=== PATIENT | female | born 1935 | race Caucasian/White ===

== ENCOUNTER 2019-06-24 10:34 | Emergency (ER) | payer MEDICARE, OTHER ==
[~2019-06-24] VITALS: Ht 160 cm; Wt 54.4 kg
--- OUTSIDE RECORDS SUMMARY | ~2019-06-24 | XMS | Encounter Summary ---
Demographics + + + | Address | [address] | | | [place] [address] | + + + | Home Phone | | + + + | Preferred Language | Unknown | + + + | Marital Status | | + + + | Adventism Affiliation | 1077 | + + + | Race | Unknown | + + + | Ethnic Group | Unknown | + + + Author + + + | Author | [facility] | | | and [place] | + + + | Organization | [facility] | | | and [place] | + + + | Address | Unknown | + + + | Phone | Unavailable | + + + Care Team Providers + +------+ + | Care Head Custodian Name | Role | Phone | + +------+ + PCP | Unavailable | + +------+ + Encounter Details +--------+ + + + + | Date | Type | Department | Care Team | Description | +--------+ + + + + | 12/01/ | Emergency | [facility] | Trace, | Closed nondisplaced | | 2017 | | [facility] | DO [address] | fracture of sixth | | | | EM[facility] | [address] | cervical vertebra, | | | | [address] | [place] [address] | unspecified fracture | | | | [place], [place] | [phone] | morphology, initial | | | | [address] | | encounter ([facility]); | | | | [phone] | | Laceration of | | | | | | forehead, initial | | | | | | encounter; Closed | | | | | | fracture of left | | | | | | wrist, initial | | | | | | encounter | +--------+ + + + + Social History + +-------+ +--------+------+ | Tobacco Use | Types | Packs/Day | Years | Date | | | | | Used | | + +-------+ +--------+------+ | Never Assessed | | | | | + +-------+ +--------+------+ + + + | Sex Assigned at | Date Recorded | | | | + + + | Not on file | | + + + + + + + | Job Start Date | Occupation | Industry | + + + + | Not on file | Not on file | Not on file | + + + + + + + + | Travel History | Travel Start | Travel End | + + + + + + | No recent travel history available. | + + documented as of this encounter Last Filed Vital Signs + + + + + | Vital Sign | Reading | Time Taken | Comments | + + + + + | Blood Pressure | 170/84 | 12/01/2017 6:27 PM | | | | | PDT | | + + + + + | Pulse | 94 | 12/01/2017 6:27 PM | | | | | PDT | | + + + + + | Temperature | 37.1 C (98.8 F) | 12/01/2017 6:27 PM | | | | | PDT | | + + + + + | Respiratory Rate | 17 | 12/01/2017 6:27 PM | | | | | PDT | | + + + + + | Oxygen Saturation | - | - | | + + + + + | Inhaled Oxygen | - | - | | | Concentration | | | | + + + + + | Weight | 54.4 kg (120 lb) | 12/01/2017 6:27 PM | | | | | PDT | | + + + + + | Height | 160 cm (5' 3") | 12/01/2017 6:27 PM | | | | | PDT | | + + + + + | Body Mass Index | 21.26 | 12/01/2017 6:27 PM | | | | | PDT | | + + + + + documented in this encounter Medications at Time of Discharge + + + +---------+ + + | Medication | Sig | Dispensed | Refills | Start | End Date | | | | | | Date | | + + + +---------+ + + | ascorbic acid | Take 1,000 mg by | | 0 | 12/02/19 | | | (VITAMIN C) 1000 MG | mouth daily. | | | 18 | | | tablet | | | | | | + + + +---------+ + + | docusate sodium | Take 100 mg by mouth | | 0 | 12/02/19 | | | (COLACE) 100 mg | daily. | | | 18 | | | capsule | | | | | | + + + +---------+ + + | Multiple | Take 1 tablet by | | 0 | 12/02/19 | | | Vitamins-Minerals | mouth daily. | | | 18 | | | (MULTIPLE VITAMINS | | | | | | | W/MINERALS) TABS | | | | | | + + + +---------+ + + | tocopherol | Take 400 Units by | | 0 | 12/02/19 | | | (VITAMIN E) 400 | mouth daily. | | | 18 | | | units capsule | | | | | | + + + +---------+ + + | VITAMIN A EX | Apply topically. | | 0 | 12/02/19 | | | | | | | 18 | | + + + +---------+ + + documented as of this encounter Plan of Treatment Not on filedocumented as of this encounter Procedures + +--------+ + + + | Procedure Name | Priori | Date/Time | Associated Diagnosis | Comments | | | ty | | | | + +--------+ + + + | MRI CERVICAL SPINE | Routin | 12/01/2017 | | Results for this | | WO CONTRAST | e | 4:52 PM | | procedure are in the | | | | PDT | | results section. | + +--------+ + + + | XR WRIST LEFT 3 + VW | Routin | 12/01/2017 | | Results for this | | | e | 3:17 PM | | procedure are in the | | | | PDT | | results section. | + +--------+ + + + documented in this encounter Results MRI Cervical Spine wo Contrast (12/01/2017 4:52 PM PDT) + + | Specimen | + + | | + + + + + | Impressions | Performed At | + + + | 1. Acute avulsion fracture noted involving the anterior inferior | | | edge of the C6 vertebral body, with associated anterior longitudinal | | | ligament injury. 2. Edema seen at the left facet joint of C6-C7 | | | laterally, which could be degenerative or may relate to an acute | | | nondisplaced fracture. 3. Moderate to severe disc degenerative | | | changes noted throughout the cervical spine. Iufa-sg-ighcomem | | | multilevel spinal canal narrowing. Severe bilateral neural foraminal | | | narrowing from C3-C4 up to C7-T1. 4. Multilevel mild indentation of | | | the spinal cord secondary to the disc degenerative changes. No | | | evidence of acute cord compression or edema seen. Electronically | | | signed by Jose Juan Mckeon MD on 12/01/2017 5:16 PM | | + + + + + + | Narrative | Performed At | + + + | [facility] 1935 MRI CERVICAL SPINE WO CONTRAST | | | 12/01/2017 4:52 PM HISTORY: Fall. Fracture. COMPARISON: CT | | | cervical spine on 12/01/2017. TECHNIQUE: Imaging was performed on | | | a 1.5 Kim MRI system. Multiplanar sequences according to a | | | standard department protocol were acquired without contrast. | | | FINDINGS: -Avulsion fracture of the anterior inferior edge of C6 | | | vertebral body seen, with anterior longitudinal ligament injury. | | | -There is edema noted at the left facet joint of C6-C7 laterally on | | | series 7, image 12. This could be degenerative, or may relate to an | | | acute nondisplaced fracture. Minimal grade 1 retrolisthesis of C3 | | | on C4, unchanged. Apart from multilevel mild indentation of the | | | spinal cord secondary to degenerative changes, the spinal cord appears | | | unremarkable. No evidence of acute cord compression or edema seen. | | | Findings by level: Moderate to severe disc degenerative changes | | | noted throughout the cervical spine. These include disc height loss, | | | disc desiccation and disc bulging. Multilevel facet arthropathy and | | | uncovertebral joint spurring seen contributing to neural foraminal | | | disease bilaterally. C2-C3: Minimal disc bulging. Mild spinal | | | canal narrowing. Mild bilateral neural foraminal narrowing. C3-C4: | | | Disc bulging. Moderate spinal canal narrowing. Severe bilateral | | | neural foraminal narrowing. C4-C5: Disc bulging. Moderate spinal | | | canal narrowing. Severe bilateral neural foraminal narrowing. | | | C5-C6: Disc bulging. Mild spinal canal narrowing. Severe bilateral | | | neural foraminal narrowing. C6-C7: Disc bulging. Mild spinal canal | | | narrowing. Severe bilateral neural foraminal narrowing. C7-T1: | | | Disc bulging. Mild spinal canal narrowing. Severe bilateral neural | | | foraminal narrowing. | | + + + + + | Procedure Note | + + | Arpit, Rad Conversion - 10/01/2018 11:45 AM ÁNGEL STEVENSING1935MRI CERVICAL | | SPINE WO GHFNETDB60/14/2018 4:52 PM HISTORY: Fall. Fracture. COMPARISON: CT cervical | | spine on 12/01/2017. TECHNIQUE:Imaging was performed on a 1.5 Kim MRI system. | | Multiplanar sequences according to a standard department protocol were acquired without | | contrast. FINDINGS:-Avulsion fracture of the anterior inferior edge of C6 vertebral body | | seen, with anterior longitudinal ligament injury.-There is edema noted at the left | | facet joint of C6-C7 laterally on series 7, image 12. This could be degenerative, or may | | relate to an acute nondisplaced fracture. Minimal grade 1 retrolisthesis of C3 on C4, | | unchanged. Apart from multilevel mild indentation of the spinal cord secondary to | | degenerative changes, the spinal cord appears unremarkable. No evidence of acute cord | | compression or edema seen. Findings by level: Moderate to severe disc degenerative | | changes noted throughout the cervical spine. These include disc height loss, disc | | desiccation and disc bulging. Multilevel facet arthropathy and uncovertebral joint | | spurring seen contributing to neural foraminal disease bilaterally. C2-C3: Minimal disc | | bulging. Mild spinal canal narrowing. Mild bilateral neural foraminal narrowing. C3-C4: | | Disc bulging. Moderate spinal canal narrowing. Severe bilateral neural foraminal | | narrowing. C4-C5: Disc bulging. Moderate spinal canal narrowing. Severe bilateral neural | | foraminal narrowing. C5-C6: Disc bulging. Mild spinal canal narrowing. Severe bilateral | | neural foraminal narrowing. C6-C7: Disc bulging. Mild spinal canal narrowing. Severe | | bilateral neural foraminal narrowing. C7-T1: Disc bulging. Mild spinal canal narrowing. | | Severe bilateral neural foraminal narrowing. IMPRESSION: 1. Acute avulsion fracture | | noted involving the anterior inferior edge of the C6 vertebral body, with associated | | anterior longitudinal ligament injury.2. Edema seen at the left facet joint of C6-C7 | | laterally, which could be degenerative or may relate to an acute nondisplaced | | fracture.3. Moderate to severe disc degenerative changes noted throughout the cervical | | spine. Gyhl-zi-utnfdrae multilevel spinal canal narrowing. Severe bilateral neural | | foraminal narrowing from C3-C4 up to C7-T1.4. Multilevel mild indentation of the spinal | | cord secondary to the disc degenerative changes. No evidence of acute cord compression | | or edema seen. | |C5-C6: Disc bulging. Mild spinal canal narrowing. Severe bilateral neural foraminal narrowi ng. | | | |C6-C7: Disc bulging. Mild spinal canal narrowing. Severe bilateral neural foraminal narrowi ng. | | | |C7-T1: Disc bulging. Mild spinal canal narrowing. Severe bilateral neural foraminal narrowi ng. | | | |IMPRESSION: | |1. Acute avulsion fracture noted involving the anterior inferior edge of the C6 vertebral body, with associated anterior longitudinal ligament injury. | |2. Edema seen at the left facet joint of C6-C7 laterally, which could be degenerative or m ay relate to an acute nondisplaced fracture. | |3. Moderate to severe disc degenerative changes noted throughout the cervical spine. Mild- to-moderate multilevel spinal canal narrowing. Severe bilateral neural foraminal narrowing f rom C3-C4 up to C7-T1. | |4. Multilevel mild indentation of the spinal cord secondary to the disc degenerative gorman es. No evidence of acute cord compression or edema seen. | | | | | + + XR Wrist Left 3 + Vw (12/01/2017 3:17 PM PDT) + + | Specimen | + + | | + + + + + | Impressions | Performed At | + + + | Findings and impression: -There is buckling deformity of the distal | | | radius seen near the metaphysis, which appears to be secondary to a | | | remote fracture, although this potentially could represent a late | | | subacute fracture. -There is osteopenia seen which diminishes | | | sensitivity. -Overall, no convincing evidence of an acute fracture | | | appreciated. -Advanced degenerative changes identified at the base of | | | the first metacarpal, and the articulation of the scaphoid with the | | | trapezium/trapezoid. | | + + + + + + | Narrative | Performed At | + + + | [facility] 1935 XR WRIST LEFT 12/01/2017 3:17 PM | | | INDICATION: Fall. COMPARISON: None. TECHNIQUE: Left wrist | | | series, 4 views | | + + + + + | Procedure Note | + + | Arpit, Rad Conversion - 10/01/2018 11:45 AM PDT [facility]1935XR WRIST | | LEFT12/01/2017 3:17 PM INDICATION: Fall. COMPARISON: None. TECHNIQUE: Left wrist series, | | 4 views IMPRESSION: Findings and impression:-There is buckling deformity of the distal | | radius seen near the metaphysis, which appears to be secondary to a remote fracture, | | although this potentially could represent a late subacute fracture.-There is osteopenia | | seen which diminishes sensitivity.-Overall, no convincing evidence of an acute fracture | | appreciated.-Advanced degenerative changes identified at the base of the first | | metacarpal, and the articulation of the scaphoid with the trapezium/trapezoid. | | | |TECHNIQUE: Left wrist series, 4 views | | | |IMPRESSION: | |Findings and impression: | |-There is buckling deformity of the distal radius seen near the metaphysis, which appears t o be secondary to a remote fracture, although this potentially could represent a late subacu te fracture. | |-There is osteopenia seen which diminishes sensitivity. | |-Overall, no convincing evidence of an acute fracture appreciated. | |-Advanced degenerative changes identified at the base of the first metacarpal, and the hipolito culation of the scaphoid with the trapezium/trapezoid. | | | | | + + documented in this encounter Visit Diagnoses + + | Diagnosis | + + | Closed nondisplaced fracture of sixth cervical vertebra, unspecified fracture | | morphology, initial encounter (HCC) | + + | Laceration of forehead, initial encounter | + + | Closed fracture of left wrist, initial encounter | + + documented in this encounter
--- OUTSIDE RECORDS SUMMARY | ~2019-06-24 | XMS | Encounter Summary ---
Demographics + + + | Address | [address] | | | [place] [address] | + + + | Home Phone | | + + + | Preferred Language | Unknown | + + + | Marital Status | | + + + | Restoration Affiliation | 1077 | + + + | Race | Unknown | + + + | Ethnic Group | Unknown | + + + Author + + + | Author | [facility] | | | and [place] | + + + | Organization | [facility] | | | and [place] | + + + | Address | Unknown | + + + | Phone | Unavailable | + + + Care Team Providers + +------+ + | Care Process Control Supervisor Name | Role | Phone | + +------+ + PCP | Unavailable | + +------+ + Encounter Details +--------+ + + + + | Date | Type | Department | Care Team | Description | +--------+ + + + + | 12/01/ | Hospital | [facility] | Conversion | Pain | | 2018 | Encounter | CONVERSION [address] | Transaction, | | | | | [address] | Provider Unknown | | | | | [place] | [phone] | | | | | [address] | | | | | | [phone] | | | +--------+ + + + + Social [...] + + documented as of this encounter Medications at Time of Discharge [...] | + +--------+ + + + | CT CERVICAL SPINE WO | Routin | 12/01/2017 | | Results for this | | CONTRAST | e | 11:47 AM | | procedure are in the | | | | PDT | | results section. | + +--------+ + + + documented in this encounter Results CT Cervical Spine wo Contrast (12/01/2017 11:47 AM PDT) + + | Specimen | + + | | + + + + + | Narrative | Performed At | + + + | This is a non-reportable procedure without a radiologist report and | | | is used for image storage only | | + + + + + | Procedure Note | + + | Maxwell Munson - 10/01/2018 11:45 AM PDT This is a non-reportable procedure | | without a radiologist report and isused for image storage only | + + documented in this encounter Visit Diagnoses + + | Diagnosis | + + | Pain Generalized pain | + + documented in this encounter"
--- OUTSIDE RECORDS SUMMARY | ~2019-06-24 | XMS | Clinical Summary ---
Demographics + + + | Address | [address] | | | [place] [address] | + + + | Home Phone | | + + + | Preferred Language | Unknown | + + + | Marital Status | | + + + | Moravian Affiliation | 1077 | + + + | Race | Unknown | + + + | Ethnic Group | Unknown | + + + Author + + + | Author | [facility] (Historical as of | | | 10-04-18) | + + + | Organization | [facility] (Historical as of | | | 10-04-18) | + + + | Address | Unknown | + + + | Phone | Unavailable | + + + Support + + +---------+ + | Name | Relationship | Address | Phone | + + +---------+ + | Kirt Roman | ECON | Unknown | | + + +---------+ + | JuvencioJeanine | ECON | Unknown | | + + +---------+ + | Jillian Orozco | ECON | Unknown | | + + +---------+ + Care Team Providers + +------+ + | Care Truck And Transport Mechanic Name | Role | Phone | + +------+ + | None, Per Pt | PP | [phone] | + +------+ + Allergies + + + + + + | Active Allergy | Reactions | Severity | Noted | Comments | | | | | Date | | + + + + + + | Meperidine | Hallucinations | Medium | 12/02/19 | | | | | | 18 | | + + + + + + Current Medications + + +-------+---------+------+------+-------+ | Prescription | Sig. | Disp. | Refills | Star | End | Statu | | | | | | t | Date | s | | | | | | Date | | | + + +-------+---------+------+------+-------+ | docusate sodium | Take 100 mg by mouth | | | | | Activ | | (DOCU SOFT) 100 MG | daily. | | | | | e | | capsule | | | | | | | + + +-------+---------+------+------+-------+ | VITAMIN A EX | Apply topically. | | | | | Activ | | | | | | | | e | + + +-------+---------+------+------+-------+ | vitamin E 400 UNIT | Take 400 Units by | | | | | Activ | | capsule | mouth daily. | | | | | e | + + +-------+---------+------+------+-------+ | ascorbic acid | Take 1,000 mg by | | | | | Activ | | (VITAMIN C) 1000 MG | mouth daily. | | | | | e | | tablet | | | | | | | + + +-------+---------+------+------+-------+ | | Take 1 tablet by | | | | | Activ | | multivitamin-mineral | mouth daily. | | | | | e | | s (OCUVITE-LUTEIN) | | | | | | | | tablet | | | | | | | + + +-------+---------+------+------+-------+ Active Problems Not on file Social History + +-------+ +--------+------+ | Tobacco [...] on file | | + + + Last Filed Vital Signs + + + + | Vital Sign | Reading | Time Taken | + + + + | Blood Pressure | 170/84 | 12/01/2017 6:27 PM PDT | + + + + | Pulse | 94 | 12/01/2017 6:27 PM PDT | + + + + | Temperature | 37.1 C (98.8 F) | 12/01/2017 5:44 PM PDT | + + + + | Respiratory Rate | 17 | 12/01/2017 6:27 PM PDT | + + + + | Oxygen Saturation | 97% | 12/01/2017 6:27 PM PDT | + + + + | Inhaled Oxygen | - | - | | Concentration | | | + + + + | Weight | 54.4 kg (120 lb) | 12/01/2017 2:32 PM PDT | + + + + | Height | 160 cm (5' 3") | 12/01/2017 2:32 PM PDT | + + + + | Body Mass Index | 21.26 | 12/01/2017 2:32 PM PDT | + + + + Plan of Treatment Not on file Results Not on filefrom Last 3 Months Insurance + +--------+ +------+-------+ + | Payer | Benefi | Subscriber | Type | Phone | Address | | | t Plan | ID | | | | | | / | | | | | | | Group | | | | | + +--------+ +------+-------+ + | MEDICARE | MEDICA | [id number] | | | [address] | | | RE | | | | [place] [id number] | | | IP-OP | | | | | + +--------+ +------+-------+ + | COMMERCIAL OTHER | GEHA | [id number] | | | | + +--------+ +------+-------+ + + +--------+ +--------+ + + | Guarantor Name | Accoun | Relation to | Date | Phone | Billing Address | | | t Type | Patient | of | | | | | | | | | | + +--------+ +--------+ + + | KERRY OROZCO | Person | Self | [birth year] | Home: | [address] | | | [place] | | 1936 | [phone] | [place] | | | rafael | | | [phone] | + +--------+ +--------+ + +
--- OUTSIDE RECORDS SUMMARY | ~2019-06-24 | XMS | Encounter Summary ---
Demographics + + + | Address | [address] | | | [place] [address] | + + + | Home Phone | | + + + | Preferred Language | Unknown | + + + | Marital Status | | + + + | Gnosticism Affiliation | 1077 | + + + | Race | Unknown | + + + | Ethnic Group | Unknown | + + + Author + + + | Author | [facility] | | | and [place] | + + + | Organization | [facility] | | | and [place] | + + + | Address | Unknown | + + + | Phone | Unavailable | + + + Care Team Providers + +------+ + | Care Electronic Gluer Name | Role | Phone | + +------+ + PCP | Unavailable | + +------+ + Encounter Details +--------+ + + + + | Date | Type | Department | Care Team | Description | +--------+ + + + + | 12/01/ | Hospital | [facility] | Conversion | Pain | | 2018 | Encounter | CONVERSION [address] | Transaction, | | | | | [address] | Provider Unknown | | | | | [place] | [phone] | | | | | [address] | | | | | | [phone] | | | +--------+ + + + [...]
--- OUTSIDE RECORDS SUMMARY | ~2019-06-24 | XMS | Clinical Summary ---
Demographics + + + | Address | [address] | | | [place] [address] | + + + | Home Phone | | + + + | Preferred Language | Unknown | + + + | Marital Status | | + + + | Baptism Affiliation | 1077 | + + + | Race | Unknown | + + + | Ethnic Group | Unknown | + + + Author + + + | Author | [facility] | | | and [place] | + + + | Organization | [facility] | | | and [place] | + + + | Address | Unknown | + + + | Phone | Unavailable | + + + Care Team Providers + +------+ + | Care Database Specialist Name | Role | Phone | + +------+ + PCP | Unavailable | + +------+ + Allergies + + + + + + | Active Allergy | Reactions | Severity | Noted | Comments | | | | | Date | | + + + + + + | Meperidine | Hallucination | Medium | // | | | | | | 18 | | + + + + + + Medications + + + +---------+------+------+-------+ | Medication | Sig | Dispensed | Refills | Star | End | Statu | | | | | | t | Date | s | | | | | | Date | | | + + + +---------+------+------+-------+ | VITAMIN A EX | Apply topically. | | 0 | 10/ | | Activ | | | | | | /20 | | e | | | | | | 18 | | | + + + +---------+------+------+-------+ | docusate sodium | Take 100 mg by mouth | | 0 | 10/1 | | Activ | | (COLACE) 100 mg | daily. | | | 4/20 | | e | | capsule | | | | 18 | | | + + + +---------+------+------+-------+ | tocopherol | Take 400 Units by | | 0 | 10/1 | | Activ | | (VITAMIN E) 400 | mouth daily. | | | 4/20 | | e | | units capsule | | | | 18 | | | + + + +---------+------+------+-------+ | ascorbic acid | Take 1,000 mg by | | 0 | 10/1 | | Activ | | (VITAMIN C) 1000 MG | mouth daily. | | | 4/20 | | e | | tablet | | | | 18 | | | + + + +---------+------+------+-------+ | Multiple | Take 1 tablet by | | 0 | 10/ | | Activ | | Vitamins-Minerals | mouth daily. | | | 06/07 | | e | | (MULTIPLE VITAMINS | | | | 18 | | | | W/MINERALS) TABS | | | | | | | + + + +---------+------+------+-------+ Active Problems Not on file Social History [...] recent travel history available. | + + Last Filed Vital Signs + [...] | | + + + + + Plan of Treatment + + + + + | Health Maintenance | Due Date | Last Done | Comments | + + + + + | Vaccine: | | | | | Dtap/Tdap/Td (1 - | 7 | | | | Tdap) | | | | + + + + + | Vaccine: Zoster (1 | | | | | of 2) | 6 | | | + + + + + | Vaccine: | | | | | Pneumococcal 65+ (1 | 1 | | | | of 2 - PCV13) | | | | + + + + + | Adult Annual | | | | | Wellness Visit | 0 | | | + + + + + | Vaccine: Influenza | | | | | (Season Ended) | 0 | | | + + + + + Results Not on filefrom Last 3 Months
--- OUTSIDE RECORDS SUMMARY | ~2019-06-24 | XMS | Clinical Summary ---
Demographics + + + | Address | [address] | | | [place] [address] | + + + | Home Phone | | + + + | Preferred Language | Unknown | + + + | Marital Status | | + + + | Congregation Affiliation | 1077 | + + + | Race | Unknown | + + + | Ethnic Group | Unknown | + + + Author + + + | Author | [facility] (Historical as of | | | 10-04-18) | + + + | Organization | [facility] (Historical as of | | | 10-04-18) [...] Team Providers + +------+ + | Care Housing Officer Name | Role | Phone | + [...] +------+-------+ + | MEDICARE | MEDICA | [id number] | | | [address] | | | RE | | | | [place] [address] | | | IP-OP | | | | | + +--------+ +------+-------+ + | COMMERCIAL OTHER | GEHA | [id number] | | | | + +--------+ +------+-------+ [...] | rafael | | | [phone] | [phone] | + +--------+ +--------+ + +
--- OUTSIDE RECORDS SUMMARY | ~2019-06-24 | XMS | Encounter Summary ---
Demographics + + + | Address | [address] | | | [place] [address] | + + + | Home Phone | | + + + | Preferred Language | Unknown | + + + | Marital Status | | + + + | Orthodoxy Affiliation | 1077 | + + + | Race | Unknown | + + + | Ethnic Group | Unknown | + + + Author + + + | Author | [facility] | | | and Fedeana | + + + | Organization | [facility] | | | and Fedeana | + + + | Address | Unknown | + + + | Phone | Unavailable | + + + Care Team Providers + +------+ + | Care Billing Clerk Name | Role | Phone | + +------+ + PCP | Unavailable | + +------+ + Encounter Details +--------+ + + + + | Date | Type | Department | Care Team | Description | +--------+ + + + + | 12/01/ | Emergency | [facility] | Trace, | Closed nondisplaced | | 2017 | | [facility] | DO [address] | fracture of sixth | | | | EMERGENCY CENTER | [address] | cervical vertebra, | | | | [address] | [place] [address] | unspecified fracture | | | | [place], [place] | [phone] | morphology, initial | | | | [phone] | | encounter ([facility]); | | | | [phone] | | Laceration of | | | [...] | changes noted throughout the cervical spine. [id number] | | | multilevel spinal canal narrowing. [...] ÁNGEL STEVENSING1935MRI CERVICAL | | SPINE WO [id number]/14/2018 4:52 PM HISTORY: Fall. Fracture. COMPARISON: CT [...] noted throughout the cervical | | spine. Loxf-eh-ghxdrezs multilevel spinal canal narrowing. Severe bilateral neural [...]
--- OUTSIDE RECORDS SUMMARY | ~2019-06-24 | XMS | Clinical Summary ---
Demographics + + + | Address | [address] | | | [place] [address] | + + + | Home Phone | | + + + | Preferred Language | Unknown | + + + | Marital Status | | + + + | Jew Affiliation | 1077 | + + + | Race | Unknown | + + + | Ethnic Group | Unknown | + + + Author + + + | Author | [facility] | | | and Fedeana | + + + | Organization | [facility] | | | and Fedeana | + + + | Address | Unknown | + + + | Phone | Unavailable | + + + Care Team Providers + +------+ + | Care Motel Operator Name | Role | Phone | [...]
--- OUTSIDE RECORDS SUMMARY | ~2019-06-24 | XMS | Encounter Summary ---
Demographics + + + | Address | [address] | | | [place] [address] | + + + | Home Phone | | + + + | Preferred Language | Unknown | + + + | Marital Status | | + + + | Lutheran Affiliation | 1077 | + + + | Race | Unknown | + + + | Ethnic Group | Unknown | + + + Author + + + | Author | [facility] | | | and Fede[place] | + + + | Organization | [facility] | | | and [place] | + + + | Address | Unknown | + + + | Phone | Unavailable | + + + Care Team Providers + +------+ + | Care Coordinator Of Online Programs Name | Role | Phone | + +------+ + PCP | Unavailable | + +------+ + Encounter Details +--------+ + + + + | Date | Type | Department | Care Team | Description | +--------+ + + + + | 12/01/ | Orders Only | [facility] | Conversion | | | 2018 | | CONVERSION DEP [address] | Transaction, | | | | | [address] | Provider Unknown | | | | | GABRIEL CROCKETT | [phone] | | | | | [address] | | | | | | [phone] | | | +--------+ + + + [...] Not on filedocumented as of this encounter Visit Diagnoses Not on filedocumented in this encounter"
--- OUTSIDE RECORDS SUMMARY | ~2019-06-24 | XMS | Encounter Summary ---
Demographics + + + | Address | [address] | | | [place] [address] | + + + | Home Phone | | + + + | Preferred Language | Unknown | + + + | Marital Status | | + + + | Restoration Affiliation | 1077 | + + + | Race | Unknown | + + + | Ethnic Group | Unknown | + + + Author + + + | Author | [facility] | | | and Fede[place] | + + + | Organization | [facility] | | | and [place] | + + + | Address | Unknown | + + + | Phone | Unavailable | + + + Care Team Providers + +------+ + | Care Resolution Expert Name | Role | Phone | + [...] | | | | GABRIEL CROCKETT | [phone] | | | | | [phone] | | | | | | [phone] | | | +--------+ + + + [...]
[~2019-06-24 10:34] MED LIST: COLACE100 MG PO; COZAAR25 MG; NORCO 5-325 TA1 EACH PO; OCUVITE TABLET1 EAC1 PO
[2019-06-24] MEDS ORDERED: MECLIZINE HCL25 MG PO (12:50)
--- NOTE | 2019-06-24 23:10 | EKG ---
[facility] [address] [place], [place] [address] Signed Normal sinus rhythm Normal ECG No previous ECGs available Confirmed by TAWANDA FONTAINE MD ([id number]) on 06/24/2019 11:10:10 PM Electronically Signed By: TAWANDA FONTAINE MD 06/24/19 2310 PATIENT NAME: CHEYENNE ADAMS Electrocardiogram DATE OF : 35 PHYSICIAN: TAWANDA FONTAINE MD REPORT #: [id number] REPORT IS CONFIDENTIAL AND NOT TO BE RELEASED WITHOUT AUTHORIZATION
== END 2019-06-24 13:00 | disposition home or self-care (01) ==
LOC: ED 10:34
DX: R42 Dizziness and giddiness (principal); I10 Essential (primary) hypertension
CPT/HCPCS: 70450; 80053; 81001; 84484; 85025; 93005; 93010; 96360; 99284-25; J7040

== ENCOUNTER 2021-04-22 12:32 | Inpatient (IN) | payer MEDICARE, OTHER ==
[~2021-04-22] VITALS: Ht 160 cm; Wt 51.2 kg
--- NOTE | ~2021-04-22 | CONS ---
[facility] [address], [place] [address] Draft DATE OF CONSULTATION: 04/22/2021 REQUESTING PHYSICIAN: Dr. Carter. PROBLEM: Diarrhea and cecal and ileal inflammatory change on CT scan. HISTORY OF PRESENT ILLNESS: This very pleasant and interactive 86-year-old white woman was admitted to the hospital by Dr. Carter, having presented to the emergency room with a longstanding and protracted diarrhea. Her diarrhea has been going on for at least 2 weeks and possibly more. She has had 2 to 4 bowel movements a day, considered dark brown and often very thin. She also has had associated abdominal pain and a feeling of her stomach "growling." She has taken no medications to temper her symptoms in any way. She thought it was "the food I was eating." She converted to a diet of only white food (white bread, etc.), but this was of no real benefit. She has had no antibiotic treatments in recent times that she recalls. She lives alone ( for over 30 years) and has no other household members that may have been concurrently ill. She denies any family history of colon cancer; she has had colonoscopies in the past locally. She knows of no family history of Crohn disease or ulcerative colitis. SOCIAL HISTORY: She is and lives alone. She does not smoke or drink alcohol. REVIEW OF SYSTEMS: She denies any shortness of breath or chest pain. She has had no hematemesis or hematuria. Her diarrhea has not been associated with rectal bleeding that she is aware of. Notably, since her admission, she has felt markedly better as regards to gurgling of the stomach and diarrhea. PHYSICAL EXAMINATION: GENERAL: Pleasant, relatively thin white woman, who does not look to be distressed at this time. VITAL SIGNS: Temperature is 98.5, pulse 80, blood pressure 149/75, O2 saturation 100% on room air. NECK: Shows no thyromegaly or cervical adenopathy. Trachea is midline. CHEST: Clear. HEART: Regular without murmur. ABDOMEN: With poor muscle tone. There is mild distention, but not much. Palpation reveals no mass. There is minimal tenderness in the right lower quadrant. EXTREMITIES: Show no clubbing, cyanosis, or edema. PATIENT NAME: CHEYENNE ADAMS CONSULTATION DATE OF : 35 REPORT #: [id number] PHYSICIAN: KARUNA HILL MD PCP: EWA SALDIVAR DO REPORT IS CONFIDENTIAL AND NOT TO BE RELEASED WITHOUT AUTHORIZATION [facility] [address], [place] [address] Draft LABORATORY STUDIES: Show white count of 6.7, hematocrit 28.9, and platelets 292,000. Her chemistry studies are normal. Calcium is 8.1. Liver enzymes are normal. Albumin 2.8, lipase 42. Urinalysis has yet to be run. Her COVID serology is negative. C difficile study is pending. Stool studies have been sent as well. ASSESSMENT: I have reviewed her imaging studies reports, lab studies, and of course examining the patient's herself. Although, there is reasonable concern for an infectious etiology to her problem. Her concurrent significant anemia, hematocrit of 28.6 is notable. Although, the problem of the cecum and ileum may well be an infectious or inflammatory cause. I maintained some concern for neoplasm. She was noted incidentally to have an intussusception of the left colon without proximal dilation and she certainly has no symptoms to correspond to such a finding. I would recommend continued evaluation with stool studies as planned and IV antibiotics as outlined by Dr. Carter, ultimately to consider colonoscopy. Her combination of medications is Flagyl and Cipro intravenously administered. She was unable to tolerate much oral intake previously, but looks as though she would now. It is uncertain at which time colonoscopy should be undertaken; at present, we will not proceed with a bowel prep at this time, but rather observe more fully her progress with IV hydration and collection of stool studies as it becomes available. MD CHAZ Childress/RIO /[id number] cc: Elissa Carter MD Copies: ELISSA CARTER MD ~ PATIENT NAME: CHEYENNE ADAMS CONSULTATION DATE OF : 35 REPORT #: [id number] PHYSICIAN: KARUNA HILL MD PCP: EWA SALDIVAR DO REPORT IS CONFIDENTIAL AND NOT TO BE RELEASED WITHOUT AUTHORIZATION
[~2021-04-22 12:32] MED LIST changes: +MECLIZINE HCL25 MG PO
--- NOTE | 2021-04-22 20:02 | NUR ---
REPORT FROM SEEMA JOINER IN E.D.
--- NOTE | 2021-04-22 21:49 | NUR ---
PT ARRIVED TO [facility] AT 2049 VIA STRETCHER AND WAS TUCKED IN TO ROOM BY GAMEPLAY PROGRAMMER WHO BROUGHT HER AND VS TAKEN. IN ROOM TO COMPLETE ADMISSION HX WITH PT. PROVIDED CARTER LIQUIDS AND ORIENTED PT TO CALL LIGHT. IV FLUIDS AND IV CIPRO INFUSING AT THIS TIME. ASSISTED PT TO RESTROOM TO VOID URINE. PT DENIES FURTHER NEEDS. CALL LIGHT IS CLOSE.
--- NOTE | 2021-04-22 22:30 | NUR ---
INTO PT ROOM FOR CONSULT. THIS RN INTO ROOM TO ASSIST IF NEEDED AND LISTEN TO 'S PLAN OF CARE FOR PT. NO NEW ORDERS FOR TONIGHT, HE PLANS TO RE-EVALUATE TOMORROW
--- NOTE | 2021-04-22 23:00 | NUR ---
ASSIST PT TO THE TOILET, SBA/INDP AND BACK TO BED
--- NOTE | 2021-04-22 23:17 | NUR ---
PT RESTING IN BED AFTER UP TO BATHROOM, LIGHTS ARE OFF IN ROOM, PT ALERT TO STAFF AT BEDSIDE. ASSESSMENT COMPLETE, WARM BLANKETS X2 PROVIDED, ABX INFUSING PER ORDER. PT RPEORTS SHE HAS NO PAIN OR NAUSEA AT THIS TIME, SHE HAS BEEN UP TO VOID FREQUESTLY NO STOOL SINCE ADMIT. PT HAS NO OTHER CONCERNS OR REQUESTS AT THIS TIME, CALL LIGHT IN REACH.
--- NOTE | 2021-04-23 04:05 | NUR ---
PT ROUNDING PT REPORTS HAVING LOW BACK PAIN, OFFERED PT TYLENOL FOR PAIN, SHE DENIED WANTING THIS AT THIS TIME, DISCUSSED WITH PT THE POSSIBILTIY OF THE BED THE CAUSE SHE SAID "WELL THAT MIGHT BE, I'LL JUST CHANGE UP MY POSITION AND SEE IF THAT HELPS" ASSISTED PT WITH REPOSITIONING BED, HEAD AND KNEE SECTIONS, SHE SAID "OK LET'S TRY THAT" WILL MONITOR FOR FURTHER NEEDS.
--- NOTE | 2021-04-23 05:09 | NUR ---
PT ADMITTED 2100 ON PROJECT INTERN, SHE ARRIVED ALERT AND ORIENTED, SHE REPORTED NO PAIN OR NAUSEA, ROUNDED FOR HIS CONSULT, NO NEW ORDERS FOR NOW, SHE HAS SLEPT INTERMITTENLY OVER SHIFT, SHE REPORTED MILD BACK PAIN, POSSIBLY FROM HOSPITAL BED AND POSITIONING, REPOSITIONED NO COMPLAINTS SINCE. SHE IS TOLERATING HER CLEAR LIQUID DIET, AWAITING STOOL TO SEND SAMPLES.
--- NOTE | 2021-04-23 06:01 | NUR ---
PT REPORTS AFTER REPOSITIONING IN BED HER BACK PAIN RESOLVED COMPLETELY, PT UP TO BATHROOM TO VOID, ALERT AND ORIENTED, STANDBY ASSIST. FRESH WATER PROVIDED. CALL LIGHT IN REACH
--- NOTE | 2021-04-23 07:51 | NUR ---
PT ASLEEP IN BED WITH EYES CLOSED. WHITE BOARD UPDATED. CALL LIGHT IN REACH. THIS DIRECTOR OF PUBLICATIONS WILL CHECK IN WITH BREAKFAST. NO FURTHER NEEDS AT THIS TIME.
--- NOTE | 2021-04-23 08:10 | NUR ---
ASSISTED PT TO RESTROOM. UNABLE TO COLLECT STOOL SHE HAD IMMODIUM IN ED AND HAS NOT GONE SINCE. STATES SHE IS FEELING MUCH BETTER NOW, WITH NO PAIN. OFFERED JUICE FOR BREAKFAST.
--- NOTE | 2021-04-23 09:05 | NUR ---
PT AWAKE IN BED WITH RHYS HARPER AT BEDSIDE. CALL LIGHT IN REACH. NO FURTHER NEEDS AT THIS TIME.
[2021-04-23] MEDS ORDERED: D3-200050 MCG PO (09:16)
[2021-04-23] MEDS ORDERED: CALCIUM 600 MG1 EA11 PO (09:17)
[2021-04-23] MEDS ORDERED: VITAMIN B-12500 MCG PO (09:17)
[2021-04-23] MEDS ORDERED: VITAMIN C1000 MG PO (09:18)
--- NOTE | 2021-04-23 09:45 | NUR ---
ADMINISTERED MG RIDER ADN ASSESSMENT DONE.
--- NOTE | 2021-04-23 11:44 | NUR ---
PT UP TO RESTROOM. STILL NO STOOL BUT VOIDING QS. CHANGED GOWN. OFFERED SHOWER. PT REFUSED ATT.
--- NOTE | 2021-04-23 13:17 | NUR ---
ADMINISTERED AB. ASSISTED PT TO RESTROOM. PT FORGETFUL REGARDING HER IV BUT OTHERWISE SBA.
--- NOTE | 2021-04-23 13:28 | NUR ---
PT RESTING IN BED LISTENING TO MUSIC. CALL LIGHT IN REACH. NO FURTHER NEEDS AT THIS TIME.
--- NOTE | 2021-04-23 16:01 | NUR ---
PT SL AND UP TO RESTROOM. PT STATES SHE FEELS GOOD AND IS EXCITED TO EAT AT DINNER.
--- NOTE | 2021-04-23 21:03 | NUR ---
PT RESTING IN BED ALERT AND ORIENTED. SHE REPORTS NO PAIN OR NAUSEA. SHE IS RESTING IN BED WATCHING TV. CALL [facility] IN REACH. FRESH WATER PROVIDED, NO OTHER REQUESTS.
--- NOTE | 2021-04-23 23:24 | NUR ---
PT CALLED DUE TO IVP ALARMING, RN INTO ROOM, PT RESTING IN BED LIGHTS OFF, PT ALERT AND ORIENTED, ABX INFUSION COMPLETE, PT S/L, PT VERBALIZED THAT SHE HAS NO OTHER NEEDS AT THIS TIME, SHE SAID SHE IS GOING TO TRY TO SLEEP NOW. PT S/L BED ALARM ON FOR PT SAFETY.
--- NOTE | 2021-04-24 02:00 | NUR ---
PT SET OFF BED ALARM, THIS RN INTO ROOM, PT ALREADY UP OUT OF BED AMBULATING TO BATHROOM. THIS RN STAND BY ASSIST, WITH PT TO BATHROOM, DISCUSSED WITH PT THAT WHILE IN THE HOSPITAL STAFF WOULD LIKE YOU TO CALL WHEN NEEDING TO GET OUT OF BED SO THAT STAFF CAN BE IN ROOM FOR YOU SAFETY, PT VERBALIZED THAT SHE WOULD CALL, BED ALARM ON FOR PT SAFETY, PT VOIDED 650ML CLEAR YELLOW URINE. TOLERATED ACTIVITY WITH STEADY GAIT. PT REPORTS NO PAIN OR NAUSEA, SHE HAS NOT HAD ANY STOOL OUT SINCE ADMISSION.
--- NOTE | 2021-04-24 05:47 | NUR ---
PT HAS SLET INTERMITTENLY, NO NEW CONCERNS OVER SHIFT, NO PAIN OR NAUSEA, STANDBY ASSIST TO AMBULATE, AMBULATED IN HALLS TOELRATING ACTIVITY WELL. PT IS LOOKING FORWARD TO POSSIBLE DISCHARGE TODAY
--- NOTE | 2021-04-24 06:41 | NUR ---
CALL LIGHT ANSWERED. IV ANTIBIOTIC COMPLETE. IV SL WNL. CALL LIGHT IN REACH. BED ALARM ON.
--- NOTE | 2021-04-24 07:40 | NUR ---
REPORT RECIEVED FROM TAMEKA Naranjo RN
--- NOTE | 2021-04-24 07:58 | NUR ---
MORNING ASSESSMENT DONE, PATIENT IS UP TO THE CHAIR AND AWAITING BREAKFAST. PATIENT DENIES NAUSEA, ENDORSES SLIGHT LOWER BACK PAIN. PATIENT TOLERATED REGULAR DINNER LAST NIGHT AND WILL HAVE REGULAR BREAKFAST THIS MORNING, DENIES OTHER NEEDS AT THIS TIME.
--- NOTE | 2021-04-24 09:00 | NUR ---
Spoke with Kerry. 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 She lives alone in a one story home and denies needs. She does not use any DME. She has many friends and all are willing to help her. She denies any financial issues States her diarrhea has resolved and plans on going home today.
--- NOTE | 2021-04-24 09:26 | NUR ---
PT AWAKE IN BED AND CASE MANAGEMENT ANGÉLICA AT BEDSIDE. CALL LIGHT IN REACH. BED ALARM ON. NO FURTHER NEEDS AT THIS TIME.
--- NOTE | 2021-04-24 10:05 | NUR ---
STARTED MORNING AB. EXPLAINED TO PT. DR CARTER IN TO SEE PT. IV FLUSHED WELL. RESTING IN BED TO GO HOME. DENIES PAIN OR DISCOMFORT. HAS YET TO HAVE A BM. U\O QS.
--- NOTE | 2021-04-24 10:25 | NUR ---
PATIENT IS SLEEPING IN BED, ANTIBIOTIC INFUSING.
[2021-04-24] MEDS ORDERED: CIPROFLOXACIN500 MG PO (11:12)
[2021-04-24] MEDS ORDERED: METRONIDAZOLE500 MG PO (11:12)
[2021-04-24] MEDS ORDERED: FERROUS SULFAT325 MG PO (11:26)
--- NOTE | 2021-04-24 12:05 | NUR ---
PATIENT GIVEN RIDE TO FRONT, FRIEND TO TRANSPORT HOME.
== END 2021-04-24 12:00 | disposition home or self-care (01) | DRG 392 ==
LOC: ED 12:32 → MS 19:36
PROVIDERS: ADMIT Internal Medicine; ATTEND Internal Medicine
DX: A09 Infectious gastroenteritis and colitis, unspecified (principal); K56.1 Intussusception; D50.9 Iron deficiency anemia, unspecified; Z20.822 Contact with and (suspected) exposure to COVID-19
CPT/HCPCS: 36415; 74177; 80053; 81001; 82728; 83690; 83735; 85025; 86140; 87045; 87177; 87328; 87329; 87493; 99285-25; C9803; J0744; J3475; J7040; J7121; Q9967; U0003

== ENCOUNTER 2021-05-02 22:42 | Inpatient (IN) | payer MEDICARE, OTHER ==
[~2021-05-02] VITALS: Ht 160 cm; Wt 46.1 kg
[~2021-05-02 22:42] MED LIST changes: +CALCIUM 600 MG1 EA11 PO; +CIPROFLOXACIN500 MG PO; +D3-200050 MCG PO; +FERROUS SULFAT325 MG PO; +METRONIDAZOLE500 MG PO; +VITAMIN B-12500 MCG PO; +VITAMIN C1000 MG PO
--- OUTSIDE RECORDS SUMMARY | 2021-05-02 22:48 | XMS ---
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 Hansa has no Care Guidelines for this patient. Leah VISIT COUNT (12 MO.) 1 [facility] TOTAL 3 NOTE: Visits indicate total known visits. ED/C VISIT TRACKING (12 MO.) 05[facility]02[facility]2021 22[facility] COMPLAINT: - [facility] DIAGNOSES: - Noninfective gastroenteritis and colitis, unspecified - blood in stool/diarrhea - Blood In Stool 04/22/2021 12:33 [facility] Hernandez TYPE: Emergency COMPLAINT: - ABD MASS, DIARRHEA INPATIENT VISIT TRACKING (12 MO.) 04/22/2021 19:36 [facility] Carlin [place] TYPE: Medical Surgical COMPLAINT: - COLITIS DIAGNOSES: - Iron deficiency anemia, unspecified - Intussusception - Infectious gastroenteritis and colitis, unspecified - Intussusception - Iron deficiency anemia, unspecified - Infectious gastroenteritis and colitis, unspecified - Noninfective gastroenteritis and colitis, unspecified [email or web address]
--- NOTE | 2021-05-03 05:10 | NUR ---
REPORT RECEIVED FROM HOSPICE DIRECTORRHYS AMAYA.
--- NOTE | 2021-05-03 05:57 | NUR ---
pt ARRIVES TO [place], AMBULATORY TO HOSPITAL BED. DENIES ANY PAIN, COMPLAINS OF DISCOMFORT FROM NGT. NGT TO LOW INT SUCTION, BROWN DRAINAGE IN TUBE. IV SITE FLUSHED WNL, IVF INFUSING ORDERED. ASSESSMENT COMPLETE. DAUGHTER IN ROOM. VSS. CALL LIGHT IN REACH. ORIENTATION TO ROOM PROVIDED.
--- NOTE | 2021-05-03 09:10 | CONS ---
[facility] [address], [place] [address] Signed DATE OF CONSULTATION: 05/03/2021 CHIEF COMPLAINT: Periumbilical abdominal distention and pain. HISTORY OF PRESENT ILLNESS: Kerry is an 86-year-old female, who lives by herself here in town and drives herself around. She just came in the hospital from 04/22 to 04/24 what looks like some inflammation versus cancer at the ileocecal valve area. She was treated with Cipro and Flagyl, and seemed to be doing well. She was noted to have microcytic anemia. She said her last colonoscopy was sometime in her 60s here in [place], [place]. Apparently, she was having some diarrhea and dark blood in the diarrhea for at least a couple of weeks prior to that admission. Her daughter, Jeanine had come out from [place], [place] to spend time with her. She is also here today. She went home on the Cipro and Flagyl, seemed to be doing fine. Then, she developed periumbilical crampy abdominal pain with distention. She has not vomited yet. She came back to the emergency room for evaluation. There was some mention of a possible self-limited 5 cm intussusception of the colon associated with this ileocecal valve area. That is not seen today on the CT scan. Her white count is normal and her exam shows the abdominal distention with some tenderness, but no peritonitis. Repeat CT scan shows this small bowel dilated out to about 3.7 cm with fluid with a transition point down in the lower abdomen, probably from her previous hysterectomy. The terminal ileum in the ileocecal valve area is still a little thickened. I was asked to admit her as a general surgeon on-call. She has done well overnight with IV fluids and an NG tube. PAST MEDICAL HISTORY: Recent resolved 5 cm colonic intussusception around the ileocecal valve as well as some thickening to the terminal ileum and the cecum. She has a small hiatal hernia. She has a single duodenal diverticulum. She has a wedge fracture at T12. She has hypertension, rheumatic fever, nosebleeds, osteoarthritis, and she has had falls in the past particularly when she tried to go for a curb. PAST SURGICAL HISTORY: Includes a hysterectomy, the tonsils, left wrist fracture, and a colonoscopy in her 60s here in [place], [place]. SOCIAL HISTORY: She does not smoke or drink. Her hr associate and friend is Kirt Roman at [phone]. Her daughter is Jeanine at [phone] from [place], [place]. She actually has five children. She lives in her house and drives around and lives alone. She made it very clear she is DNR/DNI without tube feeds and any heroic measures. FAMILY HISTORY: Electronically Signed By: OPAL IZAGUIRRE MD 05/03/21 0910 PATIENT NAME: KERRY ADAMS CONSULTATION DATE OF : 35 REPORT #: [id number] PHYSICIAN: OPAL IZAGUIRRE MD PCP: EWA SALDIVAR DO REPORT IS CONFIDENTIAL AND NOT TO BE RELEASED WITHOUT AUTHORIZATION [facility] [address], [place] [address] Signed Mom has stroke. Dad had some type of bowel obstruction and back many years ago. REVIEW OF SYSTEMS: She had 10 systems reviewed and nothing new to add. ALLERGIES: Lisinopril and Demerol. MEDICATIONS: 1. Vitamin D. 2. Calcium. 3. Vitamin B12. 4. Vitamin C. PHYSICAL EXAMINATION: VITAL SIGNS: Her blood pressure is 162/89, heart rate is 77, respiratory rate is 16, temperature is 97.7, she is 99% on room air. She is 5 feet 3 inches at 49 kg. GENERAL: Kerry is an 86-year-old female lying supine in her hospital bed. The NG tube is in place. There was really no fluid in the NG tube or the canister. Her daughter is with her at the bedside. She does not appear systemically ill or toxic. LUNGS: Generally clear to auscultation bilaterally. HEART: Regular rate and rhythm without murmurs. ABDOMEN: Moderately protuberant and moderately firm with some diffuse tenderness, but no peritoneal signs or symptoms. LABORATORY DATA: Her white blood count is 8.7, hemoglobin 10.7, neutrophils 69. Her BUN is 8, creatinine 1.03, glucose 112. COVID is negative. Urinalysis negative. Liver function tests are negative. Albumin slightly low at 3.2, and her lipase is 50. RADIOGRAPHIC STUDIES: CT scan of the abdomen and pelvis shows dilated small bowel with fluid with a transition point down in her lower abdomen. The terminal ileum and the ileocecal valve still seems to be a little thickened. ASSESSMENT AND PLAN: Kerry is an 86-year-old female, who presents as above with what appears to be two separate issues. She probably has a small bowel obstruction from her previous hysterectomy down in the central lower abdomen. She also has this thickening to the ileocecal valve and anemia with what appears to be a self-resolved colonic intussusception. Her CEA level apparently was high as well. That raises a concern obviously for cancer. She was hoping to have that evaluated as an outpatient after her last discharge. At this point, she is admitted with NG tube and IV fluids. We are going to treat her conservatively. We have discussed these issues at length. She is Electronically Signed By: OPAL IZAGUIRRE MD 05/03/21 0910 PATIENT NAME: KERRY ADAMS CONSULTATION DATE OF : 35 REPORT #: [id number] PHYSICIAN: OPAL IZAGUIRRE MD PCP: EWA SALDIVAR DO REPORT IS CONFIDENTIAL AND NOT TO BE RELEASED WITHOUT AUTHORIZATION [facility] [address] [place] [id number] Signed very aware that she might need surgery. However, she made it very clear she is a DNR/DNI without heroic measures and no tube feeds. Her daughter is in agreement. We will also ask our hospitalist to come back and help us because if she certainly has hypertension and she needs surgery, she might need some time in the ICU as well. They have expressed understanding and agreed with the above plan. Opal Izaguirre MD ALB/MODL /[id number] cc: DO Opal Farah MD Copies: EWA SALDIVAR ANDREW L MD ~ Electronically Signed By: OPAL IZAGUIRRE MD 05/03/21 0910 PATIENT NAME: KERRY ADAMS CONSULTATION DATE OF : 35 REPORT #: [id number] PHYSICIAN: OPAL IZAGUIRRE MD PCP: EWA SALDIVAR DO REPORT IS CONFIDENTIAL AND NOT TO BE RELEASED WITHOUT AUTHORIZATION
--- NOTE | 2021-05-03 09:42 | NUR ---
Patient resting in bed, no acute distress. Patient reports her stomach is feeling better this morning, no nausea and or pain. NG to LIWS, scant light brown drainage in tubing. Patient's abdomen is soft, active bowel tones x4 quadrants. Patient has no current needs. Personal supplies and call light within reach.
--- NOTE | 2021-05-03 09:49 | NUR ---
PT ALERT, ORIENTED AND RESING IN BED. NGT IN USE, SLIGHT AMOUNT OF DRAINAGE. PT PLEASANT, REQUESTED PRAYER. GAVE G.POST AND BLESSING. WILL FOLLOW
--- NOTE | 2021-05-03 10:05 | NUR ---
Patient up OOB to use the restroom. Patient able to stand and ambulate on her own, standby assist only. [place] fairly steady, pt does have IV tubing, NG etc. to consider when ambulating. With Case Management assessment this morning patient is aware of person, place and time. Able to answer questions appropriately. Patient is very pleasant this morning and expresses appreciation for "the wonderful people caring for me." "They are all so cheerful and helpful."
--- NOTE | 2021-05-03 13:20 | NUR ---
Patient resting in bed, no distress. Patient remains on LIWS, scant brown drainage in tubing. IV site patent. Patient denies needs. Personal supplies and call light within reach.
--- NOTE | 2021-05-03 13:52 | NUR ---
PT RESTING IN BED, CALL LIGHT IN REACH. NO FURTHER NEEDS AT THIS TIME.
--- NOTE | 2021-05-03 16:30 | NUR ---
Patient resting in bed, no distress. NG remains at LIWS, scant light brown output. Patient's abdomen is distended, not painful per patient. Patient has no needs at this time. Personal supplies and call light within reach.
--- NOTE | 2021-05-03 18:26 | EKG ---
[facility] [address] [facility] [place], [place] [address] Signed Normal sinus rhythm Normal ECG When compared with ECG of 24-JUN-2019 11:13, No significant change was found Confirmed by TAWANDA FONTAINE MD ([id number]) on 05/03/2021 6:26:01 PM Electronically Signed By: TAWANDA FONTAINE MD 05/03/21 1826 PATIENT NAME: CHEYENNE ADAMS Electrocardiogram DATE OF : 35 PHYSICIAN: TAWANDA FONTAINE MD REPORT #: [id number] REPORT IS CONFIDENTIAL AND NOT TO BE RELEASED WITHOUT AUTHORIZATION
--- NOTE | 2021-05-03 19:00 | NUR ---
REPORT RECEIVED FROM RHYS JOHNSON. pt RESTING IN BED AWAKE. NGT TO LOW INT WALL SUCTION, BROWN DRAINAGE IN TUBING. pt DENIES PAIN. DENIES ANY NEEDS. IVF INFUSING WNL. CALL LIGHT IN REACH.
--- NOTE | 2021-05-03 20:43 | NUR ---
pt RESTING IN BED AWAKE. ASSESSMENT COMPLETE. NGT TO LOW INT SUCTION. BOWEL TONES ACTIVE, ABD DISTENDED, SOFT, NON-TENDER WITH PALPATION. pt DENIES PAIN. DENIES TOILETING NEEDS. VSS. CALL LIGHT IN REACH.
--- NOTE | 2021-05-03 21:31 | NUR ---
PT CALLED TO USE BATHROOM. ASSISTED, UNMEASURED VOID, SOFT SMALL BM UNMEASURED, DUE TO ALL IN COLLECTION HAT IN TOILET. BACK TO BED, SCD'S IN PLACE, NGTUBE TO LIWS, BED RAIL UP PER CHOICE, ALL COVERED PER CHOICE, PERSOANL SUPPLIES WITHIN REACH. EXPECTING HER DAUGHTER TO VISIT SOON.
--- NOTE | 2021-05-03 23:38 | NUR ---
pt'S DAUGHTER OUT OF ROOM. RN IN ROOM. pt DENIES NEEDS. IVF INFUSING WNL. LIGHTS OFF IN ROOM. CALL LIGHT ON BEDSIDE TABLE WITHIN REACH. NO REQUESTS AT THIS TIME.
--- NOTE | 2021-05-04 00:37 | NUR ---
CALL LIGHT ANSWERED. SBA TO RESTROOM FOR 600 ML VOID. BACK IN BED, NGT TO LOW INT WALL SUCTION, SCDS ON. IVF INFUSING WNL. CALL LIGHT IN REACH.
--- NOTE | 2021-05-04 01:11 | NUR ---
ICE CHIPS PROVIDED.
--- NOTE | 2021-05-04 01:55 | NUR ---
CALL LIGHT ANSWERED. pt REQUESTING SOMETHING TO HELP HER SLEEP. CAN'T DESCRIBE FEELING, SHIFTING IN BED. DENIES PAIN. STATES "IT MIGHT BE THE START OF NAUSEA". PRN MEDICATION ADMINISTERED. NEW BAG IVF INFUSING WNL. ASSESSMENT COMPLETE. ASSISTED pt TO REPOSITION IN BED. NGT TO LOW INT SUCTION. SCDS ON. CALL LIGHT IN REACH.
--- NOTE | 2021-05-04 03:55 | NUR ---
CALL LIGHT ANSWERED. SBA TO RESTROOM FOR VOID AND BACK TO BED. NGT TO LOW INT WALL SUCTION, SCDS ON, IVF INFUSING WNL. CALL LIGHT IN REACH.
--- NOTE | 2021-05-04 06:42 | NUR ---
pt RESTING IN BED, DROWSY. MD IN pt ROOM. VSS. IVF INFUSING WNL. NGT TO LOW INT SUCTION. SCDS ON. pt DENIES ANY NEEDS.
--- NOTE | 2021-05-04 07:30 | NUR ---
report recieved from night custodian RN, pt resting in bed, call light within reach, ng to left nare on low intermitten suction, educated on leaving head of bed elevated for aspiration precautions, request ice chips denies any other needs at the moment
--- NOTE | 2021-05-04 07:50 | NUR ---
THIS SENIOR WINDOWS ENGINEER HELPED PT TO THE BATHROOM. PT REFUSED TO SIIT IN THE CHAIR. PT STATED THEY WILL SIT UP IN BED IF THEY WANT TO. THEY STATED THEY ARE TOO COLD TO SIT IN THE CHAIR AND THEY CANNOT EAT SO THERE IS NO POINT. BABAR DE ANDA. CALL LIGHT WITHIN REACH. NO FURTHER NEEDS AT THIS TIME.
--- NOTE | 2021-05-04 08:28 | NUR ---
rn in room to do morning assessment and medications pt resting in bed reading a book, denies any pain , denies passing gas, NG intact and functioning, no needs at the moment call light within reach
--- NOTE | 2021-05-04 10:45 | NUR ---
rn in room rounding on pt, sitting up in in bed denies any needs at the moment
--- NOTE | 2021-05-04 12:15 | NUR ---
pt able to ambulate in halls tolerated well
--- NOTE | 2021-05-04 12:30 | NUR ---
reported by pt and daughter in room pt had a small formed bm
--- NOTE | 2021-05-04 15:00 | NUR ---
No plan for dc today.
--- NOTE | 2021-05-04 15:34 | NUR ---
CLERGY INTO VISIT PT AT THIS TIME.
[2021-05-04] MEDS ORDERED: FEROSUL325 MG PO (15:47)
[2021-05-04] MEDS ORDERED: OCUVEL CAPSULE1 EACH PO (16:26)
--- NOTE | 2021-05-04 16:34 | NUR ---
MED REC COMPLETE
--- NOTE | 2021-05-04 17:17 | NUR ---
IN TO CHECK ON PT. HER MANAGER NEWS IS HERE VISITING. ASSESSMENT COMPLETE, PT UP TO BATHROOM WITH STANDBY ASSIST ONLY. FLUIDS INFUSING, MINIMAL OUTPUT NOTED FROM NG TUBE. PT IS ALERT, ORIENTED, AND STABLE. DAUGHTER HERE. PT HAS NO REQUESTS AT THIS TIME.
--- NOTE | 2021-05-04 17:50 | NUR ---
CALL TO DMITRIY TO REPORT ANOTHER BOWEL MOVEMENT WITH ACTIVE BOWEL TONES. VERBAL ORDER TO ADVANCE DIET TO CLEARS TONIGHT AND TO START BOWEL PREP TOMORROW FOR COLONOSCOPY.
--- NOTE | 2021-05-04 17:54 | NUR ---
PT SIPPING BROTH AND ICE WATER AT THIS TIME. TOLERATING WELL SO FAR. PT'S DAUGHTER AT BEDSIDE. PT SITTING UP IN BED, ALERT, ORIENTED. PT HAS NO OTHER REQUESTS AT THIS TIME.
--- NOTE | 2021-05-04 18:22 | NUR ---
PT ADMITTED 05/03, WAS ABLE TO HAVE ONE BM LAST NIGHT, ANOTHER TODAY. PER DR IZAGUIRRE, ADVANCE DIET TO CLEARS THIS EVENING AND START BOWEL PREP IN THE MORNING FOR COLONOSCOPY TO BE SCHEDULED. PT VERY PLEASANT, IS ABLE TO AMBULATE AROUND ROOM WITH STANDBY ASSIST AND WAS ABLE TO WALK AROUND THE DEPARTMENT WITH SOME EASE TODAY. NG REMAINS IN PLACE, PT TOLERATING WELL, VERY LITTLE OUTPUT, MAINLY JUST FROM ICE CHIPS PT IS CONSUMING. PT REPORTS DECREASED ABD DISTENTION AND BOWEL TONES ARE ACTIVE IN ALL 4 QUADRANTS. PT VERY HAPPY TO SIP ON SOME BROTH THIS EVENING. DAUGHTER AT BEDSIDE, PT HAS NO OTHER REQUESTS.
--- NOTE | 2021-05-04 19:04 | NUR ---
PT WLKED ONE LOOP AROUND THE DEPT, TOLERATED VERY WELL. PT NOT SHORT OF BREATH, AND CAN CONVERSE EASILY WHILE WALKING. PT REPORTS "BIG MOVEMENT" IN HER ABD AFTER DRINKINK SOME BROTH. LOTS OF GURGLING WITH NO BM. PT DENIES ANY ABD PAIN, INCREASED DISTENTION.
--- NOTE | 2021-05-04 19:15 | NUR ---
SHIFT REPORT RECEIVED FROM [facility] RHYS VARGAS AT THIS TIME VIA BEDSIDE, pt AWAKE AND RESTING IN BED. RR EVEN AND UNALBORED, NO DISTRESS NOTED. pt DENEIS PAIN AND NAUSEA, NG TUBE REMAINS CLAMPED AT THIS TIME. IV SITE WNL, FLUIDS INFUSING DIRECTED. DAUGHTER ENTERS ROOM AT END OF REPORT, UPDATED ON POC FOR pt. CALL LIGHT IN REACH.
--- NOTE | 2021-05-04 21:30 | NUR ---
CALL LIGHT ANSWERED, pt UP SBA TO VOID AND BACK IN BED. IV SITE WNL, FLUSHES EASILY. IV FLUIDS INFUSING DIRECTED. pt DENIES PAIN AND NAUSEA, DENIES PASSING GAS CURRENTLY, BOWEL TONES ACTIVE. pt REPORTS SOME ABD DISTENTION, BUT IMPROVED PER SHIFT REPORT. WILL CONTINUE TO MONITOR. VSS, I&O'S COMPLETE. SCD'S IN PLACE, NO FURTHER NEEDS. CALL LIGHT IN REACH OF pt.
--- NOTE | 2021-05-04 22:44 | NUR ---
pt RESTING IN BED, EYES CLOSED. RR EVEN AND UNLABORED, NO DISTRESS NOTED. pt CONTINUES TO TOLERATE CLAMPING OF NG TUBE, WILL CONTINUE TO MONITOR. SCD'S REMAIN ON AND CALL LIGHT IN REACH.
--- NOTE | 2021-05-04 23:47 | NUR ---
pt RESTING IN BED, ON HER LEFT SIDE. EYES CLOSED, RR EVEN AND UNLABORED, NO DISTRESS NOTED. pt APPEARS COMFORTABLE AND RELAXED AT THIS TIME. NG TUBE REMAINS CLAMPED, WILL CONTINUE TO MONITOR FOR CHANGES IN NAUSEA, PAIN, ECT. IV SITE REMAINS WNL, FLUIDS INFUSING DIRECTED. CALL LIGHT IN REACH.
--- NOTE | 2021-05-05 01:19 | NUR ---
CALL LIGHT ANSWERED, pt UP SBA TO VOID AND IS BACK TO BED. pt STEADY ON FEET, 600MLS OUTPUT NOTED. NG TUBE REMAINS CLAMPED, NG TUBE WNL. pt DENIES NAUSEA, BOWEL TONES ACTIVE. pt REPORTS ABD APPEARANCE IS CLOSE TO "MY NORMAL". ABD SOFT, NONTENDER W/ PALPATION. SCD'S RESUMED. IV SITE WNL, FLUIDS INFUSING DIRECTED. NO FURTHER NEEDS OR CONCERNS VERBALIZED. CALL LIGHT IN REACH.
--- NOTE | 2021-05-05 03:33 | NUR ---
rounded on pt, pt resting in bed with eyes closed. rr even and unlabored. no distress noted. call light in reach.
--- NOTE | 2021-05-05 04:39 | NUR ---
VSS AND I&O'S COMPLETE. FRESH WATER PROVIDED. pt UP SBA TO VOID AND IS BACK IN BED. SCD'S IN PLACE. pt DENIES PAIN AND NAUSEA. IV SITE WNL, FLUIDS INFUSING DIRECTED. CALL LIGHT IN REACH.
--- NOTE | 2021-05-05 05:40 | NUR ---
DR IZAGUIRRE IN ROOM WITH pt, PROVIDED WITH OVERALL pt UPDATE. NG TUBE REMAINS CLAMPED AT THIS TIME. PER MD IZAGUIRRE, OKAY TO CONTINUE TO LEAVE NG TUBE CLAMPED. MD IZAGUIRRE TO PLACE NEW ORDERS- INCLUDING ORDERS FOR BOWEL PREP FOR SCOPE.
--- NOTE | 2021-05-05 08:20 | NUR ---
REPORT FROM RACHELLE. STARTED PT ON BOWEL PREP, NG CLAMPED AT THIS TIME. IV D5LR STARTED AT 85ML/HR, MEDS GIVEN. PT REQUESTING TO GO FOR A WALK. BOWEL TONES ACTIVE, NO BM YET THIS AM. PT DENIES ANY PAIN AND HAS NO OTHER REQUESTS AT THIS TIME.
--- NOTE | 2021-05-05 08:40 | NUR ---
Patient awake, a&ox4, no distress this morning. Patient denies pain and or nausea this morning. NG currently clamped per provider order. Miralax provided to patient, instructed her to drink bowel prep in next couple hours, pt receptive to plan. Patient ambulated in hallway with this RN, tolerated thao well SBA, even gait noted. Vital signs are stable, afebrile. No further needs. Call light within reach.
--- NOTE | 2021-05-05 10:13 | NUR ---
PT SITTING UP IN BED WATCHING TELEVISION, DRINKING BOWEL PREP. PT REQUESTING TO GO FOR WALK AFTER HER SHOW IS COMPLETE.
--- NOTE | 2021-05-05 11:18 | NUR ---
PT WAALKED ONE LAP AROUND THE DEPT. NO ACUTE DISTRESS NOTED. PT VOIDED AND HAD SMALL BM. NOW BACK TO BED, DR FONTAINE IN TO ASSESS PT.
--- NOTE | 2021-05-05 11:20 | NUR ---
Spoke with pt while she is walking in [place]. She denies needs and plans on dc to home when cleared medically.
--- NOTE | 2021-05-05 11:48 | NUR ---
PT REQUESTING SHADES LOWERED AND WARM BLANKETS. PT LAYING DOWN FOR NAP. HAS APPROX 200ML LEFT OF HER BOWEL PREP TO COMPLETE. PT AWARE OF NEED TO FINISH SOON.
--- NOTE | 2021-05-05 14:22 | NUR ---
PT UP TO BATHROOM, GAIT STEADY, LARGE AMOUNT LIQUID STOOL OUT. PT ABLE TO PERFORM PERICARE, ATTENDS GIVEN. PT CHANGED INTO TEEN SIZE GOWN FOR COMFORT. FLUIDS INFUSING AT 85ML, NG TUBE REMAINS CLAMPED. PT HAS NO OTHER REQUESTS/NEEDS AT THIS TIME. PT'S DAUGHTER AT BEDSIDE.
--- NOTE | 2021-05-05 16:45 | NUR ---
PT SURGERY CENTER ADMINISTRATOR LIGHT, UP TO BATHROOM WITH SBA FOR LOOSE BM. PT AMBULATES AROUND ROOM WITH EASE, PUSHING OWN IV POLE. STOOL CONTINUES TO BE BROWN, BUT IS CLEARING SLIGHTLY. PT BACK TO BED WITHOUT ISSUE. HAS NO NEEDS OR REQUESTS AT THIS TIME.
--- NOTE | 2021-05-05 18:28 | NUR ---
PT STARTED BOWEL PREP THIS MORNING. TOOK SEVERAL HOURS TO GET ONE FULL GATORADE/MIRALAX BOWEL PREP COMPLETED. AMBULATORY TO BATHROOM WITH STANDBY ASSIST FOR MULTIPLE LOOSE BOWEL MOVEMENTS. LAST STOOL VERY LIQUIDY, BROWN TO YELLOW IN COLOR. PT ALERT, ORIENTED, AND STABLE. TOLERATING BOWEL PREP VERY WELL, PT REMAINS CHEERFUL. DAUGHTER AT BEDSIDE THROUGHOUT THE DAY. IV IN PLACE, D5LR INFUSING AT 85ML/HR. NO NEW COMPLAINTS/ISSUES NOTED. PT HAS ACTIVE BOWEL TONES IN ALL FOUR QUADRANTS.
--- NOTE | 2021-05-05 19:15 | NUR ---
RECEIVED REPORT, PT IS AWAKE IN BED WITH VISITOR IN THE ROOM.
--- NOTE | 2021-05-05 20:13 | NUR ---
IN ROOM TO HANG NEW BAG OF IV FLUID. PT DENIES PAIN AND NAUSEA AT THIS TIME. SHE HAS A VISITOR IN THE ROOM. ANSWERED PT'S QUESTIONS ABOUT COLONSCOPY TOMORROW AND NPO STATUS AT MIDNIGHT. PT AMBULATED SBA 1 LOOP AROUND [facility]. ASSISTED PT TO RESTROOM, SHE HAD URINATED AND HAD LOOSE BM THAT WERE MIXED TOGETHER AND YELLOW/BROWN IN COLOR. I'S &O'S ENTERED. WILL RETURN WHEN HER VISITOR LEAVES TO COMPLETE ASSESSMENT AND VS. PT DENIES FURTHER NEEDS, CALL LIGHT IS CLOSE.
--- NOTE | 2021-05-05 21:27 | NUR ---
PT'S DAUGHTER LEFT FOR THE NIGHT. IN ROOM TO COMPLETE ASSESSMENT AND OBTAIN VS. PT DENIES PAIN/NAUSEA/SOB. LEFT INNER FOREARM/ELBOW HAS A SLIGHT PINK COLOR. PT DENIES PAIN AND SWELLING, SHE STATES SHE HAS SENTIVE SKIN AND THINKS IT JUST RUBBED ON THE BLANKETS. SKIN IS DRY THERE AND COULD BE CHAFED. IT IS NOT CONNECTED TO IV INSERTION SITE. WILL CONTINUE TO MONITOR. IV FLUID IS INFUSING FINE PER ORDERS. PT HAS CLEAR LIQUIDS AT BEDSIDE. SHE IS GOING TO COMPLETE HER DEVOTIONALS AND WILL CALL WHEN SHE IS READY TO USE THE RESTROOM BEFORE BED. CALL LIGHT IS CLOSE.
--- NOTE | 2021-05-05 22:35 | NUR ---
PT CALLED FOR ASSISTANCE TO RESTROOM AND BACK TO BED. SHE HAD A LIQUID YELLOW/BROWN BM AND VOIDED 350MLS OF URINE. PT DENIES FURTHER NEEDS. CALL LIGHT IS CLOSE AND L ARM IS UNCHANGED. IV IS INFUSING FINE.
--- NOTE | 2021-05-06 00:02 | NUR ---
PT IS RESTING WITH EYES CLOSED. NG TUBE REMAINS IN PLACE AND IS CLAMPED. RR IS EVEN AND UNLABORED. IV PUMP IS INFUSING FINE. CALL LIGHT IS CLOSE. WATER CUP REMOVED FROM BEDSIDE PT IS NPO AT THIS TIME.
--- NOTE | 2021-05-06 02:13 | NUR ---
PT CALLED FOR ASSISTANCE TO THE RESTROOM, SHE IS NOW BACK IN BED SBA. PT VOIDED 550MLS OF URINE, NO BM AT THIS TIME. IV IS INFUSING FINE, NO SWELLING NOTED. PT DENIES PAIN AND DENIES FURTHER NEEDS. CALL LIGHT IS CLOSE, SCDS IN PLACE.
--- NOTE | 2021-05-06 04:25 | NUR ---
ROUNDING ON PT, SHE WAS AWAKE IN BED AND WANTED TO USE THE RESTROOM. SBA TO RESTROOM AND BACK TO BED. NO BM, PT JUST VOIDED URINE. DAILY WEIGHT OBTAINED, VS AND I&O'S. PT REPORTS KINK IN HER BACK FROM LAYING IN BED BUT STATES IT HAS IMPROVED WITH GETTING UP TO USE RESTROOM. PT DENIES NAUSEA, IV IS INFUSING FINE AND SCDS IN PLACE. PT DENIES FURTHER NEEDS. CALL LIGHT IS CLOSE.
--- NOTE | 2021-05-06 07:05 | NUR ---
IN ROOM TO CHECK ON PT. SBA TO RESTROOM AND BACK TO BED. PT VOIDED URINE AND HAD A LIQUID BM. IT WAS DIFFICULT TO TELL IF THERE WERE ANY SOLID PEICES WITH THE TOILET PAPER IN THE TOILET, IT WAS YELLOW AND BROWN IN COLOR. PT'S L FOREARM STARTED TO BECOME PUFFY. DC'D IV, PT DENIES PAIN, CATH TIP INTACT, GAUZE AND COBAN APPLIED. NEW 20G IV IN R UPPER ARM. PT DENIES FURTHER NEEDS AT THIS TIME. CALL LIGHT IS CLOSE.
--- NOTE | 2021-05-06 07:29 | NUR ---
REPORT RECEIVED FROM NIGHT RN - PT SITTING IN BED WITH LIGHTS ON, BED SIDE TABLE AND CALL LIGHT IN REACH. PT DENIES NEEDS AT THIS TIME.
--- NOTE | 2021-05-06 07:32 | NUR ---
PT HAD 12 BMS SINCE THE BOWEL PREP YESTERDAY. STOOL IS LIQUID AND YELLOW/BROWN IN COLOR. UNCERTAIN IF THERE ARE ANY SOLID PEIECES OF STOOL D/T TOILET PAPER. PT HAD NO PAIN OR NAUSEA THROUGH THE NIGHT. NG TUBE WAS CLAMPED ALL NIGHT. IV FLUIDS INFUSING PER ORDERS AND SCDS IN PLACE. PT AMBULATED IN THE SOL LAST NIGHT.
--- NOTE | 2021-05-06 10:02 | NUR ---
OR CREW IN ROOM TO TAKE PT TO PROCEDURE. PT DENIES QUESTIONS AT THIS TIME. REPORT PROVIDED.
--- NOTE | 2021-05-06 10:03 | NUR ---
ATTEMPT BY RN TO REACH DAUGHTER BLAKE - CALL WENT TO VOICEMAIL. WILL ATTEMPT TO UPDATE FAMILY WHEN PROCEDURE IS DONE.
--- NOTE | 2021-05-06 10:41 | NUR ---
05/06/21 1041 Jade Yao 1036: PT ARRIVES TO PACU LEFT LATERAL WITH EYES CLOSED ON 6 L VIA MASK, RESP EVEN AND UNLABORED. RHYS WHITEHEAD SECOND IN PACU.
--- NOTE | 2021-05-06 11:25 | NUR ---
PT BACK TO ROOM FROM OR. REPORT RECEIVED FROM INDUSTRIAL SPECIALIST. VS STABLE IN ROOM, PT ALERT AND ORIENTED- ASKING QUESTIONS ABOUT PROCEDURE. PT DENIES PAIN. BED SIDE TABLE AND CALL LIGHT IN REACH.
--- NOTE | 2021-05-06 12:13 | NUR ---
RN IN ROOM TO ADMINISTER MEDS. PT REQUESTS TO AMBULATE TO BATHROOM, STEADY ON FEET, DENIES DIZZINESS. PT COMPLAINS OF FEELING BLOATED, ABLE TO PASS GAS ON TOILET. VISITOR PRESENT IN ROOM.
--- NOTE | 2021-05-06 13:01 | NUR ---
RADIOLOGY IN ROOM TO TAKE PT TO CT SCAN BY WHEELCHAIR.
--- NOTE | 2021-05-06 13:16 | NUR ---
PT BACK FROM CT SCAN - DAUGHTER IN ROOM. DAUGHTER AT NURSES STATION ASKING QUESTIONS ABOUT PLAN ON CARE. CALL PLACED TO DR. IZAGUIRRE TO CLARIFY IF HE WILL BE CONSULTING WITH FAMILY TODAY. STATES HE WILL CALL DAUGHTER TODAY.
--- NOTE | 2021-05-06 15:03 | NUR ---
RN IN ROOM TO ASSESS PT. PT UP TO BATHROOM SRIKANTH ASSIST. VOIDING APPROPRIATLY. DENIES PAIN - STATES BLOATING HAS IMPROVED. BOWEL SOUNDS ACTIVE, ABDOMEN MIDLY TENDER AND DISTENDED. DAUGHTER AT BEDSIDE, DENIES FURTHER NEEDS.
--- NOTE | 2021-05-06 16:42 | NUR ---
RN in room to assist pt up to the bathroom, voided in hat, daughter and waiter/waitress tourist class in room visiting with pt denies any needs at the moment
--- NOTE | 2021-05-06 17:49 | NUR ---
RN IN ROOM TO HELP PT AMBULATE IN SOL ABLE TO DO A LAP AROUND THE UNIT, PT STATES SHE WOULD LIKE TO TAKE A NAP, ASSISTED BACK TO BED, VITALS DONE AND I&OS DONE, DENIES ANY OTHER NEEDS AT THE MOMENT
--- NOTE | 2021-05-06 18:32 | NUR ---
COLONOSCOPY COMPLETED IN OR THIS AM. PT TOLERATED BOWEL PREP AND POST PROCEDURE WELL. SURGEON DISCUSSED FINDINGS AND PLAN OF CARE WITH FAMILY. ORDERS PLACED FOR NPO AT MIDNIGHT. PT DENIES PAIN AND IS PASSING GAS - AMBULATING IN SOL AND ROOM STANDBY ASSIST.
--- NOTE | 2021-05-06 19:37 | NUR ---
UP TO BR WITH SBA. VISITORS PRESENT. DENIES ANY UNMET NEEDS. DISCUSSED PLAN FOR SHIFT.
--- NOTE | 2021-05-06 22:30 | NUR ---
USED CALL LIGHT AND EXPRESSED NEED TO GET UP TO BR. UP WITH SBA. STOOD AT SINK TO WASH HANDS. NO ASSISTANACE NEEDED FOR CLOTHING MANAGEMENT AND TOLIETING NOR TO GET BACK INTO BED. FRESH WATER GIVEN. PT AWARE OF NPO STATUS AT CT.
--- NOTE | 2021-05-07 02:27 | NUR ---
WAS UP TO THE BR. THEN BRUSHED HER TEETH, REMAINING NPO. DENIES ANY UNMENT NEEDS. VS TAKEN. LOTION GIVEN FOR DRY ITCHING HANDS.
--- NOTE | 2021-05-07 04:54 | NUR ---
UP TO VOID. OBTAINED WEIGHT. NEW LINENS ON BED. NEW GOWN. CHG BATH COMPLETED FOR SURGERY. LR WITH STRAIGHT TUBING READY FOR OR.
--- NOTE | 2021-05-07 06:00 | NUR ---
WAS UP WITH SBA MULTIPLE TIME TO VOID. DAUGHTER STATES SHE WILL CALL AT 0900ISH TO GET UPDATE ON PT. PT IS READY FOR SURGERY. LAB RESULTS NOT YET BACK.
--- NOTE | 2021-05-07 06:43 | OR ---
[facility] [address] [place], [place] [address] Signed DATE OF OPERATION: 05/06/2021 SURGEON: Opal Izaguirre MD PREOPERATIVE DIAGNOSES: 1. Unspecified cecal mass. 2. Anemia. 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 3. Old tattoo at 85 cm. 4. Left-sided diverticulosis. PROCEDURES: Colonoscopy with cold biopsies x2 and injection of tattoo at 30 cm. ESTIMATED BLOOD LOSS: None. INDICATIONS: Kerry is an 86-year-old female, who actually came last week with some thickening to her terminal ileum and the cecum. There is concern that could be some type of inflammatory process. She had been on antibiotics, seemed to be improving; however, her CEA was elevated. She was found to be anemic as well. She was allowed to be discharged to home and was with plans for outpatient evaluation. She returned and mentioned how she was having diarrhea with dark blood in the stool. She told me her last colonoscopy was probably in her 60s. Amazingly, she still lives alone in her house here in [place], [place]. She is able to drive herself around town and is generally functional, although she is quite small. She came back with increased abdominal distention and nausea and vomiting. On repeat CT scan, she seemed to have a separate small bowel obstruction down in the pelvis, probably from her previous hysterectomy. Once again, the area in the terminal ileum and the cecum did not seem particularly improved. I had been asked to admit her as a general surgeon on-call. I had met with Kerry and her daughter, Norah. We had a long discussion regarding the current findings. She had an NG tube placed with IV fluids. She opened up and actually passed quite a bit of gas and liquid stool. We went ahead and gave her a bowel prep with plans to bring her down for colonoscopy today. I had reviewed with Kerry the nature of colonoscopy. She actually remembers them fairly well. She understands there was risk including, but not limited to gas bloating, crampy abdominal pain, bleeding, perforation requiring surgery, and Electronically Signed By: OPAL IZAGUIRRE MD 05/07/21 0643 PATIENT NAME: KERRY ADAMS OPERATIVE REPORT DATE OF : 35 REPORT #: [id number] PHYSICIAN: OPAL IZAGUIRRE MD PCP: JAIME SALDIVAR DO REPORT IS CONFIDENTIAL AND NOT TO BE RELEASED WITHOUT AUTHORIZATION [facility] [address] [place] [id number] Signed missed diagnosis. Despite all that, she told me she wants to be DNR/DNI without any tube feeds or heroic measures. If surgery is needed, she might consider that, but would want to discuss in more detail. She and her daughter had expressed understanding and wished to proceed. PROCEDURE NOTE: Kerry was taken into endoscopy suite and placed in the left lateral decubitus position. She was given IV propofol per our nurse wireless telegrapher. A digital rectal exam was performed and this was unremarkable. The adult colonoscope was introduced and advanced under direct visualization of camera. We encountered the nearly circumferential sigmoid tumor had about 30 cm. We were able to pass the scope beyond it and slowly, but surely advanced the scope. We had to bring the scope in and out to straighten the colon, we had used abdominal compression. Eventually, we made it around into the cecum itself. She has a very large tumor obviously in her cecum. We had taken pictures throughout for photodocumentation. We took a biopsy from the both tumors for pathologic review; however, they were clearly cancerous. The scope was then slowly withdrawn. We could see two small tattoos at 85 cm . She does have left-sided diverticulosis. They are moderate in size, few in number, and scattered about. We could just barely retroflex the scope in her rectum and we could not see anything above the anal canal. After this, the gas was suctioned out, colonoscope removed. Kerry tolerated the procedure quite well. RECOMMENDATIONS: I will talk with Kerry and her daughter regarding the above findings and proceed from there. Opal Izaguirre MD ALB/MODL /[id number] cc: Jaime Saldivar DO Patient Chart Opal Izaguirre MD Electronically Signed By: OPAL IZAGUIRRE MD 05/07/21 0643 PATIENT NAME: KERRY ADAMS OPERATIVE REPORT DATE OF : 35 REPORT #: [id number] PHYSICIAN: OPAL IZAGUIRRE MD PCP: JAIME SALDIVAR DO REPORT IS CONFIDENTIAL AND NOT TO BE RELEASED WITHOUT AUTHORIZATION [address] [address] Signed Copies: JAIME SALDIVAR ANDREW L MD ~ Electronically Signed By: OPAL IZAGUIRRE MD 05/07/21 0643 PATIENT NAME: KERRY ADAMS OPERATIVE REPORT DATE OF : 35 REPORT #: [id number] PHYSICIAN: OPAL IZAGUIRRE MD PCP: JAIME SALDIVAR DO REPORT IS CONFIDENTIAL AND NOT TO BE RELEASED WITHOUT AUTHORIZATION
--- NOTE | 2021-05-07 06:45 | NUR ---
dr Freedman here ,
--- NOTE | 2021-05-07 07:08 | NUR ---
pt to OR via bed.
--- NOTE | 2021-05-07 07:30 | NUR ---
PATIENT REPORT GIVEN TO THIS RN FROM TAMEKA Jurado RN. PATIENT HAS JUST LEFT IN HER HOSPITAL BED WITH OR STAFF TO GO TO SURGERY.
--- NOTE | 2021-05-07 10:18 | NUR ---
05/07/21 1018 Jade Yao 1012: PT ARRIVES TO PACU VIA BED WITH EYES CLOSED, ELVIN HICKS PROVIDING JAW SUPPORT. RHYS CLEMENTE SECOND AND DR. IZAGUIRRE IN PACU.
--- NOTE | 2021-05-07 11:24 | NUR ---
PT ARRIVED IN CCU AT ABOUT 1055. PT ON RA, AAOX4, BUT STILL SLEEPY. ALL LOBES ARE CLEAR, HR WDL, ABD SOUNDS PRESENT, ABD MIDLINE DRESSING C/D/I, NO PERIPH. EDEMA NOTED. WILL CONTINUE TO MOINTOR.
--- NOTE | 2021-05-07 12:40 | NUR ---
PT AT TIMES IS A LITTLE CONFUSED ABOUT EVENTS TODAY. PRN IV TYLENOL AND 0.5MG PRN DILAUDED GIVEN FOR PAIN. PT WAS PUT ON 2L O2 OXYMASK WELL. WILL CONTINUE TO MONITOR.
--- NOTE | 2021-05-07 12:45 | NUR ---
PUMP ALARMING, IV TYLENOL COMPLETE. IV FLUSHED AND SALINE LOCKED. PT RESTING WITH EYES CLOSED. PT OPENS EYES TO TOUCH WHILE IV IS FLUSHED. RESPONDS APPROPRIATLY. PT DENIES ADDITIONAL REQUESTS OR COMPLAINTS. CALL LIGHT WITHIN REACH. BED RAILS UP. FAMILY STATES THEY ARE LEAVING "FOR A WHILE." PTS PRIMARY RN JACEY.
--- NOTE | 2021-05-07 12:57 | NUR ---
LOVENOX GIVEN PER MD IZAGUIRRE.
--- NOTE | 2021-05-07 13:37 | NUR ---
PT NOTED TO BE 100% ON OXYGEN SATURATION MONITOR. PT WEANED TO 1L O2 BY OM. CONTINUES TO MAINTAIN OXGYEN SATURATIONS ABOVE 94%. PT RESTING WITH EYES CLOSED IN SEMI SCHAEFER POSITION. NO ADDITIONAL NEEDS AT THIS TIME. BED RAILS UP. CALL LIGHT WITHIN REACH.
--- NOTE | 2021-05-07 15:00 | NUR ---
PT AT THIS TIME IS SLEEPING. V/S ARE WDL SO FAR. URINE OUTPUT IS STILL LOW. WILL CONTINUE TO MONITOR.
--- NOTE | 2021-05-07 16:17 | NUR ---
PT CALL LIGHT ON. PT AWAKEN AND REPORTS "I JUST WOKE UP AND WAS TRYING TO SEE WHAT'S GOING ON." PT ORIENTED TO PLACE AND EVENTS. PT UPDATED ON PLAN OF CARE. PT REPORTS "VERY LITTLE" PAIN AND DENIES NAUSEA. PTS PRIMARY RN TO BEDSIDE AND IS WORKING WITH PT. NO ADDITONAL REQUESTS OR COMPLAINTS. CALL LIGHT WITHIN REACH. BED RAILS UP.
--- NOTE | 2021-05-07 16:30 | NUR ---
ALL LOBES ARE CLEAR, PT AAOX4, ABD SOUNDS PRESENT, ABD MIDLINE DRESSING C/D/I, ABDOMEN SLIGHTLY DISTENDED, NO PERIPH. EDEMA NOTED. RADIAL AND PEDIS PULSES +2. NO NEW CONCERNS NOTED AT THIS TIME. WILL CONTINUE TO MONITOR.
--- NOTE | 2021-05-07 16:45 | NUR ---
BLAKE, PTS DAUGTHER CALLED FOR UPDATE. BLAKE UPDATED ON PTS STATUS AND PLAN OF CARE. BLAKE STATES HER QUESTIONS HAVE BEEN ANSWERED AND THAT SHE WILL BE IN TO SEE THE PT SOON. PT UPDATED AND STATES SHE WILL BE GLAD TO SEE HER FAMILY.
--- NOTE | 2021-05-07 18:25 | OR ---
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 3. Left-sided diverticulosis. 4. CEA level 12.7. 5. CT scan of chest, abdomen, and pelvis negative for metastatic disease. 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 3. Left-sided diverticulosis. 4. CEA level 12.7. 5. CT scan of chest, abdomen, and pelvis negative for metastatic disease. PROCEDURES: 1. Right colectomy with isoperistaltic [id number] ileocolonic anastomosis hand-sewn in two layers. 2. Left colectomy with takedown of splenic flexure and French colo-colonic side-to-end anastomosis hand-sewn in two layers. ESTIMATED BLOOD LOSS: Minimal. INDICATIONS: Kerry is an 86-year-old female, who had presented to the hospital several weeks ago. There was some concern about an inflammatory process versus a neoplastic process around the terminal ileum and the cecum. She was treated conservatively along with antibiotics and seemed to be improving. She was allowed to be discharged to home. Our plan is to follow this as an outpatient. Her CEA level had been drawn and it was elevated at 12.7. She was also little anemic. She then returned with abdominal distention, diarrhea, and dark blood in the stool. She said she was having periumbilical crampy pain. She is anemic as well. I had met with Kerry and her daughter. We treated her conservatively with her NG tube IV fluids up very nicely and we therefore put her through a bowel prep. The colonoscopy done yesterday showed the rather large cecal tumor. She also has a fairly large tumor at 30 cm in the colon, where we left a tattoo. She has an old tattoo up at 85 cm. She also had some left-sided diverticulosis. I was then able Electronically Signed By: OPAL IZAGUIRRE MD 05/07/21 1825 PATIENT NAME: KERRY ADAMS OPERATIVE REPORT DATE OF : 35 REPORT #: [id number] PHYSICIAN: OPAL IZAGUIRRE MD PCP: JAIME SALDIVAR DO REPORT IS CONFIDENTIAL AND NOT TO BE RELEASED WITHOUT AUTHORIZATION [facility] [address] [place] [id number] Signed to contact her daughter warp doffer or after the procedure around 11:00 a.m. We did look up a little bit later in the day over the phone. We had a long discussion regarding the current findings. There was a total of five children. She contacted her other siblings. She called me back on the phone after we had reviewed all the options. She and the family and her mother all decided like to stay here in [place] for her laparotomy and bowel resection. We discussed possible total abdominal colectomy versus a right and left colectomy. They understand the nature of that surgery. There is risk including, but not limited to bleeding, infection, scarring, change in contour of the skin, damage to bowel, anastomotic leak, damage to the ureters, incisional hernias, and other unforeseen comorbidities. They had expressed understanding and wished to proceed. DESCRIPTION OF PROCEDURE: Kerry was brought down to the operating room and placed in the supine position under general endotracheal tube anesthesia. She was given preoperative antibiotics along with subcutaneous Lovenox. SCDs were utilized. Ivy catheter was inserted with return of clear yellow urine without difficulty. She was then prepped and draped in the usual sterile fashion. We could easily feel the tumor in the right lower quadrant, it was quite mobile. We could not feel the tumor in her left side of her abdomen. She had a previous infraumbilical midline incision for her hysterectomy. We therefore made a standard periumbilical vertical incision and carried down into the abdomen without difficulty. She had a loop of small bowel adherent along her previous scar and it was easily taken down with the cautery. All the small bowel was then brought over to the left side of the abdomen. We could easily see the large tumor in the cecum. She was actually quite thin and the anatomy was easy to visualize. We took a look, we could easily see the tattoo and feel the tumor up in her left colon. We then proceeded with her right colectomy. We took down the white line of Toldt around hepatic flexure and over towards the duodenum. The mesocolon was taken down between Pean clamps and 0-Vicryl ties. We divided the ileum little more than 10 cm proximal to the ileocecal valve. We used a linear stapler to divide the proximal transverse colon as well. The specimen had been passed off the field for photodocumentation and transfer to the Pathology Department. We brought the bowel together in an isoperistaltic [id number] ileocolonic anastomosis. This was done in two layers with Vicryl and silk suture. We closed the mesenteric rent with running 0-Vicryl suture, this gave us a nice widely palpably patent anastomosis. It was returned to the abdomen and laid in good position. Myself and nurse then switched sides and we addressed her tumor in the left colon. We took down the splenic flexure with the help of the cautery and then down along the white line of Toldt all the way to her pelvic brim. She had some scarring in that area from her previous hysterectomy. We divided the tumor just proximal to the splenic flexure on the transverse colon with a linear stapler and then again distal to the tumor on the left colon. The mesocolon was taken down between Pean clamps and 0-Vicryl ties. We then brought the distal transverse colon down to the proximal sigmoid colon in a French side-to-end configuration. Again, this was hand-sewn in two layers with Vicryl and silk Electronically Signed By: OPAL IZAGUIRRE MD 05/07/21 1825 PATIENT NAME: KERRY ADAMS OPERATIVE REPORT DATE OF : 35 REPORT #: [id number] PHYSICIAN: OPAL IZAGUIRRE MD PCP: JAIME SALDIVAR DO REPORT IS CONFIDENTIAL AND NOT TO BE RELEASED WITHOUT AUTHORIZATION [facility] [address], [place] [address] Signed sutures. The mesenteric rent was once again closed with a running 0-Vicryl suture. We then irrigated the abdomen with warm antibiotic saline solution and suctioned that out until clear. The bowel was returned to its position and we closed the midline fascia with interrupted #1 [id number] PDS sutures. We injected local anesthetic into the full length of the wound. The wound was irrigated and suctioned out until clear. We used 3-0 Monocryl sutures to bring the dermis back together with interrupted subcuticular technique. The skin edges were then reapproximated with albaro. Dry gauze and tape were then applied. Her NG tube was left in place along with the Ivy catheter. She was then extubation in the OR and taken into recovery room in stable condition. Opal Izaguirre MD ALB/MODL /[id number] cc: Jaime Saldivar DO Patient Chart Opal Izaguirre MD Copies: JAIME SALDIVAR ANDREW L MD ~ Electronically Signed By: OPAL IZAGUIRRE MD 05/07/21 1825 PATIENT NAME: KERRY ADAMS OPERATIVE REPORT DATE OF : 35 REPORT #: [id number] PHYSICIAN: OPAL IZAGUIRRE MD PCP: JAIME SALDIVAR DO REPORT IS CONFIDENTIAL AND NOT TO BE RELEASED WITHOUT AUTHORIZATION
--- NOTE | 2021-05-07 21:11 | NUR ---
ARRIVED TO SHIFT, RECEIVED REPORT FROM DAY SHIFT, FOCUSED ASSESSMENT COMPLETED, EMAR, LABS, AND ORDERS REVIEWED, SPOKE WITH DR IZAGUIRRE REGARDING WANTS FOR THE NG TUBE. HE STATED TO PLACE IT TO LOW INTERMINTENT SUCTION, ALSO ASKED IF SHE COULD HAVE ICE CHIPS, PER DR IZAGUIRRE ICE CHIPS OKAY. FULL HEAD TO TOE ASSESSMENT COMPLETED, VITALS WNL. PT LATER C/O PAIN, PAIN MEDICATION ADMINISTERED PER APR, WILL REASSESS PAIN LEVEL. PT STATES SHES READY FOR BED, PT PLACED IN POSITION OF COMFORT, BED IN LOWEST POSITION, CALL LIGHT WITHIN REACH, NO FURTHER NEEDS AT THIS TIME, WILL CONTINUE TO MONITOR.
--- NOTE | 2021-05-08 00:11 | NUR ---
NOTIFIED DR IZAGUIRRE OF DECREASED URINE OUTPUT OF 100 ML FOR MY SHIFT SO FAR. PER DMITRIY INCREASE IV GTT TO 120 ML/HR
--- NOTE | 2021-05-08 02:00 | NUR ---
PT RESTING COMFORTABLE, VITALS WNL, HENDERSON DRAINING URINE, IV FLUID GTT INFUSING, BED IN LOWEST POSITION, SIDE RAILS RAISED, CALL LIGHT WITHIN REACH.
--- NOTE | 2021-05-08 04:28 | NUR ---
PT SITTING UP IN BED, TOLERATING ICE CHIPS WELL, NO COMPLAINTS OF NAUSEA, NO OUTPUT FROM NG, STATES SHE ONLY HAS PAIN WHEN SHE MOVES, ABD DRESSING LOOKS CLEAN, NO SHADOWING PRESENT
--- NOTE | 2021-05-08 06:33 | NUR ---
SPOKE WITH DR IZAGUIRRE AT [facility] REGARDING DECREASED URINE OUTPUT. PER DMITRIY INCREASED FLUIDS TO 150 ML/HR. LABS ORDERED AND DMITRIY IN TO SEE PT. DRESSING REMOVED, OPEN TO AIR. NO OUTPUT FROM DMITRIY ARTIS UPDATED ON HOW PTS NIGHT WAS, WILL CONTINUE TO MONITOR, AWAITING DAY SHIFT FOR REPORT
--- NOTE | 2021-05-08 07:56 | NUR ---
PATIENT AWAKENS EASILY UPON ENTRY TO ROOM AND NAME BEING CALLED. PT HAS NGT TO LEFT NARE TO LIS. PT'S ON ROOM AIR AND SP02 IS 97%. PT DENIES PAIN UNLESS MOVING HER ABDOMINAL MUSCLES. HR IN THE 70s, SINUS. PT'S IV IN RIGHT FOREARM INFILTRATED AND D/C. EXISTING IV IN LEFT WRIST USED FOR IVF WHICH ARE GOING AT 150 ML/HR. MONITORING HOURLY URINE OUTPUT. PLAN OF CARE TO START TO MOVE PATIENT MORE TODAY WHICH SHE IS AGREEABLE TO. SKIN ASSESSMENT COMPLETE, PT TURNED TO SIDE AND EXTRA BLANKETS REMOVED. PT TURNED OFF OF COCCYX AND PILLOW UNDER HIP. WILL CONTINUE TO MONITOR.
--- NOTE | 2021-05-08 08:20 | NUR ---
Spoke with Kerry. States she is doing ok. States plan is to get out of bed today and attempt to walk. Denies needs. No plan for dc to home today.
--- NOTE | 2021-05-08 09:15 | NUR ---
PATIENT TRANSFERRED FROM BED TO CHAIR WITH LITTLE DIFFICULTY (2PA FOR SAFETY) NG IN PLACE AND SMALL AMOUNT OF ICE CHIPE PROVIDED. LINEN CHANGED. CALL LIGHT IN EASY REACH
--- NOTE | 2021-05-08 09:17 | NUR ---
PATIENT HELPED UP TO CHAIR AND MOVED WELL TO CHAIR. PT HAS NOT RECEIVED ANY PAIN MEDICATION YET AT THIS TIME. URINE OUTPUT LOW, ONLY [address] IZAGUIRRE TO BE NOTIFIED. PATIENT REMAINS IN SINUS RHYTHM AT THIS TIME. NGT TO LIS.
--- NOTE | 2021-05-08 09:45 | NUR ---
PATIENT GIVEN 0.5 MG IV DILAUDID FOR PAIN OF 5/10. PT MOVING AROUND MORE SINCE UP IN CHAIR AND PAIN HAS INCREASED. WARM BLANKETS PROVIDED. TAPE COMING OFF NOSE FOR NGT AND REINFORCED WITH PINK TAPE. CONTINUE TO MONITOR.
--- NOTE | 2021-05-08 10:47 | NUR ---
DR. IZAGUIRRE CALLED AND NOTIFIED OF LOW URINE OUTPUT. ORDER REC'D FOR 1 L OF LR OVER 4 HRS. PT REMAINS SITTING UP IN CHAIR.
--- NOTE | 2021-05-08 12:45 | NUR ---
PATIENT HAS VISITOR IN ROOM AT THIS TIME. PT WANTING TO GET BACK TO BED AFTER THEY LEAVE. PATIENT WILL USE CALL LIGHT WHEN SHE IS READY. URINE OUPTUT REMAINS LOW AND DR. IZAGUIRRE AWARE. BOLUS OF LR INFUSING AT 250 ML/HR OVER 4 HRS AT THIS TIME.
--- NOTE | 2021-05-08 14:02 | NUR ---
PATIENT WANTING TO GET BACK TO BED. PT ABLE TO STAND BY HERSELF AND GET SELF BACK INTO BED. PT NOW RECEIVING BATH FROM COAL HAULER. PT STILL HAS LOW URINE OUTPUT. BOLUS ALMOST FINISHED OF 1 L. CONTINUE TO MONITOR URINE CLOSELY.
--- NOTE | 2021-05-08 14:20 | NUR ---
RHYS JARAMILLO WAS IN BATHING PT. WILL CHECK BACK
--- NOTE | 2021-05-08 14:28 | NUR ---
PATIENT BACK TO BED WITH 1PA. BEDBATH COMPLETE. NEW GOWN ON, NG TUBE IN PLACE AND PINNED TO GOWN. CALL LIGHT IN EASY REACH
--- NOTE | 2021-05-08 14:36 | NUR ---
PATIENT CALLS USING CALL LIGHT AND STATES HER PAIN IS 5/10 AND WANTING SOMETHING FOR THIS. PT DESCRIBING PAIN UNDER LEFT RIB, AND A "TIGHTENING" SENSATION, OR ALMOST "A BAND LIKE FEELING ON MY RIBS." NGT REMAINS ON LIS WITHOUT ANY OUTPUT, SOME CLEAR LIQUID IN TUBING IS ALL THAT IS NOTICED. WILL CONTINUE TOMONITOR.
--- NOTE | 2021-05-08 16:34 | NUR ---
DR. IZAGUIRRE CALLED AND UPDATED ON CONTINUAL LOW URINE OUTPUT AND THE RESPONSE TO THE BOLUS OVER [address] BYNUM ORDERS FOR ANOTHER BOLUS TO BE GIVEN OVER ANOTHER 4 HRS. AM LABS ALSO ORDERED FOR PATIENT. PT'S FAMILY ARRIVES TO VISIT AT THIS TIME WELL. PT RESTING IN BED WITH SCDs ON. IVF CONTINUE INTO LEFT WRIST 18 G AND APPEARS W/O SWELLING OR REDNESS. NGT TO LIS. PT'S SUCTION TUBING HAS BROWNISH APPEARING FLUID IN TUBING NOW COMPARED TO JUST CLEAR LIQUID EARLIER TODAY. WILL CONTINUE TO MONITOR.
--- NOTE | 2021-05-08 19:09 | NUR ---
PATIENT'S FAMILY HAS LEFT FOR THE DAY. PT C/O PHELGM IN BACK OF HER THROAT AND DISCUSSED HER NGT WHICH CAN CAUSE PHLEGM. PT ASKING FOR HOT WATER, BUT EXPLAINED THAT SHE NEEDS TO BE NPO STILL EXCEPT ICE CHIPS AT THIS TIME. URINE OUTPUT OVER THE LAST TWO HOURS IS STARTING TO HOG TRADER, WITH IT BEING 34 ML AT 1900 AND 26 ML AT 1700. NGT TOTAL OUTPUT FOR THE DAY WAS 100 ML.
--- NOTE | 2021-05-08 20:07 | NUR ---
PT A&OX4. VSS. ABDOMINAL PAIN WITH MOVEMENT ONLY, PT DENIES NEED FOR PAIN INTERVENTION AT THIS TIME. BOWEL TONES ARE ACTIVE, ABDOMEN FLAT AND TENDER ON PALPATION. MIDLINE INSICION CDI, EDGES APPROXIMATED, PERIWOUND INTACT WITHOUT ERYTHEMA. URINE OUTPUT GRADUALLY IMPROVINGS, HOURLY MONITORING IN PLACE. PT ASSISTED WITH REPOSITIONING. PT DENIES FURTHER NEEDS AT THIS TIME. CALL LIGHT WITHIN REACH. WILL CONTINUE TO MONITOR.
--- NOTE | 2021-05-08 23:30 | NUR ---
Pt sleeping after PRN Tylenol for 4/10 back pain. No signs of discomfort. vss. willl continue to monitor.
--- NOTE | 2021-05-09 02:09 | NUR ---
UOP TRENDING UP WITH 150cc LAST HOUR. URINE IS PALE YELLOW AND CLEAR. PT REMAINS SLEEPING, VSS. WILL CONTINUE TO MONITOR.
--- NOTE | 2021-05-09 04:47 | NUR ---
PT UP TO CHAIR, TEETH BRUSHED.
--- NOTE | 2021-05-09 08:18 | NUR ---
PATIENT UP IN CHAIR UPON ASSESSMENT.PT RATES PAIN 2/10 AT THIS TIME. IVF CONTINUE AT 150 ML/HR. URINE OUTPUT AT 0800 WAS 60 ML. PT OKAY TO SIT IN CHAIR FOR A WHILE SHE STATES. LUNG SOUNDS ARE CLEAR, DIM BASES. ACTIVE BOWEL SOUNDS. NGT IS CLAMPED AT THIS TIME. IV IN LEFT WRIST STILL FLUSHING WELL. CONTINUE TO MONITOR.
--- NOTE | 2021-05-09 08:30 | NUR ---
Attempted to see pt, she is sleeping. Per am notes from Dr. Freedman, pt will remain in CCU today.
--- NOTE | 2021-05-09 09:39 | NUR ---
DR. IZAGUIRRE CALLED AND UPDATE PROVIDED. ORDERS REC'D. PT TO TRANSFER TO MEDICAL FLOOR AND IVF TO DECREASE TO 100 ML/HR. NGT TO REMAINS LIS, NOT CLAMPED. PT TO REMAIN NPO. IV TORADOL ORDERED FOR PAIN CONTROL. IV DILAUDID CHANGED TO 0.3 FOR LOWER LIMIT OF MED DOSE. PT HELPED BACK TO BED AND NOW RESTING IN BED. SCDs ON. CONTINUE MANNIE ONITOR.
--- NOTE | 2021-05-09 11:11 | NUR ---
REPORT GIVEN TO RHYS STEPHENSON ON MED/SURG WHO WILL RESUME CARE OF PATIENT ON MED/SURG. ALL QUESTIONS ANSWERED BEST POSSIBLE. CONTINUE TO MONITOR.
--- NOTE | 2021-05-09 11:23 | NUR ---
PATIENT MOVED FROM ROOM 127 TO ROOM 112 VIA BED.
--- NOTE | 2021-05-09 11:24 | NUR ---
PT ASLEEP, DID NOT DISTURB. WILL CHECK BACK
--- NOTE | 2021-05-09 12:45 | NUR ---
PATIENT RESTING QUIETLY IN BED AFTER BEING UP WITH PT AND FWW. PATIENT BACK IN BED WITH FRESH WARM BLANKETS, BOWEL TONES ACTIVE, LUNGS CLEAR,NG TUBE TO LIWS, WITH CLEAR TO BROWNISH DRAINAGE. HENDERSON PUTTING OUT GOOD CLEAR YELLOW URINE. PATIENT DENIES PAIN AND NAUSEA. PATIENT INSTRUCTED ON USE OF CALL LIGHT AND TV. PATIENT WATCHING A TENRIISM CHANNEL. PATIENT DENIES ANY OTHER CARE NEEDS AT THIS TIME. SCD'S ON. CALL LIGHT IN REACH.
--- NOTE | 2021-05-09 14:13 | NUR ---
PT MOVED TO M/S 112. HAS VISITOR, SPENT A MOMENT PT ADMITTED SHE IS DISCOURAGED AND STRUGGLING WITH BEING COLD. RETREIVED PRASANNA CARDOZO AND JAY JAY LOGAN INSTALLED TO GIVE ADDITIONAL WARMTH TO PT WHO COMPLAINS SHE IS ALWAYS COLD. SEEMS PLEASED, GAVE BLESSING AND WILL FOLLOW
--- NOTE | 2021-05-09 14:37 | NUR ---
PATIENT IN BED RESTING AT THIS TIME. VISITOR IN ROOM. VITALS AND I&O'S CHARTED. PATIENT REPOSITIONED IN BED WITH LITTLE ASSISTANTS. CALL LIGHT IN REACH. NO FURTHER NEEDS AT THIS TIME.
--- NOTE | 2021-05-09 16:39 | NUR ---
THIS RN IN TO CHECK ON PATIENT. PATIENT HAVING 4/10 ABD PAIN AND 0.3MG SIVP DILAUDID GIVEN WELL IV TORADOL AND ZOFRAN FOR NAUSEA. PATIENT SAYS HER PAIN IS ALREADY ALMOST GONE AND HER NAUSEA IS GETTING BETTER. BOWEL TINES REMAIN ACTIVE AND THERE HAS BEEN MINIMAL OUTPUT FROM NG-TUBE. AUSCULTATED PLACEMENT AND FLUSHED WITH 50MLS TAP WATER WHICH CAME RIGHT BACK INTO THE SUCTION CANISITER WITH SOME BROWN MUCUS LIKE DRAINAGE. IV REMAINS WNL AND INFUSING FINE. CALL LIGHT IN REACH AND PATIENT WANTS TO TAKE A NAP.
--- NOTE | 2021-05-09 17:37 | NUR ---
PATIENT IN BED RESTING AT THIS TIME. VITALS AND I&O'S CHARTED. CALL LIGHT IN REACH. NO FURTHER NEEDS AT THIS TIME.
--- NOTE | 2021-05-09 18:51 | NUR ---
PATIENT RESTING QUIETLY IN BED WATCHING TV AND READING HER BOOK. PATIENT DENIES PAIN AND NAUSEA AND HAS NO CURRENT CARE NEEDS. CALL LIGHT IS IN REACH.
--- NOTE | 2021-05-09 19:36 | NUR ---
RECEIVED REPORT FROM DAY SHIFT RN. PATIENT RESTING IN BED READING BIBLE. NG TO LWIS. PATIENT DENIES ANY NEEDS. CALL LIGHT IN REACH.
--- NOTE | 2021-05-09 20:42 | NUR ---
PATIENT ASSESMENT COMPLETED. PATIENT DENIES ANY PAIN OR NAUSEA. PATIENT HAS NG PRESENT AND IS ON LWIS. IV INFUSING PER PER ORDER. SCDS IN USE. PATIENT HAS 1T EDEMA IN BILAT FEET AND HEEL PROTECOTRS PLACED ON PATIENT. ADB IS SOFT TENDER, DEQUAN PRESENT, AND IS OPEN TO AIR. BRUISE NOTED ON LEFT MID ABD AND IS OUTLINED. PATIENT DENIES ANY NEEDS. VITAL TAKEN AND RECORDED. HENDERSON EMPTIED AND HENDERSON CARE COMPLETED. INTAKE AND OUTPUT RECORDED. CALL LIGHT IN REACH. FRESH MOUTH SWABS PROVIDED.
--- NOTE | 2021-05-09 23:03 | NUR ---
NEW IV STARTED. PATIENT TW. IV INFUSING PER ORDER. PATIENTS LIGHTS TURNED OFF NO NEEDS NOTED. CALL LIGHT IN REACH.
--- NOTE | 2021-05-10 00:10 | NUR ---
PATIENT IS RESTING IN BED WITH EYES CLOSED, RR 16. CALL LIGHT IN REACH.
--- NOTE | 2021-05-10 01:06 | NUR ---
PATIENT IS RESTING IN BED WITH EYES CLOSED, RR 16. NG TO LWIS. IV INFUSING PER ORDER. SCDS IN PLACE. CALL LIGHT IN REACH.
--- NOTE | 2021-05-10 01:58 | NUR ---
PATIENT IS RESTING IN BED WITH EYES CLOSED, RR 16. CALL LIGHT IN REACH.,
--- NOTE | 2021-05-10 03:58 | NUR ---
IV PUMP ALARMING. NEW IV FLUID INFUSING PER ORDER. PATIENT DENIES ANY NEEDS. NG TO LWIS. CALL LIGHT IN REACH.
--- NOTE | 2021-05-10 04:39 | NUR ---
PATIENT CALLED AND REPORTED 4/10 PAIN IN HER ABD. PRN PAIN MEDICATION GIVEN PER ORDER. PATIENTS VITALS TAKEN AND RECORDED. HENDERSON EMPTIED AND HENDERSON CARE COMPLETED. PATIENTS INTAKE AND OUTPUT RECORDED. NG REMAINS ON LWIS. IV INFUSING PER ORDER. PATIENT DENIES ANY NAUSEA. NO FURTHER NEEDS NOTED. CALL LIGHT IN REACH.
--- NOTE | 2021-05-10 05:35 | NUR ---
LAB PRESENT IN ROOM. PATIENT RATES PAIN AT A 2/10. PATIENT STATED "IT HAS MUCH IMPORVED". NO FURTHER NEEDS NOTED. CALL LIGHT IN REACH.
--- NOTE | 2021-05-10 07:38 | NUR ---
Report recieved from night worker RN, pt awake in bed, npo, ng to low intermittent suction, abd midline incsion cdi, call light within reach denies any needs
--- NOTE | 2021-05-10 08:50 | NUR ---
RN IN ROOM TO DO MORNING ASSEMENT AND MEDICATIONS, PT SITTING UP IN CHAIR, DENIES PAIN AT THE MOMENT, BOWEL SOUNDS ACTIVE,LUNGS CLEAR.
--- NOTE | 2021-05-10 10:20 | NUR ---
Spoke with pt and she has just finished working with. Pt declined to walk do to STEFF and jimenez. Pt was able to complete sit to stands. Discussed with pt what her plan is when she is medically cleared. Pt states her children have been discussing and want pt to live with them or go to placement. I asked if pt would consider rehab on dc at a SNF and she agrees. We discussed and I told her where she and her children can review on [employer] SNF. We discussed SNFs in our area. I will send a chart to [facility] and if pt changes her mind we can cancel. Face sheet, H&P, consult, progress notes, PT notes, med list, covid test and note faxed showing dates pt has been vaccinated for covid. Left a message for Verona at [facility], I am sending a chart.
--- NOTE | 2021-05-10 11:47 | NUR ---
RN in room to remove jimenez and NG tube pt tolerated well
--- NOTE | 2021-05-10 14:15 | NUR ---
RN in room to start new bag of iv fluids, pt states she is feeling alot of gas in her abdomen, pt able to ambulate around the unit, stoach feels tight, denies need for pain medication at the moment
--- NOTE | 2021-05-10 14:23 | NUR ---
PT SITTING IN CHAIR, JACKET AND BLANKET PULLED UP. NGT DC'D, PT SAID SHE IS FEELING MUCH BETTER. PT INFORMED SHE WILL BE GOING TO [facility] TIME TO REHAB. PT REQUESTED PRAYER, GAVE MYLES, WILL FOLLOW NEEDED
--- NOTE | 2021-05-10 15:26 | PATH ---
[facility] [address], [place] [address] Signed SPECIMEN(S): A CECUM MASS BIOPSY SPECIMEN(S): B COLON MASS BIOPSY AT 30 CM SPECIMEN SOURCE: A. CECUM MASS BIOPSY B. COLON MASS BIOPSY AT 30 CM CLINICAL HISTORY: Hx of unspecified colonic mass. Dx: Divertic., cecal mass, 30 cm mass. FINAL PATHOLOGIC DIAGNOSIS: A. Colon, cecum, mass, biopsy: - Moderately differentiated adenocarcinoma. - See Comment. B. Colon, mass at 30 cm, biopsy: - Fragments of tubular adenoma. - Negative for high-grade dysplasia or malignancy. COMMENT: Regarding specimen A: Mismatch repair (MMR) testing by IHC will be performed on the resection specimen ([id number]). As part of [facility] Quality Improvement Program, part A of this case was reviewed by another member of our pathology staff. A diagnostic alert was initiated by Dr. Ramirez on 05/10/2021. NAL:NRT:smn:C1NR MICROSCOPIC EXAMINATION: Histologic sections of all submitted blocks are examined by light microscopy. These findings, together with the gross examination, support the pathologic diagnosis. GROSS DESCRIPTION: Two specimens are received in two containers, labeled "AP." A. The specimen, labeled "AP, 1," and designated on the requisition "cecum mass," is received in formalin and consists of one benoit soft tissue fragment(s) that measure 0.3 Cm in greatest dimension. The specimen is entirely submitted in cassette (A1). B. The specimen, labeled "AP, 2," and designated on the requisition "colon mass at 30 cm," is received in formalin and consists of three benoit soft tissue fragment(s) that measure 0.3 cm in greatest dimension. The specimen is entirely submitted in cassette (B1). PATIENT NAME: CHEYENNE ADAMS PATHOLOGY DATE OF : 35 REPORT #: [id number] PHYSICIAN: SARAVANAN MENDOZA PCP: EWA SALDIVAR DO REPORT IS CONFIDENTIAL AND NOT TO BE RELEASED WITHOUT AUTHORIZATION [facility] [address], [place] [address] Signed AT (under the direct supervision of a pathologist) The Gross Description was prepared using a voice recognition system. The report was reviewed for accuracy; however, sound-alike word errors, addition and/or deletions may occur. If there is any question about this report, please contact Client Services. PERFORMING LABORATORY: The technical component was performed by [facility] [address] (Boat Person: Christina Anderson MD; CLIA# [id number]). [facility], [address] [address] (CLIA# [id number]). Diagnostician: Flor Ramirez MD Pathologist Electronically Signed 05/10/2021 Copies: ~ PATIENT NAME: CHEYENNE ADAMS PATHOLOGY DATE OF : 35 REPORT #: [id number] PHYSICIAN: SARAVANAN MENDOZA PCP: EWA SALDIVAR DO REPORT IS CONFIDENTIAL AND NOT TO BE RELEASED WITHOUT AUTHORIZATION
--- NOTE | 2021-05-10 17:00 | NUR ---
REceived a call from Verona at [facility]. They can accept this pt. Let her know it is not clear when this pt will be able to dc and I can let her know tomorrow when I speak with Dr. Freedman.
--- NOTE | 2021-05-10 17:21 | NUR ---
RHYS ROUDING ON PT, RESTING IN RECLINER DENIES ANY NEEDS AT THE MOMENT
--- NOTE | 2021-05-10 19:48 | NUR ---
RECEIVED REPORT FROM DAY SHIFT RN. PATIENT IS RESTING IN BED. IV INFUSING PER ORDER. NO NEEDS NOTED. CALL LIGHT IN REACH.
--- NOTE | 2021-05-10 20:55 | NUR ---
PATIENT ASSESMENT COMPLETED. VITALS TAKEN AND COMPLETED. PATIENT ASSISTED TO THE RESTROOM A SBA W/FWW. PATIENT ABLE TO VOID. PATIENT IS BACK IN BED RESTING. SCDS AND HEEL PROTECTORS IN PLACE. PATIENTS INTAKE AND OUTPUT RECORDED. IV INFUSING PER ORDER. PATIENT DENIES ANY PAIN OR NAUSEA. PATIENTS MIDLINE ABD INCISION HAS DEQUAN PRESENT, NO S/SX OF INFECTION, AND WELL APPROXIMATED. BOWEL TONES PRESENT IN ALL 4 QUADRANTS. NO FURTHER NEEDS NOTED. CALL LIGHT IN REACH.
--- NOTE | 2021-05-10 23:20 | NUR ---
IN TO ASSIT PT TO THE TOILET, PT WANTED TO WALK IN THE SOL, BACK TO BED, NO FURTHER NEEDS
--- NOTE | 2021-05-10 23:25 | NUR ---
PATIENT UP AND AMNULATED IN HACLL WITH PRINTING SHOP SUPERVISOR. PATIENT BACK IN BED RESTING. PATIENT DENIES ANY PAIN OR NAUSEA. NO NEEDS NOTED. CALL LIGHT IN REACH.
--- NOTE | 2021-05-11 01:16 | NUR ---
PATIENT IS RESTING IN BED WITH EYES CLOSED, RR 16. CALL LIGHT IN REACH.
--- NOTE | 2021-05-11 03:17 | NUR ---
PATIENT IS RESTING IN BED WITH EYES CLOSED, RR 17. CALL LIGHT IN REACH.
--- NOTE | 2021-05-11 04:36 | NUR ---
PATIENT IS RESTING IN BED WITH EYES CLOSED, RR 17. CALL LIGHT IN REACH.
--- NOTE | 2021-05-11 05:14 | NUR ---
PATIENT ASSISTED TO THE RESTROOM A SBA W/FWW. PATIENT WQA ABLE TO VOID. PATIENT WAS ALSO ABLE TO PASS GAS. PATIENT IS BACK IN BED RESTING. PATIENTS VITALS TAKEN AND RECORDED. INTAKE AND OUTPUT RECORDED. PATIENTS IV INFUSING PER ORDER. PATIENT DENIES ANY PAIN OR NAUSEA. CALL LIGHT IN REACH.
--- NOTE | 2021-05-11 06:50 | NUR ---
Spoke with Dr. Freedman. He states he dcd pt ng tube and pt was able to work with PT. Possible dc tomorrow, Sat., or Saturday depending how pt does. I'll ask [facility] if they are willing to accept this pt over the weekend and then transportation will also have to be considered. I attempted to call the pts daughter yesterday and left a message to check if they have made other plans for this pt. I have not received a return call.
--- NOTE | 2021-05-11 07:15 | NUR ---
report recieved from slot shift supervisor RN, pt post op R and L colectomy, started passing gas over night, able to advance diet to clear liquid denies any pain at the moment resting in bed comfortable, no needs at the mement
--- NOTE | 2021-05-11 08:30 | NUR ---
RN IN ROOM TO DO MORNING ASSESSMENT AND MEDICATIONS, PT REQUESTING TO GO TO THE BATHROOM ABLE TO GET UP AND VOID, ASSISTED TO SIT UP IN THE RELCINER, CLEAR LIQUID TRAY FOR BREAKFAST, DENIES ANY NEEDS AT THE MOMENT, BOWEL SOUNDS ACTIVE, LUNGS CLEAR, IV PATENT AND INFUSING.
--- NOTE | 2021-05-11 11:18 | NUR ---
RN IN ROUNDING, PT UP IN CHAIR, CHATTING WITH VISITORS,
--- NOTE | 2021-05-11 11:30 | NUR ---
Spoke with Verona from [facility]. They will accept this pt tomorrow or Saturday. They do not admit over the weekend. I have called and left messages with the daughter yesterday and today. I have not received a return call. Pt does not feel comfortable making a decision on placement and states she doesn't know what her kids have planned. She thinks her son will be here over the weekend or next week.
--- NOTE | 2021-05-11 11:41 | NUR ---
PT UP WALKING THE HALLS WITH THERAPY.
--- NOTE | 2021-05-11 12:24 | NUR ---
RN IN ROOM TO ROUND ON PT SITTING UP IN RECLINER, COMPLAING OF ABD PAIN, PRN TYLENOL PROVIDED, CATHERINE LOZANO TALKING ON THE PHONE WITH PT, UPDATED ON PT CONDITION NO OTHER NEEDS AT THE MOMENT
--- NOTE | 2021-05-11 12:35 | NUR ---
PT SITTING IN CHAIR VISITING WITH FRIENDS. GAVE BLESSING, LET THEM SPEND SOME TIME TOGETHER. WILL FOLLOW
--- NOTE | 2021-05-11 13:00 | NUR ---
RN IN ROOM TO ANSWER CALL LIGHT PT STATES SHE FEELS LIKE SHE NEEDS TO HAVE A BM, pt assisted up to the bathroom able to pass gas and have a smear bm
--- NOTE | 2021-05-11 15:06 | NUR ---
PATIENT NOW ON A CLEAR LIQ DIET. ADDED SUPPLEMENTS TO MEALS. WILL CONTINUE TO MONITOR.
--- NOTE | 2021-05-11 15:11 | NUR ---
Spoke with Kerry and checked daughter's phone number. Let her know Dr. Freedman felt she could dc tomorrow. She cont. to want to wait to make a decision.
--- NOTE | 2021-05-11 15:50 | NUR ---
Received message from pts son, Steve. He is an OT and would like a return call. Called son and gave update. Let him know pt has been up, had a bm, eating, showered and has walked with PT. Updated pt has been accepted by [facility] and could go there Fri or Mon, but not on the weekend. He states he and his siblings are trying to piece together friends to visit during the day. I let him know I don't feel this is a safe discharge as pt is 86 years old and should have someone to stay with her or go to a SNF until she has returned to baseline. Son states he will discuss with family and let us know tomorrow. Son, Steve Patching, .
--- NOTE | 2021-05-11 16:00 | NUR ---
PT ASSISTED TO THE SHOWER BY JAY JAY MANZANARES, TOLERATED WELL. NO PAIN
--- NOTE | 2021-05-11 18:00 | NUR ---
RN IN ROOM TO ROUND ON PT SITTING UP IN RECLINER, DENIES ANY PAIN TOLERATED LIQUIDS ON DINNER TRAY NO OTHER NEEDS
--- NOTE | 2021-05-12 00:55 | NUR ---
HAS BEEN UP MULTIPLE TIMES TO VOID. HAS DENIED ANY PAIN, SOB, DIZZINESS.
--- NOTE | 2021-05-12 04:49 | NUR ---
APPEARS TO BE SLEEPING WELL. RESPIRATIONS EVEN AND UNLABORED
--- NOTE | 2021-05-12 05:51 | NUR ---
HAS HAD AN UNEVENTFUL NIGHT. NO C/O OF PAIN,NAUSEA,DIZZINESS, SOB. UP WITH SBA MULTIPLE TIMES TO THE BR. APPEARS TO SLEPT WELL.
--- NOTE | 2021-05-12 06:48 | NUR ---
pt UP TO VOID, SBA FWW. LIGHT YELLOW URINE OUT. BACK TO BED. IV LEAKING. NEW IV STARTED. VITALS RECORDED. NO REQUESTS AT THIS TIME. pt RESTING IN BED WITH EYES CLOSED, RESPIRATIONS REGULAR. CALL LIGHT WITHIN REACH.
--- NOTE | 2021-05-12 07:15 | NUR ---
REPORT RECIEVED FROM AUGER SUPERVISOR RN, PT AWAKE RESTING IN BED, IV INFSING PER ORDERS NO NEEDS AT THE MOMENT
--- NOTE | 2021-05-12 09:17 | NUR ---
RN IN ROOM TO DO MORNING ASSESSMENT PT AWAKE AND IN CHAIR, DENIES ANY PAIN AT THE MOMENT, IV FLUID RATE CHANGED PER ORDERS, UPDATED ON FULL LIQUID DIET, STATES SHE HAS NO APPITITE, CALL LIGHT WITHIN REACH NO OTHER NEEDS AT THE MOMENT.
--- NOTE | 2021-05-12 13:00 | NUR ---
DR IZAGUIRRE ROUNDING ON PT OK TO DC IV FLUIDS ADVANCE TO SOFT DIET, PT ABLE TO AMBULATE IN HALLS
--- NOTE | 2021-05-12 13:03 | NUR ---
SPOKE WITH PATIENTS DAUGHTER TOREY, FAMILY HAS DECIDED THAT IT WOULD BE BEST FOR THE PATIENT TO DISCHARGE TO [facility]. PATIENT DAUGHTER WILL ARRIVE ON [place] MORNING TO TRANSPORT PATIENT. DR. IZAGUIRRE UPDATED. SPOKE WITH KIRBY AT [facility], CONFIRMED PLACEMENT FOR SATURDAY. SHE REQUESTED THE PATIENT BE DISCHARGED BETWEEN 9-10 AM. WILL SEND ORDERS ON [place].
--- NOTE | 2021-05-12 14:41 | NUR ---
pt up in halls working with therapy
--- NOTE | 2021-05-12 15:05 | NUR ---
PATIENT JUST GOT UPGRADED TO A SOFT DIET. SHE SAID SHE DOES NOT LIKE SOUR ITEMS, SUCH THE LEMON ICE. SHE IS IN GOOD SPIRITS. I EXPLAINED THAT SHE WILL GET A MENU ON HER DINNER TRAY TONIGHT. A FEW FOOD PREFERENCES NOTES: NO COFFEE, DECAF HOT TEA FOR BREAKFAST (NO MILK), 4 OZ. MILK OK FOR LUNCH. WILL LET THE KITCHEN KNOW.
--- NOTE | 2021-05-12 17:00 | NUR ---
RN IN ROOM TO ROUND ON PT ASSITED TO THE BATHROOM AND BACK TO THE RECLINER, SITTING UP EAT DINNER
--- NOTE | 2021-05-12 17:46 | PATH ---
[facility] [address] [place], [place] [address] Signed THIS IS AN ADDENDUM REPORT SPECIMEN(S): A RIGHT COLON AND ADDITIONAL ILEUM SPECIMEN(S): B LEFT COLON SPECIMEN SOURCE: A. RIGHT COLON AND ADDITIONAL ILEUM B. LEFT COLON CLINICAL HISTORY: Cecal mass; 30 cm mass. Acute SBO. FINAL PATHOLOGIC DIAGNOSIS: A. 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 - Histologic type: Adenocarcinoma with focal mucinous features. - Histologic grade: G2, moderately differentiated. - Tumor size: 9.4 x 9.3 x 1.4 cm. - Multiple primary sites: Not applicable. - Tumor extent: Invades through muscularis propria into pericolorectal tissue. - Macroscopic tumor perforation: Not identified. - Lymphovascular invasion: Present, small vessel. - Perineural invasion: Not identified. - Treatment effect: No known pre-surgical therapy. - Margins: All margins negative for invasive carcinoma, high-grade dysplasia, and intramucosal carcinoma. - Regional lymph nodes: Tumor present in regional lymph nodes. - Number of lymph nodes with tumor: 1. - Number of lymph nodes examined: 27. - Tumor deposits: Not identified. - Mismatch repair (MMR): Pending, to be reported by an addendum. - Pathologic stage classification (pTNM, AJCC 8th Edition): pT3 pN1a. 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 - Tumor site: Cecum. - Tumor size: Approximately 4 mm in greatest dimension. - Histologic type: Gastrointestinal stromal tumor, spindle cell type. PATIENT NAME: CHEYENNE ADAMS PATHOLOGY DATE OF : 35 REPORT #: [id number] PHYSICIAN: SARAVANAN MENDOZA PCP: EWA SALDIVAR DO REPORT IS CONFIDENTIAL AND NOT TO BE RELEASED WITHOUT AUTHORIZATION [facility] [address], [place] [address] Signed - Mitotic rate: Cannot be determined: Less than 5 mm2 present. - 0 mitoses identified in one complete cross section of tumor. - Histologic grade: Favor G1, low-grade. - Necrosis: Not identified. - Treatment effect: No known pre-surgical therapy. - Risk assessment: Favor none. - Margin status: All margins negative for GIST. - Regional lymph nodes: All regional lymph nodes negative for GIST. - Number of lymph nodes examined: 27. - Pathologic stage classification (pTNM, AJCC 8th Edition): pT1 pN0. - Tubular adenoma; negative for high-grade dysplasia. B. Colon, left, resection: - Tubulovillous adenoma. - Surgical margins negative for dysplasia. - 24 lymph nodes with no evidence of malignancy. - Negative for carcinoma. COMMENT: Regarding specimen A: An incidental spindle cell nodule was identified within the muscularis propria of the cecum. Immunohistochemical stains (with appropriately staining controls) were performed. The spindle cells are positive for CD117, DOG1, and CD34 and demonstrate weak patchy positivity for S-100. The spindle cells are negative for desmin and smooth muscle actin. The combined morphologic and immunophenotype profile is compatible with gastrointestinal stromal tumor (GIST). The tumor is 4 mm in greatest dimension, therefore a formal mitotic rate counting at least 5 mm2 cannot be determined. However, no mitoses are identified within one complete cross section of the tumor. As part of [facility]' Quality Improvement Program, this case was reviewed by another member of our pathology staff. NAL:NRT:smn:C1NR MICROSCOPIC EXAMINATION: Histologic sections of all submitted blocks are examined by light microscopy. These findings, together with the gross examination, support the pathologic diagnosis. GROSS DESCRIPTION: Two specimens are received in two containers, labeled "AP." A. The specimen, labeled "AP, A," and designated on the requisition "right PATIENT NAME: CHEYENNE ADAMS PATHOLOGY DATE OF : 35 REPORT #: [id number] PHYSICIAN: [employer] PATHOLOGY PCP: EWA SALDIVAR DO REPORT IS CONFIDENTIAL AND NOT TO BE RELEASED WITHOUT AUTHORIZATION [facility] [address], [place] [address] Signed colon and additional ileum," is received in formalin and consists of a previously opened and slightly fragmented terminal ileum (8.0 cm in length x 3.5-4.5 cm in circumference) attached to previously opened cecum and ascending colon (14.7 cm in length and ranging in circumference from 5.5-11.3 cm). Also received is a separate segment of small bowel (3.3 cm in length x 3.0 cm in diameter). An appendix is not grossly identified. The separate small bowel segment has pink-benoit, smooth serosa and benoit unremarkable mucosal folds. The albaro are removed, one margin is inked blue, and the opposite margin is inked black. No lesions or masses are identified within the separate portion of small bowel. There are stapled margins on the terminal ileum segment and ascending colon. The albaro are removed, the terminal ileum margin is inked green, and the ascending colon margin is inked black. The mesenteric margin is inked black. There is a brown-benoit, firm, nearly circumferential mass (9.4 x 9.3 x 1.4 cm) with heaped borders within the cecum. The serosa surrounding the mass is inked blue. Then 3.9 cm from the mesenteric margin, 4.8 cm from the terminal ileum margin, and 8.5 cm from the ascending colon margin. The mass grossly involves the ileocecal valve, serosa and extends into the mesenteric adipose. There is a pink-benoit, bosselated polyp (0.4 cm in greatest dimension) located 4 cm from the mass and 7 cm from the ascending colon margin. The remaining mucosa is pink-benoit and unremarkable. The adipose is stripped and palpated and 27 possible lymph nodes are identified (ranging in size from 0.1-1.7 cm in greatest dimension). All possible lymph nodes are submitted entirely. Mdm Developer sections are submitted as follows: Cassette Summary: (A1) Separate small bowel segment with margins (A2) Terminal ileum and ascending colon margins, shaved, en face (A3) Mesenteric margin, shaved, en face (A4) Mass to ileocecal valve (A5-A7) Mass to serosa and mesenteric fat (A8) Mass to uninvolved cecum with one possible lymph node (A9-A10) Mass to uninvolved ascending colon (A11) Distal ascending colon with polyp (A12) 7 possible lymph nodes, intact (A13) 7 possible lymph nodes, intact (A14) 3 possible lymph nodes, intact PATIENT NAME: PATCHING,CHEYENNE JENNIFER PATHOLOGY DATE OF : 35 REPORT #: [id number] PHYSICIAN: [facility] PCP: EWA SALDIVAR DO REPORT IS CONFIDENTIAL AND NOT TO BE RELEASED WITHOUT AUTHORIZATION [facility] [address], [place] [address] Signed (A15) 5 possible lymph nodes, intact (A16) 3 possible lymph nodes, intact (A17) 2 possible lymph nodes, one inked blue, both bisected B. The specimen, labeled "AP, B," and designated on the requisition "left colon," is received in formalin and consists of a previously opened segment of large bowel (9.8 cm in length and ranging in circumference from 4.8-7.0 cm) with a stitch marking the proximal end per the requisition. There is also attached mesenteric fat that extends up to 2.0 cm. There is a pink-benoit, previously disrupted bosselated mass (4.2 x 3.8 x 1.0 cm) located 4.0 cm and the proximal bowel margin, 6.0 cm from the distal bowel margin, and 3.7 cm from the mesenteric margin. The albaro are removed, the small bowel margin is inked green, and the distal bowel margin is inked blue. The mesenteric margin is inked blue and the serosa adjacent to the mass is inked orange. The serosa adjacent to the mass is black tinted from previous tattooing. The mass does not appear to involve the serosa or extend into the surrounding adipose. The specimen was received previously opened at the [facility] (gross photographs are taken and uploaded into [employer]) and the serosa adjacent to the mass is markedly retracted. Involvement of the serosa is difficult to determine grossly. The adipose is palpated and 29 possible lymph nodes are identified (ranging in size from 0.1-0.5 cm in greatest dimension). All possible lymph nodes are submitted entirely. Mdm Developer sections are submitted as follows: Cassette Summary: (B1) Proximal bowel margin and mesenteric margin, shaved, en face (B2) Distal bowel margin, shaved, en face (B3-B5) Mass to serosa (B6-B7) Mass to adipose and adjacent uninvolved bowel wall (B8) 8 possible lymph nodes, intact (B9) 8 possible lymph nodes, intact (B10) 6 possible lymph nodes, intact (B11) 4 possible lymph nodes, intact (B12) 3 possible lymph nodes, intact AC (under the direct supervision of a pathologist) The Gross Description was prepared using a voice recognition system. The report was reviewed for accuracy; however, sound-alike word errors, addition and/or deletions may occur. If there is any question about this report, please contact Client Services. PATIENT NAME: CHEYENNE ADAMS PATHOLOGY DATE OF : 35 REPORT #: [id number] PHYSICIAN: SARAVANAN MENDOZA PCP: EWA SALDIVAR DO REPORT IS CONFIDENTIAL AND NOT TO BE RELEASED WITHOUT AUTHORIZATION [address] [address] Signed ADDITIONAL NOTES: Immunohistochemical and/or in situ hybridization studies were performed on this case with the appropriate positive controls that react as expected. This test was developed and its performance characteristics determined by [facility]. It has not been cleared or approved by the U.S. Food and Drug Administration. The FDA has determined that such clearance or approval is not necessary. This test is used for clinical purposes. It should not be regarded as investigational or for research. [facility] is certified under the Clinical Laboratory Improvement Amendments of 1988 (CLIA) as qualified to perform high complexity clinical laboratory testing. This assay has not been validated for specimens that have been decalcified. PERFORMING LABORATORY: The technical component was performed by [facility], [address] [place] [id number] (Cooler Tender: Christina Anderson MD; CLIA# [id number]). [facility], [address] [place] [address] (CLIA# [id number]). COMMENT: Tumor cells show loss of nuclear expression for both MLH1 and PMS2, suggestive of a mutation or promoter methylation of the MLH1 gene. Testing for methylation of the MLH1 promoter and/or mutation of BRAF is indicated. The presence of a BRAF V600E mutation and/or MLH1 methylation would suggest sporadic colorectal carcinoma. Absence of both MLH1 methylation and BRAF V600E mutation would suggest Bermeo syndrome (hereditary non-polyposis colorectal carcinoma syndrome). Clinical correlation with appropriate genetic counseling is recommended to assess the need for further testing in this patient. NAL:peggy ADDITIONAL NOTES: Immunohistochemical and/or in situ hybridization studies were performed on this case with the appropriate positive controls that react as expected. This test was developed and its performance characteristics determined by [facility]. It has not been cleared or approved by the U.S. Food and Drug Administration. The FDA has determined that such clearance or approval is not PATIENT NAME: CHEYENNE ADAMS PATHOLOGY DATE OF : 35 REPORT #: [id number] PHYSICIAN: [employer] PATHOLOGY PCP: EWA SALDIVAR DO REPORT IS CONFIDENTIAL AND NOT TO BE RELEASED WITHOUT AUTHORIZATION [facility] [address], [place] [address] Signed necessary. This test is used for clinical purposes. It should not be regarded as investigational or for research. [facility] is certified under the Clinical Laboratory Improvement Amendments of 1988 (CLIA) as qualified to perform high complexity clinical laboratory testing. Professional interpretation was performed by [facility], [address] [address] (CLIA# [id number]). REASON FOR ADDENDUM: To add results of additional testing. ADDENDUM PATHOLOGIC DIAGNOSIS: Adenocarcinoma of the cecum, microsatellite instability testing by IHC: - MLH1: Loss of nuclear expression. - MSH2: Intact of nuclear expression. - MSH6: Intact of nuclear expression. - PMS2: Loss nuclear expression. INTERPRETATION: Suggestive of MLH1 mutation. ADDENDUM MICROSCOPIC EXAMINATION: A panel of four antibodies is selected which will detect 95% of microsatellite unstable carcinomas. Block: A4. Recut HE slide is prepared from the block. The presence of neoplastic glands and non-neoplastic internal control glands or stroma is confirmed. Internal control cells for MLH1, MSH2, PMS2 and MSH6 are positive. Neoplastic gland cells show the following: - MLH1: Negative. - MSH2: Positive. - MSH6: Positive. - PMS2: Negative. [facility] [place] [facility] [place] [place] NAL:peggy Diagnostician: Flor Ramirez MD Pathologist Electronically Signed 05/12/2021 Copies: PATIENT NAME: CHEYENNE ADAMS PATHOLOGY DATE OF : 35 REPORT #: [id number] PHYSICIAN: MARIA LYTE PATHOLOGY PCP: WEA SALDIVAR DO REPORT IS CONFIDENTIAL AND NOT TO BE RELEASED WITHOUT AUTHORIZATION [address] [address] Signed ~ PATIENT NAME: CHEYENNE ADAMS PATHOLOGY DATE OF : 35 REPORT #: [id number] PHYSICIAN: [facility]OLOG[facility] PCP: EWA SALDIVAR DO REPORT IS CONFIDENTIAL AND NOT TO BE RELEASED WITHOUT AUTHORIZATION
--- NOTE | 2021-05-12 21:45 | NUR ---
HAS BEEN SITTING IN CHAIR. UP TO BR AND THEN TO BED. SCD'S APPLIED. ALL NEEDS MET. CALL LIGHT WITHIN REACH.
--- NOTE | 2021-05-13 01:30 | NUR ---
UP TO BR. SCD'S REPLACED ONCE BACK TO BED. DENIES ANY OTHER NEEDS. CALL LIGHT WITHIN REACH.
--- NOTE | 2021-05-13 05:20 | NUR ---
IN TO GET VITALS, I&Os DONE, NO FURTHER NEEDS AT THIS TIME
--- NOTE | 2021-05-13 06:54 | NUR ---
PT HAD AN UNEVENTFUL NIGHT. NO C/O OF PAIN ALL SHIFT
--- NOTE | 2021-05-13 06:55 | NUR ---
BEDSIDE HANDOFF REPORT RECEIVED FROM COOLER MAN RN. PT SLEEPING, LEFT UNDISTURBED.
--- NOTE | 2021-05-13 08:02 | NUR ---
PATIENT HELPED UP TO CHAIR W/ SBA. PT TOLERATED WELL. PT NOW IN CHAIR EATING BREAKFAST. CALL LIGHT WITHIN REACH.
--- NOTE | 2021-05-13 09:45 | NUR ---
PT SITTING IN CHAIR. PT DENIES PAIN. PT ALERT AND ORIENTED. PT DENIES NAUSEA, TOLERATED SOFT DIET THIS MORNING, PASSING FLATUS, DENIES BM. PT ON ROOM AIR, LUNG SOUNDS CLEAR. ABD INCISION WITH DEQUAN, EDGES WELL APPROXIMATED, WITHOUT DAINAGE OR REDNESS, VERBAL ORDER FROM DR. IZAGUIRRE TO REMOVE DEQUAN TODAY. PT WITHOUT EDEMA, CMS INTACT. IV SALINE LOCKED. PT DENIES OTHER NEEDS AT THIS TIME.
--- NOTE | 2021-05-13 14:30 | NUR ---
AFTERNOON ASSESSMENT COMPLETED, NO ACUTE CHANGES. PT CONTINUES TO REPORT FLATU. TOLERATED LUNCH WELL. ALL DEQUAN REMOVED PER ORDER, TOTAL OF 26. PT DENIES OTHER NEEDS AT THIS TIME.
--- NOTE | 2021-05-13 18:10 | NUR ---
PT RESTING IN BED, NURSE AIDE AT BEDSIDE. PT DENIES NEEDS AT THIS TIME.
--- NOTE | 2021-05-13 18:20 | NUR ---
PT RECEIVED 2G MAG RIDER TODAY FOR MAG OF 1.6, IV NOW SALINE LOCKED. PER ORDER, DEQUAN REMOVED, INCISION WITHOUT REDNESS OR DRAINAGE, EDGES WELL APPROXIMATED. BOWEL TONES ACTIVE, TOLERATING SOFT DIET, PASSING FLATUS BUT HAS NOT HAD BM YET. PT WALKED IN SOL, WORKING WITH Juan ESPINOZA FOR DC ON SATURDAY TO [facility].
--- NOTE | 2021-05-13 19:54 | NUR ---
REPORT RECEIVED FROM DAY SHIFT RN. PT LYING IN BED ALERT AND ORIENTED. DENIES NEEDS. VISITORS IN ROOM. CALL LIGHT IN REACH. WHITE BOARD UPDATED.
--- NOTE | 2021-05-13 21:41 | NUR ---
EVENING ASSESSMENT COMPLETE. PT DENIES PAIN OR NAUSEA. BOWEL TONES ACTIVE. PT REPORTS FLATUS. ABD MILDLY DISTENDED. MIDLINE INCISION OPEN TO AIR WELL APPROXIMATED. NO REDNESS OR DRAINAGE NOTED. UP TO BR WITH SBA AND FWW TO VOID 200 ML CLEAR YELLOW URINE. PT ABLE TO DO OWN ASHLEY CARE. BACK TO BED, [place] WELL. SCD'S IN PLACE. RED BLANCHABLE AREA ON SPINE NOTED. SKIN INTACT. ALLEVYN PLACED. FRESH WATER PROVIDED. PT DENIES QUESTIONS OR CONCERNS. CALL LIGHT IN REACH.
--- NOTE | 2021-05-14 00:26 | NUR ---
CALL LIGHT ANSWERED. PT UP TO BR WITH SBA AND FWW TO VOID 500 ML CLEAR YELLOW URINE. BACK TO BED. GAIT STEADY. SCD'S BACK ON. NO FURTHER NEEDS. CALL LIGHT IN REACH.
--- NOTE | 2021-05-14 02:54 | NUR ---
CALL LIGHT ANSWERED. PT UP TO BR TO VOID 500 ML CLEAR YELLOW URINE. BACK TO BED. GAIT STEADY. PT DENIES PAIN OR NAUSEA. NO FURTHER NEEDS. CALL LIGHT IN REACH.
--- NOTE | 2021-05-14 03:35 | NUR ---
PT CALLED TO REPORT HER "HEART IS RACING". HR NOTED 80'S TO HIGH 117. APICAL PULSE 90. HEART TONES IRREGULAR. VS WNL. PT DENIES CHEST PAIN OR SOB. PT REPORTS SX HAVE HAPPENED IN PAST AND SHE "TWISTS AROUND OR WALKS" UNTIL SX SUBSIDE. ENCOURAGED VAGAL MANEUVERS WITH NO RESULTS. DR. IZAGUIRRE NOTIFIED OF PT SX AND IRREGULAR HEART RATE. NO NEW ORDERS RECEIVED AT THIS TIME.
--- NOTE | 2021-05-14 05:35 | NUR ---
PT UP TO BR WITH MINIMAL SBA AND FWW TO VOID. GAIT STEADY. AT SINK TO WASH HANDS. BACK TO BED. VS AND I&O COMPLETE. HR REMAINS IRREGULAR. PT DENIES CHEST PAIN OR SOB. PT REPORTS SHE WAS ABLE TO GO BACK TO SLEEP AND HER "HEART ISN'T RACING ANYMORE." NO FURTHER NEEDS. CALL LIGHT IN REACH.
--- NOTE | 2021-05-14 07:30 | NUR ---
SHIFT REPORT GIVEN TO THIS RN BY RHYS SANDOVAL. PATIETN UP IN THE RESTROOM AND RHYS SANDOVAL STAYING IN THE ROOM TO ASSIST PATIENT. NO CARE NEEDS NOTED FROM THIS RN AT THIS TIME.
--- NOTE | 2021-05-14 08:48 | NUR ---
PATIENT DENIES ANY PAIN AND NAUSEA. PATIENT UP IN THE BEDSIDE ARMCHAIR DOING HER DEVOTIONALS. BOWEL TONES ACTIVE AND PATIENT IS DONE WITH BREAKFAST. AM MEDS GIVEN AND CALL LIGHT IS IN REACH. PATIENT HAS NO OTHER CARE NEEDS AT THIS TIME. AM ASSESSMENT COMPLETED BY THIS RN AND IN THE CHART.
--- NOTE | 2021-05-14 10:54 | NUR ---
PATIENT REMAINS SITTING UP IN THE BEDSIDE ARMCHAIR AND IS VISITING WITH HER 2 MALLY THAT ARE IN THE ROOM. PATIENT DENIES ANY CARE NEEDS AT THIS TIME. CALL LIGHT IS IN REACH.
--- NOTE | 2021-05-14 12:30 | NUR ---
PATIENT SITTING UP IN HER BEDSIDE ARMCHAIR EATING HER LUNCH. PATIENT DENIES ANY CARE NEEDS AT THIS TIME. CALL LIGHT IS IN REACH.
--- NOTE | 2021-05-14 14:52 | NUR ---
PATIENT PM ASSESSMENT COMPLETE. PATIENT DENIES ANY CARE NEEDS FROM THIS RN. PATIENT ON HER CELL PHONE. DENIES PAIN AND NAUSEA. CALL LIGHT IS IN REACH.
--- NOTE | 2021-05-14 15:45 | NUR ---
PATIENT UP WALKING LAPS IN THE SOL WITH PT AT THIS TIME.
--- NOTE | 2021-05-14 16:50 | NUR ---
PATIENT DENIES ANY CARE NEEDS AT THIS TIME. PATIENT HAS 2 NEW VISITORS THAT JUST ARRIVED. CALL LIGHT IS IN REACH.
--- NOTE | 2021-05-14 18:26 | NUR ---
PATIENT SITTING UP IN BED WORKING ON HER BIBLE STUDIES. PATIENT DENIES ANY CARE NEEDS AT THIS TIME. CALL LIGHT IS IN REACH.
--- NOTE | 2021-05-14 18:58 | NUR ---
PATIENT WASHED HER HANDS THAN BRUSHED HER TEETH. PATIENT IS BACK IN BED.
--- NOTE | 2021-05-14 19:49 | NUR ---
REPORT RECEIVED FROM DAY SHIFT RN. PT LYING IN BED ALERT AND ORIENTED. DENIES NEEDS. WHITE BOARD UPDATED. CALL LIGHT IN REACH.
--- NOTE | 2021-05-14 22:05 | NUR ---
EVENING ASSESSMENT COMPLETE. PT DENIES PAIN OR NAUSEA. BOWEL TONES ACTIVE. PT REPORTS FLATUS AND EXTRA SMALL BM THIS EVENING. ABD SOFT AND MILDLY DISTENDED. MIDLINE INCISION WELL APPROXIMATED. NO REDNESS OR DRAINAGE NOTED. SCD'S IN PLACE. PT DENIES QUESTIONS OR CONCERNS. CALL LIGHT IN REACH.
--- NOTE | 2021-05-14 23:01 | NUR ---
ANSWERED CALL LIGHT. SBA TO THE BATHROOM AND BACK TO BED. USED WALKER. SCD'S BACK ON. NO OTHER CARE NEEDS AT THIS TIME.
--- NOTE | 2021-05-15 01:39 | NUR ---
PT RESTING IN BED. RESPIRATIONS EVEN. CALL LIGHT IN REACH.
--- NOTE | 2021-05-15 02:53 | NUR ---
PATIENT CALLED TO USE THE BATHROOM. SBA USING WALKER. PATIENT IS BACK IN BED. ICE WATER REFILLED. NO OTHER NEEDS AT THIS TIME. CALL LIGHT IN REACH.
--- NOTE | 2021-05-15 02:54 | NUR ---
ASSESSMENT COMPLETE. BOWEL TONES ACTIVE. PT REPORTS FLATUS. DENIES PAIN OR NAUSEA. MIDLINE INCISION SAME PREVIOUS ASSESSMENT. NO NEEDS AT THIS TIME. CALL LIGHT IN REACH.
--- NOTE | 2021-05-15 06:11 | NUR ---
VS AND I&O COMPLETE. PT DENIES PAIN OR NAUSEA. NO FURTHER NEEDS AT THIS TIME. CALL LIGHT IN REACH.
--- NOTE | 2021-05-15 07:29 | NUR ---
PATIENT UP OUT OF BED AND TO BATHROOM WITH 1PA AND FWW.
--- NOTE | 2021-05-15 07:44 | NUR ---
THIS RN RECEIVED SHIFT REPORT FROM RHYS SANDOVAL. PATIENT CALLED AND WAS FINISHED IN THE RESTROOM AND DID NOT HAVE A BM. THIS RN SET PATIENT UP IN THE BEDSIDE ARMCHAIR AND PUT HER FEET UP. BEDSIDE TABLE SET UP AND WATER AND CALL LIGHT ARE IN REACH. PATIENT DENIES ANY OTHER CARE NEEDS AT THIS TIME.
--- NOTE | 2021-05-15 08:05 | NUR ---
THIS RN GAVE AM MEDS. PATIENT REMAINS IN THE CHAIR READING HER BIBLE. CALL LIGHT IN REACH. PATIENT HAS NO OTHER NEEDS AT THIS TIME.
--- NOTE | 2021-05-15 10:09 | NUR ---
PATIENT'S DAUGHTER IN ROOM WITH PATIENT. DOUG FROM PT HAS BEEN WORKING WITH PATIENT. PATIENT HAD A VERY SMALL BM YESTERDAY AND A SMEAR LAST NIGHT. PATIENT FEELS LIKE SHE NEEDS TO HAVE A GOOD BM, BUT HAS NOT SO FAR. THIS RN WILL DISCUSS THIS WITH WHEN HE ARRIVES TO WRITE ORDERS.
--- NOTE | 2021-05-15 10:51 | NUR ---
PATIENT AND DAUGHTER REMAIN IN PATIENT'S ROOM AWAITING THE ARRIVAL OF FOR DC ORDERS. PATIENT HAS NO CARE NEEDS AT THIS TIME. IV DC'D INTACT. CALL LIGHT IS IN REACH.
--- NOTE | 2021-05-15 10:54 | NUR ---
I was able to meet with Kerry and her family this morning. They are currently waiting for discharge orders. Patient is aware that she is going to be going to [facility] on discharge. She states that she is "Very happy with her care, and that she feels very blessed with all the care" she has received at the hospital. Family members are in the room with the patient and no concerns are expressed, patient and family deny further questions.
--- NOTE | 2021-05-15 10:58 | NUR ---
PATIENT BACK FROM THE BATHROOM AAGAIN AND HAD A GOOD MEDIUM FORMED BM AND SHE IS FEELING BETTER AND MORE RELAXED ABOUT THINGS. JAY JAY CARDENAS IN ROOM TO DO I+O'S. PATIENT HAS 3 VISITORS IN THE ROOM. PATIENT UP IN THE BEDSIDE ARMCHAIR AND CALL LIGHT IS IN REACH.
--- NOTE | 2021-05-15 12:40 | NUR ---
THIS RN HELPED PATIENT GET DRESSED AND GATHERED UP ALL OF PATIENT'S BELONGINGS. SHIFT REPORT CALLED TO KAZ HERNANDEZ TO RHYS NICOLE. PATIENT TAKEN TO THE FRONT OF THE HOSPITAL IN WC AND PATIENT DEPARTED FOR KAZ HERNANDEZ IN PRIVATE CAR.
--- NOTE | 2021-05-15 13:52 | NUR ---
PT SITTING IN CHAIR VISITING WITH FAMILY. PT IS TO DC LATER TODAY, DOING WELL THANKED ME AGAIN FOR VISITING, DAUGHTER BALKE VERY THANKFUL FOR CARE PT HAS RECEIVED AT [facility]. PT REQUESTED PRAYER, WILL FOLLOW NEEDED
--- NOTE | 2021-05-16 07:25 | DS ---
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 3. Large adenomatous polyp, left colon/30 cm. 4. Diverticulosis. PROCEDURES: 1. CT scan of chest, abdomen, pelvis. 2. Colonoscopy. 3. Left and right colectomy. HISTORY OF PRESENT ILLNESS: Kerry is an 86-year-old female, who had come in a couple weeks prior to this admission with what appeared to be some thickening and inflammation in the terminal ileum in the cecum. She seemed to be getting better on antibiotics. She had been sent home with Cipro and Flagyl. She was known to be anemic as well. She came back with ongoing diarrhea and dark blood in the diarrhea along with periumbilical pain. White count was normal, but the CT scan did show it probably was a bowel obstruction in the central pelvis. She still had thickening in the terminal ileum in the cecum most concerning for a tumor. The CEA level had come back high at 12.7. I have been asked to admit her as a general surgeon on-call. HOSPITAL COURSE: Kerry was admitted as above and treated conservatively, but cleared her bowel obstruction nicely. We were able to put her through a bowel prep and perform a colonoscopy. We found a large cecal tumor and also a tumor back at 30 cm, which we left a tattoo. She also has a diverticulosis. We were able to take her to surgery the following day and did a formal right and left colectomy. Those pathology report came back with an adenocarcinoma of the cecum as well as a small gist tumor. In the left colon, she had a very large adenomatous polyp. She has continued to do well both intraoperative and postop. She did require low extra fluids initially, but she has diuresed quite well on her own. At this point, she has been on a soft diet and having lots of flatus. She has now had four bowel movements and feels much better. All her abdominal distention is gone. Her abdomen is completely soft and flat without pain or tympany. We were hoping to discharge her sooner, but over the weekend, we did not have any extended care facilities available to her. She is still a bit weak and deconditioned and is needing ongoing physical therapy. However, she is eating and improving a little each day. Her daughter and two sons of been able to come and Electronically Signed By: OPAL IZAGUIRRE MD 05/16/21 0725 PATIENT NAME: KERRY ADAMS DISCHARGE SUMMARY DATE OF : 35 REPORT #: [id number] PHYSICIAN: OPAL IZAGUIRRE MD PCP: EWA SALDIVAR DO REPORT IS CONFIDENTIAL AND NOT TO BE RELEASED WITHOUT AUTHORIZATION [address] [address] Signed participate as well. DISCHARGE PLANS AND MEDICATIONS: Kerry is going to be discharged to [facility] in [place], [place] for ongoing care and physical therapy. She can follow her regular diet. She takes narcotic medications. She simply uses some vitamins. She certainly welcome to do that. She probably should resume the iron in about 6 to 8 weeks once she has healed up a little bit from the colectomies. However, her anemia should resolve now that the tumor has been removed. She has been using Tylenol, ibuprofen for pain that is certainly fine. All her albaro have been removed. Of course, she can participate in physical therapy and be full weightbearing. She can perform her activities of daily living including walking up and down stairs and showering bathing as usual. Given her age, she would not do any heavy pushing, pulling, or lifting over about 20 pounds. I will see her back in my office in 7 to 14 days for surgical followup. She is hoping to return back to home within a few weeks. Therefore, she would like referral to one of our local medical oncologist. She is aware that one of her 27 lymph nodes had some cancer in. She and her family have expressed understanding agreed above plan. Opal Izaguirre MD ALB/MODL /[id number] cc: DO Opal Farah MD Copies: EWA SALDIVAR ANDREW L MD ~ Electronically Signed By: OPAL IZAGUIRRE MD 05/16/21 0725 PATIENT NAME: KERRY ADAMS DISCHARGE SUMMARY DATE OF : 35 REPORT #: [id number] PHYSICIAN: OPAL IZAGUIRRE MD PCP: EWA SALDIVAR DO REPORT IS CONFIDENTIAL AND NOT TO BE RELEASED WITHOUT AUTHORIZATION
== END 2021-05-15 12:40 | disposition home or self-care (01) | DRG 330 ==
LOC: ED 22:42 → MS 22:43 → CCU 05-07 10:55 → MS 05-09 11:26
PROVIDERS: ADMIT Colon & Rectal Surgery; ATTEND Colon & Rectal Surgery
PROC: 0DBH8ZX Excision of Cecum, Via Natural or Artificial Opening Endoscopic, Diagnostic (ICD-10-PCS; 2021-05-06)
PROC: 0DBN8ZX Excision of Sigmoid Colon, Via Natural or Artificial Opening Endoscopic, Diagnostic (ICD-10-PCS; 2021-05-06)
PROC: 0DBF0ZZ Excision of Right Large Intestine, Open Approach (ICD-10-PCS; 2021-05-07)
PROC: 0DBG0ZZ Excision of Left Large Intestine, Open Approach (ICD-10-PCS; principal; 2021-05-07 07:00)
DX: C18.0 Malignant neoplasm of cecum (principal); C49.A4 Gastrointestinal stromal tumor of large intestine; K56.609 Unspecified intestinal obstruction, unspecified as to partial versus complete obstruction; Z68.1 Body mass index [BMI] 19.9 or less, adult; K57.30 Diverticulosis of large intestine without perforation or abscess without bleeding; D64.9 Anemia, unspecified; Z20.822 Contact with and (suspected) exposure to COVID-19; Z66 Do not resuscitate; I10 Essential (primary) hypertension; R63.4 Abnormal weight loss
CPT/HCPCS: 00811; 00840; 36415; 43752; 71260; 74177; 80048; 80053; 80503; 81001; 83690; 83735; 84100; 84134; 85025; 86850; 86900; 86901; 86922; 88305; 88309; 88341; 88342; 93005; 93010; 97110; 97112; 97116; 97162; 97530; 99285-25; A9270; C9113; C9803; G0378; J0131; J0690; J1100; J1170; J1650; J1885; J2001; J2405; J2704; J3010; J3475; J3480; J7030; J7060; J7121; Q9967; U0003

== ENCOUNTER 2021-09-01 17:59 | Emergency (ER) | payer MEDICARE, OTHER ==
[~2021-09-01] VITALS: Ht 160 cm; Wt 45.8 kg
[~2021-09-01 17:59] MED LIST changes: +FEROSUL325 MG PO; +OCUVEL CAPSULE1 EACH PO
[2021-09-02] MEDS ORDERED: MUCINEX600 MG PO (00:13)
== END 2021-09-02 00:27 | disposition home or self-care (01) ==
LOC: ED 17:59
DX: U07.1 COVID-19 (principal); I10 Essential (primary) hypertension; Z88.8 Allergy status to other drugs, medicaments and biological substances; Z79.899 Other long term (current) drug therapy; Z85.038 Personal history of other malignant neoplasm of large intestine
CPT/HCPCS: 36415; 71045; 80053; 85025; 87502; C9803; U0003

== ENCOUNTER 2021-09-02 08:48 | Emergency (ER) | payer MEDICARE, OTHER ==
[~2021-09-02] VITALS: Ht 160 cm; Wt 45.8 kg
[~2021-09-02 08:48] MED LIST changes: +MUCINEX600 MG PO
--- OUTSIDE RECORDS SUMMARY | 2021-09-02 08:54 | XMS ---
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 - 2 Visits in 30 Days CARE PROVIDERS MARY BETH PAIGE Psychiatry \T\ Neurology: Psychiatry Current PHONE: [phone] ANGELA Patrick [facility] Current PHONE: [phone] EWA SALDIVAR Internal Medicine Current PHONE: Unknown Hansa has no Care Guidelines for this patient. Leah VISIT COUNT (12 MO.) 1 [facility] 4 SYLVIA Baeza TOTAL 5 NOTE: Visits indicate total known visits. ED/UCC VISIT TRACKING (12 MO.) 09/02/2021 08:49 SYLVIA Carlin [place] TYPE: Emergency COMPLAINT: - HIGH HEART RATE 09/01/2021 17:59 [facility] TYPE: Emergency COMPLAINT: - LOW OXYGEN LEVELS 05/02/2021 22:42 SY[facility] [place] TYPE: Emergency COMPLAINT: - ABD PAIN 04/30/2021 15:15 [facility] Brianne RIOS TYPE: Emergency DIAGNOSES: - Noninfective gastroenteritis and colitis, unspecified - blood in stool/diarrhea - Blood In Stool 04/22/2021 12:33 [facility] TYPE: Emergency COMPLAINT: - ABD MASS, DIARRHEA INPATIENT VISIT TRACKING (12 MO.) 05/03/2021 06:59 SY[facility]IA [facility] [place] TYPE: Medical Surgical COMPLAINT: - ACUTE SBO DIAGNOSES: - Body mass index [BMI] 19.9 or less, adult - Essential (primary) hypertension - Essential (primary) hypertension - Unspecified intestinal obstruction, unspecified as to partial versus complete obstruction - Abnormal weight loss - Malignant neoplasm of cecum - Do not resuscitate - Do not resuscitate - Body mass index [BMI] 19.9 or less, adult - Diverticulosis of large intestine without perforation or abscess without bleeding - Malignant neoplasm of cecum - 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 - Anemia, unspecified - Contact with and (suspected) exposure to COVID-19 - Diverticulosis of large intestine without perforation or abscess without bleeding - Abnormal weight loss - Anemia, unspecified 04/22/2021 19:36 SY[facility] TYPE: Medical Surgical COMPLAINT: - COLITIS DIAGNOSES: - Iron deficiency anemia, unspecified - Intussusception - Infectious gastroenteritis and colitis, unspecified - Intussusception - Iron deficiency anemia, unspecified - Infectious gastroenteritis and colitis, unspecified - Contact with and (suspected) exposure to COVID-19 - Noninfective gastroenteritis and colitis, unspecified [email or web address]
== END 2021-09-02 10:07 | disposition home or self-care (01) ==
LOC: ED 08:48
DX: U07.1 COVID-19 (principal); I10 Essential (primary) hypertension; Z88.8 Allergy status to other drugs, medicaments and biological substances; Z79.899 Other long term (current) drug therapy
CPT/HCPCS: A9270

== ENCOUNTER 2021-09-07 15:38 | Emergency (ER) | payer OTHER, MEDICARE ==
[~2021-09-07] VITALS: Ht 160 cm; Wt 44.6 kg
--- OUTSIDE RECORDS SUMMARY | 2021-09-07 15:46 | XMS ---
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 Leah VISIT COUNT (12 MO.) 1 Mile [facility] Brianne ZunigaTino 5 SYLVIA TorresBalaton Daya TOTAL 6 NOTE: Visits indicate total known visits. ED/UCC VISIT TRACKING (12 MO.) 09/07/2021 15:39 [facility] TYPE: Emergency COMPLAINT: - FALL 09/02/2021 08:49 SY[facility] TYPE: Emergency COMPLAINT: - HIGH HEART RATE DIAGNOSES: - Other half-way (current) drug therapy - Tachycardia, unspecified - Allergy status to other drugs, medicaments and biological substances - Essential (primary) hypertension - COVID- 09/01/2021 17:59 SY[facility] TYPE: Emergency COMPLAINT: - LOW OXYGEN LEVELS DIAGNOSES: - Cough, unspecified - Personal history of other malignant neoplasm of large intestine - Essential (primary) hypertension - Allergy status to other drugs, medicaments and biological substances - 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 - COVID- 05/02/2021 22:42 SY[facility]IA [facility] [place] TYPE: Emergency COMPLAINT: - ABD PAIN 04/30/2021 15:15 [facility] Olaf RIOS TYPE: Emergency DIAGNOSES: - Noninfective gastroenteritis [...] weight loss - Anemia, unspecified 04/22/2021 19:36 [facility] [place] TYPE: Medical Surgical COMPLAINT: - COLITIS DIAGNOSES: - Iron deficiency anemia, unspecified - Intussusception - Infectious gastroenteritis and colitis, unspecified - Intussusception - Iron deficiency anemia, unspecified - Infectious gastroenteritis and colitis, unspecified - Contact with and (suspected) exposure to COVID-19 - Noninfective gastroenteritis and colitis, unspecified [email or web address]
== END 2021-09-07 18:25 | disposition home or self-care (01) ==
LOC: ED 15:38
DX: S06.0X0A Concussion without loss of consciousness, initial encounter (principal); W01.10XA Fall on same level from slipping, tripping and stumbling with subsequent striking against unspecified object, initial encounter; I10 Essential (primary) hypertension; M19.90 Unspecified osteoarthritis, unspecified site; Z88.8 Allergy status to other drugs, medicaments and biological substances; Z79.899 Other long term (current) drug therapy
CPT/HCPCS: 70450; 99283-25

== ENCOUNTER 2022-08-14 16:26 | Inpatient (IN) | payer MEDICARE, OTHER ==
[~2022-08-14] VITALS: Ht 160 cm; Wt 47.7 kg
--- OUTSIDE RECORDS SUMMARY | ~2022-08-14 | XMS | Continuity of Care Document ---
Demographics + + + | Address | [address] | | | [place] [address] | + + + | Preferred Language | Unknown | + + + | Marital Status | | + + + | Jain Affiliation | Unknown | + + + | Race | White | + + + | Ethnic Group | Not or | + + + Author + + + | Author | [facility] | + + + | Organization | [facility] | + + + | Address | [address] | | | [place] [address] | + + + | Phone | | + + + Care Team Providers + + + + | Care Supervisor [employer] Name | Role | Phone | + [...] | (no date) | Lisinopril | [facility] (unknown[facility] | | + + + + + | (no date) | Mild | [facility] | (unknown) | | | | [facility] | | + + + + + | (no date) | Lisinopril | [facility] | (unknown) | | | | [facility] | | + + + + + | (no date) | lisinopril | [facility] | (unknown) | | | | [facility] | | + + + + + | (no date) | Lisinopril | [facility] ([facility] | | + + + + + | (no date) | lisinopril | [facility] | (unknown) | + + + + + Encounters No information. Functional Status No information. Immunizations + + + + | date | description | facility | + + + + | 2017-12-01 00:00 [facility] + + + + | 2017-12-01 00:00 | Tdap | [facility] | + + + + | 2021-09-02 00:00 | No vaccine administered | [facility] | + + + + | 2021-09-07 00:00 | No vaccine administered | [facility] | + + + + Medications + + + + | date | description | facility | + + + + | 2014-06-09 00:00 | DOCUSATE SODIUM | [facility] | + + + + | 2014-06-09 00:00 | DOCUSATE SODIUM | [facility] | + + + + | 2014-06-09 00:00 | docusate sodium 100 MG | [facility] | | | Oral Capsule [Colace] | | + + + + | 2021-08-27 00:00 | Calcium Carbonate/Vitamin | [facility] | | | D3 | | + + + + | 2021-09-03 00:00 | Calcium Carbonate/Vitamin | [facility] | | | D3 | | + + + + | 2021-09-09 00:00 | Calcium Carbonate/Vitamin | [facility] | | | D3 | | + + + + | 2022-08-04 00:00 | Calcium Carbonate/Vitamin | [facility] | | | D3 | | + + + + | 2021-09-02 00:00 | calcium carbonate 1500 MG | [facility] | | | / cholecalciferol 800 UNT | | | | Oral Tab | | + + + + | 2021-09-07 00:00 | calcium carbonate 1500 MG | [facility] | | | / cholecalciferol 800 UNT | | | | Oral Tab | | + + + + | 2021-08-27 00:00 | ASCORBIC ACID | [facility] | + + + + | 2021-09-03 00:00 | ASCORBIC ACID | [facility] | + + + + | 2021-09-09 00:00 | ASCORBIC ACID | [facility] | + + + + | 2022-08-04 00:00 | ASCORBIC ACID | [facility] | + + + + | 2021-09-02 00:00 | ascorbic acid 1000 MG Oral | [facility] | | | Tablet | | + + + + | 2021-09-07 00:00 | ascorbic acid 1000 MG Oral | [facility] | | | Tablet | | + + + + | 2021-08-27 00:00 | FERROUS SULFATE | [facility] | + + + + | 2021-09-03 00:00 | FERROUS SULFATE | [facility] | + + + + | 2021-09-09 00:00 | FERROUS SULFATE | [facility] | + + + + | 2022-08-04 00:00 | FERROUS SULFATE | [facility] | + + + + | 2021-09-02 00:00 | ferrous sulfate 325 MG | [facility] | | | Oral Tablet | | + + + + | 2021-09-07 00:00 | ferrous sulfate 325 MG | [facility] | | | Oral Tablet | | + + + + | 2021-08-27 00:00 | CYANOCOBALAMIN (VITAMIN | [facility] | | | B-12) | | + + + + | 2021-09-03 00:00 | CYANOCOBALAMIN (VITAMIN | [facility] | | | B-12) | | + + + + | 2021-09-09 00:00 | CYANOCOBALAMIN (VITAMIN | [facility] | | | B-12) | | + + + + | 2022-08-04 00:00 | CYANOCOBALAMIN (VITAMIN | [facility] | | | B-12) | | + + + + | 2021-09-02 00:00 | vitamin B12 0.5 MG Oral | [facility] | | | Tablet | | + + + + | 2021-09-07 00:00 | vitamin B12 0.5 MG Oral | [facility] | | | Tablet | | + + + + | 2021-08-27 00:00 | Cholecalciferol (Vitamin | [facility] | | | D3) | | + + + + | 2021-09-03 00:00 | Cholecalciferol (Vitamin | [facility] | | | D3) | | + + + + | 2021-09-09 00:00 | Cholecalciferol (Vitamin | [facility] | | | D3) | | + + + + | 2022-08-04 00:00 | Cholecalciferol (Vitamin | [facility] | | | D3) | | + + + + | 2021-09-02 00:00 | cholecalciferol 0.05 MG | [facility] | | | Oral Capsule | | + + + + | 2021-09-07 00:00 | cholecalciferol 0.05 MG | [facility] | | | Oral Capsule | | + + + + | 2014-06-04 00:00 | HYDROCODONE | [facility] | | | BIT/ACETAMINOPHEN | | + + + + | 2014-06-04 00:00 | HYDROCODONE | [facility] | | | BIT/ACETAMINOPHEN | | + + + + | 2014-06-04 00:00 | acetaminophen 325 MG / | [facility] | | | hydrocodone bitartrate 5 MG | | | | Oral Tabl | | + + + + | 2021-09-02 00:00 | 12 HR guaifenesin 600 MG | [facility] | | | Extended Release Oral | | | | Tablet [Mucin | | + + + + | 2021-09-02 00:00 | GUAIFENESIN | [facility] | + + + + | 2021-09-02 00:00 | GUAIFENESIN | [facility] | + + + + | 2021-08-27 00:00 | LOSARTAN POTASSIUM | [facility] | + + + + | 2021-09-03 00:00 | LOSARTAN POTASSIUM | [facility] | + + + + | 2021-09-09 00:00 | LOSARTAN POTASSIUM | [facility] | + + + + | 2022-08-04 00:00 | LOSARTAN POTASSIUM | [facility] | + + + + | 2021-09-02 00:00 | losartan potassium 25 MG | [facility] | | | Oral Tablet [Cozaar] | | + + + + | 2021-09-07 00:00 | losartan potassium 25 MG | [facility] | | | Oral Tablet [Cozaar] | | + + + + Problems + + + + | date | description | facility | + + + + | 2014-06-09 00:00 | Hypertension | [facility] | + + + + | 2014-06-09 00:00 | Hypertension | [facility] | + + + + | 2014-06-09 00:00 | Constipation | [facility] | + + + + | 2014-06-09 00:00 | Constipation | [facility] | + + + + | 2017-12-01 00:00 | Scalp laceration | [facility] | + + + + | 2017-12-01 00:00 | Head injury | [facility] | + + + + | 2017-12-01 00:00 | Laceration of scalp | [facility] | + + + + | 2017-12-01 00:00 | Laceration of scalp | [facility] | + + + + | 2017-12-01 00:00 | Injury of head | [facility] | + + + + | 2017-12-01 00:00 | Injury of head | [facility] | + + + + | 2017-12-01 00:00 | Fracture of sixth cervical | [facility] | | | vertebra | | + + + + | 2017-12-01 00:00 | Fracture of sixth cervical | [facility] | | | vertebra | | + + + + | 2019-06-24 00:00 | Vertigo | [facility] | + + + + | 2019-06-24 00:00 | Vertigo | [facility] | + + + + | 2021-09-02 00:00 | COVID-19 | [facility] | + + + + | 2021-09-02 00:00 | Infection due to severe | [facility] | | | acute respiratory syndrome | | | | coronavirus 2 (SARS-CoV-2) | | + + + + | 2021-09-02 00:00 | Infection due to severe | [facility] | | | acute respiratory syndrome | | | | coronavirus 2 (SARS-CoV-2) | | + + + + | 2021-09-07 00:00 | Concussion | [facility] | + + + + | 2021-09-07 00:00 | Concussion | [facility] | + + + + | 2022-08-04 00:00 | Intermittent diarrhea | [facility] | + + + + | 2022-08-04 09:40 | Essential (primary) | [facility] | | | hypertension | | + + + + | 2022-08-04 09:40 | UNSPECIFIED ABDOMINAL PAIN | [facility] | | | | | + + + + | 2022-08-04 09:40 | DIARRHEA, UNSPECIFIED | [facility] | + + + + | 2022-08-04 09:40 | OTHER LONGTERM (CURRENT) | [facility] | | | DRUG [...] | | | + + + + Procedures + + + + | date | description | facility | + + + + | 2021-05-07 00:00 | EXCISION OF RIGHT LARGE | [facility] | | | INTESTINE, OPEN APPROACH | | + + + + | 2021-05-07 00:00 | EXCISION OF LEFT LARGE | [facility] | | | INTESTINE, OPEN APPROACH | | + + + + | 2021-05-06 00:00 | EXCISION OF CECUM, ENDO, | [facility] | | | DIAGN | | + + + + | 2021-05-06 00:00 | EXCISION OF SIGMOID COLON, | [facility] | | | ENDO, DIAGN | [...] | (unknown) | | | | | [place] | value) | unknown) | | | [...] | 2021-09-02 00:00 | Never smoker | [facility] | + + + + | 2021-09-07 00:00 | Never smoker | [facility] | + + + + Vital [...] 98 | lb | + + + +---------+"
--- OUTSIDE RECORDS SUMMARY | ~2022-08-14 | XMS | Continuity of Care Document ---
Demographics + + + | Address | [address] | | | [place] [address] | + + + | Preferred Language | Unknown | + + + | Marital Status | | + + + | Congregation Affiliation | Unknown | + + + | Race | White | + + + | Ethnic Group | Not or | + + + Author + + + | Author | [facility] | + + + | Organization | [facility] | + + + | Address | [address] | | | [place] [address] | + + + | Phone | | + + + Care Team Providers + + + + | Care Coding Auditor Name | Role | Phone | + [...] | (no date) | Lisinopril | [facility] | (unknown) | | [facility] | | + + + + + | (no date) | Mild | [facility] | (unknown) | | | [facility] | | + + + + + | (no date) | Lisinopril | [facility] | (unknown) | | | | [facility] | | + + + + + | (no date) | lisinopril | [facility] | (unknown) | | | | Hospital [...] | 2017-12-01 00:00 [facility] | + + + + | 2017-12-01 00:00 | Tdap | [facility] | + + + + | 2021-09-02 00:00 | No vaccine administered | [facility] | + + + + | 2021-09-07 00:00 | No vaccine administered | [facility] | + + + + Medications + + + + | date | description | facility | + + + + | 2014-06-09 00:00 | DOCUSATE SODIUM | [facility] | + + + + | 2014-06-09 00:00 | DOCUSATE SODIUM | [facility] | + + + + | 2014-06-09 00:00 | docusate sodium 100 MG | [facility] | | | Oral Capsule [Colace] | | + + + + | 2021-08-27 00:00 | Calcium Carbonate/Vitamin | [facility] | | | D3 | | + + + + | 2021-09-03 00:00 | Calcium Carbonate/Vitamin | [facility] | | | D3 | | + + + + | 2021-09-09 00:00 | Calcium Carbonate/Vitamin | [facility] | | | D3 | | + + + + | 2022-08-04 00:00 | Calcium Carbonate/Vitamin | [facility] | | | D3 | | + + + + | 2021-09-02 00:00 | calcium carbonate 1500 MG | [facility] | | | / cholecalciferol 800 UNT | | | | Oral Tab | | + + + + | 2021-09-07 00:00 | calcium carbonate 1500 MG | [facility] | | | / cholecalciferol 800 UNT | | | | Oral Tab | | + + + + | 2021-08-27 00:00 | ASCORBIC ACID | [facility] | + + + + | 2021-09-03 00:00 | ASCORBIC ACID | [facility] | + + + + | 2021-09-09 00:00 | ASCORBIC ACID | [facility] | + + + + | 2022-08-04 00:00 | ASCORBIC ACID | [facility] | + + + + | 2021-09-02 00:00 | ascorbic acid 1000 MG Oral | [facility] | | | Tablet | | + + + + | 2021-09-07 00:00 | ascorbic acid 1000 MG Oral | [facility] | | | Tablet | | + + + + | 2021-08-27 00:00 | FERROUS SULFATE | [facility] | + + + + | 2021-09-03 00:00 | FERROUS SULFATE | [facility] | + + + + | 2021-09-09 00:00 | FERROUS SULFATE | [facility] | + + + + | 2022-08-04 00:00 | FERROUS SULFATE | [facility] | + + + + | 2021-09-02 00:00 | ferrous sulfate 325 MG | [facility] | | | Oral Tablet | | + + + + | 2021-09-07 00:00 | ferrous sulfate 325 MG | [facility] | | | Oral Tablet | | + + + + | 2021-08-27 00:00 | CYANOCOBALAMIN (VITAMIN | [facility] | | | B-12) | | + + + + | 2021-09-03 00:00 | CYANOCOBALAMIN (VITAMIN | [facility] | | | B-12) | | + + + + | 2021-09-09 00:00 | CYANOCOBALAMIN (VITAMIN | [facility] | | | B-12) | | + + + + | 2022-08-04 00:00 | CYANOCOBALAMIN (VITAMIN | [facility] | | | B-12) | | + + + + | 2021-09-02 00:00 | vitamin B12 0.5 MG Oral | [facility] | | | Tablet | | + + + + | 2021-09-07 00:00 | vitamin B12 0.5 MG Oral | [facility] | | | Tablet | | + + + + | 2021-08-27 00:00 | Cholecalciferol (Vitamin | [facility] | | | D3) | | + + + + | 2021-09-03 00:00 | Cholecalciferol (Vitamin | [facility] | | | D3) | | + + + + | 2021-09-09 00:00 | Cholecalciferol (Vitamin | [facility] | | | D3) | | + + + + | 2022-08-04 00:00 | Cholecalciferol (Vitamin | [facility] | | | D3) | | + + + + | 2021-09-02 00:00 | cholecalciferol 0.05 MG | [facility] | | | Oral Capsule | | + + + + | 2021-09-07 00:00 | cholecalciferol 0.05 MG | [facility] | | | Oral Capsule | | + + + + | 2014-06-04 00:00 | HYDROCODONE | [facility] | | | BIT/ACETAMINOPHEN | | + + + + | 2014-06-04 00:00 | HYDROCODONE | [facility] | | | BIT/ACETAMINOPHEN | | + + + + | 2014-06-04 00:00 | acetaminophen 325 MG / | [facility] | | | hydrocodone bitartrate 5 MG | | | | Oral Tabl | | + + + + | 2021-09-02 00:00 | 12 HR guaifenesin 600 MG | [facility] | | | Extended Release Oral | | | | Tablet [Mucin | | + + + + | 2021-09-02 00:00 | GUAIFENESIN | [facility] | + + + + | 2021-09-02 00:00 | GUAIFENESIN | [facility] | + + + + | 2021-08-27 00:00 | LOSARTAN POTASSIUM | [facility] | + + + + | 2021-09-03 00:00 | LOSARTAN POTASSIUM | [facility] | + + + + | 2021-09-09 00:00 | LOSARTAN POTASSIUM | [facility] | + + + + | 2022-08-04 00:00 | LOSARTAN POTASSIUM | [facility] | + + + + | 2021-09-02 00:00 | losartan potassium 25 MG | [facility] | | | Oral Tablet [Cozaar] | | + + + + | 2021-09-07 00:00 | losartan potassium 25 MG | [facility] | | | Oral Tablet [Cozaar] | | + + + + Problems + + + + | date | description | facility | + + + + | 2014-06-09 00:00 | Hypertension | [facility] | + + + + | 2014-06-09 00:00 | Hypertension | [facility] | + + + + | 2014-06-09 00:00 | Constipation | [facility] | + + + + | 2014-06-09 00:00 | Constipation | [facility] | + + + + | 2017-12-01 00:00 | Scalp laceration | [facility] | + + + + | 2017-12-01 00:00 | Head injury | [facility] | + + + + | 2017-12-01 00:00 | Laceration of scalp | [facility] | + + + + | 2017-12-01 00:00 | Laceration of scalp | [facility] | + + + + | 2017-12-01 00:00 | Injury of head | [facility] | + + + + | 2017-12-01 00:00 | Injury of head | [facility] | + + + + | 2017-12-01 00:00 | Fracture of sixth cervical | [facility] | | | vertebra | | + + + + | 2017-12-01 00:00 | Fracture of sixth cervical | [facility] | | | vertebra | | + + + + | 2019-06-24 00:00 | Vertigo | [facility] | + + + + | 2019-06-24 00:00 | Vertigo | [facility] | + + + + | 2021-09-02 00:00 | COVID-19 | [facility] | + + + + | 2021-09-02 00:00 | Infection due to severe | [facility] | | | acute respiratory syndrome | | | | coronavirus 2 (SARS-CoV-2) | | + + + + | 2021-09-02 00:00 | Infection due to severe | [facility] | | | acute respiratory syndrome | | | | coronavirus 2 (SARS-CoV-2) | | + + + + | 2021-09-07 00:00 | Concussion | [facility] | + + + + | 2021-09-07 00:00 | Concussion | [facility] | + + + + | 2022-08-04 00:00 | Intermittent diarrhea | [facility] | + + + + | 2022-08-04 09:40 | Essential (primary) | [facility] | | | hypertension | | + + + + | 2022-08-04 09:40 | UNSPECIFIED ABDOMINAL PAIN | [facility] | | | | | + + + + | 2022-08-04 09:40 | DIARRHEA, UNSPECIFIED | [facility] | + + + + | 2022-08-04 09:40 | OTHER [facility] (CURRENT) | [facility] | | | DRUG [...] | EXCISION OF RIGHT LARGE | [facility] | | | INTESTINE, OPEN APPROACH | | + + + + | 2021-05-07 00:00 | EXCISION OF LEFT LARGE | [facility] | | | INTESTINE, OPEN APPROACH | | + + + + | 2021-05-06 00:00 | EXCISION OF CECUM, ENDO, | [facility] | | | DIAGN | | + + + + | 2021-05-06 00:00 | EXCISION OF SIGMOID COLON, | [facility] | | | ENDO, DIAGN | [...] | 2021-09-02 00:00 | Never smoker | [facility] | + + + + | 2021-09-07 00:00 | Never smoker | [facility] | + + + + Vital [...]
--- OUTSIDE RECORDS SUMMARY | ~2022-08-14 | XMS | Continuity of Care Document ---
Demographics + + + | Address | [address] | | | [place] [address] | + + + | Preferred Language | Unknown | + + + | Marital Status | | + + + | Congregational Affiliation | Unknown | + + + | Race | White | + + + | Ethnic Group | Not or | + + + Author + + + | Author | [facility] | + + + | Organization | [facility] | + + + | Address | [address] | | | [place] [address] | + + + | Phone | | + + + Care Team Providers + + + + | Care Metal Casket Maker Name | Role | Phone | + [...] | (no date) | Lisinopril | [facility] | (unknown) | | | | [facility] | | + + + + + | (no date) | Mild | [facility] | (unknown) | | | | Hospital | | + + + + + | (no date) | Lisinopril | [facility] | (unknown) | | | | Hospital | | + + + + + | (no date) | lisinopril | [facility] | (unknown) | | | | Hospital [...] | 2017-12-01 00:00 | Tdap | [facility] | + + + + | 2017-12-01 00:00 | Tdap | [facility] | + + + + | 2021-09-02 00:00 | No vaccine administered | [facility] | + + + + | 2021-09-07 00:00 | No vaccine administered | [facility] | + + + + Medications + + + + | date | description | facility | + + + + | 2014-06-09 00:00 | DOCUSATE SODIUM | [facility] | + + + + | 2014-06-09 00:00 | DOCUSATE SODIUM | [facility] | + + + + | 2014-06-09 00:00 | docusate sodium 100 MG | [facility] | | | Oral Capsule [Colace] | | + + + + | 2021-08-27 00:00 | Calcium Carbonate/Vitamin | [facility] | | | D3 | | + + + + | 2021-09-03 00:00 | Calcium Carbonate/Vitamin | [facility] | | | D3 | | + + + + | 2021-09-09 00:00 | Calcium Carbonate/Vitamin | [facility] | | | D3 | | + + + + | 2022-08-04 00:00 | Calcium Carbonate/Vitamin | [facility] | | | D3 | | + + + + | 2021-09-02 00:00 | calcium carbonate 1500 MG | [facility] | | | / cholecalciferol 800 UNT | | | | Oral Tab | | + + + + | 2021-09-07 00:00 | calcium carbonate 1500 MG | [facility] | | | / cholecalciferol 800 UNT | | | | Oral Tab | | + + + + | 2021-08-27 00:00 | ASCORBIC ACID | [facility] | + + + + | 2021-09-03 00:00 | ASCORBIC ACID | [facility] | + + + + | 2021-09-09 00:00 | ASCORBIC ACID | [facility] | + + + + | 2022-08-04 00:00 | ASCORBIC ACID | [facility] | + + + + | 2021-09-02 00:00 | ascorbic acid 1000 MG Oral | [facility] | | | Tablet | | + + + + | 2021-09-07 00:00 | ascorbic acid 1000 MG Oral | [facility] | | | Tablet | | + + + + | 2021-08-27 00:00 | FERROUS SULFATE | [facility] | + + + + | 2021-09-03 00:00 | FERROUS SULFATE | [facility] | + + + + | 2021-09-09 00:00 | FERROUS SULFATE | [facility] | + + + + | 2022-08-04 00:00 | FERROUS SULFATE | [facility] | + + + + | 2021-09-02 00:00 | ferrous sulfate 325 MG | [facility] | | | Oral Tablet | | + + + + | 2021-09-07 00:00 | ferrous sulfate 325 MG | [facility] | | | Oral Tablet | | + + + + | 2021-08-27 00:00 | CYANOCOBALAMIN (VITAMIN | [facility] | | | B-12) | | + + + + | 2021-09-03 00:00 | CYANOCOBALAMIN (VITAMIN | [facility] | | | B-12) | | + + + + | 2021-09-09 00:00 | CYANOCOBALAMIN (VITAMIN | [facility] | | | B-12) | | + + + + | 2022-08-04 00:00 | CYANOCOBALAMIN (VITAMIN | [facility] | | | B-12) | | + + + + | 2021-09-02 00:00 | vitamin B12 0.5 MG Oral | [facility] | | | Tablet | | + + + + | 2021-09-07 00:00 | vitamin B12 0.5 MG Oral | [facility] | | | Tablet | | + + + + | 2021-08-27 00:00 | Cholecalciferol (Vitamin | [facility] | | | D3) | | + + + + | 2021-09-03 00:00 | Cholecalciferol (Vitamin | [facility] | | | D3) | | + + + + | 2021-09-09 00:00 | Cholecalciferol (Vitamin | [facility] | | | D3) | | + + + + | 2022-08-04 00:00 | Cholecalciferol (Vitamin | [facility] | | | D3) | | + + + + | 2021-09-02 00:00 | cholecalciferol 0.05 MG | [facility] | | | Oral Capsule | | + + + + | 2021-09-07 00:00 | cholecalciferol 0.05 MG | [facility] | | | Oral Capsule | | + + + + | 2014-06-04 00:00 | HYDROCODONE | [facility] | | | BIT/ACETAMINOPHEN | | + + + + | 2014-06-04 00:00 | HYDROCODONE | [facility] | | | BIT/ACETAMINOPHEN | | + + + + | 2014-06-04 00:00 | acetaminophen 325 MG / | [facility] | | | hydrocodone bitartrate 5 MG | | | | Oral Tabl | | + + + + | 2021-09-02 00:00 | 12 HR guaifenesin 600 MG | [facility] | | | Extended Release Oral | | | | Tablet [Mucin | | + + + + | 2021-09-02 00:00 | GUAIFENESIN | [facility] | + + + + | 2021-09-02 00:00 | GUAIFENESIN | [facility] | + + + + | 2021-08-27 00:00 | LOSARTAN POTASSIUM | [facility] | + + + + | 2021-09-03 00:00 | LOSARTAN POTASSIUM | [facility] | + + + + | 2021-09-09 00:00 | LOSARTAN POTASSIUM | [facility] | + + + + | 2022-08-04 00:00 | LOSARTAN POTASSIUM | [facility] | + + + + | 2021-09-02 00:00 | losartan potassium 25 MG | [facility] | | | Oral Tablet [Cozaar] | | + + + + | 2021-09-07 00:00 | losartan potassium 25 MG | [facility] | | | Oral Tablet [Cozaar] | | + + + + Problems + + + + | date | description | facility | + + + + | 2014-06-09 00:00 | Hypertension | [facility] | + + + + | 2014-06-09 00:00 | Hypertension | [facility] | + + + + | 2014-06-09 00:00 | Constipation | [facility] | + + + + | 2014-06-09 00:00 | Constipation | [facility] | + + + + | 2017-12-01 00:00 | Scalp laceration | [facility] | + + + + | 2017-12-01 00:00 | Head injury | [facility] | + + + + | 2017-12-01 00:00 | Laceration of scalp | [facility] | + + + + | 2017-12-01 00:00 | Laceration of scalp | [facility] | + + + + | 2017-12-01 00:00 | Injury of head | [facility] | + + + + | 2017-12-01 00:00 | Injury of head | [facility] | + + + + | 2017-12-01 00:00 | Fracture of sixth cervical | [facility] | | | vertebra | | + + + + | 2017-12-01 00:00 | Fracture of sixth cervical | [facility] | | | vertebra | | + + + + | 2019-06-24 00:00 | Vertigo | [facility] | + + + + | 2019-06-24 00:00 | Vertigo | [facility] | + + + + | 2021-09-02 00:00 | COVID-19 | [facility] | + + + + | 2021-09-02 00:00 | Infection due to severe | [facility] | | | acute respiratory syndrome | | | | coronavirus 2 (SARS-CoV-2) | | + + + + | 2021-09-02 00:00 | Infection due to severe | [facility] | | | acute respiratory syndrome | | | | coronavirus 2 (SARS-CoV-2) | | + + + + | 2021-09-07 00:00 | Concussion | [facility] | + + + + | 2021-09-07 00:00 | Concussion | [facility] | + + + + | 2022-08-04 00:00 | Intermittent diarrhea | [facility] | + + + + | 2022-08-04 [...] | EXCISION OF RIGHT LARGE | [facility] | | | INTESTINE, OPEN APPROACH | | + + + + | 2021-05-07 00:00 | EXCISION OF LEFT LARGE | [facility] | | | INTESTINE, OPEN APPROACH | | + + + + | 2021-05-06 00:00 | EXCISION OF CECUM, ENDO, | [facility] | | | DIAGN | | + + + + | 2021-05-06 00:00 | EXCISION OF SIGMOID COLON, | [facility] | | | ENDO, DIAGN | | [...] | (unknown) | | | | | [place] | value) | unknown) | | | [...] | (unknown) | | | | | [place] | value) | unknown) | | | [...] | 2021-09-02 00:00 | Never smoker | [facility] | + + + + | 2021-09-07 00:00 | Never smoker | [facility] | + + + + Vital Signs [...]
[~2022-08-14 16:26] MED LIST changes: -OCUVEL CAPSULE1 EACH PO; +OCUVITE ADULT1 EAC3 PO
[2022-08-14 19:19] VITALS: BP 176/79
--- NOTE | 2022-08-14 19:31 | NUR ---
RECEIVED REPORT FROM DAY SHIFT RN. PATIENT JUST ARRIVED TO THE FLOOR. ROXY JOINER COMPLETING ADMISSION AT THIS TIME. NO NEEDS NOTED.
[2022-08-14 20:49] VITALS: BP 165/75
--- NOTE | 2022-08-14 20:54 | NUR ---
PATIENT ASSISTED TO THE BR A SBA. PATIENT ABLE TO VOID. PATIENT IS BACK IN BED RESTING. NG TO LWIS. PATIENTS VITALS TAKEN AND RECORDED. INTAKE AND OUTPUT RECORDED. IV INFUSING PER ORDER. PATIENT DENIES ANY NAUSEA. PATIENT REPORTS 5/10 UPPER ABD PAIN, PRN PAIN MEDICATION GIVEN PER ORDER. PATIENTS ABD IS TENDER, FIRM AND BLOATED PER PATIENT. PATIENT IS ON RA. CPOX IN PLACE. PATIENT DENIES ANY SOB. PATIENT DENIES ANY FURTHER NEEDS. CALL LIGHT IN REACH. DAUGHTER PRESENT IN ROOM.
--- NOTE | 2022-08-14 22:05 | NUR ---
PATIENT IS RESTING IN BED WITH EYES CLOSED, CPOX READINGS ARE WNL. PATIENTS DAUGHTER HAS LEFT FOR THE NIGHT. PATIENT CONTINUES TO HAVE NG TO LWIS. PATIENTS IV INFUSING PER ORDER. CALL LIGHT IN REACH.
--- NOTE | 2022-08-15 00:28 | NUR ---
PATIENT IS RESTING IN BED WITH EYES CLOSED, CPOX READINGS ARE WNL. IV INFUSING PER ORDER. CALL LIGHT IN REACH. BED ALARM ON FOR SAFETY.
[2022-08-15 01:44] VITALS: BP 131/68
--- NOTE | 2022-08-15 02:33 | NUR ---
PATIENT ASSISTED TO THE BR A SBA. PATIENT ABLE TO VOID. PATIENT IS BACK IN BED RESTING. NG TO LWIS. VITALS TAKEN AND RECORDED. INTAKE AND OUTPUT RECORDED. IV INFUSING PER ORDER. PATIENT DENIES ANY NAUSEA. PATIENT REPORTS 2/10 PAIN IN HER ABD AND DENIES THE NEED FOR PAIN MEDICATION AT THIS TIME. PATIENT DENIES ANY FURTHER NEEDS. CALL LIGHT IN REACH.
--- NOTE | 2022-08-15 03:00 | NUR ---
Pt got slightly confused,irritatble of being all tangled in bed with to many tubes. Took pt for a walk, did 3 laps around the unit. PT felt much better and went back to bed.
--- NOTE | 2022-08-15 04:02 | NUR ---
PATIENT IS RESTING IN BED WITH EYES CLOSED, CPOX READINGS ARE WNL. NG TO LWIS. IV INFUSING PER ORDER. CALL LIGHT IN REACH.
[2022-08-15 05:30] VITALS: BP 127/64
--- NOTE | 2022-08-15 05:47 | NUR ---
PATIENTS VITALS TAKEN AND RECORDED. INTAKE AND OUTPUT RECORDED. PATIENTS NG REMAINS TO LWIS. PATIENT HAD 100ML OUT IN NG SINCE ARRIVAL TO THE FLOOR. PATIENT DENIES ANY PAIN OR NAUSEA. PATIENTS IV INFUSING PER ORDER. PATIENT REMIAINS ON RA. PATIENT HAS CPOX IN USE. PATIENT DENIES ANY NEEDS. CALL LIGHT IN REACH.
--- NOTE | 2022-08-15 06:56 | NUR ---
SCDS PLACED ON PATIENT. INSTRUCTED PATIENT ON IS. PATIENT ABLE TO DEMONSTRATE IS X2. PATIENT RATES PAIN AT A 2/10 AND DENIES THE NEED FOR PAIN MEDICATION AT THIS TIME. PATIENT DENIES ANY NAUSEA.
--- NOTE | 2022-08-15 07:15 | NUR ---
Report received from Donya JOINER. Pt resting in bed with eyes closed, NGT to LIWS, cpox in place and RR even and unlabored. IVF infusing WNL per order. Call light in reach. Will continue plan of care.
--- NOTE | 2022-08-15 08:40 | NUR ---
Scheduled medications administered and assessment complete. Pt has NGT tube in place in R nare, to LIWS. Minimal output noted. pt states pain has improved, her "stomach is soft and doesn't hurt" with palpation. IVF infusing WNL. Pt up to ambulate in hallway, linen and gown change complete. Patient's family updated on plan of care and patient status. POA forms, POLST and advance directive papers brought in by family, copies made and placed on chart, originals returned to family.
[2022-08-15 09:50] VITALS: BP 133/80
--- NOTE | 2022-08-15 11:52 | NUR ---
SPOKE TO PATIENT ABOUT HER DISCHARGE PLAN. PATIENT LIVES ALONE IN HER OWN HOUSE. PATIENT HAS A DAUGHTER WHO LIVES OUT OF TOWN AND [employer] THAT HELP NEEDED. PATIENT STATES SHE HAS DECIDED THAT A ASSISTED WOULD BE BETTER FOR HER AND HAD AN APPOINTMENT AT [facility] WHICH HAS BEEN CANCELED BECAUSE OF HOSPITALIZATION. PATIENT CAN DO HERE OWN ADLS AND USES A WALKER AND WHEEL CHAIR NEEDED. PATIENT'S DEMOGRAPHICS ARE CORRECT IN THE MEDICAL RECORD. DAUGHTER BLAKE WILL BE BACK AT THE HOSPITAL LATER TODAY ENA THE RN PSYCHIATRIC WILL DISCUSS FUTURE NEEDS TO HELP THE PATIENT WITH DISCHARGE NEEDS.
--- NOTE | 2022-08-15 12:09 | NUR ---
Rounded on patient to update her on POC. Jeanine, daughter, in room and all questions answered. Pt resting in bed and states no pain or needs at this time. Call light in reach.
[2022-08-15] MEDS ORDERED: PROBIOTIC1 EAC1 PO (13:08)
[2022-08-15] MEDS ORDERED: TURMERIC500 M2 PO (13:08)
[2022-08-15] MEDS ORDERED: [UNRECOGNIZED DRUG - OTHER] PO (13:09)
--- NOTE | 2022-08-15 13:09 | NUR ---
MED REC COMPLETE
--- NOTE | 2022-08-15 13:17 | NUR ---
PT ALERT, ORIENTED AND VISITING WITH HER DAUGHTER BLAKE FROM SINGER. NGT IN USE, HOPING TO NOT HAVE SURGERY. PT REQUESTED PRAYER, WILL FOLLOW
[2022-08-15 13:32] VITALS: BP 138/69
--- NOTE | 2022-08-15 13:57 | NUR ---
SPOKE TO PATIENT AND DAUGHTER ABOUT THE DISCHARGE PLAN. PATIENT WANTS TO BE DISCHARGED HOME 1ST AND THEN GO TO [facility] NANY CHOICE. FAMILY WOULD LIKE [employer] TO SEND A REFERRAL. SPOKE TO MARCUS AT [facility] AND SHE WILL REVIEW THE MEDICAL RECORD DOCUMENTS AND WILL LET CASE MANAGEMENT KNOW IF THE PATIENT WOULD BE ABLE TO RENT AN APARTMENT IN THE NEAR FUTURE AFTER DISCHARGE.
--- NOTE | 2022-08-15 14:13 | NUR ---
PATIENT RESTING, SHIFTED IN BED. NG CONTINUES TO PUT SMALL AMOUNTS. NO OTHER NEEDS AT THIS TIME. CALL LIGHT WITHIN REACH.
--- NOTE | 2022-08-15 15:35 | NUR ---
Rounded on patient, up to BR with SBA to void. IVF infusing WNL. NG output minimal. Pt reports no pain or needs at this time.
--- NOTE | 2022-08-15 16:06 | NUR ---
NGT Adhesive sticker replaced after pt ambulating 2 laps in hallway. Pt states having no pain, no nausea. Pt only c/o sore throat d/t NGT. Pt states passing gas. No needs at this time.
--- OUTSIDE RECORDS SUMMARY | 2022-08-15 16:24 | XMS ---
PreManage Notification: CHEYENNE ADAMS Security Housekeeping Staff Events No recent Security Events currently on file CRITERIA MET - [facility] - 2 Visits in 30 Days CARE PROVIDERS MARY BETH PAIGE Psychiatry \T\ Neurology: Psychiatry Current PHONE: [phone] ANGELA Patrick [facility] Current PHONE: [phone] KATHI LOPEZ [facility] Current PHONE: [phone] EWA SALDIVAR Internal Medicine Current PHONE: Unknown [facility] has no Care Guidelines for this patient. Leah VISIT COUNT (12 MO.) 5 [facility] TOTAL 5 NOTE: Visits indicate total known visits. ED/UCC VISIT TRACKING (12 MO.) 08/14/2022 16:27 [facility] TYPE: Emergency COMPLAINT: - ABD PAIN 08/04/2022 09:40 [facility] TYPE: Emergency COMPLAINT: - ABD PAIN,DIARRHEA DIAGNOSES: - Allergy status to other drugs, medicaments and biological substances - Diarrhea, unspecified - Essential (primary) hypertension - Other superintendent container terminal (current) drug therapy - Personal history of transient ischemic attack (TIA), and cerebral infarction without residual deficits - Unspecified abdominal pain 09/07/2021 15:39 [facility] TYPE: Emergency COMPLAINT: - FALL DIAGNOSES: - Allergy status to other drugs, medicaments and biological substances - Concussion without loss of consciousness, initial encounter - Essential (primary) hypertension - Fall on same level from slipping, tripping and stumbling with subsequent striking against unspecified object, initial encounter - Other superintendent container terminal (current) drug therapy - Unspecified osteoarthritis, unspecified site 09/02/2021 08:49 [facility] TYPE: Emergency COMPLAINT: - HIGH HEART RATE DIAGNOSES: - Allergy status to other drugs, medicaments and biological substances - COVID-19 - Essential (primary) hypertension - Other halfway (current) drug therapy - Tachycardia, unspecified 09/01/2021 17:[address] [facility] [place] TYPE: Emergency COMPLAINT: - LOW OXYGEN LEVELS DIAGNOSES: - Allergy status to other drugs, medicaments and biological substances - Cough, unspecified - COVID-19 - Essential (primary) hypertension - Other halfway (current) drug therapy - Personal history of other malignant neoplasm of large intestine INPATIENT VISIT TRACKING (12 MO.) No inpatient visits to display in this time frame [email or web address]
[2022-08-15 17:07] VITALS: BP 147/77
--- NOTE | 2022-08-15 19:30 | NUR ---
PT marguerite, in bed resting. Daughter at bedside. NG to LIS.
--- NOTE | 2022-08-15 20:37 | NUR ---
PATIENT ASSISTED TO THE BR A 1PA. PATIENT ABLE TO VOID. PATIENT IS BACK IN BED RESTING. NG TO LWIS. PATIENTS IV INFUSING PER ORDER. PATIENT DENIES ANY PAIN OR NAUSEA. PATIENT DENIES ANY FURTHER NEEDS. CALL LIGHT IN REACH. DAUGHTER AT BEDISDE.
[2022-08-15 20:56] VITALS: BP 149/84
[2022-08-16 04:42] VITALS: BP 143/75
--- NOTE | 2022-08-16 04:46 | NUR ---
PT. CALLED NURSES STATION REQUESTING ASSISTANCE TO BR. THIS WAS PROVIDED. PT. DISCONNECTED FROM NG SUCTIONING AND ASSISTED TO BATHROOM. PT. BACK IN BED, SUCTIONING RECONNECTED AND ON INTERMITTENT. TRASH CANS EMPTIED, ROOM TIDIED, BOARD UPDATED, VITAL SIGNS AND I/OS DOCUMENTED. WARM BLANKET PROVIDED, CALL LIGHT LEFT WITHINR REACH. NO OTHER IMMEDIATE NEEDS AT THIS TIME.
--- NOTE | 2022-08-16 07:26 | NUR ---
RECIEVED SHIFT REPORT. PT AWAKE IN BED, STATES NAUSEA DISCUSSED GIVING ANTINAUSEA MEDICATION. PT COMPLIANT. DENIES FURTHER NEEDS. CALL LIGHT IN REACH.
--- NOTE | 2022-08-16 08:34 | NUR ---
MORNING ASSESSMENT COMPLETE. PT LAYING IN BED, AWAKE. DENIES PAIN. STATES NAUSEA, PRN ANTINAUSEA MEDICATION ADMINISTERED (PER EMAR, BY NOC RN). NG INTACT, CONNECTED TO INTERMIT. WALL SUCTION. BROWN/DARK RED IN COLOR. HYPOACTIVE BOWELTONES IN ALL QUADRANTS. TENDER. CPOX IN PLACE, SPO2 95% ON RA. DENIES FURTHER NEEDS. CALL LIGHT IN REACH.
--- NOTE | 2022-08-16 09:45 | NUR ---
Spoke with Kerry and her daughter. Pt and family have been working with [facility] prior to admission. Pt plans on dc to home from the hospital and move to [facility] after getting afairs in order. Daughter followed me out of the room stating she feels pt needs to go to [facility] sooner, rather than later. We discussed I cannot force pts into placement. As a family they can strongly encourage pt. Jade Adame sent pts chart to Shabbir at [facility] yesterday as requested. Daughter will be staying with pt as she feels her memory is declining.
[2022-08-16 10:07] VITALS: BP 127/63
--- NOTE | 2022-08-16 12:05 | NUR ---
NG TUBE REMOVED PER DR ORDER. PT TOLERATED WELL. PROVIDED CLEAR LIQUIDS. DENIES FURTHER NEEDS AT THIS TIME. CALL LIGHT IN REACH AND FAMILY AT BEDSIDE.
[2022-08-16 14:07] VITALS: BP 128/68
--- NOTE | 2022-08-16 14:14 | NUR ---
PT RESTING COMFORTABLY IN BED, VISITING WITH HER DAUGHTER BLAKE. NGT DC'D, AT THIS POINT NO SURGERY NEEDED. BOTH WONDERING ABOUT DC PLANS, PASSED ON TO RN, SHE WILL FOLLOW WITH BOTH. HAD PRAYER WITH BOTH FOR CLARITY FOR NEXT MOVE. FAMILY HAS BEEN WORKING ON A MOVE TO [facility]. ANDREY HARDING WILL FOLLOW
--- NOTE | 2022-08-16 14:30 | NUR ---
AFTERNOON ASSESSMENT COMPLETE. PT DENIES PAIN AND NAUSEA AT THIS TIME. TOLERATING CLEAR LIQUIDS. STATES HAVING LOOSE BOWEL MOVEMENTS. BOWEL TONES ACTIVE THOUGHOUT, DENIES TENDERNESS. CALL LIGHT IN REACH. CHAIR ALARM ON FOR SAFETY
--- NOTE | 2022-08-16 16:00 | NUR ---
PT RESTING IN BED, AWAKE. DENIES FURTHER NEEDS AT THIS TIME. CALL LIGHT IN REACH.
--- NOTE | 2022-08-16 17:41 | NUR ---
PT RETURNED FROM WALK WITH DAUGHTER AND JAY JAY GARCIA. PT WALKED WITH WHEELCHAIR FOLLOWING BEHIND. PT DENIES ANY DISCOMFORTS ONCE BACK IN ROOM. CALL LIGHT IN REACH.
[2022-08-16 18:44] VITALS: BP 120/64
[2022-08-16 20:23] VITALS: BP 128/71
--- NOTE | 2022-08-16 20:26 | NUR ---
Alia pt, pt looks happy about having NG out. Says she had multiple BMs today. Vialts stable.
--- NOTE | 2022-08-16 22:22 | NUR ---
DAUGHTER TOREY AT RN STATION AND GETTING READY TO GO HOME FOR THE EVENING. NO NEEDS OR CONCERNS VERBALIZED AT THIS TIME. PRIMARY RN JOSE AWARE.
--- NOTE | 2022-08-17 00:50 | NUR ---
BED ALARM HEARD, PT FOUND STANDING AT SIDE OF BED WANTING TO GO TO BR, 1PA TO BR, VOIDED 350ML YELLOW URINE, GAIT SLOW BUT STEADY, BACK TO BED, WITHOUT COMPLAINTS, BED ALARM ON, SIDE RAILS UP X 4.
[2022-08-17 04:42] VITALS: BP 123/62
--- NOTE | 2022-08-17 07:23 | NUR ---
RECEIVED REPORT FROM CHANGE CONTROL MANAGER RN. PT SLEEPING IN BED WITH EYES CLOSED. RESPIRATIONS EVEN AND REGULAR.
--- NOTE | 2022-08-17 08:11 | DS ---
[facility] [address], [place] [address] Signed ADMISSION DATE: 08/15/2022 DISCHARGE DATE: 08/17/2022 FINAL DIAGNOSIS: Resolved partial small-bowel obstruction. PROCEDURES: 1. CT scan of the abdomen and pelvis. 2. Small bowel follow-through. 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 We also excised the left colon for a very large tubulovillous adenomatous polyp. She has been doing fine since that time. She declined chemotherapy at her advanced age and low functional status. She maintains herself as a DNR/DNI with no heroic measures. She came in on this occasion with generalized crampy abdominal waves of pain with some nausea. She was slightly distended and the CT scan showed some dilated loops of small bowel with a little mesenteric swelling concerning for small-bowel obstruction. I was asked to admit her as a general surgeon on-call. She was treated conservatively with NG tube decompression and IV fluids. She actually did very well. We performed her small-bowel follow-through yesterday and she did excellent. We gave her clear liquids yesterday and she has done quite well with multiple bowel movements. Her abdomen is completely soft, flat and nontender. At this point, she was asking to go home. DISCHARGE PLANS AND MEDICATIONS: Esperanza is going to go home without any new prescriptions. She will resume her chronic medications, which includes vitamin C, iron sulfate and . Her son Damien is the [id number] at [phone] and he lives in [place], [place]. Her daughter, Jeanine also is helpful at [phone] and lives in [place], [place]. They are helping get her place at an adult care facility here in [place], [place] called [facility]. I explained to Esperanza at home she can take her usual medications and eat her usual diet and do her usual activities. There have been no changes. She can shower and bathe as usual. She can follow up in my office as needed. She should follow up with her primary care provider in the weeks ahead. She has expressed understanding and agrees with the above plan. Electronically Signed By: OPAL IZAGUIRRE MD 08/17/22 0811 PATIENT NAME: CHEYENNE ADAMS DISCHARGE SUMMARY DATE OF : 35 REPORT #: [id number] PHYSICIAN: OPAL IZAGUIRRE MD PCP: KATHI LOPEZ MD REPORT IS CONFIDENTIAL AND NOT TO BE RELEASED WITHOUT AUTHORIZATION [facility] [address], [place] [address] Signed MD MINA Kendall/RIO /[id number] cc: MD Opal Green MD Copies: KATHI LOPEZ DMD, ANDREW L MD ~ Electronically Signed By: OPAL IZAGUIRRE MD 08/17/22 0811 PATIENT NAME: CHEYENNE ADAMS DISCHARGE SUMMARY DATE OF : 35 REPORT #: [id number] PHYSICIAN: OPAL IZAGUIRRE MD PCP: KATHI LOPEZ MD REPORT IS CONFIDENTIAL AND NOT TO BE RELEASED WITHOUT AUTHORIZATION
[2022-08-17 09:00] VITALS: BP 121/61
--- NOTE | 2022-08-17 10:20 | NUR ---
PT TO DC TODAY, SLEEPING DID NOT DISTURB.
--- NOTE | 2022-08-17 11:14 | NUR ---
PATIENT IS GETTING READY TO GO HOME TO HER HOUSE. PATIENT'S DAUGHTER IS AT BEDSIDE. [facility] CALLED AND UPDATED THAT PATIENT IS GOING TO BE DC'd TO HOME TODAY. ARRANGEMENTS MADE FOR PATIENT TO TOUR [facility] TODAY. AT THIS TIME THERE ARE 2 APARTMENTS OPEN TO RENT. DISCHARGE SUMMARY SENT TO [facility].
--- NOTE | 2022-08-17 12:15 | NUR ---
CONNECTED WITH PT SHE WAS LEAVING TO [place]. DAUGHTER HERE, GAVE BLESSING. PT THANKED ME FOR VISITING AND PRAYER. BLAKE HER DAUGHTER PRESENT
--- NOTE | 2022-08-31 11:15 | CONS ---
[facility] [address], [place] [address] Signed DATE OF CONSULTATION: 08/15/2022 CHIEF COMPLAINT: Generalized abdominal pain. HISTORY OF PRESENT ILLNESS: Kerry is an 87-year-old female, who I met in April of 2021. She required a right colectomy for a large cecal adenocarcinoma with one lymph node positive. We also took down the splenic flexure and performed a left colectomy for a large tubulovillous adenomatous polyp. On the right, she has an isoperistaltic xghm-ar-swjz anastomosis hand-sewn in two layers. On the left, she has a French side-to-end colocolonic anastomosis hand-sewn in two layers. Amazingly, she is still living at home. However, they are [facility] I/O at this time. She no longer drives. She maintains herself is a DNR/DNI with no heroic measures. She had met with our medical oncologist, Dr. Kathi Calderón. She declined chemotherapy and followup surveillance. Overall, she had been doing well. She had some generalized abdominal pain yesterday with some nausea coming on in waves. No vomiting. She actually drank a protein drink on her way to the hospital. In the emergency room, her labs were unremarkable. She was a little distended. The CT scan showed a 2.9 cm dilated loop of distal small bowel in the right lower quadrant of the abdomen. There was a little bit of swelling in the mesentery. Therefore, some concern for a possible internal hernia or small-bowel obstruction. I did close the mesentery on both the right and left colectomies at the time of surgery last year. She had an NG tube placed and confirmed in her stomach. I had been asked to admit her as a general surgeon on-call. She did not receive any antibiotics. She has had some IV fluids. She has passed some gas and a bowel movement and overall says she feels much better. PAST MEDICAL HISTORY: Hypertension, rheumatic fever, nosebleeds, osteoarthritis, fracture of her back from falling, stage III right colon cancer in April 2021, small hiatal hernia, diverticulosis and a duodenal diverticulum. PAST SURGICAL HISTORY: Includes a hysterectomy, tonsillectomy, wrist fracture repair and right colectomy and left colectomy on 05/07/2021. She had a stage III right cecal tumor with one positive lymph node and on the left she had a large tubulovillous adenomatous polyp. The right has an isoperistaltic dvsb-fl-feyh hand-sewn anastomosis in two layers. The left has a French side-to-end colocolonic anastomosis hand-sewn in two layers. SOCIAL HISTORY: She does not smoke or drink. She still lives at her house, but is looking to move over to the [facility] for supervised care. She no longer drives. She maintains herself as a DNR/DNI with no heroic measures. [facility] L[facility] Electronically Signed By: OPAL IZAGUIRRE MD 08/15/22 0800 Electronically Signed By: OPAL IZAGUIRRE MD 08/31/22 1258 PATIENT NAME: KERRY ADAMS CONSULTATION DATE OF : 35 REPORT #: [id number] PHYSICIAN: OPAL IZAGUIRRE MD PCP: KATHI LOPEZ MD REPORT IS CONFIDENTIAL AND NOT TO BE RELEASED WITHOUT AUTHORIZATION [facility] [address] [place] [id number] Josie Lopez is her primary care provider. Dr. Kathi Calderón had seen her as our medical oncologist. Her friend locally is also a academic advisor, Marlon Roman at [phone]. She has five children total. Her daughter Jeanine lives in [place], [place] at [phone] and her son Damien is her power of commonwealth attorney, who lives in [place], [place] at [phone]. FAMILY HISTORY: None. REVIEW OF SYSTEMS: She had 10 systems reviewed and she told me nothing new since last year. She just cannot gain any weight. ALLERGIES: Lisinopril and Demerol. MEDICATIONS: Vitamin C, iron, Ocuvite, Termric,and memoral capsule PHYSICAL EXAMINATION: VITAL SIGNS: Her blood pressure is 127/64, heart rate is 68, respiratory rate is 16, temperature is 98.0. She is 95% on room air. She is 5 feet 3 inches at 47 kg with a body mass index of 18. GENERAL: Kerry is an 87-year-old female, who was actually on the toilet and ambulated quite nicely over to the bed. She is elderly, thin and frail. Her functional status I say would be slightly below moderate. LUNGS: Her lungs are clear to auscultation bilaterally. HEART: Regular rate and rhythm without murmurs. ABDOMEN: Soft with minimal distention. She is nontender. There are no hernias that I can palpate. There is no tympany. LABORATORY DATA: Her white blood cell count is 6.4, hemoglobin 13, neutrophils 76. Electrolytes are unremarkable. BUN 11, creatinine 0.7. Urinalysis negative. Liver function tests are negative. Albumin is 3.7. RADIOGRAPHIC STUDIES: Chest x-ray shows the NG tube in her stomach, otherwise unremarkable. The CT scan shows the 2.9 cm mildly dilated loop of small bowel in the right lower quadrant with some mesenteric swirling, of course we can see the staple lines from the end to the bowel. ASSESSMENT AND PLAN: Kerry is an 87-year-old female, who presents with what probably is a partial small bowel obstruction. She has been admitted and started on conservative therapy. She has Electronically Signed By: OPAL IZAGUIRRE MD 08/15/22 0800 Electronically Signed By: OPAL IZAGUIRRE MD 08/31/22 1258 PATIENT NAME: HILDAZEINAKERRYUMAIR RODRIGUEZ CONSULTATION DATE OF : 35 REPORT #: [id number] PHYSICIAN: OPAL IZAGUIRRE MD PCP: KATHI LOPEZ MD REPORT IS CONFIDENTIAL AND NOT TO BE RELEASED WITHOUT AUTHORIZATION [facility] [address], [place] [address] Signed passed some gas and flatus and we will see how that goes. She may need a small-bowel follow-through here in a day or two. She reminded me that she is a DNR/DNI with no heroic measures. She also confirmed that her son Damien is her ekext-au-wdqzeotj although her daughter Jeanine apparently is in town currently. She said Damien should be coming soon. At this point, we will proceed on conservative basis and follow her clinical course. This was discussed with Kerry and her nurse. She has expressed understanding and agrees with the above plan. Opal Izaguirre MD ALB/MODL /[id number] cc: MD Opal Green MD Copies: KATHI LOPEZ DMD, ANDREW L MD ~ Electronically Signed By: OPAL IZAGUIRRE MD 08/15/22 0800 Electronically Signed By: OPAL IZAGUIRRE MD 08/31/22 1258 PATIENT NAME: KERRY ADAMS CONSULTATION DATE OF : 35 REPORT #: [id number] PHYSICIAN: OPAL IZAGUIRRE MD PCP: KATHI LOPEZ MD REPORT IS CONFIDENTIAL AND NOT TO BE RELEASED WITHOUT AUTHORIZATION
== END 2022-08-17 11:25 | disposition home or self-care (01) | DRG 390 ==
LOC: ED 16:26 → MS 18:41
PROVIDERS: ADMIT Colon & Rectal Surgery; ATTEND Colon & Rectal Surgery
PROC: 0D9670Z Drainage of Stomach with Drainage Device, Via Natural or Artificial Opening (ICD-10-PCS; principal; 2022-08-14)
DX: K56.600 Partial intestinal obstruction, unspecified as to cause (principal); I10 Essential (primary) hypertension; M19.90 Unspecified osteoarthritis, unspecified site; I00 Rheumatic fever without heart involvement; E87.6 Hypokalemia; E83.42 Hypomagnesemia; Z66 Do not resuscitate; K44.9 Diaphragmatic hernia without obstruction or gangrene; Z85.038 Personal history of other malignant neoplasm of large intestine; Z90.710 Acquired absence of both cervix and uterus; Z90.89 Acquired absence of other organs; Z98.890 Other specified postprocedural states; Z87.81 Personal history of (healed) traumatic fracture; Z88.8 Allergy status to other drugs, medicaments and biological substances; Z79.899 Other long term (current) drug therapy
CPT/HCPCS: 36415; 71045; 74177; 74250; 80048; 80053; 81001; 82378; 83690; 83735; 84100; 85025; 96375; 99285 25; C9113; J1650; J2270; J2405; J3475; J3480; J3490; J7030; J7060; J7121

== ENCOUNTER 2022-08-18 23:38 | Inpatient (IN) | payer MEDICARE, OTHER ==
[~2022-08-18] VITALS: Ht 160 cm; Wt 55.6 kg
--- OUTSIDE RECORDS SUMMARY | ~2022-08-18 | XMS | Continuity of Care Document ---
Demographics + + + | Address | [address] | | | [place] [address] | + + + | Preferred Language | Unknown | + + + | Marital Status | | + + + | Anglican Affiliation | Unknown | + + + | Race | White | + + + | Ethnic Group | Not or | + + + Author + + + | Author | [facility] | + + + | Organization | [facility] | + + + | Address | [address] | | | [place] [address] | + + + | Phone | | + + + Care Team Providers + + + + | Care Pastrycook Name | Role | Phone | + + + + Unavailable | Unavailable | + + + + Unavailable | Unavailable | + + + + Unavailable | Unavailable | + + + + Unavailable | Unavailable | + + + + Unavailable | Unavailable | + + + + Allergies and Intolerances + + + + + | date | description | facility | type | + + + + + | (no date) | Lisinopril | [facility] (unknown[facility] | | + + + + + | (no date) | Mild | [facility] | (unknown) | | | [facility] | | + + + + + | (no date) | Lisinopril | [facility] | (unknown) | | | | Hospital | | + + + + + | (no date) | lisinopril | [facility] | (unknown) | | | | Hospital | | + + + + + | (no date) | Lisinopril | [facility] | (unknown) | | | | Hospital | | + + + + + | (no date) | lisinopril | [facility] | (unknown) | + + + + + Encounters No information. Functional Status No information. Immunizations + + + + | date | description | facility | + + + + | 2017-12-01 00:00 | Tdap | [facility] | + + + + | 2017-12-01 00:00 | Tdap | [facility] | + + + + | 2017-12-01 00:00 | Tdap | [facility] | + + + + | 2021-09-02 00:00 | No vaccine administered | [facility] | + + + + | 2021-09-07 00:00 | No vaccine administered | [facility] | + + + + Medications + + + + | date | description | facility | + + + + | 2022-08-17 00:00 | Turmeric Root Extract | [facility] | + + + + | 2014-06-09 00:00 | DOCUSATE SODIUM | [facility] | + + + + | 2014-06-09 00:00 | DOCUSATE SODIUM | [facility] | + + + + | 2014-06-09 00:00 | DOCUSATE SODIUM | [facility] | + + + + | 2014-06-09 00:00 | docusate sodium 100 MG | [facility] | | | Oral Capsule [Colace] | | + + + + | 2021-08-27 00:00 | Calcium Carbonate/Vitamin | [facility] | | | D3 | | + + + + | 2021-09-03 00:00 | Calcium Carbonate/Vitamin | [facility] | | | D3 | | + + + + | 2021-09-09 00:00 | Calcium Carbonate/Vitamin | [facility] | | | D3 | | + + + + | 2022-08-04 00:00 | Calcium Carbonate/Vitamin | [facility] | | | D3 | | + + + + | 2022-08-17 00:00 | Calcium Carbonate/Vitamin | [facility] | | | D3 | | + + + + | 2021-09-02 00:00 | calcium carbonate 1500 MG | [facility] | | | / cholecalciferol 800 UNT | | | | Oral Tab | | + + + + | 2021-09-07 00:00 | calcium carbonate 1500 MG | [facility] | | | / cholecalciferol 800 UNT | | | | Oral Tab | | + + + + | 2022-08-17 00:00 | LACTOBACILLUS ACIDOPHILUS | [facility] | + + + + | 2021-08-27 00:00 | ASCORBIC ACID | [facility] | + + + + | 2021-09-03 00:00 | ASCORBIC ACID | [facility] | + + + + | 2021-09-09 00:00 | ASCORBIC ACID | [facility] | + + + + | 2022-08-04 00:00 | ASCORBIC ACID | [facility] | + + + + | 2022-08-17 00:00 | ASCORBIC ACID | [facility] | + + + + | 2021-09-02 00:00 | ascorbic acid 1000 MG Oral | [facility] | | | Tablet | | + + + + | 2021-09-07 00:00 | ascorbic acid 1000 MG Oral | [facility] | | | Tablet | | + + + + | 2021-08-27 00:00 | FERROUS SULFATE | [facility] | + + + + | 2021-09-03 00:00 | FERROUS SULFATE | [facility] | + + + + | 2021-09-09 00:00 | FERROUS SULFATE | [facility] | + + + + | 2022-08-04 00:00 | FERROUS SULFATE | [facility] | + + + + | 2022-08-17 00:00 | FERROUS SULFATE | [facility] | + + + + | 2021-09-02 00:00 | ferrous sulfate 325 MG | [facility] | | | Oral Tablet | | + + + + | 2021-09-07 00:00 | ferrous sulfate 325 MG | [facility] | | | Oral Tablet | | + + + + | 2021-08-27 00:00 | CYANOCOBALAMIN (VITAMIN | [facility] | | | B-12) | | + + + + | 2021-09-03 00:00 | CYANOCOBALAMIN (VITAMIN | [facility] | | | B-12) | | + + + + | 2021-09-09 00:00 | CYANOCOBALAMIN (VITAMIN | [facility] | | | B-12) | | + + + + | 2022-08-04 00:00 | CYANOCOBALAMIN (VITAMIN | [facility] | | | B-12) | | + + + + | 2021-09-02 00:00 | vitamin B12 0.5 MG Oral | [facility] | | | Tablet | | + + + + | 2021-09-07 00:00 | vitamin B12 0.5 MG Oral | [facility] | | | Tablet | | + + + + | 2021-08-27 00:00 | Cholecalciferol (Vitamin | [facility] | | | D3) | | + + + + | 2021-09-03 00:00 | Cholecalciferol (Vitamin | [facility] | | | D3) | | + + + + | 2021-09-09 00:00 | Cholecalciferol (Vitamin | [facility] | | | D3) | | + + + + | 2022-08-04 00:00 | Cholecalciferol (Vitamin | [facility] | | | D3) | | + + + + | 2021-09-02 00:00 | cholecalciferol 0.05 MG | [facility] | | | Oral Capsule | | + + + + | 2021-09-07 00:00 | cholecalciferol 0.05 MG | [facility] | | | Oral Capsule | | + + + + | 2014-06-04 00:00 | HYDROCODONE | [facility] | | | BIT/ACETAMINOPHEN | | + + + + | 2014-06-04 00:00 | HYDROCODONE | [facility] | | | BIT/ACETAMINOPHEN | | + + + + | 2014-06-04 00:00 | HYDROCODONE | [facility] | | | BIT/ACETAMINOPHEN | | + + + + | 2014-06-04 00:00 | acetaminophen 325 MG / | [facility] | | | hydrocodone bitartrate 5 MG | | | | Oral Tabl | | + + + + | 2021-09-02 00:00 | 12 HR guaifenesin 600 MG | [facility] | | | Extended Release Oral | | | | Tablet [Mucin | | + + + + | 2021-09-02 00:00 | GUAIFENESIN | [facility] | + + + + | 2021-09-02 00:00 | GUAIFENESIN | [facility] | + + + + | 2021-08-27 00:00 | LOSARTAN POTASSIUM | [facility] | + + + + | 2021-09-03 00:00 | LOSARTAN POTASSIUM | [facility] | + + + + | 2021-09-09 00:00 | LOSARTAN POTASSIUM | [facility] | + + + + | 2022-08-04 00:00 | LOSARTAN POTASSIUM | [facility] | + + + + | 2022-08-17 00:00 | LOSARTAN POTASSIUM | [facility] | + + + + | 2021-09-02 00:00 | losartan potassium 25 MG | [facility] | | | Oral Tablet [Cozaar] | | + + + + | 2021-09-07 00:00 | losartan potassium 25 MG | [facility] | | | Oral Tablet [Cozaar] | | + + + + Problems + + + + | date | description | facility | + + + + | 2014-06-09 00:00 | Hypertension | [facility] | + + + + | 2014-06-09 00:00 | Hypertension | [facility] | + + + + | 2014-06-09 00:00 | Hypertension | [facility] | + + + + | 2014-06-09 00:00 | Constipation | [facility] | + + + + | 2014-06-09 00:00 | Constipation | [facility] | + + + + | 2014-06-09 00:00 | Constipation | [facility] | + + + + | 2017-12-01 00:00 | Scalp laceration | [facility] | + + + + | 2017-12-01 00:00 | Head injury | [facility] | + + + + | 2017-12-01 00:00 | Laceration of scalp | [facility] | + + + + | 2017-12-01 00:00 | Laceration of scalp | [facility] | + + + + | 2017-12-01 00:00 | Laceration of scalp | [facility] | + + + + | 2017-12-01 00:00 | Injury of head | [facility] | + + + + | 2017-12-01 00:00 | Injury of head | [facility] | + + + + | 2017-12-01 00:00 | Injury of head | [facility] | + + + + | 2017-12-01 00:00 | Fracture of sixth cervical | [facility] | | | vertebra | | + + + + | 2017-12-01 00:00 | Fracture of sixth cervical | [facility] | | | vertebra | | + + + + | 2017-12-01 00:00 | Fracture of sixth cervical | [facility] | | | vertebra | | + + + + | 2019-06-24 00:00 | Vertigo | [facility] | + + + + | 2019-06-24 00:00 | Vertigo | [facility] | + + + + | 2019-06-24 00:00 | Vertigo | [facility] | + + + + | 2021-09-02 00:00 | COVID-19 | [facility] | + + + + | 2021-09-02 00:00 | Infection due to severe | [facility] | | | acute respiratory syndrome | | | | coronavirus 2 (SARS-CoV-2) | | + + + + | 2021-09-02 00:00 | Infection due to severe | [facility] | | | acute respiratory syndrome | | | | coronavirus 2 (SARS-CoV-2) | | + + + + | 2021-09-02 00:00 | Infection due to severe | [facility] | | | acute respiratory syndrome | | | | coronavirus 2 (SARS-CoV-2) | | + + + + | 2021-09-07 00:00 | Concussion | [facility] | + + + + | 2021-09-07 00:00 | Concussion | [facility] | + + + + | 2021-09-07 00:00 | Concussion | [facility] | + + + + | 2022-08-04 00:00 | Intermittent diarrhea | [facility] | + + + + | 2022-08-04 00:00 | Intermittent diarrhea | [facility] | + + + + | 2022-08-04 09:40 | Essential (primary) | [facility] | | | hypertension | | + + + + | 2022-08-04 09:40 | UNSPECIFIED ABDOMINAL PAIN | [facility] | | | | | + + + + | 2022-08-04 09:40 | DIARRHEA, UNSPECIFIED | [facility] | + + + + | 2022-08-04 09:40 | OTHER RETIREMENT (CURRENT) | [facility] | | | DRUG THERAPY | | + + + + | 2022-08-04 09:40 | PRSNL HX OF TIA (TIA), AND | [facility] | | | CEREB INFRC W/O RESID D | | + + + + | 2022-08-04 09:40 | ALLERGY STATUS TO OTH | [facility] | | | DRUG/MEDS/BIOL SUBST STATUS | | | | | | + + + + | 2022-08-14 00:00 | Small bowel obstruction | [facility] | + + + + Procedures + + + + | date | description | facility | + + + + | 2021-05-07 00:00 | EXCISION OF RIGHT LARGE | [facility] | | | INTESTINE, OPEN APPROACH | | + + + + | 2021-05-07 00:00 | EXCISION OF LEFT LARGE | [facility] | | | INTESTINE, OPEN APPROACH | | + + + + | 2021-05-06 00:00 | EXCISION OF CECUM, ENDO, | [facility] | | | DIAGN | | + + + + | 2021-05-06 00:00 | EXCISION OF SIGMOID COLON, | [facility] | | | ENDO, DIAGN | | + + + + Results/Labs +--------+--------+ + +---------+--------+ + | test | date | author | facility | value | unit | | | | | | | | | interpreta | | | | | | | | tion | +--------+--------+ + +---------+--------+ + + + | Result panel 1 | + + + + + + +---------+ + + | (unknown) | (no date) | (unknown) | [facility] | (no | (units | (unknown) | | | [facility] value[facility] | unknown) | [facility] | | | | + + + + +---------+ + + + + | Result panel 2 | + + + + + + +---------+ + + | (unknown) | (no date) | (unknown) | [facility] | (no | (units | (unknown) | | | | [facility] | value) | unknown) | | | | | [facility] | | | | + + + + +---------+ + + + + | Result panel 3 | + + + + + + +---------+ + + | (unknown) | (no date) | (unknown) | [facility] | (no | (units | (unknown) | | | | [facility] | value) | unknown) | | | | | [facility] | | | | + + + + +---------+ + + + + | Result panel 4 | + + + + + + +---------+ + + | (unknown) | (no date) | (unknown) | [facility] | (no | (units | (unknown) | | | | [facility] | value) | unknown) | | | | | [facility] | | | | + + + + +---------+ + + + + | Result panel 5 | + + + + + + +---------+ + + | (unknown) | (no date) | (unknown) | [facility] | (no | (units | (unknown) | | | | [facility] | value) | unknown) | | | | | [facility] | | | | + + + + +---------+ + + + + | Result panel 6 | + + + + + + +---------+ + + | (unknown) | (no date) | (unknown) | [facility] | (no | (units | (unknown) | | | | [facility] | value) | unknown) | | | | | [facility] | | | | + + + + +---------+ + + + + | Result panel 7 | + + + + + + +---------+ + + | (unknown) | (no date) | (unknown) | [facility] | (no | (units | (unknown) | | | | [facility] | value) | unknown) | | | | | [facility] | | | | + + + + +---------+ + + + + | Result panel 8 | + + + + + + +---------+ + + | (unknown) | (no date) | (unknown) | [facility] | (no | (units | (unknown) | | | | [facility] | value) | unknown) | | | | | [facility] | | | | + + + + +---------+ + + + + | Result panel 9 | + + + + + + +---------+ + + | (unknown) | (no date) | (unknown) | [facility] | (no | (units | (unknown) | | | | [facility] | value) | unknown) | | | | | [facility] | | | | + + + + +---------+ + + + + | Result panel 10 | + + + + + + +---------+ + + | (unknown) | (no date) | (unknown) | [facility] | (no | (units | (unknown) | | | | [facility] | value) | unknown) | | | | | [facility] | | | | + + + + +---------+ + + + + | Result panel 11 | + + + + + + +---------+ + + | (unknown) | (no date) | (unknown) | [facility] | (no | (units | (unknown) | | | | [facility] | value) | unknown) | | | | | [facility] | | | | + + + + +---------+ + + + + | Result panel 12 | + + + + + + +---------+ + + | (unknown) | (no date) | (unknown) | [facility] | (no | (units | (unknown) | | | | [facility] | value) | unknown) | | | | | [facility] | | | | + + + + +---------+ + + + + | Result panel 13 | + + + + + + +---------+ + + | (unknown) | (no date) | (unknown) | [facility] | (no | (units | (unknown) | | | | [facility] | value) | unknown) | | | | | [facility] | | | | + + + + +---------+ + + + + | Result panel 14 | + + + + + + +---------+ + + | (unknown) | (no date) | (unknown) | [facility] | (no | (units | (unknown) | | | | [facility] | value) | unknown) | | | | | [facility] | | | | + + + + +---------+ + + + + | Result panel 15 | + + + + + + +---------+ + + | (unknown) | (no date) | (unknown) | [facility] | (no | (units | (unknown) | | | | [facility] | value) | unknown) | | | | | [facility] | | | | + + + + +---------+ + + + + | Result panel 16 | + + + + + + +---------+ + + | (unknown) | (no date) | (unknown) | [facility] | (no | (units | (unknown) | | | | [facility] | value) | unknown) | | | | [facility] | | | | + + + + +---------+ + + + + | Result panel 17 | + + + + + + +---------+ + + | (unknown) | (no date) | (unknown) | [facility] | (no | (units | (unknown) | | | | [facility] | value) | unknown) | | | | | [facility] | | | | + + + + +---------+ + + + + | Result panel 18 | + + + + + + +---------+ + + | (unknown) | (no date) | (unknown) | [facility] | (no | (units | (unknown) | | | | [facility] | value) | unknown) | | | | | [facility] | | | | + + + + +---------+ + + + + | Result panel 19 | + + + + + + +---------+ + + | (unknown) | (no date) | (unknown) | [facility] | (no | (units | (unknown) | | | | [facility] | value) | unknown) | | | | [facility] | | | | + + + + +---------+ + + + + | Result panel 20 | + + + + + + +---------+ + + | (unknown) | (no date) | (unknown) | [facility] | (no | (units | (unknown) | | | | [facility] | value) | unknown) | | | | | [facility] | | | | + + + + +---------+ + + + + | Result panel 21 | + + + + + + +---------+ + + | (unknown) | (no date) | (unknown) | [facility] | (no | (units | (unknown) | | | | [facility] | value) | unknown) | | | | [facility] | | | | + + + + +---------+ + + + + | Result panel 22 | + + + + + + +---------+ + + | (unknown) | (no date) | (unknown) | [facility] | (no | (units | (unknown) | | | | [facility] | value) | unknown) | | | | [facility] | | | | + + + + +---------+ + + + + | Result panel 23 | + + + + + + +---------+ + + | (unknown) | (no date) | (unknown) | [facility] | (no | (units | (unknown) | | | | [facility] | value) | unknown) | | | | [facility] | | | | + + + + +---------+ + + + + | Result panel 24 | + + + + + + +---------+ + + | (unknown) | (no date) | (unknown) | [facility] | (no | (units | (unknown) | | | | [facility] | value) | unknown) | | | | [facility] | | | | + + + + +---------+ + + + + | Result panel 25 | + + + + + + +---------+ + + | (unknown) | (no date) | (unknown) | [facility] | (no | (units | (unknown) | | | | [facility] | value) | unknown) | | | | [facility] | | | | + + + + +---------+ + + + + | Result panel 26 | + + + + + + +---------+ + + | (unknown) | (no date) | (unknown) | [facility] | (no | (units | (unknown) | | | | [facility] | value) | unknown) | | | | [facility] | | | | + + + + +---------+ + + + + | Result panel 27 | + + + + + + +---------+ + + | (unknown) | (no date) | (unknown) | [facility] | (no | (units | (unknown) | | | | [facility] | value) | unknown) | | | | [facility] | | | | + + + + +---------+ + + + + | Result panel 28 | + + + + + + +---------+ + + | (unknown) | (no date) | (unknown) | [facility] | (no | (units | (unknown) | | | | [facility] value) | [facility]) | [facility] | | | | + + + + +---------+ + + + + | Result panel 29 | + + + + + + +---------+ + + | (unknown) | (no date) | (unknown) | [facility] | (no | (units | (unknown) | | | | [facility] | value) | unknown) | [facility] | [facility] | | | | + + + + +---------+ + + + + | Result panel 30 | + + + + + + +---------+ + + | (unknown) | (no date) | (unknown) | [facility] | (no | (units | (unknown) | | | | [facility] | value) | unknown) | | | | [facility] | | | | + + + + +---------+ + + + + | Result panel 31 | + + + + + + +---------+ + + | (unknown) | (no date) | (unknown) | [facility] | (no | (units | (unknown) | | | | [facility] value) | unknown) | | | | [facility] | | | | + + + + +---------+ + + + + | Result panel 32 | + + + + + + +---------+ + + | (unknown) | (no date) | (unknown) | [facility] | (no | (units | (unknown) | | | | [facility] | value) | unknown) | | | | [facility] | | | | + + + + +---------+ + + + + | Result panel 33 | + + + + + + +---------+ + + | (unknown) | (no date) | (unknown) | [facility] | (no | (units | (unknown) | | | | [facility] | value) | unknown) | | | | [facility] | | | | + + + + +---------+ + + + + | Result panel 34 | + + + + + + +---------+ + + | (unknown) | (no date) | (unknown) | [facility] | (no | (units | (unknown) | | | | [facility] | value) | unknown) | | | | [facility] | | | | + + + + +---------+ + + + + | Result panel 35 | + + + + + + +---------+ + + | (unknown) | (no date) | (unknown) | [facility] | (no | (units | (unknown) | | | | [facility] | value) | unknown) | | | | [facility] | | | | + + + + +---------+ + + + + | Result panel 36 | + + + + + + +---------+ + + | (unknown) | (no date) | (unknown) | [facility] | (no | (units | (unknown) | | | | [facility] | value) | unknown) | | | | [facility] | | | | + + + + +---------+ + + + + | Result panel 37 | + + + + + + +---------+ + + | (unknown) | (no date) | (unknown) | [facility] | (no | (units | (unknown) | | | | | [facility] | value) | unknown) | | | | [facility] | | | | + + + + +---------+ + + + + | Result panel 38 | + + + + + + +---------+ + + | (unknown) | (no date) | (unknown) | [facility] | (no | (units | (unknown) | | | | | [facility] | value) | unknown) | | | | [facility] | | | | + + + + +---------+ + + + + | Result panel 39 | + + + + + + +---------+ + + | (unknown) | (no date) | (unknown) | [facility] | (no | (units | (unknown) | | | | [facility] | value) | unknown) | | | | [facility] | | | | + + + + +---------+ + + + + | Result panel 40 | + + + + + + +---------+ + + | (unknown) | (no date) | (unknown) | [facility] | (no | (units | (unknown) | | | | | [facility] | value) | unknown) | | [facility] | | | | + + + + +---------+ + + + + | Result panel 41 | + + + + + + +---------+ + + | (unknown) | (no date) | (unknown) | [facility] | (no | (units | (unknown) | | | | [facility] value) | unknown) | | | | [facility] | | | | + + + + +---------+ + + + + | Result panel 42 | + + + + + + +---------+ + + | (unknown) | (no date) | (unknown) | [facility] | (no | (units | (unknown) | | | | [facility] value) | unknown) | | | | [facility] | | | | + + + + +---------+ + + + + | Result panel 43 | + + + + + + +---------+ + + | (unknown) | (no date) | (unknown) | [facility] | (no | (units | (unknown) | | | | [facility] value) | unknown) | | | | [facility] | | | | + + + + +---------+ + + + + | Result panel 44 | + + + + + + +---------+ + + | (unknown) | (no date) | (unknown) | [facility] | (no | (units | (unknown) | | | | [facility] | value) | unknown) | | | | [facility] | | | | + + + + +---------+ + + + + | Result panel 45 | + + + + + + +---------+ + + | (unknown) | (no date) | (unknown) | [facility] | (no | (units | (unknown) | | | | | [facility] | value) | unknown) | | | | [facility] | | | | + + + + +---------+ + + + + | Result panel 46 | + + + + + + +---------+ + + | (unknown) | (no date) | (unknown) | [facility] | (no | (units | (unknown) | | | | | [facility] | value) | unknown) | | | | [facility] | | | | + + + + +---------+ + + + + | Result panel 47 | + + + + + + +---------+ + + | (unknown) | (no date) | (unknown) | [facility] | (no | (units | (unknown) | | | | [facility] value) | unknown) | | | | [facility] | | | | + + + + +---------+ + + + + | Result panel 48 | + + + + + + +---------+ + + | (unknown) | (no date) | (unknown) | [facility] | (no | (units | (unknown) | | | | [facility] value) | unknown) | | | | [facility] | | | | + + + + +---------+ + + + + | Result panel 49 | + + + + + + +---------+ + + | (unknown) | (no date) | (unknown) | [facility] | (no | (units | (unknown) | | | | [facility] value) | [facility]) | | [facility] | | | | + + + + +---------+ + + + + | Result panel 50 | + + + + + + +---------+ + + | (unknown) | (no date) | (unknown) | [facility] | (no | (units | (unknown) | | | | [facility] value) | [facility]) | | | [facility] | | | | + + + + +---------+ + + + + | Result panel 51 | + + + + + + +---------+ + + | (unknown) | (no date) | (unknown) | [facility] | (no | (units | (unknown) | | | | | [facility] value) | unknown) | | | | [facility] | | | | + + + + +---------+ + + + + | Result panel 52 | + + + + + + +---------+ + + | (unknown) | (no date) | (unknown) | [facility] | (no | (units | (unknown) | | | | [facility] value) | unknown) | | | | [facility] | | | | + + + + +---------+ + + + + | Result panel 53 | + + + + + + +---------+ + + | (unknown) | (no date) | (unknown) | [facility] | (no | (units | (unknown) | | | | [facility] value) | [facility]) | | | | [facility] | | | | + + + + +---------+ + + + + | Result panel 54 | + + + + + + +---------+ + + | (unknown) | (no date) | (unknown) | [facility] | (no | (units | (unknown) | | | | [facility] value) | [facility]) | | | | [facility] | | | | + + + + +---------+ + + + + | Result panel 55 | + + + + + + +---------+ + + | (unknown) | (no date) | (unknown) | [facility] | (no | (units | (unknown) | | | | [facility] value) | [facility]) | | | | [facility] | | | | + + + + +---------+ + + + + | Result panel 56 | + + + + + + +---------+ + + | (unknown) | (no date) | (unknown) | [facility] | (no | (units | (unknown) | | | | [facility] value) | unknown) | | | | [facility] | | | | + + + + +---------+ + + + + | Result panel 57 | + + + + + + +---------+ + + | (unknown) | (no date) | (unknown) | [facility] | (no | (units | (unknown) | | | | | [facility] | value) | unknown) | | | | | | [facility] | | | | + + + + +---------+ + + + + | Result panel 58 | + + + + + + +---------+ + + | (unknown) | (no date) | (unknown) | [facility] | (no | (units | (unknown) | | | | | [facility] | value) | unknown) | | | | | | [facility] | | | | + + + + +---------+ + + + + | Result panel 59 | + + + + + + +---------+ + + | (unknown) | (no date) | (unknown) | [facility] | (no | (units | (unknown) | | | | | [facility] | value) | unknown) | | | | | | [facility] | | | | + + + + +---------+ + + + + | Result panel 60 | + + + + + + +---------+ + + | (unknown) | (no date) | (unknown) | [facility] | (no | (units | (unknown) | | | | | [facility] | value) | unknown) | | | | | | [facility] | | | | + + + + +---------+ + + + + | Result panel 61 | + + + + + + +---------+ + + | (unknown) | (no date) | (unknown) | [facility] | (no | (units | (unknown) | | | | | [facility] | value) | unknown) | | | | | | [facility] | | | | + + + + +---------+ + + + + | Result panel 62 | + + + + + + +---------+ + + | (unknown) | (no date) | (unknown) | [facility] | (no | (units | (unknown) | | | | | [facility] | value) | unknown) | | | | | | [facility] | | | | + + + + +---------+ + + + + | Result panel 63 | + + + + + + +---------+ + + | (unknown) | (no date) | (unknown) | [facility] | (no | (units | (unknown) | | | | [facility] value[facility] | unknown) | | | | [facility] | | | | + + + + +---------+ + + + + | Result panel 64 | + + + + + + +---------+ + + | (unknown) | (no date) | (unknown) | [facility] | (no | (units | (unknown) | | | | | [facility] | value) | unknown) | | | | [facility] | | | | + + + + +---------+ + + + + | Result panel 65 | + + + + + + +---------+ + + | (unknown) | (no date) | (unknown) | [facility] | (no | (units | (unknown) | | | | | [facility] value) | unknown) | | | | [facility] | | | | + + + + +---------+ + + + + | Result panel 66 | + + + + + + +---------+ + + | (unknown) | (no date) | (unknown) | [facility] | (no | (units | (unknown) | | | | | [facility] | value) | unknown) | | | | [facility] | | | | + + + + +---------+ + + + + | Result panel 67 | + + + + + + +---------+ + + | (unknown) | (no date) | (unknown) | [facility] | (no | (units | (unknown) | | | | | [facility] | value) | unknown) | | | | [facility] | | | | + + + + +---------+ + + + + | Result panel 68 | + + + + + + +---------+ + + | (unknown) | (no date) | (unknown) | [facility] | (no | (units | (unknown) | | | | | [facility] | value) | unknown) | | | | [facility] | | | | + + + + +---------+ + + + + | Result panel 69 | + + + + + + +---------+ + + | (unknown) | (no date) | (unknown) | [facility] | (no | (units | (unknown) | | | | | [facility] value) | unknown) | | | | [facility] | | | | + + + + +---------+ + + + + | Result panel 70 | + + + + + + +---------+ + + | (unknown) | (no date) | (unknown) | [facility] | (no | (units | (unknown) | | | | | [facility] value) | unknown) | | | | [facility] | | | | + + + + +---------+ + + + + | Result panel 71 | + + + + + + +---------+ + + | (unknown) | (no date) | (unknown) | [facility] | (no | (units | (unknown) | | | | | [facility] | value) | unknown) | | | | [facility] | | | | + + + + +---------+ + + + + | Result panel 72 | + + + + + + +---------+ + + | (unknown) | (no date) | (unknown) | [facility] | (no | (units | (unknown) | | | | | [facility] value) | unknown) | | | | [facility] | | | | + + + + +---------+ + + + + | Result panel 73 | + + + + + + +---------+ + + | (unknown) | (no date) | (unknown) | [facility] | (no | (units | (unknown) | | | | | [facility] value) | unknown) | | | | [facility] | | | | + + + + +---------+ + + + + | Result panel 74 | + + + + + + +---------+ + + | (unknown) | (no date) | (unknown) | [facility] | (no | (units | (unknown) | | | | | [facility] value) | unknown) | | | | [facility] | | | | + + + + +---------+ + + + + | Result panel 75 | + + + + + + +---------+ + + | (unknown) | (no date) | (unknown) | [facility] | (no | (units | (unknown) | | | | | [facility] value) | unknown) | | | | [facility] | | | | + + + + +---------+ + + + + | Result panel 76 | + + + + + + +---------+ + + | (unknown) | (no date) | (unknown) | [facility] | (no | (units | (unknown) | | | | | [facility] value) | unknown) | | | | [facility] | | | | + + + + +---------+ + + + + | Result panel 77 | + + + + + + +---------+ + + | (unknown) | (no date) | (unknown) | [facility] | (no | (units | (unknown) | | | | | [facility] | value) | unknown) | | | | [facility] | | | | + + + + +---------+ + + + + | Result panel 78 | + + + + + + +---------+ + + | (unknown) | (no date) | (unknown) | [facility] | (no | (units | (unknown) | | | | | [facility] | value) | unknown) | | | | [facility] | | | | + + + + +---------+ + + + + | Result panel 79 | + + + + + + +---------+ + + | (unknown) | (no date) | (unknown) | [facility] | (no | (units | (unknown) | | | | | [facility] | value) | unknown) | | | | [facility] | | | | + + + + +---------+ + + + + | Result panel 80 | + + + + + + +---------+ + + | (unknown) | (no date) | (unknown) | [facility] | (no | (units | (unknown) | | | | | [facility] value) | unknown) | | | | [facility] | | | | + + + + +---------+ + + + + | Result panel 81 | + + + + + + +---------+ + + | (unknown) | (no date) | (unknown) | [facility] | (no | (units | (unknown) | | | | | [facility] value) | unknown) | | [facility] | [facility] | | | | + + + + +---------+ + + + + | Result panel 82 | + + + + + + +---------+ + + | (unknown) | (no date) | (unknown) | [facility] | (no | (units | (unknown) | | | | | [facility] value) | unknown) | | | | [facility] | | | | + + + + +---------+ + + + + | Result panel 83 | + + + + + + +---------+ + + | (unknown) | (no date) | (unknown) | [facility] | (no | (units | (unknown) | | | | | [facility] value) | unknown) | | [facility] | [facility] | | | | + + + + +---------+ + + + + | Result panel 84 | + + + + + + +---------+ + + | (unknown) | (no date) | (unknown) | [facility] | (no | (units | (unknown) | | | | | [facility] | value) | unknown) | | | | | [facility] | | | | + + + + +---------+ + + + + | Result panel 85 | + + + + + + +---------+ + + | (unknown) | (no date) | (unknown) | [facility] | (no | (units | (unknown) | | | | | [facility] value) | unknown) | [facility] | | | [facility] | | | | + + + + +---------+ + + + + | Result panel 86 | + + + + + + +---------+ + + | (unknown) | (no date) | (unknown) | [facility] | (no | (units | (unknown) | | | | | [facility] | value) | unknown) | | | | | [facility] | | | | + + + + +---------+ + + + + | Result panel 87 | + + + + + + +---------+ + + | (unknown) | (no date) | (unknown) | [facility] | (no | (units | (unknown) | | | | | [facility] value) | unknown) | [facility] | | [facility] | | | | + + + + +---------+ + + + + | Result panel 88 | + + + + + + +---------+ + + | (unknown) | (no date) | (unknown) | [facility] | (no | (units | (unknown) | | | | | [facility] value) | unknown) | | | | | [facility] | | | | + + + + +---------+ + + + + | Result panel 89 | + + + + + + +---------+ + + | (unknown) | (no date) | (unknown) | [facility] | (no | (units | (unknown) | | | | | [facility] value) | unknown) | | | | [facility] | | | | + + + + +---------+ + + + + | Result panel 90 | + + + + + + +---------+ + + | (unknown) | (no date) | (unknown) | [facility] | (no | (units | (unknown) | | | | | [facility] value) | unknown) | | [facility] | [facility] | | | | + + + + +---------+ + + + + | Result panel 91 | + + + + + + +---------+ + + | (unknown) | (no date) | (unknown) | [facility] | (no | (units | (unknown) | | | | | [facility] value) | unknown) | | | | | [facility] | | | | + + + + +---------+ + + + + | Result panel 92 | + + + + + + +---------+ + + | (unknown) | (no date) | (unknown) | [facility] | (no | (units | (unknown) | | | | | [facility] value) | unknown) | | | | | [facility] | | | | + + + + +---------+ + + + + | Result panel 93 | + + + + + + +---------+ + + | (unknown) | (no date) | (unknown) | [facility] | (no | (units | (unknown) | | | | | [facility] | value) | unknown) | | | | | [facility] | | | | + + + + +---------+ + + + + | Result panel 94 | + + + + + + +---------+ + + | (unknown) | (no date) | (unknown) | [facility] | (no | (units | (unknown) | | | | | [facility] | value) | unknown) | | | | | [facility] | | | | + + + + +---------+ + + + + | Result panel 95 | + + + + + + +---------+ + + | (unknown) | (no date) | (unknown) | [facility] | (no | (units | (unknown) | | | | | [facility] | value) | unknown) | | | | | [facility] | | | | + + + + +---------+ + + + + | Result panel 96 | + + + + + + +---------+ + + | (unknown) | (no date) | (unknown) | [facility] | (no | (units | (unknown) | | | | | [facility] value) | unknown) | | | | | [facility] | | | | + + + + +---------+ + + + + | Result panel 97 | + + + + + + +---------+ + + | (unknown) | (no date) | (unknown) | [facility] | (no | (units | (unknown) | | | | | [facility] | value) | unknown) | | | | | [facility] | | | | + + + + +---------+ + + + + | Result panel 98 | + + + + + + +---------+ + + | (unknown) | (no date) | (unknown) | [facility] | (no | (units | (unknown) | | | | | [facility] | value) | unknown) | | [facility] | | [facility] | | | | + + + + +---------+ + + + + | Result panel 99 | + + + + + + +---------+ + + | (unknown) | (no date) | (unknown) | [facility] | (no | (units | (unknown) | | | | | [facility] | value) | unknown) | | | | | [facility] | | | | + + + + +---------+ + + + + | Result panel 100 | + + + + + + +---------+ + + | (unknown) | (no date) | (unknown) | [facility] | (no | (units | (unknown) | | | | | [facility] | value) | unknown) | | | | | [facility] | | | | + + + + +---------+ + + + + | Result panel 101 | + + + + + + +---------+ + + | (unknown) | (no date) | (unknown) | [facility] | (no | (units | (unknown) | | | | | [facility] value) | unknown) | | [facility] | [facility] | | | | + + + + +---------+ + + + + | Result panel 102 | + + + + + + +---------+ + + | (unknown) | (no date) | (unknown) | [facility] | (no | (units | (unknown) | | | | | [facility] value) | unknown) | | | | | [facility] | | | | + + + + +---------+ + + + + | Result panel 103 | + + + + + + +---------+ + + | (unknown) | (no date) | (unknown) | [facility] | (no | (units | (unknown) | | | | | [facility] value) | unknown) | [facility] | [facility] | | | | + + + + +---------+ + + + + | Result panel 104 | + + + + + + +---------+ + + | (unknown) | (no date) | (unknown) | [facility] | (no | (units | (unknown) | | | | | [facility] value) | unknown) | | | | | [facility] | | | | + + + + +---------+ + + + + | Result panel 105 | + + + + + + +---------+ + + | (unknown) | (no date) | (unknown) | [facility] | (no | (units | (unknown) | | | | | [facility] value) | unknown) | | | | | [facility] | | | | + + + + +---------+ + + + + | Result panel 106 | + + + + + + +---------+ + + | (unknown) | (no date) | (unknown) | [facility] | (no | (units | (unknown) | | | | | [facility] value) | unknown) | | | | | [facility] | | | | + + + + +---------+ + + + + | Result panel 107 | + + + + + + +---------+ + + | (unknown) | (no date) | (unknown) | [facility] | (no | (units | (unknown) | | | | | [facility] | value) | unknown) | | | | | [facility] | | | | + + + + +---------+ + + + + | Result panel 108 | + + + + + + +---------+ + + | (unknown) | (no date) | (unknown) | [facility] | (no | (units | (unknown) | | | | | [facility] | value) | unknown) | | | | | [facility] | | | | + + + + +---------+ + + + + | Result panel 109 | + + + + + + +---------+ + + | (unknown) | (no date) | (unknown) | [facility] | (no | (units | (unknown) | | | | | [facility] | value) | unknown) | | | | | [facility] | | | | + + + + +---------+ + + + + | Result panel 110 | + + + + + + +---------+ + + | (unknown) | (no date) | (unknown) | [facility] | (no | (units | (unknown) | | | | | [facility] value) | unknown) | | | | | [facility] | | | | + + + + +---------+ + + + + | Result panel 111 | + + + + + + +---------+ + + | (unknown) | (no date) | (unknown) | [facility] | (no | (units | (unknown) | | | | | [facility] value) | unknown) | | | | | [facility] | | | | + + + + +---------+ + + + + | Result panel 112 | + + + + + + +---------+ + + | (unknown) | (no date) | (unknown) | [facility] | (no | (units | (unknown) | | | | | [facility] value) | unknown) | | | | | [facility] | | | | + + + + +---------+ + + + + | Result panel 113 | + + + + + + +---------+ + + | (unknown) | (no date) | (unknown) | [facility] | (no | (units | (unknown) | | | | | [facility] | value) | unknown) | | | | | [facility] | | | | + + + + +---------+ + + + + | Result panel 114 | + + + + + + +---------+ + + | (unknown) | (no date) | (unknown) | [facility] | (no | (units | (unknown) | | | | | [facility] value) | unknown) | [facility] | | | [facility] | | | | + + + + +---------+ + + + + | Result panel 115 | + + + + + + +---------+ + + | (unknown) | (no date) | (unknown) | [facility] | (no | (units | (unknown) | | | | | [facility] value) | unknown) | | | | | [facility] | | | | + + + + +---------+ + + + + | Result panel 116 | + + + + + + +---------+ + + | (unknown) | (no date) | (unknown) | [facility] | (no | (units | (unknown) | | | | | [facility] value) | unknown) | | | | | [facility] | | | | + + + + +---------+ + + + + | Result panel 117 | + + + + + + +---------+ + + | (unknown) | (no date) | (unknown) | [facility] | (no | (units | (unknown) | | | | | [facility] value) | unknown) | | | | | [facility] | | | | + + + + +---------+ + + + + | Result panel 118 | + + + + + + +---------+ + + | (unknown) | (no date) | (unknown) | [facility] | (no | (units | (unknown) | | | | | [facility] value) | unknown) | | | | | [facility] | | | | + + + + +---------+ + + + + | Result panel 119 | + + + + + + +---------+ + + | (unknown) | (no date) | (unknown) | [facility] | (no | (units | (unknown) | | | | | [facility] value) | unknown) | | [facility] | | [facility] | | | | + + + + +---------+ + + + + | Result panel 120 | + + + + + + +---------+ + + | (unknown) | (no date) | (unknown) | [facility] | (no | (units | (unknown) | | | | | [facility] value) | unknown) | | | | | [facility] | | | | + + + + +---------+ + + + + | Result panel 121 | + + + + + + +---------+ + + | (unknown) | (no date) | (unknown) | [facility] | (no | (units | (unknown) | | | | | [facility] value) | unknown) | | | | | [facility] | | | | + + + + +---------+ + + + + | Result panel 122 | + + + + + + +---------+ + + | (unknown) | (no date) | (unknown) | [facility] | (no | (units | (unknown) | | | | | [facility] value) | unknown) | | | | | [facility] | | | | + + + + +---------+ + + + + | Result panel 123 | + + + + + + +---------+ + + | (unknown) | (no date) | (unknown) | [facility] | (no | (units | (unknown) | | | | | [facility] value) | unknown) | | | | | [facility] | | | | + + + + +---------+ + + + + | Result panel 124 | + + + + + + +---------+ + + | (unknown) | (no date) | (unknown) | [facility] | (no | (units | (unknown) | | | | | [facility] value) | unknown) | | | | | [facility] | | | | + + + + +---------+ + + + + | Result panel 125 | + + + + + + +---------+ + + | (unknown) | (no date) | (unknown) | [facility] | (no | (units | (unknown) | | | | | [facility] value) | unknown) | | | | [facility] | | | | + + + + +---------+ + + + + | Result panel 126 | + + + + + + +---------+ + + | (unknown) | (no date) | (unknown) | [facility] | (no | (units | (unknown) | | | | | [facility] value) | unknown) | [facility] | | | [facility] | | | | + + + + +---------+ + + + + | Result panel 127 | + + + + + + +---------+ + + | (unknown) | (no date) | (unknown) | [facility] | (no | (units | (unknown) | | | | | [facility] | value) | unknown) | | | | | [facility] | | | | + + + + +---------+ + + + + | Result panel 128 | + + + + + + +---------+ + + | (unknown) | (no date) | (unknown) | [facility] | (no | (units | (unknown) | | | | | [facility] | value) | unknown) | | | | | [facility] | | | | + + + + +---------+ + + + + | Result panel 129 | + + + + + + +---------+ + + | (unknown) | (no date) | (unknown) | [facility] | (no | (units | (unknown) | | | | | [facility] | value) | unknown) | | | | | [facility] | | | | + + + + +---------+ + + + + | Result panel 130 | + + + + + + +---------+ + + | (unknown) | (no date) | (unknown) | [facility] | (no | (units | (unknown) | | | | | [facility] | value) | unknown) | | | | | [facility] | | | | + + + + +---------+ + + + + | Result panel 131 | + + + + + + +---------+ + + | (unknown) | (no date) | (unknown) | [facility] | (no | (units | (unknown) | | | | | [facility] value) | unknown) | | | | | [facility] | | | | + + + + +---------+ + + + + | Result panel 132 | + + + + + + +---------+ + + | (unknown) | (no date) | (unknown) | [facility] | (no | (units | (unknown) | | | | | [facility] value) | unknown) | | | | | [facility] | | | | + + + + +---------+ + + + + | Result panel 133 | + + + + + + +---------+ + + | (unknown) | (no date) | (unknown) | [facility] | (no | (units | (unknown) | | | | | [facility] value) | unknown) | [facility] | | [facility] | | | | + + + + +---------+ + + + + | Result panel 134 | + + + + + + +---------+ + + | (unknown) | (no date) | (unknown) | [facility] | (no | (units | (unknown) | | | | | [facility] value) | unknown) | | | | | [facility] | | | | + + + + +---------+ + + + + | Result panel 135 | + + + + + + +---------+ + + | (unknown) | (no date) | (unknown) | [facility] | (no | (units | (unknown) | | | | | [facility] value) | unknown) | | | | | [facility] | | | | + + + + +---------+ + + + + | Result panel 136 | + + + + + + +---------+ + + | (unknown) | (no date) | (unknown) | [facility] | (no | (units | (unknown) | | | | | [facility] value) | unknown) | | [facility] | | [facility] | | | | + + + + +---------+ + + + + | Result panel 137 | + + + + + + +---------+ + + | (unknown) | (no date) | (unknown) | [facility] | (no | (units | (unknown) | | | | | [facility] | value) | unknown) | [facility] | | | [facility] | | | | + + + + +---------+ + + + + | Result panel 138 | + + + + + + +---------+ + + | (unknown) | (no date) | (unknown) | [facility] | (no | (units | (unknown) | | | | | [facility] value) | unknown) | | [facility] | | [facility] | | | | + + + + +---------+ + + + + | Result panel 139 | + + + + + + +---------+ + + | (unknown) | (no date) | (unknown) | [facility] | (no | (units | (unknown) | | | | | [facility] value) | unknown) | | [facility] | | [facility] | | | | + + + + +---------+ + + + + | Result panel 140 | + + + + + + +---------+ + + | (unknown) | (no date) | (unknown) | [facility] | (no | (units | (unknown) | | | | | [facility] | value) | unknown) | | | | | [facility] | | | | + + + + +---------+ + + + + | Result panel 141 | + + + + + + +---------+ + + | (unknown) | (no date) | (unknown) | [facility] | (no | (units | (unknown) | | | | | [facility] value) | unknown) | | | | | [facility] | | | | + + + + +---------+ + + + + | Result panel 142 | + + + + + + +---------+ + + | (unknown) | (no date) | (unknown) | [facility] | (no | (units | (unknown) | | | | | [facility] value) | unknown) | [facility] | | | [facility] | | | | + + + + +---------+ + + + + | Result panel 143 | + + + + + + +---------+ + + | (unknown) | (no date) | (unknown) | [facility] | (no | (units | (unknown) | | | | | [facility] value) | unknown) | [facility] | | | [facility] | | | | + + + + +---------+ + + + + | Result panel 144 | + + + + + + +---------+ + + | (unknown) | (no date) | (unknown) | [facility] | (no | (units | (unknown) | | | | | [facility] | value) | unknown) | | | | | [facility] | | | | + + + + +---------+ + + + + | Result panel 145 | + + + + + + +---------+ + + | (unknown) | (no date) | (unknown) | [facility] | (no | (units | (unknown) | | | | | [facility] value) | unknown) | [facility] | | | [facility] | | | | + + + + +---------+ + + + + | Result panel 146 | + + + + + + +---------+ + + | (unknown) | (no date) | (unknown) | [facility] | (no | (units | (unknown) | | | | | [facility] | value) | unknown) | | [facility] | | [facility] | | | | + + + + +---------+ + + + + | Result panel 147 | + + + + + + +---------+ + + | (unknown) | (no date) | (unknown) | [facility] | (no | (units | (unknown) | | | | | [facility] value) | unknown) | | | | | [facility] | | | | + + + + +---------+ + + + + | Result panel 148 | + + + + + + +---------+ + + | (unknown) | (no date) | (unknown) | [facility] | (no | (units | (unknown) | | | | | [facility] | value) | unknown) | | | | | [facility] | | | | + + + + +---------+ + + + + | Result panel 149 | + + + + + + +---------+ + + | (unknown) | (no date) | (unknown) | [facility] | (no | (units | (unknown) | | | | | [facility] | value) | unknown) | | | | | | [facility] | | | | + + + + +---------+ + + + + | Result panel 150 | + + + + + + +---------+ + + | (unknown) | (no date) | (unknown) | [facility] | (no | (units | (unknown) | | | | | [facility] | value) | unknown) | | | | | | [facility] | | | | + + + + +---------+ + + + + | Result panel 151 | + + + + + + +---------+ + + | (unknown) | (no date) | (unknown) | [facility] | (no | (units | (unknown) | | | | | [facility] value) | unknown) | | | | | [facility] | | | | + + + + +---------+ + + + + | Result panel 152 | + + + + + + +---------+ + + | (unknown) | (no date) | (unknown) | [facility] | (no | (units | (unknown) | | | | | [facility] value) | unknown) | | | | | [facility] | | | | + + + + +---------+ + + + + | Result panel 153 | + + + + + + +---------+ + + | (unknown) | (no date) | (unknown) | [facility] | (no | (units | (unknown) | | [facility] | | [facility] value) | unknown) | [facility] | | | [facility] | | | | + + + + +---------+ + + + + | Result panel 154 | + + + + + + +---------+ + + | (unknown) | (no date) | (unknown) | [facility] | (no | (units | (unknown) | | | | | [facility] value) | unknown) | | [facility] | | [facility] | | | | + + + + +---------+ + + + + | Result panel 155 | + + + + + + +---------+ + + | (unknown) | (no date) | (unknown) | [facility] | (no | (units | (unknown) | | | | | [facility] | value) | unknown) | | | | | [facility] | | | | + + + + +---------+ + + + + | Result panel 156 | + + + + + + +---------+ + + | (unknown) | (no date) | (unknown) | [facility] | (no | (units | (unknown) | | | | | [facility] value) | unknown) | | | | | [facility] | | | | + + + + +---------+ + + + + | Result panel 157 | + + + + + + +---------+ + + | (unknown) | (no date) | (unknown) | [facility] | (no | (units | (unknown) | | | | | [facility] value) | unknown) | | [facility] | | [facility] | | | | + + + + +---------+ + + + + | Result panel 158 | + + + + + + +---------+ + + | (unknown) | (no date) | (unknown) | [facility] | (no | (units | (unknown) | | | | | [facility] value) | unknown) | | | | | [facility] | | | | + + + + +---------+ + + + + | Result panel 159 | + + + + + + +---------+ + + | (unknown) | (no date) | (unknown) | [facility] | (no | (units | (unknown) | | | | | [facility] value) | unknown) | [facility] | | | [facility] | | | | + + + + +---------+ + + + + | Result panel 160 | + + + + + + +---------+ + + | (unknown) | (no date) | (unknown) | [facility] | (no | (units | (unknown) | | | | | [facility] value) | unknown) | | | | | [facility] | | | | + + + + +---------+ + + + + | Result panel 161 | + + + + + + +---------+ + + | (unknown) | (no date) | (unknown) | [facility] | (no | (units | (unknown) | | | | | [facility] value) | unknown) | [facility] | | | [facility] | | | | + + + + +---------+ + + + + | Result panel 162 | + + + + + + +---------+ + + | (unknown) | (no date) | (unknown) | [facility] | (no | (units | (unknown) | | | | | [facility] value) | unknown) | | | | | [facility] | | | | + + + + +---------+ + + + + | Result panel 163 | + + + + + + +---------+ + + | (unknown) | (no date) | (unknown) | [facility] | (no | (units | (unknown) | | | | | [facility] value) | unknown) | | | | | [facility] | | | | + + + + +---------+ + + + + | Result panel 164 | + + + + + + +---------+ + + | (unknown) | (no date) | (unknown) | [facility] | (no | (units | (unknown) | | | | | [facility] value) | unknown) | | | | | [facility] | | | | + + + + +---------+ + + + + | Result panel 165 | + + + + + + +---------+ + + | (unknown) | (no date) | (unknown) | [facility] | (no | (units | (unknown) | | | | | [facility] | value) | unknown) | | | | | | [facility] | | | | + + + + +---------+ + + + + | Result panel 166 | + + + + + + +---------+ + + | (unknown) | (no date) | (unknown) | [facility] | (no | (units | (unknown) | | | | | [facility] | value) | unknown) | | | | | [facility] | | | | + + + + +---------+ + + + + | Result panel 167 | + + + + + + +---------+ + + | (unknown) | (no date) | (unknown) | [facility] | (no | (units | (unknown) | | | | | [facility] | value) | unknown) | | | | | [facility] | | | | + + + + +---------+ + + + + | Result panel 168 | + + + + + + +---------+ + + | (unknown) | (no date) | (unknown) | [facility] | (no | (units | (unknown) | | | | | [facility] | value) | unknown) | | | | | [facility] | | | | + + + + +---------+ + + + + | Result panel 169 | + + + + + + +---------+ + + | (unknown) | (no date) | (unknown) | [facility] | (no | (units | (unknown) | | | | | [facility] | value) | unknown) | | | | | [facility] | | | | + + + + +---------+ + + + + | Result panel 170 | + + + + + + +---------+ + + | (unknown) | (no date) | (unknown) | [facility] | (no | (units | (unknown) | | | | | [facility] | value) | unknown) | | | | | | [facility] | | | | + + + + +---------+ + + + + | Result panel 171 | + + + + + + +---------+ + + | (unknown) | (no date) | (unknown) | [facility] | (no | (units | (unknown) | | | | | [facility] | value) | unknown) | | | | | | [facility] | | | | + + + + +---------+ + + + + | Result panel 172 | + + + + + + +---------+ + + | (unknown) | (no date) | (unknown) | [facility] | (no | (units | (unknown) | | | | | [facility] | value) | unknown) | | | | | | [facility] | | | | + + + + +---------+ + + + + | Result panel 173 | + + + + + + +---------+ + + | (unknown) | (no date) | (unknown) | [facility] | (no | (units | (unknown) | | | | | [facility] | value) | unknown) | | | | | | [facility] | | | | + + + + +---------+ + + + + | Result panel 174 | + + + + + + +---------+ + + | (unknown) | (no date) | (unknown) | [facility] | (no | (units | (unknown) | | | | [facility] value[facility] | unknown) | | | | | [facility] | | | | + + + + +---------+ + + + + | Result panel 175 | + + + + + + +---------+ + + | (unknown) | (no date) | (unknown) | [facility] | (no | (units | (unknown) | | | | | [facility] | value) | unknown) | | | | | [facility] | | | | + + + + +---------+ + + + + | Result panel 176 | + + + + + + +---------+ + + | (unknown) | (no date) | (unknown) | [facility] | (no | (units | (unknown) | | | | | [facility] | value) | unknown) | | | | | [facility] | | | | + + + + +---------+ + + + + | Result panel 177 | + + + + + + +---------+ + + | (unknown) | (no date) | (unknown) | [facility] | (no | (units | (unknown) | | | | | [facility] | value) | unknown) | | | | | [facility] | | | | + + + + +---------+ + + + + | Result panel 178 | + + + + + + +---------+ + + | (unknown) | (no date) | (unknown) | [facility] | (no | (units | (unknown) | | | | | [facility] | value) | unknown) | | | | | [facility] | | | | + + + + +---------+ + + + + | Result panel 179 | + + + + + + +---------+ + + | (unknown) | (no date) | (unknown) | [facility] | (no | (units | (unknown) | | | | | [facility] | value) | unknown) | | | | | [facility] | | | | + + + + +---------+ + + + + | Result panel 180 | + + + + + + +---------+ + + | (unknown) | (no date) | (unknown) | [facility] | (no | (units | (unknown) | | | | | [facility] value) | unknown) | | | | | [facility] | | | | + + + + +---------+ + + + + | Result panel 181 | + + + + + + +---------+ + + | (unknown) | (no date) | (unknown) | [facility] | (no | (units | (unknown) | | | | | [facility] | value) | unknown) | | | | | [facility] | | | | + + + + +---------+ + + + + | Result panel 182 | + + + + + + +---------+ + + | (unknown) | (no date) | (unknown) | [facility] | (no | (units | (unknown) | | | | | [facility] | value) | unknown) | | | | | [facility] | | | | + + + + +---------+ + + + + | Result panel 183 | + + + + + + +---------+ + + | (unknown) | (no date) | (unknown) | [facility] | (no | (units | (unknown) | | | | | [facility] value) | unknown) | | | | | [facility] | | | | + + + + +---------+ + + + + | Result panel 184 | + + + + + + +---------+ + + | (unknown) | (no date) | (unknown) | [facility] | (no | (units | (unknown) | | | | | [facility] value) | unknown) | | | | | [facility] | | | | + + + + +---------+ + + + + | Result panel 185 | + + + + + + +---------+ + + | (unknown) | (no date) | (unknown) | [facility] | (no | (units | (unknown) | | | | | [facility] value) | unknown) | | | | | [facility] | | | | + + + + +---------+ + + + + | Result panel 186 | + + + + + + +---------+ + + | (unknown) | (no date) | (unknown) | [facility] | (no | (units | (unknown) | | | | | [facility] value) | unknown) | | | | [facility] | | | | + + + + +---------+ + + + + | Result panel 187 | + + + + + + +---------+ + + | (unknown) | (no date) | (unknown) | [facility] | (no | (units | (unknown) | | | | | [facility] value) | unknown) | | | | | [facility] | | | | + + + + +---------+ + + + + | Result panel 188 | + + + + + + +---------+ + + | (unknown) | (no date) | (unknown) | [facility] | (no | (units | (unknown) | | | | | [facility] value) | unknown) | | | | | [facility] | | | | + + + + +---------+ + + + + | Result panel 189 | + + + + + + +---------+ + + | (unknown) | (no date) | (unknown) | [facility] | (no | (units | (unknown) | | | | | [facility] | value) | unknown) | | | | | [facility] | | | | + + + + +---------+ + + + + | Result panel 190 | + + + + + + +---------+ + + | (unknown) | (no date) | (unknown) | [facility] | (no | (units | (unknown) | | | | | [facility] value) | unknown) | | | | | [facility] | | | | + + + + +---------+ + + + + | Result panel 191 | + + + + + + +---------+ + + | (unknown) | (no date) | (unknown) | [facility] | (no | (units | (unknown) | | | | | [facility] value) | unknown) | | | | | [facility] | | | | + + + + +---------+ + + + + | Result panel 192 | + + + + + + +---------+ + + | (unknown) | (no date) | (unknown) | [facility] | (no | (units | (unknown) | | | | | [facility] value) | unknown) | | | | [facility] | | | | + + + + +---------+ + + + + | Result panel 193 | + + + + + + +---------+ + + | (unknown) | (no date) | (unknown) | [facility] | (no | (units | (unknown) | | | | | [facility] value) | unknown) | | | | [facility] | | | | + + + + +---------+ + + + + | Result panel 194 | + + + + + + +---------+ + + | (unknown) | (no date) | (unknown) | [facility] | (no | (units | (unknown) | | | | | [facility] value) | [facility]) | [facility] | | [facility] | | | | + + + + +---------+ + + + + | Result panel 195 | + + + + + + +---------+ + + | (unknown) | (no date) | (unknown) | [facility] | (no | (units | (unknown) | | | | | [facility] value) | unknown) | | | | [facility] | | | | + + + + +---------+ + + + + | Result panel 196 | + + + + + + +---------+ + + | (unknown) | (no date) | (unknown) | [facility] | (no | (units | (unknown) | | | | | [facility] value) | unknown) | | | | | [facility] | | | | + + + + +---------+ + + + + | Result panel 197 | + + + + + + +---------+ + + | (unknown) | (no date) | (unknown) | [facility] | (no | (units | (unknown) | | | | | [facility] value) | unknown) | | | | [facility] | | | | + + + + +---------+ + + + + | Result panel 198 | + + + + + + +---------+ + + | (unknown) | (no date) | (unknown) | [facility] | (no | (units | (unknown) | | | | | [facility] value) | unknown) | | | | [facility] | | | | + + + + +---------+ + + + + | Result panel 199 | + + + + + + +---------+ + + | (unknown) | (no date) | (unknown) | [facility] | (no | (units | (unknown) | | | | | [facility] value) | unknown) | | | | [facility] | | | | + + + + +---------+ + + + + | Result panel 200 | + + + + + + +---------+ + + | (unknown) | (no date) | (unknown) | [facility] | (no | (units | (unknown) | | | | | [facility] value) | unknown) | | | | [facility] | | | | + + + + +---------+ + + + + | Result panel 201 | + + + + + + +---------+ + + | (unknown) | (no date) | (unknown) | [facility] | (no | (units | (unknown) | | | | | [facility] value) | unknown) | | | | [facility] | | | | + + + + +---------+ + + + + | Result panel 202 | + + + + + + +---------+ + + | (unknown) | (no date) | (unknown) | [facility] | (no | (units | (unknown) | | | | | [facility] value) | unknown) | | | | [facility] | | | | + + + + +---------+ + + + + | Result panel 203 | + + + + + + +---------+ + + | (unknown) | (no date) | (unknown) | [facility] | (no | (units | (unknown) | | | | | [facility] value) | [facility]) | | | | [facility] | | | | + + + + +---------+ + + + + | Result panel 204 | + + + + + + +---------+ + + | (unknown) | (no date) | (unknown) | [facility] | (no | (units | (unknown) | | | | | [facility] value) | unknown) | | | | [facility] | | | | + + + + +---------+ + + + + | Result panel 205 | + + + + + + +---------+ + + | (unknown) | (no date) | (unknown) | [facility] | (no | (units | (unknown) | | | | | [facility] value) | unknown) | | [facility] | [facility] | | | | + + + + +---------+ + + + + | Result panel 206 | + + + + + + +---------+ + + | (unknown) | (no date) | (unknown) | [facility] | (no | (units | (unknown) | | | | | [facility] value) | unknown) | | | | | [facility] | | | | + + + + +---------+ + + + + | Result panel 207 | + + + + + + +---------+ + + | (unknown) | (no date) | (unknown) | [facility] | (no | (units | (unknown) | | | | | [facility] value) | [facility]) | [facility] | | [facility] | | | | + + + + +---------+ + + + + | Result panel 208 | + + + + + + +---------+ + + | (unknown) | (no date) | (unknown) | [facility] | (no | (units | (unknown) | | | | | [facility] value) | unknown) | | | | [facility] | | | | + + + + +---------+ + + + + | Result panel 209 | + + + + + + +---------+ + + | (unknown) | (no date) | (unknown) | [facility] | (no | (units | (unknown) | | | | | [facility] value) | unknown) | | | | [facility] | | | | + + + + +---------+ + + + + | Result panel 210 | + + + + + + +---------+ + + | (unknown) | (no date) | (unknown) | [facility] | (no | (units | (unknown) | | | | | [facility] value) | unknown) | | | | [facility] | | | | + + + + +---------+ + + + + | Result panel 211 | + + + + + + +---------+ + + | (unknown) | (no date) | (unknown) | [facility] | (no | (units | (unknown) | | | | | [facility] value) | [facility]) | | [facility] | [facility] | | | | + + + + +---------+ + + + + | Result panel 212 | + + + + + + +---------+ + + | (unknown) | (no date) | (unknown) | [facility] | (no | (units | (unknown) | | | | | [facility] value) | unknown) | | | | [facility] | | | | + + + + +---------+ + + + + | Result panel 213 | + + + + + + +---------+ + + | (unknown) | (no date) | (unknown) | [facility] | (no | (units | (unknown) | | | | | [facility] value[facility] | [facility]) | | [facility] | [facility] | | | | + + + + +---------+ + + + + | Result panel 214 | + + + + + + +---------+ + + | (unknown) | (no date) | (unknown) | [facility] | (no | (units | (unknown) | | | | | [facility] | [facility]) | | | | [facility] | | | | + + + + +---------+ + + + + | Result panel 215 | + + + + + + +---------+ + + | (unknown) | (no date) | (unknown) | [facility] | (no | (units | (unknown) | | | | | [facility] value) | [facility]) | | | | [facility] | | | | + + + + +---------+ + + + + | Result panel 216 | + + + + + + +---------+ + + | (unknown) | (no date) | (unknown) | [facility] | (no | (units | (unknown) | | | | | [facility] value[facility] | [facility]) | | | | [facility] | | | | + + + + +---------+ + + + + | Result panel 217 | + + + + + + +---------+ + + | (unknown) | (no date) | (unknown) | [facility] | (no | (units | (unknown) | | | | | [facility] | [facility]) | | | | [facility] | | | | + + + + +---------+ + + + + | Result panel 218 | + + + + + + +---------+ + + | (unknown) | (no date) | (unknown) | [facility] | (no | (units | (unknown) | | | | | [facility] value) | unknown) | | | | [facility] | | | | + + + + +---------+ + + + + | Result panel 219 | + + + + + + +---------+ + + | (unknown) | (no date) | (unknown) | [facility] | (no | (units | (unknown) | | | | | [facility] value) | unknown) | | | | [facility] | | | | + + + + +---------+ + + + + | Result panel 220 | + + + + + + +---------+ + + | (unknown) | (no date) | (unknown) | [facility] | (no | (units | (unknown) | | | | | [facility] value) | [facility]) | | | | [facility] | | | | + + + + +---------+ + + + + | Result panel 221 | + + + + + + +---------+ + + | (unknown) | (no date) | (unknown) | [facility] | (no | (units | (unknown) | | | | | [facility] value[facility] | [facility]) | | | | [facility] | | | | + + + + +---------+ + + + + | Result panel 222 | + + + + + + +---------+ + + | (unknown) | (no date) | (unknown) | [facility] | (no | (units | (unknown) | | | | | [facility] value[facility] | [facility]) | | [facility] | | | | + + + + +---------+ + + + + | Result panel 223 | + + + + + + +---------+ + + | (unknown) | (no date) | (unknown) | [facility] | (no | (units | (unknown) | | | | | [facility] | [facility]) | | [facility] | [facility] | | | | + + + + +---------+ + + + + | Result panel 224 | + + + + + + +---------+ + + | (unknown) | (no date) | (unknown) | [facility] | (no | (units | (unknown) | | | | | [facility] | [facility]) | [facility] | [facility] | | | | + + + + +---------+ + + + + | Result panel 225 | + + + + + + +---------+ + + | (unknown) | (no date) | (unknown) | [facility] | (no | (units | (unknown) | | | | | [facility] value[facility] | [facility]) | [facility] | [facility] | | | | + + + + +---------+ + + + + | Result panel 226 | + + + + + + +---------+ + + | (unknown) | (no date) | (unknown) | [facility] | (no | (units | (unknown) | | | | | [facility] | [facility]) | [facility] | | | | + + + + +---------+ + + + + | Result panel 227 | + + + + + + +---------+ + + | (unknown) | (no date) | (unknown) | [facility] | (no | (units | (unknown) | | | | | [facility] | [facility]) | [facility] | [facility] | | | | + + + + +---------+ + + + + | Result panel 228 | + + + + + + +---------+ + + | (unknown) | (no date) | (unknown) | [facility] | (no | (units | (unknown) | | | | | [facility] | [facility]) | [facility] | | | | + + + + +---------+ + + + + | Result panel 229 | + + + + + + +---------+ + + | (unknown) | (no date) | (unknown) | [facility] | (no | (units | (unknown) | | [facility] | [facility] | [facility]) | | | | [facility] | | | | + + + + +---------+ + + + + | Result panel 230 | + + + + + + +---------+ + + | (unknown) | (no date) | (unknown) | [facility] | (no | (units | (unknown) | | | | [facility] | [facility]) | | | | [facility] | | | | + + + + +---------+ + + + + | Result panel 231 | + + + + + + +---------+ + + | (unknown) | (no date) | (unknown) | [facility] | (no | (units | (unknown) | | | | [facility] | [facility]) | | [facility] | | | | + + + + +---------+ + + + + | Result panel 232 | + + + + + + +---------+ + + | (unknown) | (no date) | (unknown) | [facility] | (no | (units | (unknown) | | | | [facility] | [facility]) | | | [facility] | | | | + + + + +---------+ + + Social History + + + + | date | description | facility | + + + + | 2021-09-02 00:00 | Never smoker | [facility] | + + + + | 2021-09-07 00:00 | Never smoker | [facility] | + + + + Vital Signs + + + +---------+ | date | measurement | value | units | + + + +---------+ | 2021-04-22 00:00 | BMI | 20.0 | kg/m2 | + + + +---------+ | 2021-04-22 00:00 | height_metric | 160.02 | cm | + + + +---------+ | 2021-04-22 00:00 | height_standard | 63 | in | + + + +---------+ | 2021-04-22 00:00 | weight_metric | 51.2 | kg | + + + +---------+ | 2021-04-22 00:00 | weight_standard | 112.88 | lb | + + + +---------+ | 2021-04-24 00:00 | BP_diastolic | 60 | mmHg | + + + +---------+ | 2021-04-24 00:00 | BP_systolic | 116 | mmHg | + + + +---------+ | 2021-04-24 00:00 | heart_rate | 83 | /min | + + + +---------+ | 2021-04-24 00:00 | o2_saturation | 97 | % | + + + +---------+ | 2021-04-24 00:00 | respiration_rate | 20 | /min | + + + +---------+ | 2021-04-24 00:00 | temperature_metric | 36.94 | C | | | | | | + + + +---------+ | 2021-04-24 00:00 | | 98.5 | F | | | temperature_standar | | | | | d | | | + + + +---------+ | 2021-05-07 00:00 | BMI | 18.0 | kg/m2 | + + + +---------+ | 2021-05-07 00:00 | height_metric | 160.02 | cm | + + + +---------+ | 2021-05-07 00:00 | height_standard | 63 | in | + + + +---------+ | 2021-05-07 00:00 | weight_metric | 46.1 | kg | + + + +---------+ | 2021-05-07 00:00 | weight_standard | 101.63 | lb | + + + +---------+ | 2021-05-15 00:00 | BP_diastolic | 78 | mmHg | + + + +---------+ | 2021-05-15 00:00 | BP_systolic | 116 | mmHg | + + + +---------+ | 2021-05-15 00:00 | heart_rate | 101 | /min | + + + +---------+ | 2021-05-15 00:00 | o2_saturation | 95 | % | + + + +---------+ | 2021-05-15 00:00 | respiration_rate | 18 | /min | + + + +---------+ | 2021-05-15 00:00 | temperature_metric | 36.67 | C | | | | | | + + + +---------+ | 2021-05-15 00:00 | | 98 | F | | | temperature_standar | | | | | d | | | + + + +---------+ | 2021-09-01 00:00 | BMI | 17.9 | kg/m2 | + + + +---------+ | 2021-09-01 00:00 | height_metric | 160.02 | cm | + + + +---------+ | 2021-09-01 00:00 | height_standard | 63 | in | + + + +---------+ | 2021-09-01 00:00 | weight_metric | 45.81 | kg | + + + +---------+ | 2021-09-01 00:00 | weight_standard | 100.99 | lb | + + + +---------+ | 2021-09-01 00:00 | weight_standard | 101 | lb | + + + +---------+ | 2021-09-02 00:00 | BMI | 17.9 | kg/m2 | + + + +---------+ | 2021-09-02 00:00 | BP_diastolic | 75 | mmHg | + + + +---------+ | 2021-09-02 00:00 | BP_diastolic | 90 | mmHg | + + + +---------+ | 2021-09-02 00:00 | BP_systolic | 115 | mmHg | + + + +---------+ | 2021-09-02 00:00 | BP_systolic | 148 | mmHg | + + + +---------+ | 2021-09-02 00:00 | heart_rate | 85 | /min | + + + +---------+ | 2021-09-02 00:00 | height_metric | 160.02 | cm | + + + +---------+ | 2021-09-02 00:00 | height_standard | 63 | in | + + + +---------+ | 2021-09-02 00:00 | o2_saturation | 95 | % | + + + +---------+ | 2021-09-02 00:00 | o2_saturation | 96 | % | + + + +---------+ | 2021-09-02 00:00 | respiration_rate | 16 | /min | + + + +---------+ | 2021-09-02 00:00 | respiration_rate | 27 | /min | + + + +---------+ | 2021-09-02 00:00 | temperature_metric | 36.83 | C | | | | | | + + + +---------+ | 2021-09-02 00:00 | temperature_metric | 37.67 | C | | | | | | + + + +---------+ | 2021-09-02 00:00 | | 98.3 | F | | | temperature_standar | | | | | d | | | + + + +---------+ | 2021-09-02 00:00 | | 99.8 | F | | | temperature_standar | | | | | d | | | + + + +---------+ | 2021-09-02 00:00 | weight_metric | 45.81 | kg | + + + +---------+ | 2021-09-02 00:00 | weight_standard | 100.99 | lb | + + + +---------+ | 2021-09-02 00:00 | weight_standard | 101 | lb | + + + +---------+ | 2021-09-07 00:00 | BMI | 17.4 | kg/m2 | + + + +---------+ | 2021-09-07 00:00 | BP_diastolic | 83 | mmHg | + + + +---------+ | 2021-09-07 00:00 | BP_systolic | 148 | mmHg | + + + +---------+ | 2021-09-07 00:00 | heart_rate | 67 | /min | + + + +---------+ | 2021-09-07 00:00 | height_metric | 160.02 | cm | + + + +---------+ | 2021-09-07 00:00 | height_standard | 63 | in | + + + +---------+ | 2021-09-07 00:00 | o2_saturation | 99 | % | + + + +---------+ | 2021-09-07 00:00 | respiration_rate | 16 | /min | + + + +---------+ | 2021-09-07 00:00 | temperature_metric | 36.78 | C | | | | | | + + + +---------+ | 2021-09-07 00:00 | | 98.2 | F | | | temperature_standar | | | | | d | | | + + + +---------+ | 2021-09-07 00:00 | weight_metric | 44.6 | kg | + + + +---------+ | 2021-09-07 00:00 | weight_standard | 98.33 | lb | + + + +---------+ | 2022-08-04 00:00 | BMI | 17.4 | kg/m2 | + + + +---------+ | 2022-08-04 00:00 | BP_diastolic | 81 | mmHg | + + + +---------+ | 2022-08-04 00:00 | BP_systolic | 151 | mmHg | + + + +---------+ | 2022-08-04 00:00 | heart_rate | 70 | /min | + + + +---------+ | 2022-08-04 00:00 | height_metric | 160.02 | cm | + + + +---------+ | 2022-08-04 00:00 | height_standard | 63 | in | + + + +---------+ | 2022-08-04 00:00 | o2_saturation | 98 | % | + + + +---------+ | 2022-08-04 00:00 | respiration_rate | 19 | /min | + + + +---------+ | 2022-08-04 00:00 | temperature_metric | 36.56 | C | | | | | | + + + +---------+ | 2022-08-04 00:00 | | 97.8 | F | | | temperature_standar | | | | | d | | | + + + +---------+ | 2022-08-04 00:00 | weight_metric | 44.45 | kg | + + + +---------+ | 2022-08-04 00:00 | weight_standard | 98 | lb | + + + +---------+ | 2022-08-14 00:00 | BMI | 18.6 | kg/m2 | + + + +---------+ | 2022-08-14 00:00 | height_metric | 160.02 | cm | + + + +---------+ | 2022-08-14 00:00 | height_standard | 63 | in | + + + +---------+ | 2022-08-14 00:00 | weight_metric | 47.7 | kg | + + + +---------+ | 2022-08-14 00:00 | weight_standard | 105.16 | lb | + + + +---------+ | 2022-08-17 00:00 | BP_diastolic | 61 | mmHg | + + + +---------+ | 2022-08-17 00:00 | BP_systolic | 121 | mmHg | + + + +---------+ | 2022-08-17 00:00 | heart_rate | 78 | /min | + + + +---------+ | 2022-08-17 00:00 | o2_saturation | 98 | % | + + + +---------+ | 2022-08-17 00:00 | respiration_rate | 16 | /min | + + + +---------+ | 2022-08-17 00:00 | temperature_metric | 37.17 | C | | | | | | + + + +---------+ | 2022-08-17 00:00 | | 98.9 | F | | | temperature_standar | | | | | d | | | + + + +---------+"
--- OUTSIDE RECORDS SUMMARY | ~2022-08-18 | XMS | Continuity of Care Document ---
Demographics + + + | Address | [address] | | | [place] [address] | + + + | Preferred Language | Unknown | + + + | Marital Status | | + + + | Holiness Affiliation | Unknown | + + + | Race | White | + + + | Ethnic Group | Not or | + + + Author + + + | Author | [facility] | + + + | Organization | [facility] | + + + | Address | [address] | | | [place] [address] | + + + | Phone | | + + + Care Team Providers + + + + | Care Cambering Machine Operator Name | Role | Phone | + [...] | (no date) | Lisinopril | [facility] | (unknown) | | | | Hospital | | + + + + + | (no date) | Mild | [facility] | (unknown) | | | | Hospital | | + + + + + | (no date) | Lisinopril | [facility] | (unknown) | | | | Hospital | | + + + + + | (no date) | lisinopril | [facility] | (unknown) | | | | Hospital | | + + + + + | (no date) | Lisinopril | [facility] | (unknown) | | | | Hospital | | + + + + + | (no date) | lisinopril | [facility] | (unknown) | + + + + + Encounters No information. Functional Status No information. Immunizations + + + + | date | description | facility | + + + + | 2017-12-01 00:00 | Tdap | [facility] | + + + + | 2017-12-01 00:00 | Tdap | [facility] | + + + + | 2017-12-01 00:00 | Tdap | [facility] | + + + + | 2021-09-02 00:00 | No vaccine administered | [facility] | + + + + | 2021-09-07 00:00 | No vaccine administered | [facility] | + + + + Medications + + + + | date | description | facility | + + + + | 2022-08-17 00:00 | Turmeric Root Extract | [facility] | + + + + | 2014-06-09 00:00 | DOCUSATE SODIUM | [facility] | + + + + | 2014-06-09 00:00 | DOCUSATE SODIUM | [facility] | + + + + | 2014-06-09 00:00 | DOCUSATE SODIUM | [facility] | + + + + | 2014-06-09 00:00 | docusate sodium 100 MG | [facility] | | | Oral Capsule [Colace] | | + + + + | 2021-08-27 00:00 | Calcium Carbonate/Vitamin | [facility] | | | D3 | | + + + + | 2021-09-03 00:00 | Calcium Carbonate/Vitamin | [facility] | | | D3 | | + + + + | 2021-09-09 00:00 | Calcium Carbonate/Vitamin | [facility] | | | D3 | | + + + + | 2022-08-04 00:00 | Calcium Carbonate/Vitamin | [facility] | | | D3 | | + + + + | 2022-08-17 00:00 | Calcium Carbonate/Vitamin | [facility] | | | D3 | | + + + + | 2021-09-02 00:00 | calcium carbonate 1500 MG | [facility] | | | / cholecalciferol 800 UNT | | | | Oral Tab | | + + + + | 2021-09-07 00:00 | calcium carbonate 1500 MG | [facility] | | | / cholecalciferol 800 UNT | | | | Oral Tab | | + + + + | 2022-08-17 00:00 | LACTOBACILLUS ACIDOPHILUS | [facility] | + + + + | 2021-08-27 00:00 | ASCORBIC ACID | [facility] | + + + + | 2021-09-03 00:00 | ASCORBIC ACID | [facility] | + + + + | 2021-09-09 00:00 | ASCORBIC ACID | [facility] | + + + + | 2022-08-04 00:00 | ASCORBIC ACID | [facility] | + + + + | 2022-08-17 00:00 | ASCORBIC ACID | [facility] | + + + + | 2021-09-02 00:00 | ascorbic acid 1000 MG Oral | [facility] | | | Tablet | | + + + + | 2021-09-07 00:00 | ascorbic acid 1000 MG Oral | [facility] | | | Tablet | | + + + + | 2021-08-27 00:00 | FERROUS SULFATE | [facility] | + + + + | 2021-09-03 00:00 | FERROUS SULFATE | [facility] | + + + + | 2021-09-09 00:00 | FERROUS SULFATE | [facility] | + + + + | 2022-08-04 00:00 | FERROUS SULFATE | [facility] | + + + + | 2022-08-17 00:00 | FERROUS SULFATE | [facility] | + + + + | 2021-09-02 00:00 | ferrous sulfate 325 MG | [facility] | | | Oral Tablet | | + + + + | 2021-09-07 00:00 | ferrous sulfate 325 MG | [facility] | | | Oral Tablet | | + + + + | 2021-08-27 00:00 | CYANOCOBALAMIN (VITAMIN | [facility] | | | B-12) | | + + + + | 2021-09-03 00:00 | CYANOCOBALAMIN (VITAMIN | [facility] | | | B-12) | | + + + + | 2021-09-09 00:00 | CYANOCOBALAMIN (VITAMIN | [facility] | | | B-12) | | + + + + | 2022-08-04 00:00 | CYANOCOBALAMIN (VITAMIN | [facility] | | | B-12) | | + + + + | 2021-09-02 00:00 | vitamin B12 0.5 MG Oral | [facility] | | | Tablet | | + + + + | 2021-09-07 00:00 | vitamin B12 0.5 MG Oral | [facility] | | | Tablet | | + + + + | 2021-08-27 00:00 | Cholecalciferol (Vitamin | [facility] | | | D3) | | + + + + | 2021-09-03 00:00 | Cholecalciferol (Vitamin | [facility] | | | D3) | | + + + + | 2021-09-09 00:00 | Cholecalciferol (Vitamin | [facility] | | | D3) | | + + + + | 2022-08-04 00:00 | Cholecalciferol (Vitamin | [facility] | | | D3) | | + + + + | 2021-09-02 00:00 | cholecalciferol 0.05 MG | [facility] | | | Oral Capsule | | + + + + | 2021-09-07 00:00 | cholecalciferol 0.05 MG | [facility] | | | Oral Capsule | | + + + + | 2014-06-04 00:00 | HYDROCODONE | [facility] | | | BIT/ACETAMINOPHEN | | + + + + | 2014-06-04 00:00 | HYDROCODONE | [facility] | | | BIT/ACETAMINOPHEN | | + + + + | 2014-06-04 00:00 | HYDROCODONE | [facility] | | | BIT/ACETAMINOPHEN | | + + + + | 2014-06-04 00:00 | acetaminophen 325 MG / | [facility] | | | hydrocodone bitartrate 5 MG | | | | Oral Tabl | | + + + + | 2021-09-02 00:00 | 12 HR guaifenesin 600 MG | [facility] | | | Extended Release Oral | | | | Tablet [Mucin | | + + + + | 2021-09-02 00:00 | GUAIFENESIN | [facility] | + + + + | 2021-09-02 00:00 | GUAIFENESIN | [facility] | + + + + | 2021-08-27 00:00 | LOSARTAN POTASSIUM | [facility] | + + + + | 2021-09-03 00:00 | LOSARTAN POTASSIUM | [facility] | + + + + | 2021-09-09 00:00 | LOSARTAN POTASSIUM | [facility] | + + + + | 2022-08-04 00:00 | LOSARTAN POTASSIUM | [facility] | + + + + | 2022-08-17 00:00 | LOSARTAN POTASSIUM | [facility] | + + + + | 2021-09-02 00:00 | losartan potassium 25 MG | [facility] | | | Oral Tablet [Cozaar] | | + + + + | 2021-09-07 00:00 | losartan potassium 25 MG | [facility] | | | Oral Tablet [Cozaar] | | + + + + Problems + + + + | date | description | facility | + + + + | 2014-06-09 00:00 | Hypertension | [facility] | + + + + | 2014-06-09 00:00 | Hypertension | [facility] | + + + + | 2014-06-09 00:00 | Hypertension | [facility] | + + + + | 2014-06-09 00:00 | Constipation | [facility] | + + + + | 2014-06-09 00:00 | Constipation | [facility] | + + + + | 2014-06-09 00:00 | Constipation | [facility] | + + + + | 2017-12-01 00:00 | Scalp laceration | [facility] | + + + + | 2017-12-01 00:00 | Head injury | [facility] | + + + + | 2017-12-01 00:00 | Laceration of scalp | [facility] | + + + + | 2017-12-01 00:00 | Laceration of scalp | [facility] | + + + + | 2017-12-01 00:00 | Laceration of scalp | [facility] | + + + + | 2017-12-01 00:00 | Injury of head | [facility] | + + + + | 2017-12-01 00:00 | Injury of head | [facility] | + + + + | 2017-12-01 00:00 | Injury of head | [facility] | + + + + | 2017-12-01 00:00 | Fracture of sixth cervical | [facility] | | | vertebra | | + + + + | 2017-12-01 00:00 | Fracture of sixth cervical | [facility] | | | vertebra | | + + + + | 2017-12-01 00:00 | Fracture of sixth cervical | [facility] | | | vertebra | | + + + + | 2019-06-24 00:00 | Vertigo | [facility] | + + + + | 2019-06-24 00:00 | Vertigo | [facility] | + + + + | 2019-06-24 00:00 | Vertigo | [facility] | + + + + | 2021-09-02 00:00 | COVID-19 | [facility] | + + + + | 2021-09-02 00:00 | Infection due to severe | [facility] | | | acute respiratory syndrome | | | | coronavirus 2 (SARS-CoV-2) | | + + + + | 2021-09-02 00:00 | Infection due to severe | [facility] | | | acute respiratory syndrome | | | | coronavirus 2 (SARS-CoV-2) | | + + + + | 2021-09-02 00:00 | Infection due to severe | [facility] | | | acute respiratory syndrome | | | | coronavirus 2 (SARS-CoV-2) | | + + + + | 2021-09-07 00:00 | Concussion | [facility] | + + + + | 2021-09-07 00:00 | Concussion | [facility] | + + + + | 2021-09-07 00:00 | Concussion | [facility] | + + + + | 2022-08-04 00:00 | Intermittent diarrhea | [facility] | + + + + | 2022-08-04 00:00 | Intermittent diarrhea | [facility] | + + + + | 2022-08-04 09:40 | Essential (primary) | [facility] | | | hypertension | | + + + + | 2022-08-04 09:40 | UNSPECIFIED ABDOMINAL PAIN | [facility] | | | | | + + + + | 2022-08-04 09:40 | DIARRHEA, UNSPECIFIED | [facility] | + + + + | 2022-08-04 09:40 | OTHER CORRECTION (CURRENT) | [facility] | | | DRUG [...] 2022-08-14 00:00 | Small bowel obstruction | [facility] | + + + + Procedures + + + + | date | description | facility | + + + + | 2021-05-07 00:00 | EXCISION OF RIGHT LARGE | [facility] | | | INTESTINE, OPEN APPROACH | | + + + + | 2021-05-07 00:00 | EXCISION OF LEFT LARGE | [facility] | | | INTESTINE, OPEN APPROACH | | + + + + | 2021-05-06 00:00 | EXCISION OF CECUM, ENDO, | [facility] | | | DIAGN | | + + + + | 2021-05-06 00:00 | EXCISION OF SIGMOID COLON, | [facility] | | | ENDO, DIAGN | [...] | (unknown) | | | | | Charyl | value) | unknown) | | | [...] | (unknown) | | | | | Hcarly | value) | unknown) | | | [...] | 2021-09-02 00:00 | Never smoker | [facility] | + + + + | 2021-09-07 00:00 | Never smoker | [facility] | + + + + Vital [...]
--- OUTSIDE RECORDS SUMMARY | ~2022-08-18 | XMS | Continuity of Care Document ---
Demographics + + + | Address | [address] | | | [place] [address] | + + + | Preferred Language | Unknown | + + + | Marital Status | | + + + | Anglican Affiliation | Unknown | + + + | Race | White | + + + | Ethnic Group | Not or | + + + Author + + + | Author | [facility] | + + + | Organization | [facility] | + + + | Address | [address] | | | [place] [address] | + + + | Phone | | + + + Care Team Providers + + + + | Care Wheel And Axle Inspector Name | Role | Phone | + [...] | (no date) | Lisinopril | [facility] | (unknown) | | | | Hospital | | + + + + + | (no date) | Mild | [facility] | (unknown) | | | | Hospital | | + + + + + | (no date) | Lisinopril | [facility] | (unknown) | | | | Hospital | | + + + + + | (no date) | lisinopril | [facility] | (unknown) | | | | Hospital | | + + + + + | (no date) | Lisinopril | [facility] | (unknown) | | | | Hospital | | + + + + + | (no date) | lisinopril | [facility] | (unknown) | + + + + + Encounters No information. Functional Status No information. Immunizations + + + + | date | description | facility | + + + + | 2017-12-01 00:00 | Tdap | [facility] | + + + + | 2017-12-01 00:00 | Tdap | [facility] | + + + + | 2017-12-01 00:00 | Tdap | [facility] | + + + + | 2021-09-02 00:00 | No vaccine administered | [facility] | + + + + | 2021-09-07 00:00 | No vaccine administered | [facility] | + + + + Medications + + + + | date | description | facility | + + + + | 2022-08-17 00:00 | Turmeric Root Extract | [facility] | + + + + | 2014-06-09 00:00 | DOCUSATE SODIUM | [facility] | + + + + | 2014-06-09 00:00 | DOCUSATE SODIUM | [facility] | + + + + | 2014-06-09 00:00 | DOCUSATE SODIUM | [facility] | + + + + | 2014-06-09 00:00 | docusate sodium 100 MG | [facility] | | | Oral Capsule [Colace] | | + + + + | 2021-08-27 00:00 | Calcium Carbonate/Vitamin | [facility] | | | D3 | | + + + + | 2021-09-03 00:00 | Calcium Carbonate/Vitamin | [facility] | | | D3 | | + + + + | 2021-09-09 00:00 | Calcium Carbonate/Vitamin | [facility] | | | D3 | | + + + + | 2022-08-04 00:00 | Calcium Carbonate/Vitamin | [facility] | | | D3 | | + + + + | 2022-08-17 00:00 | Calcium Carbonate/Vitamin | [facility] | | | D3 | | + + + + | 2021-09-02 00:00 | calcium carbonate 1500 MG | [facility] | | | / cholecalciferol 800 UNT | | | | Oral Tab | | + + + + | 2021-09-07 00:00 | calcium carbonate 1500 MG | [facility] | | | / cholecalciferol 800 UNT | | | | Oral Tab | | + + + + | 2022-08-17 00:00 | LACTOBACILLUS ACIDOPHILUS | [facility] | + + + + | 2021-08-27 00:00 | ASCORBIC ACID | [facility] | + + + + | 2021-09-03 00:00 | ASCORBIC ACID | [facility] | + + + + | 2021-09-09 00:00 | ASCORBIC ACID | [facility] | + + + + | 2022-08-04 00:00 | ASCORBIC ACID | [facility] | + + + + | 2022-08-17 00:00 | ASCORBIC ACID | [facility] | + + + + | 2021-09-02 00:00 | ascorbic acid 1000 MG Oral | [facility] | | | Tablet | | + + + + | 2021-09-07 00:00 | ascorbic acid 1000 MG Oral | [facility] | | | Tablet | | + + + + | 2021-08-27 00:00 | FERROUS SULFATE | [facility] | + + + + | 2021-09-03 00:00 | FERROUS SULFATE | [facility] | + + + + | 2021-09-09 00:00 | FERROUS SULFATE | [facility] | + + + + | 2022-08-04 00:00 | FERROUS SULFATE | [facility] | + + + + | 2022-08-17 00:00 | FERROUS SULFATE | [facility] | + + + + | 2021-09-02 00:00 | ferrous sulfate 325 MG | [facility] | | | Oral Tablet | | + + + + | 2021-09-07 00:00 | ferrous sulfate 325 MG | [facility] | | | Oral Tablet | | + + + + | 2021-08-27 00:00 | CYANOCOBALAMIN (VITAMIN | [facility] | | | B-12) | | + + + + | 2021-09-03 00:00 | CYANOCOBALAMIN (VITAMIN | [facility] | | | B-12) | | + + + + | 2021-09-09 00:00 | CYANOCOBALAMIN (VITAMIN | [facility] | | | B-12) | | + + + + | 2022-08-04 00:00 | CYANOCOBALAMIN (VITAMIN | [facility] | | | B-12) | | + + + + | 2021-09-02 00:00 | vitamin B12 0.5 MG Oral | [facility] | | | Tablet | | + + + + | 2021-09-07 00:00 | vitamin B12 0.5 MG Oral | [facility] | | | Tablet | | + + + + | 2021-08-27 00:00 | Cholecalciferol (Vitamin | [facility] | | | D3) | | + + + + | 2021-09-03 00:00 | Cholecalciferol (Vitamin | [facility] | | | D3) | | + + + + | 2021-09-09 00:00 | Cholecalciferol (Vitamin | [facility] | | | D3) | | + + + + | 2022-08-04 00:00 | Cholecalciferol (Vitamin | [facility] | | | D3) | | + + + + | 2021-09-02 00:00 | cholecalciferol 0.05 MG | [facility] | | | Oral Capsule | | + + + + | 2021-09-07 00:00 | cholecalciferol 0.05 MG | [facility] | | | Oral Capsule | | + + + + | 2014-06-04 00:00 | HYDROCODONE | [facility] | | | BIT/ACETAMINOPHEN | | + + + + | 2014-06-04 00:00 | HYDROCODONE | [facility] | | | BIT/ACETAMINOPHEN | | + + + + | 2014-06-04 00:00 | HYDROCODONE | [facility] | | | BIT/ACETAMINOPHEN | | + + + + | 2014-06-04 00:00 | acetaminophen 325 MG / | [facility] | | | hydrocodone bitartrate 5 MG | | | | Oral Tabl | | + + + + | 2021-09-02 00:00 | 12 HR guaifenesin 600 MG | [facility] | | | Extended Release Oral | | | | Tablet [Mucin | | + + + + | 2021-09-02 00:00 | GUAIFENESIN | [facility] | + + + + | 2021-09-02 00:00 | GUAIFENESIN | [facility] | + + + + | 2021-08-27 00:00 | LOSARTAN POTASSIUM | [facility] | + + + + | 2021-09-03 00:00 | LOSARTAN POTASSIUM | [facility] | + + + + | 2021-09-09 00:00 | LOSARTAN POTASSIUM | [facility] | + + + + | 2022-08-04 00:00 | LOSARTAN POTASSIUM | [facility] | + + + + | 2022-08-17 00:00 | LOSARTAN POTASSIUM | [facility] | + + + + | 2021-09-02 00:00 | losartan potassium 25 MG | [facility] | | | Oral Tablet [Cozaar] | | + + + + | 2021-09-07 00:00 | losartan potassium 25 MG | [facility] | | | Oral Tablet [Cozaar] | | + + + + Problems + + + + | date | description | facility | + + + + | 2014-06-09 00:00 | Hypertension | [facility] | + + + + | 2014-06-09 00:00 | Hypertension | [facility] | + + + + | 2014-06-09 00:00 | Hypertension | [facility] | + + + + | 2014-06-09 00:00 | Constipation | [facility] | + + + + | 2014-06-09 00:00 | Constipation | [facility] | + + + + | 2014-06-09 00:00 | Constipation | [facility] | + + + + | 2017-12-01 00:00 | Scalp laceration | [facility] | + + + + | 2017-12-01 00:00 | Head injury | [facility] | + + + + | 2017-12-01 00:00 | Laceration of scalp | [facility] | + + + + | 2017-12-01 00:00 | Laceration of scalp | [facility] | + + + + | 2017-12-01 00:00 | Laceration of scalp | [facility] | + + + + | 2017-12-01 00:00 | Injury of head | [facility] | + + + + | 2017-12-01 00:00 | Injury of head | [facility] | + + + + | 2017-12-01 00:00 | Injury of head | [facility] | + + + + | 2017-12-01 00:00 | Fracture of sixth cervical | [facility] | | | vertebra | | + + + + | 2017-12-01 00:00 | Fracture of sixth cervical | [facility] | | | vertebra | | + + + + | 2017-12-01 00:00 | Fracture of sixth cervical | [facility] | | | vertebra | | + + + + | 2019-06-24 00:00 | Vertigo | [facility] | + + + + | 2019-06-24 00:00 | Vertigo | [facility] | + + + + | 2019-06-24 00:00 | Vertigo | [facility] | + + + + | 2021-09-02 00:00 | COVID-19 | [facility] | + + + + | 2021-09-02 00:00 | Infection due to severe | [facility] | | | acute respiratory syndrome | | | | coronavirus 2 (SARS-CoV-2) | | + + + + | 2021-09-02 00:00 | Infection due to severe | [facility] | | | acute respiratory syndrome | | | | coronavirus 2 (SARS-CoV-2) | | + + + + | 2021-09-02 00:00 | Infection due to severe | [facility] | | | acute respiratory syndrome | | | | coronavirus 2 (SARS-CoV-2) | | + + + + | 2021-09-07 00:00 | Concussion | [facility] | + + + + | 2021-09-07 00:00 | Concussion | [facility] | + + + + | 2021-09-07 00:00 | Concussion | [facility] | + + + + | 2022-08-04 00:00 | Intermittent diarrhea | [facility] | + + + + | 2022-08-04 00:00 | Intermittent diarrhea | [facility] | + + + + | 2022-08-04 09:40 | Essential (primary) | [facility] | | | hypertension | | + + + + | 2022-08-04 09:40 | UNSPECIFIED ABDOMINAL PAIN | [facility] | | | | | + + + + | 2022-08-04 09:40 | DIARRHEA, UNSPECIFIED | [facility] | + + + + | 2022-08-04 09:40 | OTHER SKILLED NURSING (CURRENT) | [facility] | | | DRUG [...] 2022-08-14 00:00 | Small bowel obstruction | [facility] | + + + + Procedures + + + + | date | description | facility | + + + + | 2021-05-07 00:00 | EXCISION OF RIGHT LARGE | [facility] | | | INTESTINE, OPEN APPROACH | | + + + + | 2021-05-07 00:00 | EXCISION OF LEFT LARGE | [facility] | | | INTESTINE, OPEN APPROACH | | + + + + | 2021-05-06 00:00 | EXCISION OF CECUM, ENDO, | [facility] | | | DIAGN | | + + + + | 2021-05-06 00:00 | EXCISION OF SIGMOID COLON, | [facility] | | | ENDO, DIAGN | [...] | 2021-09-02 00:00 | Never smoker | [facility] | + + + + | 2021-09-07 00:00 | Never smoker | [facility] | + + + + Vital [...]
[~2022-08-18 23:38] MED LIST changes: +PROBIOTIC1 EAC1 PO; +TURMERIC500 M2 PO; +[UNRECOGNIZED DRUG - OTHER] PO
--- OUTSIDE RECORDS SUMMARY | 2022-08-18 23:46 | XMS ---
PreManage Notification: CHEYENNE ADAMS [employer] Events No recent Security Events currently on file CRITERIA MET - [facility] [place] - 2 Visits in 30 Days CARE PROVIDERS MARY BETH PAIGE Psychiatry \T\ Neurology: Psychiatry Current PHONE: [phone] ANGELA [facility] Current PHONE: [phone] KATHI LOPEZ [facility] Current PHONE: [phone] EWA SALDIVAR Internal Medicine Current PHONE: Unknown Hansa has no Care Guidelines for this patient. Leah VISIT COUNT (12 MO.) 6 SYLVIA Baeza TOTAL 6 NOTE: Visits indicate total known visits. 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 - Unspecified osteoarthritis, unspecified site 09/02/2021 08:49 [facility] [place] TYPE: Emergency COMPLAINT: - HIGH HEART RATE DIAGNOSES: - Allergy status to other drugs, medicaments and biological substances - COVID-19 - Essential (primary) hypertension - 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
[2022-08-19] VITALS (9 sets, daily range): BP systolic 131–159; BP diastolic 60–81
--- NOTE | 2022-08-19 03:15 | NUR ---
PT ARRIVES TO CCU ROOM 129, [facility] FOR SBO WITH DR IZAGUIRRE. PT ARRIVES AWAKE AND ALERT AND ORIENTED X4, ACCOMPANIED BY SON PROSPER WHO IS GOING HOME FOR THE NIGHT. PT DENIES PAIN AT THIS TIME. NGT IS IN PLACE, HOOKED UP TO LIWS WITH RETURN OF LIGHT BROWN FLUID. ABDOMEN IS DISTENDED, PT DENIES NAUSEA. FEW BOWEL SOUNDS HEARD ON LEFT SIDE ONLY. VSS, PT GIVEN CALL LIGHT AND INSTRUCTED NOT TO GET UP ON HER OWN AND SHE AGREES.
--- NOTE | 2022-08-19 04:15 | NUR ---
PT REMAINS ON ROOM AIR WITH SPO2 95%, RR 12, RESP EVEN AND UNLABORED, HR 60'S.
--- NOTE | 2022-08-19 06:23 | NUR ---
PT HAS BEEN SLEEPING, RESP EVEN AND UNLABORED, HR 60'S. SPO2 95% ON ROOM AIR. NGT REMAINS IN PLACE TO LIWS.
--- NOTE | 2022-08-19 06:23 | NUR ---
PT REMAINS SLEEPING, HR 60'S, SPO2 94% ON ROOM AIR WITH RESP EVEN UNLABORED RR 12.
--- NOTE | 2022-08-19 07:30 | NUR ---
REPORT RECEIVED. PATIENT IS RESTING IN BED.
--- NOTE | 2022-08-19 08:00 | NUR ---
ASSESSMENT DONE. C/O ABD DISCOMFORT. ABD IS SLIGHTLY DISTENDED. NG TO LCS. IVF PATENT. TALKED WITH PATENT ABOUT POC. IS UNDERSTANDING, DOES HAVE SHORT TERM LOSS.
--- NOTE | 2022-08-19 08:35 | NUR ---
ZOFRAN 8 MG IV GIVEN FOR NAUSEA.
--- NOTE | 2022-08-19 10:00 | NUR ---
DR. IZAGUIRRE HERE TO SEE PATIENT. ORDERS RECEIVED. FAMILY MEMBERS ARE IN ROOM. C/O ABD PAIN.
--- NOTE | 2022-08-19 10:45 | NUR ---
MED REC COMPLETE
--- NOTE | 2022-08-19 11:15 | NUR ---
dilaudid 1 mg iv given FOR ABD PAIN, RATES 6/10.
--- NOTE | 2022-08-19 11:20 | NUR ---
SLEEPING AFTER DILAUDID GIVEN. FAMILY IN ROOM.
--- NOTE | 2022-08-19 12:00 | NUR ---
NAPPING AT THIS TIME. NO DISTRESS NOTED.
--- NOTE | 2022-08-19 15:10 | NUR ---
NO CHANGES. RESTING ON RIGHT SIDE. FAMILY MEMBERS ARE IN ROON.
--- NOTE | 2022-08-19 15:13 | NUR ---
WILL BE TRANSFERRED TO MED SURG SOON.
--- NOTE | 2022-08-19 15:20 | NUR ---
TO MED-SURG VIA BED. REPORT TO JACINTO RN. FAMILY WITH PATIENT.
--- NOTE | 2022-08-19 15:32 | NUR ---
PATIENT ARRIVES FROM CCU IN BED WITH Lara MORROW RN, BEDSIDE REPORT COMPLETED. PATIENT ALERT AND ORIENTED. FAMILY AT BEDSIDE. ASSESSMENT COMPLETED. NG TO LIS. IV FLUIDS INFUSING. CALL LIGHT IN REACH, BED RAILS UP X2.
--- NOTE | 2022-08-19 17:59 | NUR ---
TRANSFERRED FROM CCU TODAY. NG REMAINS IN PLACE ON LIS. LESS THAN 100 ML OUT OF NG THIS AFTERNOON. SLEEPS INTERMITTENTLY. REMAINS ON IV FLUIDS AND NPO.
--- NOTE | 2022-08-19 19:15 | NUR ---
BEDSIDE RPEORT, PT RESTING IN BED EYES CLOSED, RESP RATE 18/MIN, NO DISTRESS NOTED, SHE APPEARS TO BE SLEEPING. FAMILY AT BEDSIDE
--- NOTE | 2022-08-19 21:08 | NUR ---
PT ATTEMPTED TO AMBULATE, SHE ONLY AMBULATED TO ROOM DOOR BEFORE SHE FELT TOO PAINFUL TO CONTINUE. THIS RN ADMINISTERED 1MG IV DILAUDID FOR 6/10 PAIN. ASSESSMENT COMPLETE.
--- NOTE | 2022-08-20 00:30 | NUR ---
PT RESTING QUIETLY IN BED NO DISTRESS NOTED, EYES CLOSED RESP RATE 16/MIN
--- NOTE | 2022-08-20 01:14 | NUR ---
PATIENT IS SLEEPING.
--- NOTE | 2022-08-20 01:29 | NUR ---
PT RESTING IN BED EYES CLOSED, ALERT TO RN AT BEDSIDE, PAIN ASSESSED, PT SAID "NO PAIN REALLY" PT HAS NO REQUESTS AT THIS TIME
--- NOTE | 2022-08-20 04:24 | NUR ---
PT UP TO BATHROOM 1P SBA, PT VOIDED 300ML URINE, ONCE BACK TO BED PT REPORTS PAIN INCREASED, PT HEAD OF BED ELEVATED, NGT FLUSHED WITH 30ML TAP WATER, GOOD RETURN OF GASTRIC CONTENT IN NGT. PT REPORTS PAIN INCREASE AFTER ACTIVITY TO 5/10, DILAUDID 1MG IV PRN ADMINISTERED.
[2022-08-20 05:48] VITALS: BP 111/57
--- NOTE | 2022-08-20 07:02 | NUR ---
REPORT FROM Nila ROME RN. PATIENT RESTING IN BED WITH EYES CLOSED. RESPIRATIONS EVEN AND UNLABORED. NG REMAINS TO LIS. ALLOWED TO REST AT THIS TIME. CALL LIGHT IN REACH, BED RAILS UP X2.
--- NOTE | 2022-08-20 07:40 | NUR ---
Gave Pt warm washcloth for morning hours. Call light left inn reach. No other needs expressed by Pt.
[2022-08-20 09:57] VITALS: BP 156/79
--- NOTE | 2022-08-20 10:20 | NUR ---
PATIENT ASSESSMENT COMPLETED WITH PATIENT AND HER SON WHO IS AT THE BEDSIDE. PATIENT STATES SHE HAS AGREED TO SURGERY AT THIS TIME. PATIENTS SON STATES THAT SHE HAS RECVD A STUDIO APARTMENT AT [facility], WHICH HE IS GOING TO SEE IF THEY WILL HOLD UNTIL AFTER HER RECOVERY. PATIENT AND FAMILY AGREE ON REFERRAL TO [facility] FOR SKILLED CARE IF NEEDED AFTER SURGERY. ADVISED I WILL FAX THE CHART TO [facility] SO THE REVIEW PROCESS CAN BEGIN. CASE MANAGEMENT CARD GIVEN TO PATIENTS SON, ADVISED TO CONTACT US WITH ANY QUESTIONS OR CONCERNS. ADVISED CASE MANAGEMENT WILL BE IN TO VISIT WITH THE PATIENT DURING HER STAY.
--- NOTE | 2022-08-20 13:54 | NUR ---
PT SITTING IN CHAIR WITH SON AND [id number] ON COUCH. PT INDICATED THEY HAD BEEN ENGAGED IN BIBLE STUDY. PT EXPRESSED ANTICIPATION FOR SURGERY. DID NOT EXPRESS ANY RESERVATIONS AT THE TIME OF MY VISIT. PRAYED FOR HEALING AND COMFORT.
[2022-08-20 13:55] VITALS: BP 152/69
[2022-08-20 17:35] VITALS: BP 163/97
--- NOTE | 2022-08-20 19:00 | NUR ---
report received from yancy bates. pt resting in bed. denies pain. ng at lis. iv fluids infusing per order. no needs at this time. call light in reach.
--- NOTE | 2022-08-20 19:30 | NUR ---
SBA. PATIENT USED THE BATHROOM. PATIENT VOIDED 200ML YELLOW URINE. PATIENT IS BACK IN BED. NGT BACK ON. TV GUIDE PROVIDED. CALL LIGHT AND TV REMOTE ON HAND. NO FURTHER NEEDS AT THIS TIME.
[2022-08-20 20:19] VITALS: BP 152/95
--- NOTE | 2022-08-20 20:30 | NUR ---
ASSESSMENT, VS AND I&O COMPLETED. GCS 15, A&O X4. LUNGS CLEAR, HEART TONES REGULAR. NG TUBE HAS A SMALL AMOUNT OF GREEN OUTPUT ON LIS, THROAT SPRAY PROVIDED FOR THROAT IRRITATION. ABD SOFT, GUARDED, DENEIS PAIN AT THIS TIME, BOWEL TONES ACTIVE. PT STATES SHE HAS MILD ABDOMINAL DISTENTION. CMS INTACT. IV CDIM FLUSHED WELL. IV FLUIDS INFUSING PER ORDER.
--- NOTE | 2022-08-20 23:14 | NUR ---
PT REPORTS 5/10 BURNING ABD PAIN, PRN PAIN MED PROVIDED. NO OTHER NEEDS. CALL LIGHT IN REACH.
--- NOTE | 2022-08-21 | NUR ---
PT RESTING IN BED, EYES CLOSED. RR EVEN, UNLABORED. CALL LIGHT IN REACH.
--- NOTE | 2022-08-21 01:17 | NUR ---
PT RESTING IN BED, EYES CLOSED. RR EVEN, UNLABORED. NG ON LIS, IV FLUIDS INFUSING PER ORDER. CALL LIGHT IN REACH.
--- NOTE | 2022-08-21 02:16 | NUR ---
PT RESTING IN BED, EYES CLOSED. RR EVEN, UNLABORED. CALL LIGHT IN REACH.
--- NOTE | 2022-08-21 02:43 | NUR ---
SBA TO THE BATHROOM AND BACK TO BED. NO OTHER NEEDS AT THIS TIME.
[2022-08-21 04:31] VITALS: BP 147/67
--- NOTE | 2022-08-21 04:45 | NUR ---
ASSESSMENT, VS AND I&O COMPLETED. PT CONTINUES TO REPORT MILD ABD DISTENTION BUT DENIES PAIN AT THIS TIME. NG HAS HAD ABOUT 50ML GREEN OUTPUT THIS SHIFT, PT TOLERATING WELL. IV WNL, FLUIDS INFUSING PER ORDER.BOWEL TONES ACTIVE, ROUND, GUARDED. NEW BAG IV FLUIDS PROVIDED. NO OTHER NEEDS. CALL LIGHT IN REACH.
--- NOTE | 2022-08-21 05:59 | NUR ---
PT RESTING IN BED, EYES CLOSED. RR EVEN, UNLABORED. CALL LIGHT IN REACH.
--- NOTE | 2022-08-21 06:20 | NUR ---
PT UP TO BR AND BACK TO BED, SBA. PT STATES SHE HAS NAUSEA AND 5/10 ABD PAIN. PRN PAIN AND NAUSEA MEDS PROVIDED. NG TUBE ON LIS. IV FLUIDS INFUSING PER ORDER. NO OTHER NEEDS AT THIS TIME. CALL LIGHT IN REACH.
--- NOTE | 2022-08-21 06:42 | NUR ---
PT SLEPT WELL LAST NIGHT. PT DID HAVE MODERATE PAIN MANAGED WITH PRN MEDS AND NAUSEA MANAGED WITH PRN MEDS. PT TOLERATED NG TUBE WELL. NG HAD 50ML GREEN OUTPUT. PT REPORTS MILD ABD DISTENSION, GUARDED AND BOWEL TONES ACTIVE.
--- NOTE | 2022-08-21 07:21 | NUR ---
REPORT FROM EVENING RNNORIS.
--- NOTE | 2022-08-21 07:43 | NUR ---
MORNING ASSESSMENT IS COMPLETE. IV FLAGYL IS INFUSING FOR 1 HOUR. PATIENT RATES ABD PAIN 0/10 POST PAIN MEDICATIONS. IVF INFUSING TO RIGHT ARM#20, IV SITE IS INTACT. NGT IS SECURE AND DRAINING BILE ON LIWS. SCD'S TO BED. SURGICAL CHART IS COMPLETE, CONSENT PENDING DR. IZAGUIRRE. CARE PLAN REVIEWED, NO CHANGES. NO OTHER NEEDS NOTED AT THIS TIME.
--- NOTE | 2022-08-21 09:27 | NUR ---
PATIENT GIVEN IV PROTONIX, IV ROCEPHIN INFUSING FOR 30 MINUTES. HOLDING ENOXAPRIL FOR SURGERY.
[2022-08-21 09:47] VITALS: BP 124/75
--- NOTE | 2022-08-21 10:57 | NUR ---
PATIENT NGT CLAMPED, SHE IS UP TO BATHROOM AND THEN PLANS TO AMBULATE IN THE HALLWAY. SON PLANS TO AMBULATE WITH HER.
[2022-08-21 13:13] VITALS: BP 131/69
--- NOTE | 2022-08-21 13:19 | NUR ---
PATIENT IS SLEEPING, NEW IV TO LEFT ARM. IV KCL IS INFUSING FOR THE NEXT 4 HOURS.
--- NOTE | 2022-08-21 14:36 | NUR ---
PATIENT IS NAUSEATED, NGT FLUSHED. 8MG OF IV ZOFRAN GIVEN. FAMILY IN ROOM.
--- NOTE | 2022-08-21 15:57 | NUR ---
PATIENT GIVEN 10MG OF COMPAZINE FOR NAUSEA. NGT FLUSHED AND DRAINING MINIMAL AMOUNTS. PATIENT HAS HAD SMALL BM TODAY.
--- NOTE | 2022-08-21 17:02 | NUR ---
PATIENT GIVEN WARM BLANKETS AND IS RESTING IN BED.
--- NOTE | 2022-08-21 17:54 | NUR ---
PATIENT GIVEN 0.5MG OF IV DILAUDID FOR 6/10 ABD PAIN. WARM BLANKETS PROVIDED AND PATIENT IS PLANNING ON TAKING A NAP.
--- NOTE | 2022-08-21 19:30 | NUR ---
REPORT RECEIVED FROM DAY SHIFT RN. PT LYING IN BED ALERT AND ORIENTED. REPORTS SHE IS COMFORTABLE. DENIES NEEDS. WHITE BOARD UPDATED. CALL LIGHT IN REACH.
--- NOTE | 2022-08-21 20:05 | NUR ---
PT FAMILY MEMBER TO DESK TO SAY IV ALARMING. INFILTRATED, REMOVED INTACT.
[2022-08-21 20:31] VITALS: BP 117/65
--- NOTE | 2022-08-21 20:43 | NUR ---
IV LEFT ARM INFILTRATED. ARM WRAPPED IN WARM BLANKET. 20G IV STARTED IN RIGHT FOREARM X 1 ATTEMPT. PT AUSTIN WELL. IVF INFUSING WNL. EVENING ASSESSMENT COMPLETE. PT DENIES PAIN OR NAUSEA AT THIS TIME. NGT TO LIWS WITH DARK GREEN DRAINAGE. BOWEL TONES ACTIVE. ABD SOFT. PT DENIES QUESTIONS OR CONCERNS. FAMILY IN ROOM. CALL LIGHT IN REACH. BED ALARM FOR SAFETY.
--- NOTE | 2022-08-21 23:48 | NUR ---
PT RESTING IN BED WITH EYES CLOSED. HOB ELEVATED. RESPIRATIONS EVEN. BED ALARM FOR SAFETY. CALL LIGHT IN REACH.
--- NOTE | 2022-08-22 00:49 | NUR ---
PT UP TO BR WITH SBA TO VOID AN UNMEASURED AMOUNT. BACK TO BED, AUSTIN WELL. DENIES PAIN OR NAUSEA. NGT TO LIWS. HOB ELEVATED. NO FURTHER NEEDS. CALL LIGHT IN REACH. BED ALARM ON.
--- NOTE | 2022-08-22 03:58 | NUR ---
PT UP TO BR WITH SBA TO VOID 350 ML CLEAR YELLOW URINE. BACK TO BED, AUSTIN WELL. NGT TO LIWS. PT REPORTS "SOUR STOMACH" PRN FOR N/V ADMIN PER EMAR. DENIES PAIN. ASSESSMENT UNCHANGED. NO FURTHER NEEDS. CALL LIGHT IN REACH.
--- NOTE | 2022-08-22 04:18 | NUR ---
CALL LIGHT ANSWERED. PT REPORTS ABD PAIN 07/28. PRN FOR PAIN ADMIN PER EMAR.
[2022-08-22 06:28] VITALS: BP 143/66
--- NOTE | 2022-08-22 06:46 | NUR ---
VS AND I&O OBTAINED. PT UP TO BR TO VOID. BACK TO RECLINER. GAIT STEADY, AUSTIN WELL. NGT TO LIWS WITH GREEN DRAINAGE. PT DENIES PAIN OR NAUSEA AT THIS TIME. WARM BLANKETS PROVIDED. NO FURTHER NEEDS. CALL LIGHT IN REACH.
--- NOTE | 2022-08-22 07:47 | NUR ---
REPORT RECEIVED FROM NIGHT RN, ALL QUESTIONS ANSWERED. PT SITTING UP IN RECLINER, CALL LIGHT IN REACH.
--- NOTE | 2022-08-22 09:06 | NUR ---
MORNING ASSESSMENT COMPLETE. PT LYING AWAKE IN BED, STATES PAIN IS TOLERABLE AT THIS TIME. NG TO LIWS WITH BROWN DRAINAGE NOTED. ACTIVE BOWEL TONES THROUGHOUT. IV FLUIDS RUNNING. PT SON AT BEDSIDE. DISCUSSED SURGERY TIME AND PLAN OF CARE. PT VERBALIZED UNDERSTANDING WITH NOT FURTHER QUESTIONS. PT DENIES FURTHER NEEDS AT THIS TIME. CALL LIGHT IN REACH AND BED ALARM ON.
--- NOTE | 2022-08-22 09:36 | NUR ---
PT TO SURGERY VIA BED
--- NOTE | 2022-08-22 10:00 | NUR ---
Attempted to see pt, she has gone to surgery.
--- NOTE | 2022-08-22 13:15 | NUR ---
08/22/22 1315 Dariela Orellana 1300-PATIENT ARRIVED TO PACU ON 10L MASK NONAROUSABLE ORAL AIRWAY IN PLACE. RN DOING JAW THRUST TO MAINTAIN OPEN AIRWAY. NG TUBE LCS GREEN DRAINAGE. SR. IVF INFUSING. DRESSING CDI. DRAINAGE TO CENTRAL LINE DRESSING. CHEST XRAY ORDERED.
[2022-08-22 14:09] VITALS: BP 126/55
--- NOTE | 2022-08-22 15:00 | NUR ---
PT REMAINS SLEEPY FROM SURGERY. BUT EASILY AROUSED AND FOLLOWS DIRECTIONS APPROPRIATELY. OXYMASK REMAINS AT 3L.
[2022-08-22 15:11] VITALS: BP 112/50
[2022-08-22 16:15] VITALS: BP 108/51
--- NOTE | 2022-08-22 16:15 | NUR ---
PT IS A/O, RESPIRATIONS EVEN AND REGULAR. OXYGEN IS OFF AND PT SPO2 95%. DRESSING IS DRY AND INTACT. ICE PACK IN PLACE. SCD'S ON. TPN AND LIPIDS ARE NOW RUNNING.
[2022-08-22 17:16] VITALS: BP 104/48
--- NOTE | 2022-08-22 18:15 | NUR ---
PT REMAINS A/O, HAS HAD SEVERAL VISITORS. TPN AND LIPIDS RUNNING THROUGH CENTRAL LINE. DRESSING IS INTACT. NO NEW DRAINAGE. CALL LIGHT WITHIN REACH.
[2022-08-22 20:00] VITALS: BP 134/68
--- NOTE | 2022-08-22 20:00 | NUR ---
RECEIVED REPORT FROM RORY RN; PT IS AWAKE AND ORIENTED BUT VERY FORGETFUL, PULLED OFF IJ DRESSING AND SEEMED CONFUSED BUT ABLE TO ANSWER ALL ORIENTATION QUESTIONS CORRECTLY, VSS, AFEBRILE, PERIPHERAL PULSES PRESENT IN ALL EXTREMITES, MIDLINE INCISION COVERED, DRESSING C/D/I, BRUISING TO LEFT SIDE OF ABDOMEN, SUPPLE, NOTIFIED MD ABOUT FSBG OF 315 AND RECEIVED ORDERS FOR INSULIN SLIDING SCALE, HENDERSON CATHETER IN PLACE W/ ADEQUATE URINARY OUTPUT; WILL CONTINUE TO MONITOR AND NOTIFY PROVIDER WITH ANY CHANGES IN PT STATUS
[2022-08-23] VITALS (7 sets, daily range): BP systolic 120–139; BP diastolic 54–74
--- NOTE | 2022-08-23 05:38 | NUR ---
PT DID NOT REST MUCH OVER DOCKETING SPECIALIST, BECAME INCREASINGLY FIXATED ON HAVING TO COMPLETE DIFFERENT TASKS, DISORIENTED TO SITUATION/SETTING BUT REMAINED ORIENTED TO PERSON/PLACE, CONTINUALLY HAD TO BE REMINDED NOT TO PULL ON MEDICAL DEVICES; VSS, AFEBRILE, ADEQUATE URINARY OUTPUT, ABDOMINAL INCISION IS COVERED WITH DRESSING, DRESSING IS C/D/I, ABDOMEN IS SOFT/TENDER, PERIPHERAL PULSES PRESENT IN ALL EXTREMITIES, LABS WERE DRAWN THIS MORNING, PENDING RESULTS; WILL NOTIFY/UPDATE MD IF INDICATED
--- NOTE | 2022-08-23 06:27 | OR ---
[facility] [address], [place] [address] Signed DATE OF OPERATION: 08/22/2022 SURGEON: Opal Izaguirre MD PREOPERATIVE DIAGNOSES: 1. Small bowel obstruction. 2. Gsrlw-fo-wfluqaa malnutrition. POSTOPERATIVE DIAGNOSES: 1. Small-bowel obstruction with adhesions and internal hernia. 2. Jcobm-kg-thorpsk malnutrition. PROCEDURES: 1. Mdlv-md-mekvlqbh lysis of adhesions. 2. Physician directed ultrasound. 3. Placement of right internal jugular triple-lumen catheter. ESTIMATED BLOOD LOSS: None. FINDINGS: Kerry indeed had various interloop adhesions resulting in internal hernia. INDICATIONS: Kerry is an 87-year-old female who I met back in April 2021. 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 Only one of the 27 lymph nodes had cancer. 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 She has an isoperistaltic anastomosis to the proximal transverse colon. The left colon has a French side-to-end colonic anastomosis both hand-sewn in two layers. We closed the mesenteric rent for both the colectomies. She had done well for just over a year. Given her advanced age, frail nature and early dementia, she had declined chemotherapy. She also declined observation and followup with our medical oncologist. She had developed abdominal distention and had some nausea, vomiting, came to the emergency room. We admitted her a few days ago. She very rapidly did well with her NG tube and IV fluids. We gave her a small-bowel follow-through and it went right through without any obvious issues. We let her have clear liquid diet. She wanted to go home with her family. She does have five children total. She keeps herself a DNR and DNI with no heroic measures. She always brings her Bible noise, talked to me about the after life. Unfortunately, that did not go well when she eats solid food at home. She came back with generalized abdominal pain with Electronically Signed By: OPAL IZAGUIRRE MD 08/23/22 0627 PATIENT NAME: KERRY ADAMS OPERATIVE REPORT DATE OF : 35 REPORT #: [id number] PHYSICIAN: OPAL IZAGUIRRE MD PCP: KATHI LOPEZ MD REPORT IS CONFIDENTIAL AND NOT TO BE RELEASED WITHOUT AUTHORIZATION [facility] [address], [place] [address] Signed crampy waves throughout. She had some nausea and vomiting. We had to readmit her to the hospital and again NG tube decompression and IV fluids. On this occasion, she has not responded quite nicely. She is still moderately distended, but soft. White count is normal. We contacted her children including her son, Willie, who is the [id number]-xrrswljy. We contacted her son Steve and her daughter, Sarah. Kerry again is a little hesitant to have surgery, which is quite understandable at age 87, given her frail nature. Nevertheless, she is not resolving and she is quite aware of the symptoms associated with the small bowel obstruction. We did see the swelling on the CT scan and explained to the patient and the family that generally indicates an internal hernia and almost always this patient end up with surgery. It became clear she was not progressing and so we decided after we have hydrated her and corrected her electrolytes and will be taking her to surgery today. We are hoping to do it yesterday on August 21, but I was not the on-call surgeon. There were other surgeries going and so we decided to hold off at our [facility] since we have one anesthesia provider, one team on-call. I had met again with Kerry this morning and again with her son, Willie. We held her DNR status for 48 hours around the time of surgery. After that, she was taken in the operating room and placed in the supine position. PROCEDURE IN DETAIL: Kerry was taken in the operating room and placed in the supine position under general endotracheal tube anesthesia. She was on preoperative antibiotics along with subcutaneous heparin. SCDs were utilized. A Ivy catheter was inserted with return of clear yellow urine. She had been prepped and draped in the usual sterile fashion. We used her previous periumbilical midline incision and carried that in the abdomen with the help of the cautery without difficulty. She had a few adhesions from the omentum and small intestine along the midline incision. After that, we found her decompressed terminal ileum coming up to the proximal transverse colon. We could palpate the anastomosis quite nicely. We followed the bowel in a proximal fashion. We found her adhesions in the internal hernia. These were all taken down sharply with the Metzenbaum scissors as well as judicious cautery. She had some other interloop adhesions that kink the bowel and those were all taken down sharply with the Metzenbaum scissors. We ran the entire length of the small bowel. All the way back to the ligament of Treitz. Her bowel was fluid-filled, so we worked this fluid back in the stomach to the NG tube and we suctioned most of that out. The abdomen was irrigated and suctioned out until clear. Interestingly, there were no adhesions to the mesentery on the right or the left where we closed those mesenteric rents back in April 2021. After this, we had plenty of room then to bring the bowel back in the abdomen. The midline fascia was closed with interrupted #1 [id number] PDS sutures. Local anesthetic was injected into the abdominal wall. The wound was irrigated and suctioned out until clear. We brought the dermis back together with interrupted 3-0 subcuticular Monocryl sutures. The skin edges were reapproximated with albaro. Dry gauze and tape was applied. We left the Ivy catheter in place. We also left her intubated. Electronically Signed By: OPAL IZAGUIRRE MD 08/23/22 0627 PATIENT NAME: KERRY ADAMS OPERATIVE REPORT DATE OF : 35 REPORT #: [id number] PHYSICIAN: OPAL IZAGUIRRE MD PCP: KATHI LOPEZ MD REPORT IS CONFIDENTIAL AND NOT TO BE RELEASED WITHOUT AUTHORIZATION [facility] [address], [place] [address] Signed After this she was placed in the Trendelenburg position and the right neck and chest wall were prepped and draped in the usual sterile fashion. We used ultrasound to easily identify the carotid artery in the right internal jugular vein. We washed as our needle passed directly into the internal jugular vein with withdrawal of dark nonpulsatile blood. The wire was able to pass without difficulty. The tract was dilated and the catheter was inserted up to 14 cm. Each of the three lumens were able to draw and flush quite nicely. The catheter was held in place with interrupted silk sutures. We checked the position of the catheter within the internal jugular vein with the help of the ultrasound. A dressing was applied per nursing staff. After this, Kerry was weaned from her anesthesia, extubated in the OR, and taken to the ICU in stable condition. Opal Izaguirre MD ALB/MODL /[id number] cc: MD Opal Green MD Robert C Quackenbush, MD Copies: KATHI LOPEZ DMD, ANDREW L MD QUACKENBUSH, ROBERT C MD ~ Electronically Signed By: OPAL IZAGUIRRE MD 08/23/22 0627 PATIENT NAME: KERRY ADAMS OPERATIVE REPORT DATE OF : 35 REPORT #: [id number] PHYSICIAN: OPAL IZAGUIRRE MD PCP: KATHI LOPEZ MD REPORT IS CONFIDENTIAL AND NOT TO BE RELEASED WITHOUT AUTHORIZATION
--- NOTE | 2022-08-23 07:25 | NUR ---
report from clemente rn - pt resting in room with ngt to liws - pt is restless fidgeting with cords - reminded to not pull on lines.
--- NOTE | 2022-08-23 09:01 | NUR ---
PATIENT AWAKE IN BED, NG IN PLACE. VITALS CHARTED. CALL LIGHT AND PERSONAL ITEMS IN EAY REACH
--- NOTE | 2022-08-23 09:37 | NUR ---
in room with pt for assessment, ngt to liws, draining dark bile. abd insc. midline cdi wnl - pt denies pain, somewhat confused - she thinks we are going to bible study - re oriented to the hospital. her son mulu was here this am and just left. kcl iv fusing in 3 lumen iv wnl.
--- NOTE | 2022-08-23 10:05 | NUR ---
OVER TO SEE PATIENT, PATIENT SITTING UP IN BED. SHE STATES SHE IS FEELING WELL. NG TUBE IN PLACE. WILL CONTINUE TO EVALUATE PATIENTS NEED FOR SNF CARE POST DISCHARGE.
--- NOTE | 2022-08-23 10:07 | NUR ---
REPORT RECEIVED FROM RHYS PABLO. AWAITING PTS ARRIVAL TO MED/SURG.
--- NOTE | 2022-08-23 10:28 | NUR ---
PT ARRIVED FROM CCU BY BED. PT RPEORTS 5/10 PAIN IN ABDOMEN AND STATES PAIN MEDICATION "WOULD BE OK." PT OREINTED X4 BUT CONFUSED AT TIMES. PT PULLS AT NG TUBE BUT IS EASILY REDIRECTABLE WITH WORDS. CARES EXPLAIEND TO PT. IV FLUISHED AND SALINE LOCKED. CENTRAL LINE REMAINS WNL. RED LINE INFUSING TPN, WHITE LINE INFUSING POTASSIUM, BLUE LINE FLUSHED AND HEPARIN LOCKED PER PROTOCOL. PT REMAINS IN BED, UNABLE TO PERFORM BMAT ASSESSMENT AT THIS TIME, ANEUDY LIFT NECESSARY IF TRANSFER IS NEEDED. SCD'S IN PLACE. ABDOMEN SOFT BUT TENDER. MILD DISTENDTION SEEN. BOWEL TONES HYPOACTIVE. MIDLINE INCISION WNL WITH NO DRAINAGE SEEN. NG TUBE REMAINS IN PLACE TO LOW INTERMITTANT WALL SUCTION, GREEN BILLIARY DRAIANGE SEEN IN TUBING. CHLORASEPTIC SPRAY GIVEN FOR "SORE THROAT." MD CONSULTED REGARDING HENDERSON CATHTER, STATES TO LEAVE IN PLACE AT THIS TIME. YELLOW URINE SEEN IN COLELCTION BAG. PT DOZING ON AND OFF. NO ADDIITONAL REQEUSTS OR COMPLAINTS. CALL LIGHT WITHIN REACH. BED RAILS UP.
--- NOTE | 2022-08-23 12:12 | NUR ---
PT FOUND UP OUT OF BED, STATING SHE "WANTS TO SEE HER FAMILY" POINTING TO ANOTHER PATIENTS VISITORS. PT APPEARS CONFUSED, ATTEMPTING TO PULL HENDERSON CATHETER OUT, REDIRECTED PT TO BED WITH THIS RN AND OT. EXPLAINED CATHETER TO PT, PT NO LONGER PULLING AT CATHETER TUBING. HENDERSON IN PLACE AND DRAINING. PT CONTIUES TO ASK STAFF TO "GET HER FAMILY" POINTING TO OTHER VISITORS. EXPLAINED THOSE WERE OTHER VISITORS. PT REDIRECTED TO READING MATERAILS AT BEDSIDE, PT APPEAR CONTENT AT THIS TIME. BED RAILS UPX3 AND BED ALARM ON. CALL LIGHT WITHIN REACH, REORIENTED TO CALL LIGHT AND CALL LIGHT USE.
--- NOTE | 2022-08-23 12:20 | NUR ---
THIS RN TO ROOM TO CHECK ON PT. PT RESTING IN BED LOOKING AT BOOKS. GRAPHIC SPECIALIST REPORRTS PT WAS ATTEMPTING TO GET OUT OF BED. PT CONTINUES TO PULL AT LINES FROM TIME TO TIME. PT REORIENTED AND REDIRECTABLE WITH WORDS. STAT LOCK PLACED TO HOLD HENDERSON CATHETER IN PLACE. PT REPORTS 2/10 ABDOMINAL PAIN THAT IS "MUCH BETTER." PT LOOKING THROUGH BOOKS. NO ADDITIONAL REQUESTS OR COMPLAINTS. BED ALARM ON. CALL LIGHT WITHIN REACH.
--- NOTE | 2022-08-23 13:03 | NUR ---
HOURLY ROUNDING, PTS FAMILY AND FRIENDS ARRIVED TO BEDSIDE, UPDATED ON PT STATUS AND PLAN OF CARE PER PT REQUEST. PT REPORTS 2/10 ABDOMINAL PAIN AT THIS TIME AND CONTINUES TO DENY NEED FOR PAIN MEDICATION. FAMILY STATES THEIR QUESTIONS HAVE BEEN ANSWERED. PT DENIES ADDITIONAL REQUESTS OR COMPLAINTS. CALL LIGHT WITHIN REACH. BED RAILS UP. BED ALARM ON.
--- NOTE | 2022-08-23 13:31 | NUR ---
PT SITTING IN BED, NGT IN USE. PT READING THE BIBLE, A BIT CONFUSED AT FIRST DURING VISIT BUT SEEMED TO CLEAR. PT STATED SHE HAS LIVED A GOOD LIFE, KNOWS WHERE HER ETERNAL VAN WILL BE. STAFF IN TO MOVE PT TO M/S. HAD PRAYER, I WILL CONTINUE TO FOLLOW
--- NOTE | 2022-08-23 14:20 | NUR ---
AFTERNOON ASSESSMENT AND MEDICATION DUE. PT VISITING WITH FAMILY. PT DENIES PAIN AND NAUSEA. PT CONTINUES TO BE OREINTED TO ALL BUT VERY FORGETFUL. PT DOES FOLLOW DIRECTIONS AND IS EASILY VERBALLY REDIRECTED. PT AGREES TO GET UP TO CHAIR. 1 PERSON ASSIST WITH FWW UP TO CHAIR. PT TOLERATED ACTIVITY VERY WELL. LUNG SOUNDS CLEAR. HEART TONES REGULAR. CENTRAL LINE REMAINS WNL WITH RED LINE INFUSING TPN, BLUE LINE HEPARIN LOCKED, AND WHITE LINE INFUSING POTASSIUM. ABDOME SOFT AND NON TENDER. BOWEL TONES ACTIVE IN UPPER QUADRANTS. HYPOACTIVE IN LOWER QUDRANTS. PT DENIES NAUSEA. MILD ABDOMINAL DISTENTION SEEN. MIDLINE INCISION REMAINS WNL WITH SMALL AMOUNT OF DRAIANGE SEEN ON DISTAL END OF GAUZE BANDAGE. OTHERWISE C/D/I. NG TUBE REMAINS IN PLACE TO LOW INTERMITTANT WALL SUCTION WITH SMALL AMOUNT OF GREEN DRAINAGE, WNL. HENDERSON CATHETER REMAINS WNL WITH YELLOW DRAINAGE. PT CONTINUES VISITING WITH FRIEND. NO ADDITIONAL NEEDS AT THIS TIME. CAHIR ALARM ON.
--- NOTE | 2022-08-23 15:11 | NUR ---
PUMP ALARMING, POTASSIUM INFUSION COMPLETE. WHITE LUMEN FLUSHED AND HEPARIN LOCKED PER PROTOCOL. ALCOHOL CAP APPLIED. PT REMAINS UP TO CHAIR. WORKING ON WORD PUZZLES WITH HER FRIEND. PT DENIES PAIN AND NAUSEA. NO ADDITIONAL REQUESTS OR COMPLAINTS. CALL LIGHT WITHIN REACH. CHAIR ALARM ON.
--- NOTE | 2022-08-23 16:35 | NUR ---
THIS RN TO ROOM TO CHECK ON PT. PT REPORST 5/10 CRAMPING PAIN IN ABDOMEN. PT UP TO AMBLUATE WITH 1 PERSON ASSIST AND FWW IN SOL X 1 LAP. PT REPORTS PAIN IS UNCHANGED. SEE MAR FOR MEDICATION GIVEN. PT BACK TO BED. RESTING WITH EYES CLOSED. FAMILY AT BEDSIDE. NO ADDITIONAL REQUESTS OR COMPLAINTS. CALL LIGHT WIHTIN REACH. BED RAILS UP. FAMILY AT BEDSIDE.
--- NOTE | 2022-08-23 17:09 | NUR ---
HOURLY ROUNDING: PT RESTING WITH EYES CLOSED, RESPIRATIONS EVEN AND UNLABORED. BED RAILS UP. CALL LIGHT WITHIN REACH. PT ALLOWED TO REST.
--- NOTE | 2022-08-23 17:32 | NUR ---
PT TRANSFERED TO MED/SURG THIS SHIFT, POST OP DAY 1 AFTER LISIS OF ADHESIONS. PT UP WITH STAND BY ASSIST AND FWW TO CHAIR AND TO AMBULATE IN THE SOL THIS SHIFT. PT REMAINS NPO WITH TPN INFUSING AND NG TUBE IN PLACE TO LOW INTERMITTANT WALL SUCTION. GREEN FLUID SEEN IN CANISTER. ABDOMEN REMAINS SOFT WITH MIDLINE GAUZE DRESSING IN PLACE WITH SCANT RED DRAINAGE NEAR DISTAL END. BOWEL TONES ACTIVE. R IJ LINE WNL, DRESSING INTACT THROUGH OUT SHIFT. Q 6 HOUR BLOOD SUGAR CHECKS PERFORMED WITH SLIDING SCALE INSULIN GIVEN. FAMILY AND FRIENDS AT BEDSIDE THROUGHOUT SHIFT. PRN PAIN MEDICATION GIVEN WITH GOOD RESULTS. HENDERSON CATHETER IN PLACE WITH QUANITTY SUFFICIENT URINE. PT OREINTED TO ALL BUT FORGETFUL. PT DOES NOT USE CALL LIGHT. BED/CHAIR ALARM FOR SAFETY.
--- NOTE | 2022-08-23 18:09 | NUR ---
BED ALARM ON. PT AWAKEN AND RESTLESS AND CRAWLING OUT OF BED. THIS RN TO ROOM. PT ASSISTED WITH REPOSITIONING AND UNTANGLING FROM TUBING. PT DECLINES TIME UP TO CHAIR. PT ASSISTED BACK INTO BED. PT REPORTS FEELING "CONFUSED AFTER THAT REST." PT ASSISTED WITH FINDING A [employer] MOVIE ON TV. PT CALMS AND SETTLES BACK INTO BED. PT REPORTS 2/10 PAIN IN ABDOMEN AND DENIES NEED FOR ADDITIONAL PAIN MEDICATION. PT DENIES ADDITIONAL REQUESTS OR COMPLAINTS. CALL LIGHT WITHIN REACH. BED RAILS UP. BED ALARM ON.
--- NOTE | 2022-08-23 20:55 | NUR ---
pt assesed, pt mildly confused. NG to LIS, TPN running.
--- NOTE | 2022-08-23 22:35 | EKG ---
[facility] [address] [facility] [place] [address] Signed Normal sinus rhythm with sinus arrhythmia Normal ECG When compared with ECG of 03-MAY-2021 07:45, No significant change was found Confirmed by Yosef Eugene MD () on 08/23/2022 10:35:25 PM Electronically Signed By: YOSEF EUGENE MD 08/23/22 2235 PATIENT NAME: HILDAZEINACHEYENNE JENNIFER Electrocardiogram DATE OF : 35 PHYSICIAN: YOSEF EUGENE MD REPORT #: [id number] REPORT IS CONFIDENTIAL AND NOT TO BE RELEASED WITHOUT AUTHORIZATION
--- NOTE | 2022-08-24 02:21 | NUR ---
Walked pt [address] with walker. Pt tolerated it will. Pain under control. Will continue to monitor.
--- NOTE | 2022-08-24 03:29 | NUR ---
Brought patient a warm blanket and put a new stat lock on. Nothing else at this time. Patient did not use call light but called out for assistance.
[2022-08-24 05:32] VITALS: BP 134/59
--- NOTE | 2022-08-24 06:26 | NUR ---
Pt did have an ok night. Pt is still intermitantly confused. NG had 250ml output, gave dilauded once for pain.
--- NOTE | 2022-08-24 07:08 | NUR ---
REPORT RECEIVED FROM RHYS GARCIA. PT RESTING IN BED. PT REPORTS "PAIN IN MY STOMACH." PT REPORTS PAIN AT 05/28, SEE MAR FOR MEDICATION GIVEN. PT CONTINUES TO BE AGITATED WITH HENDERSON CATHETER. DR IZAGUIRRE TO BEDSIDE, UPDATED ON PT STATUS. ORDERS GIVEN TO DC HENDERSON CATHETER. NG TUBE TO REMAIN IN PLACE. PT DENIES ADDITIONAL REQUESTS OR COMPLAINTS. PT UPDATED ON PLAN OF CARE, UNSURE ABOUT HOW MUCH SHE REMEMBERS SHE IS NOT ABLE TO REPEAT BACK INFORMATION AT THIS TIME. ABDOMINAL GAUZE DRESSING REMOVED BY DR. IZAGUIRRE. INCISION C/D/I WITH EDGES WELL APROXIMATED. NO ADDITIONAL NEEDS AT THIS TIME. CALL LIGHT WITHIN REACH. BED RAILS UP. BED ALARM ON.
--- NOTE | 2022-08-24 08:30 | NUR ---
MORNING ASSESSMENT AND MEDICATION DUE. PT RESTING IN BED WITH EYES CLOSED. RESPIRATIONS EVEN AND UNLABORED. PT AWAKENES TO VOICE. PT REPORTS ABDOMINAL PAIN HAS IMPROVED AND IS "PRETTY GOOD." PT RATES PAIN AT 2/10. HENDERSON CATHETER DC'D PER PROTOCOL. ASHLEY CARE DONE. DEPENDS PLACED. PT UP TO CHAIR WITH 1 PERSON ASSIST AND FWW. IV TO RIGHT FORARM NO LONGER NEEDED. DC'D PER PROTOCOL GAUZE AND COBAN APPLIED. DRY RED/BROWN BILD UP SEEN UNDER CENTRAL LINE DRESSING. DRESSING CHANGED PER PROTOCOL. LINE IS 14 CM AT INCERTION SITE WHICH MATCHES MD'S NOTE AT INCERTION. PT TOLERATED DRESSING CHANGE WELL. CLAVES CHANGED. LINES FLUSHED WITH BRISK BLOOD RETURN SEEN IN ALL LUMENS. RED LINE INFUSING TPN. WHITE AND BLUE LINES FLUSHED AND HEPARIN LOCKED WITH ALCOCHOL CAPS IN PLACE. PT REMAINS OREINTED TO ALL. FORGETFUL BUT EASILY REDIRECTED WITH CONVERSATION OR VERBAL COMMANDS. LUNG SOUNDS CLEAR. HEART TONES REGULAR. MINIMAL EDEMA SEEN IN BLE. ABDOMEN SOFT AND MILDLY TENDER. BOWEL TONES HYPOACTIVE. MIDLINE INCISION WNL WITH EDGES WELL APROXIMATED AND DEQUAN IN PLACE. MILD DISTENTION SEEN. NG TUBE REMAINS IN PLACE WITH BROWN/GREN DRAIANGE IN CANISTER SET TO LOW INTERMITTANT WALL SCUTION (LIWS). PT VISITING WITH HER SON LEONARDO. LEONARDO UPDATED ON PLAN OF CARE AND STATES HIS QUESTIONS HAVE BEEN ANSWERED. NO ADDITIONAL REQUESTS OR COMPLAINTS. CALL LIGHT WITHIN REACH. CHAIR ALARM ON.
--- NOTE | 2022-08-24 08:55 | NUR ---
NURSE GOT PATIENT UP TO HER CHAIR. CHANGED PATIENT'S BED LINENS. PATIENT HAS A VISITOR IN HER ROOM.
[2022-08-24 09:11] VITALS: BP 128/60
--- NOTE | 2022-08-24 09:54 | NUR ---
THIS RN TO ROOM TO CHECK ON PT. PT REMAINS UP TO CHAIR, READING HER BIBLE. PT REPORTS PAIN IN ABDOMEN REMAINS WELL CONTROLLED AT 03/30. PT DENIES NEED FOR PAIN MEDICATION AT THIS TIME. CENTRAL LIEN REMAINS WNL. PT DENIES NEED TO USE RESTROOM. CALL LIGHT WITHIN REACH. CHAIR ALARM ON.
--- NOTE | 2022-08-24 11:34 | NUR ---
THIS RN TO ROOM TO CHECK ON PT. PT REMAINS UP TO CHAIR. FINISHED VISITING WITH CALENDER ROLL PRESS OPERATOR. PT REPORTS 5/10 PAIN IN ABDOMEN AND REQUESTS PAIN MEDICATIONS. TYLENOL CONSIERED AND CALL PLACED TO DR IZAGUIRRE FOR POSSIBLE TORADOL, NO ANSWER AT THIS TIME. IV DILAUDID GIVEN. HEPARIN REMOVED FROM WHITE LINE. LINE FLUSHED, MEDICATION GIVEN. LINE SALINE LOCKED. NO ADDITIONAL REQUESTS OR COMPLAINTS. CALL LIGHT WITHIN REACH. CHAIR ALARM ON.
--- NOTE | 2022-08-24 11:49 | NUR ---
PT SITTING CHAIR VISITING WIHT HER ASSOCIATE PROPERTY MANAGER. WE TALKED OF THEIR STUDY. EXERCISED MINISTRY OF PRESENCE AND COMPANIONSHIP. PT EXPRESSED STRONG TEJA. TALKED OF PLANS. PT AWARE THAT HER HOUSE IS BEING READIED FOR SALE AND SEEMS CONTENT WITH THAT DECISION. SEEMED AWARE OF PLANS FOR NEXT STEPS AND EXPRESSED THAT SHE WAS AT [facility].
--- NOTE | 2022-08-24 12:42 | NUR ---
THIS RN TO ROOM TO CHECK ON PT. PT RESTING IN CHAIR WITH EYES CLOSED. RR EVEN AND UNLABORED WITH RATE OF 12. FAMILY AT BEDSIDE. PT ALLOWED TO REST. CALL LIGHT WITHIN REACH. CHAIR ALARM ON.
--- NOTE | 2022-08-24 13:04 | NUR ---
HOULRY ROUNDING: PT AWAKE AND ALERT PT VISITING WITH SON AND SINGING PAPERS WITH INDRAARY. PT REPORTS FEELING COMFORTABLE AT THIS TIME. PT DENIES ADDITIONAL REQUESTS OR COMPLAINTS. CALL LIGHT WITHIN REACH. CHAIR ALARM ON.
--- NOTE | 2022-08-24 14:33 | NUR ---
AFTERNOON ASSESSMENT AND MEDICATION DUE. PT REMAINS UP TO CHAIR, WORKING ON CRAFTS. PT REPORTS IRRITATION IN HER THROAT AND INABILITY TO CLEAR HER THROAT. HORSE VOICE HEARD. CHLORASEPTIC SPRAY GIVEN. PT REPORTS 5/10 ABDOMINAL PAIN, SEE MAR FOR MEDICATION GIVEN. PT UP TO RESTROOM WITH STAND BY ASSIST AND FWW. ASHLEY CARE DONE. DEPENDS CHANGED. PT UP TO AMBULATE X2 LAPS IN SOL WITH FWW. PT REPORTS IT FEELS "GOOD TO STRETCH MY LEGS." PT ABLE TO COUGH UP SOME PHLEM WHICH SHE STATES "HELPS MY THROAT A LOT." PT REMAINS OREINTED TO ALL BUT CONFUSED AND FORGETFUL AT TIMES. EASILY REDIRECTABLE WITH WORDS. LUNG SOUNDS CLEAR. HEAR TTONES REGULAR. ABDOMEN REMAINS SOFT BUT TENDER. PT REPORTS "OH THAT'S WHY IT HURTS" WHEN SHOWN HER SUGICAL SITE. EDGES OF SURGICAL SITE WELL APROXIMATED WITH DEQUAN INTACT. NO DRAINAGE PRESENT AT THIS TIME. PT REPORTS SHE HAS NOT YET PASSED GAS BUT DESI TONES CAN BE HEARD VERY CLEARLY. NG TUBE REMAINS TO LOW INTERMITTANT SUCTION WITH MODERATE/SMALL BROWN/GREEN DRAINAGE IN CANISTER. PT DENIES ADDITIONAL REQEUSTS OR COMPLAINTS. CALL LIGHT WITHIN REACH. PT WORKIGN ON BR[employer]ponge[employer]. CHAIR ALARM ON.
[2022-08-24 14:57] VITALS: BP 149/57
--- NOTE | 2022-08-24 15:00 | NUR ---
I was able to speak with Kerry today. She cont. with an NG in place which is uncomfortable. We discussed a plan for where she wants to go. I let her know I have been told two different places. Pt states she would like me to call her son as she would like to return to [facility]. She then states this will be difficult for her family. She wants me to call and ask her son Willie for the name of the place. I called Willie he states they would like pt to go to [place] as it will be difficult for the family to drive to [place]. Let him know I will call SPENSER and request placement for Kerry when she is ready for dc.
--- NOTE | 2022-08-24 15:06 | NUR ---
HOULRY ROUNDING: PT REMAINS UP TO CHAIR. WORKING ON CRAFTS. CERTIFIED SKI PATROLLER UPDATED AND IS PLANNING SHOWER SHORTLY. PT REPORTS PAIN IS "BETTER IN MY TUMMY NOW." PT DENIES ADDIITIONAL REQUESTS OR COMLAINTS. CALL LIGHT WITHIN REACH. CHAIR ALARM ON.
--- NOTE | 2022-08-24 15:21 | NUR ---
PT UP TO SHOWER WITH RETRIMMER. CENTRAL LINE COVERED WITH WATER PROOF DRESSING.
--- NOTE | 2022-08-24 16:07 | NUR ---
PATIENT TOOK A SHOWER. WASHED HER HAIR. NEW SOCKS AND GOWN. COMBED HER HAIR. PATIENT SITTING IN HER CHAIR WITH BLANKETS ON. PILLOWS BEHIND HER BACK.
--- NOTE | 2022-08-24 16:10 | NUR ---
PT FINISHED WITH SHOWER AND UP TO CHAIR. CENTRAL LINE REMAINED DRY THROUGHOUT SHOWER. BLUE AND WHITE PORTS LEFT HEPARIN AND SALINE LOCKED RESPECTIVLY. RED PORT ASSESSED, WNL. BRISK BLOOD RETURN NOTED. TPN AND LIPIDS STARTED, MEDICATIONS AND TPN SET UP VARIFIED BY RHYS RAMSEY. PT REPORTS ABDOMINAL PAIN HAS RESOLVED. PT WORKING ON CRAFTS. NO ADDITIONAL REQUESTS OR COMPLAINTS. CALL LIGHT WITHIN REACH. CHAIR ALARM ON.
--- NOTE | 2022-08-24 16:49 | NUR ---
PT POST OP DAY 2 AFTER LISIS OF ADHESIONS. PT UP WITH STAND BY ASSIST AND FWW TO CHAIR AND TO AMBULATE IN THE SOL THIS SHIFT. PT REMAINS NPO WITH TPN INFUSING AND NG TUBE IN PLACE TO LOW INTERMITTANT WALL SUCTION. GREEN FLUID SEEN IN CANISTER. ABDOMEN REMAINS SOFT. MID LINE DRESSING REMOVED BY , DEQUAN INTACT WITH EDGES WELL APPROXIMATED. PT UP TO SHOWER THIS SHIFT, TOLERATED WELL. BOWEL TONES ACTIVE. R IJ LINE WNL, DRESSING CHANGED THIS SHIFT. Q 6 HOUR BLOOD SUGAR CHECKS PERFORMED, NO INSULIN NEEDED. FAMILY AND FRIENDS AT BEDSIDE THROUGHOUT SHIFT. PRN PAIN MEDICATION GIVEN WITH GOOD RESULTS. IV TORADOL ADDED FOR NON OPIOID PAIN COVERAGE. HENDERSON CATHETER DC'D. PT VOIDING QUANITY SUFFICIENT, CONTINANT OF URINE, DEPENDS INPLACE FOR SECURITY. PT OREINTED TO ALL BUT FORGETFUL. PT DOES NOT USE CALL LIGHT. BED/CHAIR ALARM FOR SAFETY.
--- NOTE | 2022-08-24 17:00 | NUR ---
Called SPENSER at [facility] and discussed this pt. He did recieve a chart on Saturday for this pt. Let him know she won't dc until next week.
[2022-08-24 17:20] VITALS: BP 151/68
--- NOTE | 2022-08-24 17:20 | NUR ---
THIS RN TO ROOM TO CHECK ON PT. PT CONTINUES RESTING IN CHAIR, WORKING ON CRAFTS. PT REPORTS 2/10 PAIN IN ABDOMEN AND ASKS FOR FOOD. PT STATES "I FEEL RUMBLING IN MY STOMACH." PT DENIES PASSING ANY GAS YET STATING "I DON'T THINK I HAVE BUT I'M JUST NOT SURE." PT EDUCATION DONE REGARDING NPO STATUS. PT VERBALIZES UNDERSTANDING. NO ADDITIONAL REQUESTS OR COMPLAINTS. CALL MILDRED AMAYA. JAY JAY AT BEDSIDE.
--- NOTE | 2022-08-24 18:12 | NUR ---
HOURLY ROUNDING. PT UP TO AMBULATE WITH STAND BY ASSIST AND FWW X1 LAP AND OUT TO V [facility]. PT OUT FOR WHEELCHAIR RIDE THROUGH THE GARDEN. PT UP TO RESTROOM, VOIDS WITHOUT ISSUE, ASHLEY CARE PER PT. PT BACK TO BED. PT STEADY ON FEET, STRONG AND ABLE TO AMBULATE. PT AND PTS SON UPDATED ON PLAN OF CARE. PT DENIES PAIN AT THIS TIME. NO ADDITIONAL REQUESTS OR COMPLAINTS. CALL LIGHT WITHIN REACH. BED RAILS UP. BED ALARM ON.
[2022-08-24 20:30] VITALS: BP 129/56
--- NOTE | 2022-08-24 22:10 | NUR ---
PT CALLED FOR ASSISTANCE TO THE RESTROOM. SHE WAS ABLE TO EXIT BED AND AMBULATE INDEPENDENTLY W/FWW. NO HANDS ON. SHE WAS ABLE TO VOID 300ML, PERFORM OWN ASHLEY CARE AND HANDWASHING. RESPOSITIONED SELF IN BED, 2 WARM BLANKETS GIVEN, PT REQUESTED TO HAVE THE TV & LIGHTS OFF FOR BED. BED ALARM SET, CALL LIGHT IN REACH.
[2022-08-25 04:51] VITALS: BP 144/68
--- NOTE | 2022-08-25 07:07 | NUR ---
REPORT RECEIVED FROM RHYS GARCIA. PT RESTING IN BED WITH EYES CLOSED, RESPIRATIONS EVEN AND UNLABORED. HEAD OF BED ELEVATED TO 30 DEGREES. BED RAILS UP. BED ALARM ON. CALL LIGHT WITHIN REACH. PT ALLOWED TO REST.
--- NOTE | 2022-08-25 07:48 | NUR ---
MORNING ASSESSMENT AND MEDICATION DUE. PT RESTING IN BED, AWAKE AND ALERT. PT DENIES PAIN AND NAUSEA. PT MOVES EASILY GETTING UP TO CHAIR WITH STAND BY ASSIST AND FWW. PT REMAINS OREINTED TO ALL ALTHOUGH CONFUSED AND FORGETFUL ABOUT EVENTS AT TIMES. PT EASILY REDIRECTABLE WITH WORDS AND CONVERSATION. PT IS ABLE TO RECALL PLAN OF CARE AND THAT HER SON WAS HERE TO VISIT. HEAR TONES REGULAR. LUNG SOUNDS CLEAR. CENTRAL LINE ASSESSED, WNL. BLOOD RETURN SEEN FROM ALL LUMENS. ALL LUMENS FLUSHED. BLUE AND WHITE LUMENS HEPARIN LOCKED. RED LUMEN INFUSING TPN. ALCOHOL CAPS PLACE DON ALL HUBS. ABDOMEN SOFT AND NON TENDER. MIDLINE INCISION WNL WITH DEQUAN INPLACE AND EDGES WELL APROXIMATED. MILD ERYTHMA SEEN AROUND EDGES OF INCISION. NO DRAINAGE PRESENT. BOWEL TONES ACTIVE. PT STATES "I THINK I AM" PASSING CHAD. PT RECALLS PASSING CHAD BUT IS NOTED TO BE FORGETFUL. NG TUBE REMAINS IN PLACE TO LOW INTERMITTANT SUCTION. CANISTER AND TUBING CHANGED. 150ML BROWN/GREEN MUCOID DRAINAGE EMPTIED FROM NG MEDICATIONS GIVEN. NO ADDITIONAL NEEDS AT THIS TIME. PT REMAINS UP TO CHAIR. CALL LIGHT [employer] REACH. CHAIR ALARM ON.
--- NOTE | 2022-08-25 08:48 | NUR ---
THIS RN TO ROOM TO CHECK ON PT. PT READING HER BIBILE. PT DENIES PAIN AND NAUSEA. PT REQUESTS TO GET UP AND WALK AFTER HER BIBLE STUDY. PT DENIES ADDITIONAL REQUESTS OR COMPLAINTS AT THIS TIME. NEW MEDICAITON ORDER NOTED, AWAITING PHARMACY VARIFICATION. CALL LIGHT WITHIN REACH. CHAIR ALARM ON.
[2022-08-25 09:16] VITALS: BP 117/53
--- NOTE | 2022-08-25 09:22 | NUR ---
MEDICATION DUE. HEPAIN REMOVED FROM WHITE LINE. BLOOD RETURN NOTED. LINE FLUSHED AND MEDICATION STARTED. PT UP TO RESTROOM WITH 1 PERSON ASSIST FOR LINE AND TUBE MANAGEMENT. PT VOIDS 150ML WITHOUT ISSUE. ASHLEY CARE PER PT. DEPENDS IN PLACE. HEPARIN REMOVED FROM WHITE LUMEN OF CENTRAL LINE, BLOOD RETURN NOTED WITH FLUSH. MG STARTED. PT UP TO AMBUALTE IN SOL WITH STAND BY ASSIST AND FWW X1 LAP AND 1 LAP OUT TO [facility]MS[facility] AREA OF HOSPITAL. PT TOLARETED WELL. PT DENIES PAIN AND NAUSEA WITH AMBULATION. NG TUBE RETURNED TO LIWS. NO ADDITIONAL REQUESTS OR COMPLAINTS. CALL LIGHT [employer] REACH. CHAIR ALARM ON
--- NOTE | 2022-08-25 11:00 | NUR ---
THIS RN TO ROOM TO CHECK ON PT. PT RESTING IN CHAIR WITH EYES CLOSED. PT AWAKENS TO VOICE AND LIGHT TOUCH. PT UPDATED ON PLAN OF CARE ADN VERBALIZES UNDERSTANDING. NG TUBE DC'D PER PROTOCOL, PT TOELARTED WELL. WATER AND TEA PROVIDED WITHIN FLUID RESTRICION. PT CONTINUES TO DENY PAIN AND NAUSEA PT DENIES ADDITIONAL REQUESTS OR COMPLAINTS. PT DRIFTS QUICKLY BACK TO SLEEP. CALL LIGHT WITHIN REACH. CHAIR ALARM ON.
--- NOTE | 2022-08-25 11:20 | NUR ---
PTS FRIENDS ARRIVED TO VISIT. PT RESTING WITH EYES CLOSED BUT AWAKENS TO MOVEMENT IN THE ROOM. PT ASSISTED WITH REPOSITINING IN CHAIR. PT DENIES PAIN AND NAUSEA. NO ADDITIONAL REQUESTS OR COMPLAINTS. CALL LIGHT WITHIN REACH. CHAIR ALARM ON
--- NOTE | 2022-08-25 12:29 | NUR ---
HOURLY ROUNDING: PT AGREES TO GET UP TO AMBULATE. PT UP TO AMBLAUTE X1 LAP IN SOL AND OUT TO ADMISSIONS AREA AND BACK. PT TOLERATES AMBULATE VERY WELL. PT DENEIS NAUSEA. REPORTS 2/10 ABDOMINAL PAIN BUT DECLINES PAIN MEDICATION AT THIS TIME. JELLO PROVIDED FOR LUNCH. PT REMAINS UP TO CHAIR. CALL LIGHT WITHIN REACH. NO ADDITIONAL REQUESTS OR COMPLAINTS.
--- NOTE | 2022-08-25 12:30 | NUR ---
THIS RN TO ROOM TO CHECK ON PT. PT RESTING IN BED IN SUPINE POSITION. PT REPORTS 0/10 PAIN. PT DENIES NAUSEA. PT CONTINUES TO DECLINE TIME OUT OF BED. NO ADDITIONAL REQUESTS OR COMPLAINTS. CLEAR LIQUID TRAY DELIVERED FOR LUNCH. CALL LIGHT WITHIN REACH. BED RAILS UP.
--- NOTE | 2022-08-25 13:18 | NUR ---
HOURLY ROUNDING. PT HAS PILED UP CUPS AND JELLO, REPORTS SHE IS FINISHED. PT DENIES NAUSEA. REPORTS 2/10 ABDOMINAL PAIN AND CONTINUES TO DECLINE PAIN MEDICAITON. PT REPORTS SHE WOULD LIKE TO FINISH HER BIBLE STUDY AND THEN GET BACK TO BED FOR A NAP. PT DENIES ADDITIONAL REQUESTS OR COMPLAINTS. CALL LIGHT WITHIN REACH.
--- NOTE | 2022-08-25 13:52 | NUR ---
AFTERNOON ASSESSMENT AND MEDICATION DUE. PT REMAINS UP TO CHAIR. VISITING WITH HER RETAIL TEAM MEMBER. STAND BY ASSIST FOR IV POLE MANAGEMENT UP TO RESTROOM. PT VOIDS WITH OUT ISSUE AND "MAYBE I DID" PASS GAS. ASHLEY CARE PER PT. STAND BY ASSIST BACK TO BED. PT POSITIONS SELF IN BED FOR COMFORT. PT REPORTS 5/10 DISCOMFORT IN ABDOMEN. SEE MAR FOR MEDICATION GIVEN. PT REPORTS SHE IS EXCITED FOR A NAP AND ALSO "EXCITED" TO WALK MORE THIS AFTERNOON. PT STATES "I KNOW I NEED TO MOVE A LOT SO I DON'T GET STIFF OR UNABLE TO MOVE." PT REMAINS OREINTED TO ALL BUT FORGETFUL. PT ABLE TO RECALL MANY EVENTS AT THIS TIME AND FOLLOWS DIRECTIONS WELL. HEART TONES REGUALR. LUNG SOUNDS CLEAR. VITAL SIGNS STABLE. ABDOMEN REMAINS SOFT AND NON TENDER. BOWEL TONES ACTIVE. MIDLINE INCISION WNL WITH EDGES WELL APROXIMATED AND DEQUAN INTACT. MILD ERYTHEMA UNCHANGED AROUND INCISION SITE. PT DRIFTS OFF TO SLEEP WHILE THIS RN IS CHARTING. MILD SNORING HEARD. HEAD OF BED ELEVATED TO 25 DEGREES. NO ADDITIONAL REQUESTS OR COMPLAINTS. CALL LIGHT WITHIN REACH. BED ALARM ON. BED RAILS UP.
[2022-08-25 14:07] VITALS: BP 140/62
--- NOTE | 2022-08-25 14:30 | NUR ---
THIS RN TO ROOM TO CHECK ON PT. PT RESTING IN BED WITH EYES CLOSED. RESPIRATIONS EVEN AND UNLABORED. HEAD OF BED ELEVATED TO 25 DEGREES. PT ALLOWED TO REST. CALL LIGHT WITHIN REACH. BED RAILS UP. BED ALARM ON.
--- NOTE | 2022-08-25 15:16 | NUR ---
THIS RN TO ROOM TO CHECK ON PT. PT REPORTS SHE WAS JUST UP TO THE RESTROOM AND FELT LIKE SHE MIGHT HAVE A BOWEL MOVEMENT "BUT NOTHING CAME." PT REPORTS 2/10 PAIN IN ABDOMEN THAT IS WELL CONTROLLED. PT REPORTS SHE WOULD LIEK TO NAP A BIT MORE AND THEN WALK. NO ADDTIONAL REQUESTS OR COMPLAINTS. CALL LIGHT WITHIN REACH. BED RAILS UP.
--- NOTE | 2022-08-25 15:49 | NUR ---
PT FINISHED WORKING WITH PYSICAL THERAPY. PHYSICAL THERAPIST STATES PT DID VERY WELL AMBUALTING AND WAS ABLE TO CLIMB STAIRS. IV PUMP ALARMING, TPN INFUSION COMPELTE. NEW BAG HUNG WITH NEW TUBING. RED LUMEN ASSESSED, WNL. BRISK BLOOD RETURN SEEN. LINE COVERED FOR SHOWER. PT UP WITH BUILDING CUSTODIAN FOR SHOWER. NO ADDITONAL NEEDS AT THIS TIME. CALL LIGHT WITHIN REACH.
--- NOTE | 2022-08-25 16:27 | NUR ---
PT FINISHED WITH SHOWER AND UP TO CHAIR. CENTRAL LINE DRESSING REMAINS C/D/I. PT DENIES PAIN AND NASUEA. CLAIMS ATTORNEY ASSISTING PT WITH COMBING AND STYLING HAIR. WARM BLANKETS PROVIDED. NO ADDITIONAL REQUESTS OR COMPLAINTS. CALL LIGHT WITHIN REACH. CHAIR ALARM ON.
--- NOTE | 2022-08-25 16:41 | NUR ---
PT POST OP DAY 3 AFTER LISIS OF ADHESIONS. PT UP WITH STAND BY ASSIST AND FWW TO CHAIR, WITH PHYSICAL THERAPY, AND TO AMBULATE IN THE SOL THIS SHIFT. PT REMAINS ADVANCED TO CLEAR LIQUID DIET, TOELRATING WELL. TPN ALSO INFUSING. NG TUBE DC'D. ABDOMEN REMAINS SOFT. PT DENIES NAUSEA. MIDLINE INCISION SITE C/D/I WITH DEQUAN INTACT AND EDGES WELL APPROXIMATED. PT UP TO SHOWER THIS SHIFT, TOLERATED WELL. BOWEL TONES ACTIVE. R IJ LINE WNL. Q 6 HOUR BLOOD SUGAR CHECKS PERFORMED, NO INSULIN NEEDED. FAMILY AND FRIENDS AT BEDSIDE THROUGHOUT SHIFT. PRN PAIN MEDICATION GIVEN WITH GOOD EFFECT. PT VOIDING QUANITY SUFFICIENT, CONTINANT OF URINE, DEPENDS INPLACE FOR SECURITY. PT OREINTED TO ALL BUT FORGETFUL. PT DOES NOT USE CALL LIGHT. BED/CHAIR ALARM FOR SAFETY.
--- NOTE | 2022-08-25 17:23 | NUR ---
PT UP TO AMBULATE DOWN TO ADMISSION AND THEN OUTSIDE TO GARDEN WITH WHEELCHAIR. PT REPORTS SHE REALLY ENJOYS BEING OUTSIDE IN THE GARDEN. PT DENIES PAIN AND NAUSEA UPON RETURN TO ROOM. PT UP TO CHAIR. SHANITA PROVIDED FOR DINNER. NO ADDITIONAL REQUESTS OR COMPLAINTS. CALL LIGHT WITHIN REACH. PT WATCHING TV.
[2022-08-25 18:02] VITALS: BP 122/62
--- NOTE | 2022-08-25 18:28 | NUR ---
HOULRY ROUNDING. PT UP TO RESTROOM. REPORTS SHE WANTS TO HAVE A BOWEL MOVEMENT BUT CAN'T AND WANTS TO "DIG IT OUT." PT REOREINTED TO SITUATION AND VERBALIZES UNDERSTANDING. PT DENIES PAIN. PT DENIES NAUSEA. PT VOIDS AND AMBULATES BACK TO BED WITH STAND BY ASSIST. WARM BLANKETS PROVIDED. NO ADDITIONAL REQUESTS OR COMPLAINTS. CALL LIGHT WITHIN REACH. BED RAILS UP.
--- NOTE | 2022-08-25 19:15 | NUR ---
SHIFT REPORT RECEIVED FROM [facility] RHYS GODDARD AT BEDSIDE, pt AWAKE AND TALKING ON THE PHONE. MIDLINE INCISION WELL APPROXIMATED, DEQUAN NOTED. RIGHT IJ CENTRAL LINE WNL, DRESSING C/D/I, TPN INFUSING DIRECTED. BED ALARM ON AND CALL LIGHT IN REACH.
[2022-08-25 20:15] VITALS: BP 146/64
--- NOTE | 2022-08-25 21:10 | NUR ---
assessment complete, no change to abd appearance. right ij wnl, brisk blood return noted to both white and blue lumen, tpn remains infusing to brown lumen. prn pain medication given for reported 6/10 abd "bubbling" pain, blue lumen now saline locked per policy and white lumen hep locked per policy. no additional needs or concerns verbalized. call light in reach.
--- NOTE | 2022-08-25 22:45 | NUR ---
pt complained of nausea, "like vinegar in my belly" Gave compazine.
--- NOTE | 2022-08-25 23:56 | NUR ---
ROUNDED ON pt, pt RESTING IN BED WITH EYES CLOSED ON RA. RR EVEN AND UNLABORED. NO DISTRESS NOTED, BED ALARM ON. TPN CONITNUES TO INFUSE DIRECTED. CALL LIGHT IN REACH, WILL CONTIUE TO MONITOR.
--- NOTE | 2022-08-26 00:50 | NUR ---
ROUNDED ON pt, pt RESTING IN BED WITH EYES CLOSED. ON RA, RR EVEN AND UNLABORED. NO DISTRESS NOTED. BED ALARM ON FOR SAFETY, CALL LIGHT IN REACH.
--- NOTE | 2022-08-26 01:53 | NUR ---
ASSISTED PT TO BATHROOM. CHECKED BLOOD SUGAR 106, PRIMARY RN NOTIFIED.
--- NOTE | 2022-08-26 02:10 | NUR ---
rounded on pt, rn mazin recently in room for scheduled accucheck, result wnl. pt drowsy, but easily awoke to voice. denies pain and nausea, bowel tones active. mild distention remains noted, no changes compared to start of shift. tpn continues to infuse as directed, right ij dressing remains wnl and c/d/i. call light in reach, bed alarm on for safety.
--- NOTE | 2022-08-26 03:10 | NUR ---
REPORT GIVEN TO RHYS GODDARD, RHYS GODDARD TO TAKE OVER pt CARE AT THIS TIME AND ACT PRIMARY RN.
--- NOTE | 2022-08-26 03:18 | NUR ---
REPORT RECEIVED FROM RHYS BUSH. THIS RN ASSUMING CARE OF PT. PT RESTING IN BED WITH EYES CLOSED. HEAD OF BED AT 30 DEGREES. RESPIRATIONS EVEN AND UNLABORED. BED RAILS UP.C ALL LIGHT WITHIN REACH. BED ALAMR ON. CALL LIGHT WIHTIN REACH.
--- NOTE | 2022-08-26 04:23 | NUR ---
HOURLY ROUNDING: PT RESTING IN BED WITH EYES CLOSED. RESPIRATIONS EVEN AND UNLABORED. BED RAILS UP. CALL LIGHT WITHIN REACH. BED ALARM ON. PT ALLOWED TO REST.
--- NOTE | 2022-08-26 05:07 | NUR ---
PT CALL LIGHT ON. PT REPORTS NEED TO USE THE RESTROOM. STAND BY ASSIST WITH FWW UP TO RESTROOM. PT VOIDS BUT IS UNABLE TO HAVE BOWEL MOVEMENT OR PASS CHAD. PT REPORTS "MY STITCHES REALLY HURT." PT RATES PAIN AT 5/10. PT DENIES NASUEA BUT STATES SHE FEELS "REALLY FULL." ABDOMEN NOW MODERATLY DISTENDED WITH BRUSING COLORING SEEN ON LEFT LOWER QUADRANT OF ABDOMEN. BOWEL TONES RARE. GAS BUBBLES, CREPTIUS LIKE FEELING, FELT WITH PALPATION TO LEFT LOWER QUADRANT. MIDLINE INCISION REMAINS C/D/I WITH NO DRAINAGE SEEN, EDGES WELL APROXIAMTED BUT MORE STRAINED THAN YESTERDAY. 10ML NS FLUSH. 10ML WASTE. 5ML LAB DRAW FROM BLUE LUMEN OF CENTRAL LINE. MEDICATION GIVEN. LINE FLUSHED AND SALINE LOCKED. NEW LEUR LOCK CLAVE PLACED. ALCOHOL CAP IN PLACE.PT FALLS BACK TO SLEEP DURING CARES. HEAD OF BED AT 25 DEGREES. MILD SNORING HEARD AT TIMES. BED RAILS UP. CALL LIGHT WITHIN REACH. BED ALARM ON.
[2022-08-26 05:59] VITALS: BP 124/54
--- NOTE | 2022-08-26 05:59 | NUR ---
VITALS DUE. PT CONTINUES RESTING WITH EYES CLOSED. PT AWAKENS TO VOICE AND LIGHT TOUCH BUT FALLS QUICKLY BACK TO SLEEP. PT REPORTS "A LITTLE" PAIN IN ABDOMEN AND IS UNABLE TO RATE PAIN AT THIS TIME. FLACC SCORE OF 2/10. VITAL SIGNS STABLE. NO ADDITIONAL NEEDS AT THIS TIME. CALL LIGHT WITHIN REACH. BED RAILS UP. BED ALARMON.
--- NOTE | 2022-08-26 06:38 | NUR ---
THIS RN TO ROOM TO CHECK ON PT. PT CONTINUES RESTING WITH EYES CLOSED, RESPRIATIONS EVEN AND UNLABORED. HEAD OF BED AT 30 DEGREES. BED RAILS UP. CALL LIGHT WITHIN REACH.
--- NOTE | 2022-08-26 07:25 | NUR ---
HOULRY ROUNDING: PT CONTINUES RESTING WITH EYES CLOSED. RESPIRATIONS EVEN AND UNLABORED. BED RAILS UP. CALL LIGHT WITHIN REACH. PT ALLOWED TO REST.
--- NOTE | 2022-08-26 08:22 | NUR ---
MORNING ASSESSMENT AND MEDICATION DUE. PT RESTING WITH EYES CLOSED. AWAKENS TO VOICE AND LIGHT TOUCH. PT REPORTS NEED TO USE RESTROOM. UP WITH STAND BY ASSIST AND FWW TO RESTROOM. PT VOIDS WITHOUT ISSUE BUT DENIES PASSING CHAD. ASHLEY CARE PER PT. DEPENDS CHANGED. PT UP TO CHAIR WITH STAND BY ASSIST. PT OREINTED TO ALL BUT DATE BUT IS FORGETFUL ADN ACTS VERY SLEEPY. PT DOZES OFF BETWEEN ASSESSMENTS. HEART TONES REGULAR, LUNG SOUNDS CLEAR. PT DENIES PAIN TO ABDOMEN AT THIS TIME. PT DENIES [place]. ABDOMEN SOFT BUT TENDER WITH PALPATION. BOWEL TONES TYMPANIC ON LEFT SIDE AND ACTIVE ON RIGHT SIDE. LEFT SIDE BRUISING LIKE DISCOLORATION CONTINUES. NO CHAD FELT WITH PALPATION. MIDLINE INCISION C/D/I WITH NO DRAINAGE PRESENT, DEQUAN INTACT. CENTRAL LINE WNL. ALL LUMENS FLUSHED. RED LUMEN INFUSING TPN. WHITE AND BLUE LUMENS FLUSHED AND HEPARIN LOCKED PER PROTOCOL. ALCOHOL CAPS APPLIED TO ALL CLAVES. BRISK BLOOD RETURN SEEN FROM ALL LUMENS. PT DENIES NAUSEA. DR IZAGUIRRE UPDATED ON PTS ASSESSMENT AND STATUS. NO NEW ORDERS AT THIS TIME. NO ADDITIONAL REQUESTS OR COMPLAINTS. CALL LIGHT WITHIN REACH. CHAIR ALARM ON.
[2022-08-26 09:14] VITALS: BP 130/64
--- NOTE | 2022-08-26 09:36 | NUR ---
THIS RN TO ROOM TO CHECK ON PT. PT RESTING IN CHAIR WITH EYES CLOSED. RESPIRATIONS EVEN AND UNLABORED. PT ALLOWED TO REST. CALL LIGHT IN LAP. CHAIR ALARM ON. NO ADDITIONAL NEEDS AT THIS TIME.
--- NOTE | 2022-08-26 10:43 | NUR ---
DIANA ROUNDIN PERSON ASSIST UP TO RESTROOM, PT VOIDS, NO GAS HEARD AT THIS TIME. PT UNSURE IF SHE IS PASSIGN GAS. PT UP TO AMBLUATE X1 LAP ARROUND UNIT AND DOWN MAIN HALWAY. PT UNABLE TO MAKE IT TO THE FRONT DOOR TODAY, STOPS HALF WAY TO SIT IN WHEECHAIR. PT WHEELED AROUND Eqlim EXPRESSES APPRECIATION FOR TIME OUTSIDE. PT AMBUALTES FROM ELEVTOR BACK TO ROOM AND IS UP TO CHAIR WORKING ON HER BIBLE STUDY. PT REPORTS 2/10 PAIN IN ABDOMEN AND DENIES NEED FOR PAIN MEDICAITON. NO ADDITIONAL REQUESTS OR COMPLAINTS. CHAIR ALARM ON. CALL LIGHT WITHIN REACH.
--- NOTE | 2022-08-26 11:22 | NUR ---
PT CALL LIGHT ON. PT REQUESTS TO GET UP TO RESTROOM. PT VOIDS AND HAS SMALL LOOSE BOWEL MOVEMENT. ASHLEY CARE DONE. DEPENDS REMAINS DRY. STAND BY ASSIST BACK TO CHAIR. PT EATING JELLO AND READING BIBLE. NO ADDITIONAL REQUESTS OR COMPLAINTS. CALL LIGHT WITHIN REACH. CHAIR ALARM ON.
--- NOTE | 2022-08-26 12:27 | NUR ---
THIS RN TO ROOM TO CHECK ON PT. PT UP TO RESTROOM WITH STAND BY ASSIST AND FWW. PT VOIDS WITHOUT ISSUE. ASHLEY CARE DONE. STAND BY ASSIST BACK TO CHAIR. PT REQUESTS [facility] FOR LUNCH, PROVIDED. WARM BLANKETS PROVIDED. PT DENIES ABDOMINAL PAIN. PT WATCHING TV. NO ADDITIONAL REQUESTS OR COMPLAINTS. CALL LIGHT WITHIN REACH. CHAIR ALARM ON.
--- NOTE | 2022-08-26 12:45 | NUR ---
PT APPEARS ANXIOUS. PT REPORTS PAIN IN HER ABDOMEN AND STATES "IT JUST HURTS SO MUCH I DON'T WANT TO LIVE WITH IT ANY MORE." PT DOES NOT RATE PAIN AT THIS TIME. FLACC SCORE OF 5/10. SEE MAR FOR MEDICATION GIVEN. HEPARIN REMOVED FROM WHITE LINE. FLUSEHED, MEDICATION GIVEN AND SALIEN LOCKED. PT ASSISTED WITH REPOSITIONING IN CHAIR. PT CONFUSED ABOUT WHY SHE HAS PAIN, REORIENTED. CHAIR ALARM REMAINS ON. CALL LIGHT WITHIN REACH. NO ADDITONAL NEEDS AT THIS TIME.
--- NOTE | 2022-08-26 13:09 | NUR ---
THIS RN TO ROOM TO CHECK ON PT. PT RESTING IN CHAIR WITH EYES CLOSED. RESPIRATIONS EVEN AND UNLABORED. CALL LIGHT ON LAP. CHAIR ALARM ON. PT ALLOWED TO REST.
[2022-08-26 13:28] VITALS: BP 133/64
--- NOTE | 2022-08-26 14:10 | NUR ---
AFTERNOON ASSESSMENT DUE. PT REQUESTS ASSISTANCE UP TO RESTROOM. 1 PERSON ASSIST WITH FWW UP TO RESTROOM. PT VOIDS AND PASSESS LARGE AMOUNTS OF GAS. PT REPORTS FEELING "MUCH BETTER" AFTER PASSING GAS. ASHLEY CARE PER PT. STAND BY ASSIST BACK TO BED. PT REPORTS 3/10 PAIN AND STATES "IF THERE IS MEDICINE TO HELP IT THAT WOULD BE OK." SEE MAR FOR MEDICATION GIVEN. PT ALERT AND OREINTED TO ALL BUT EXACT DATE. PT REPORTS FEELING TIRED AND READY FOR A NAP. HEART TONES REGULAR, LUNG SOUNDS CLEAR. ABDOMEN REMAINS SOFT AND IS NOW MUCH LESS DISTENDED COMPARED TO THIS MORNING. PT DENIES TENDERNESS WITH PALPATION. MIDLINE INCISION WNL WITH EDGES WELL APROXIMATED AND DEQUAN INTACT. NO DRAINAGE PRESENT. BOWEL TONES ACTIVE THROUGHOUT. BLUE LUMEN REMAINS HEPARIN LOCKED. RED LUMEN INFUSING TPN. WHITE LUMEN FLUSHED, BRISK BLOOD RETURN SEEN. MEDICAITON GIVEN, FLUSHED AND SALINE LOCKED. ALCOHOL CAPS REMAIN IN PALCE TO ALL CONNECTION SITES. PT RESTING WITH EYES CLOSED. HEAD OF BED AT 27 DEGREES. NO ADDITIONAL NEEDS AT THIS TIME. BED RAILS UP. BED ALARM ON. CALL LIGHT WITHIN REACH.
--- NOTE | 2022-08-26 15:09 | NUR ---
HOURLY ROUDING: PT RESTING IN BED WITH EYES CLOSED. RESPIRATION EVEN AND UNLABORED. HEAD OF BED AT 25 DEGREES. BED RAILS UP. CALL LIGHT WITHIN REACH. BED ALARM ON. PT ALLOWED TO REST.
--- NOTE | 2022-08-26 15:33 | NUR ---
THIS RN TO ROOM TO CHECK ON PT. PT UP TO SHOWER WITH CONTENT STRATEGY LEAD. PT REPORTS ABDOMINAL PAIN IS "JUST FINE." PT DENIES NAUSEA. NO ADDITIONAL NEEDS AT THIS TIME. CALL LIGHT WITHIN REACH.
--- NOTE | 2022-08-26 16:13 | NUR ---
PUMP ALARMING, TPN INFUSION AND FLUSH COMPLETE. NEW BAG HUNG WITH NEW TUBING. RED LUMEN ASSESSED, FLUSHED AND HAS GOOD BLOOD RETURN. NEW BAG STARTED. PT DENIES PAIN AND NAUSEA. PT RESTING IN BED WATCHING TV WITH HEAD OF BED ELEVATED TO 25 DEGREES. PT DENEIS ADDITIONAL REQUESTS OR COMPLAINTS. BED RAILS UP. CALL LIGHT WITHIN REACH.
[2022-08-26 17:18] VITALS: BP 137/62
--- NOTE | 2022-08-26 17:27 | NUR ---
PT POST OP DAY 4 AFTER LISIS OF ADHESIONS. PT UP WITH STAND BY ASSIST AND FWW TO CHAIR, AND TO AMBULATE IN SOL THIS SHIFT. PT REMAINS ADVANCED TO CLEAR LIQUID DIET, TOELRATING WITH MINIMAL INTAKE TPN ALSO. INFUSING. ABDOMEN REMAINS SOFT. MORE DISTENDED IN MORNING, LARGE AMOUNTS OF GAS PASSED IN AFTERNOON WITH IMPROVED DISTENTION. PT DENIES NAUSEA. MIDLINE INCISION SITE C/D/I WITH DEQUAN INTACT AND EDGES WELL APPROXIMATED. PT UP TO SHOWER THIS SHIFT, TOLERATED WELL. BOWEL TONES ACTIVE. R IJ LINE WNL. Q 6 HOUR BLOOD SUGAR CHECKS PERFORMED, NO INSULIN NEEDED. FAMILY AND FRIENDS AT BEDSIDE THROUGHOUT SHIFT. PRN PAIN MEDICATION GIVEN WITH GOOD EFFECT. PT VOIDING QUANITY SUFFICIENT, CONTINANT OF URINE, DEPENDS INPLACE FOR SECURITY. PT OREINTED TO ALL BUT FORGETFUL. PT DOES NOT USE CALL LIGHT CONSISTANTLY. BED/CHAIR ALARM FOR SAFETY.
--- NOTE | 2022-08-26 17:28 | NUR ---
ASSISTED PT TO RESTROOM AND BACK TO CHAIR FOR MEAL. PT AMBULATED WELL WITH SBA AND WALKER. DENIES ANY OTHER NEEDS ATT.
--- NOTE | 2022-08-26 18:10 | NUR ---
THIS RN TO ROOM TO CHECK ON PT. PT FINISHED WITH DINNER AND REQUESTS TO GET BACK TO BED. PT DENIES NEED TO USE RESTROOM. STAND BY ASSIST WITH FWW BACK TO BED. PT POSITIONS SELF WITH STRENGTH IN BED FOR COMFORT. PT DENIES ABDOMINAL PAIN OR NAUSEA. PT WATCHING TV AND TALKING WITHFAMILY ON THE PHONE. NO ADDITIONAL REQUESTS OR COMPLAINTS. CALL LIGHT WITHIN REACH. BED RAILS UP. BED ALARM ON.
--- NOTE | 2022-08-26 19:30 | NUR ---
SBA. PATIENT WAS UP TO THE BATHROOM AND BACK TO BED. NO OTHER NEEDS AT THIS TIME. BED ALARM ON FOR SAFETY.
--- NOTE | 2022-08-26 20:05 | NUR ---
PT ASSESSED AND MEDICATIONS GIVEN. PT RESTING IN BED. BS WAS 99. TPN INFUSING PER ORDER. VSS. PT ABLE TO AMBULAE TO BATHROOM WITH SBA. SAFETY PRECAUTIONS MAINTAINED. CALL LIGHT WITHIN REACH. WILL CONTINUE TO MONITOR.
[2022-08-26 20:10] VITALS: BP 133/65
--- NOTE | 2022-08-26 21:15 | NUR ---
PATIENT CALLED TO USE THE BATHROOM. SBA. PATIENT IS BACK IN BED. NO FURTHER CARE OR NEEDS AT THIS TIME. BED ALARM ON FOR SAFETY. CALL LIGHT WITHIN REACH.
--- NOTE | 2022-08-26 21:32 | NUR ---
100ML WATER PROVIDED.
--- NOTE | 2022-08-27 01:36 | NUR ---
SBA. UP TO THE BATHROOM AND BACK TO BED. NO OTHER NEEDS AT THIS TIME. WHITE BOARD UPDATED. BED ALARM ON FOR SAFETY. CALL LIGHT WITHIN REACH.
--- NOTE | 2022-08-27 03:45 | NUR ---
PATIENT CALLED. SBA . UP TO THE BATHROOM AND BACK IN BED. NO FURTHER NEEDS. BED ALARM ON. CALL LIGHT WITHIN REACH.
[2022-08-27 04:57] VITALS: BP 141/61
--- NOTE | 2022-08-27 05:00 | NUR ---
PATIENT CALLED. SBA TO THE BATHROOM AND BACK IN BED. V/S AND I&O'S COMPLETED. BED ALARM ON FOR SAFETY. GARBAGE PICKED UP.
--- NOTE | 2022-08-27 06:25 | NUR ---
PT RESTED WELL DURING THE SHIFT. PT ABLE TO AMBULATE TO BATHROOM WITHOUT COMPLICATIONS. IV DILAUDID GIVEN ONCE FOR PAIN. BS STABLE. VSS. SAFETY PRECAUTIONS MAINATINED. CALL LIGHT WITHIN REACH. WILL CONTINUE TO MONITOR.
--- NOTE | 2022-08-27 07:45 | NUR ---
BEDSIDE REPORT FROM TAX STAFF ACCOUNTANT NURSE. PATIENT SITTING UP IN BED, PROVIDED WARM BLANKET. NO OTHER NEEDS AT THIS TIME. CALL LIGHT WITHIN REACH.
--- NOTE | 2022-08-27 08:29 | NUR ---
PATIENT UP TO BATHROOM WITH FWW AND SBA.
[2022-08-27 08:59] VITALS: BP 130/51
--- NOTE | 2022-08-27 09:14 | NUR ---
UPDATED NOTES FAXED TO [facility] AT T FOR PLACEMENT
--- NOTE | 2022-08-27 10:23 | NUR ---
PATIENT UP TO RECLINER, ADMINISTERED MORNING MEDICATIONS. FULL BODY ASSESSMENT, WNL. TPN INFUSING. PLAN TO CONTINUE TPN TODAY, PATIENT ADVANCED TO FULL LIQUIDS, APPEARS TO BE TOLERATING WELL. PAIN WELL CONTROLLED. PATIENT STATES " I FEEL MY BOWELS MOVING", BOWEL TONES ACTIVE IN ALL FOUR QUADRANTS.
--- NOTE | 2022-08-27 11:51 | NUR ---
PATIENT RESTING IN BED WITH EYES CLOSED. APPEARS COMFORTABLE. CALL LIGHT WITHIN REACH, NO OTHER NEEDS AT THIS TIME.
[2022-08-27 12:46] VITALS: BP 156/71
--- NOTE | 2022-08-27 12:56 | NUR ---
PT APPEARED TO BE SLEEPING. DID NOT DISTURB. OFFERED PRAYER FOR ONGOING HEALING FROM HALLWAY.
--- NOTE | 2022-08-27 17:09 | NUR ---
PATIENT REPORTS DULL PAINS WITH MOVEMENT RATES PAIN 3/10 ON PAIN SCALE AND COMPLAINTS "I AM FEEL SO COLD". ADMINISTERED PRN TYLENOL AND TORADOL PER APR, AND PROVIDED WARM BLANKETS. PATIENT APPEARS CALM, RESTING BACK. CALL LIGHT WITHIN REACH.
[2022-08-27 18:01] VITALS: BP 156/76
--- NOTE | 2022-08-27 19:55 | NUR ---
PATIENT CALLED TO USE THE BATHROOM. SBA. PATIENT VOIDED 250ML YELLOW URINE. PATIENT IS NOW IN BED.
[2022-08-27 20:09] VITALS: BP 137/75
--- NOTE | 2022-08-27 20:10 | NUR ---
PT ASSESSED AND MEDICATIONS GIVEN. BS 101. TPN AND LIPIDS INFUSING PER ORDER. VSS. SAFETY PRECAUTIONS MAINTAINED. CALL LIGHT WITHIN REACH. WILL CONTINUE TO MONITOR.
--- NOTE | 2022-08-27 22:23 | NUR ---
CALL LIGHT ANSWERED. SBA TO RESTROOM FOR VOID AND BACK TO BED. TPN AND LIPIDS INFUSING IJ. PERSONAL SUPPLIES AND CALL LIGHT IN REACH. pt STATES "I HAVE A SOUR STOMACH, IS THERE ANYTHING I CAN TAKE FOR THAT?". pt STATES ITS HEARTBURN, "SOMETHING DIDN'T SIT RIGHT". PRIMARY RN NOTIFIED.
--- NOTE | 2022-08-27 23:00 | NUR ---
PATIENT CALLED. PATIENT AMBULATED AROUND THE HALLWAY X2. PATIENT IS BACK IN BED.
--- NOTE | 2022-08-27 23:15 | NUR ---
pt BACK IN BED AFTER AMBULATING IN HALLWAY WITH JAY JAY DERASTA ASSIST. PRN TUMS ADMINISTERED FOR HEARTBURN. HOB ELEVATED SLIGHTLY. pt HAS CALL LIGHT IN REACH.
[2022-08-28 04:49] VITALS: BP 164/75
--- NOTE | 2022-08-28 06:23 | NUR ---
PT RESTED SOME DURING THE SHIFT. PT WAS MORE RESTLESS AND CONFUSED AT TIMES. TORADOL GIVEN FOR PAIN. PT COMPLAINING OF A SOUR STOMACH AND SOME GASTRIC REFLUX. DR IZAGUIRRE CALLED AND MANIKKY ORDERED. VSS. TPN AND INFUSED. PT HAD 2 BM'S. SAFETY PRECAUTIONS MAINTAINED. CALL LIGHT WITHIN REACH. WILL CONTINUE TO MONITOR.
--- NOTE | 2022-08-28 06:55 | NUR ---
SBA TO THE BATHROOM AND BACK TO BED. NO OTHER NEEDS AT THIS TIME.
--- NOTE | 2022-08-28 07:31 | NUR ---
REPORT RECEIVED FROM RHYS TAN. PT RESTING IN BED WITH EYES CLOSED. PT AWAKENS TO VOICE AND MOVEMENT IN THE ROOM. PT DENIES PAIN AND REPORTS NAUSEA AND "SOUR STOMACH" HAS IMPROVED. PT DENIES NEED FOR ADDITIONAL MEDICATION AT THIS TIME. PT DRIFTS BACK TO SLEEP. HEAD OF BED AT 25 DEGREES. BED RAILS UP. CALL LIGHT WITHIN REACH.
--- NOTE | 2022-08-28 07:43 | NUR ---
MORNING ASSESSMENT AND MEDICATION DUE. PT RESTING IN BED, AWAKE AND ALERT. PT CONTINUES TO REPORT FEEING "BETTER." PT DENIES PAIN AND NAUSEA AND STATES THE MEDICAITON HELPED HER "SOUR STOMACH." PT OREINTED TO ALL BUT EXACT DATE, REMAINS FORGETFUL AND CONFUESED FROM TIME TO TIME. PT EASILY REDIRECTED AND REASSURED WITH WORDS AND ENCOUARGEMENTS. CENTRAL LINE WNL. RED LUMEN FLUSHED ADN INFUSING TPN, WHITE LUMEN FLUSHED, MEDICATION GIVEN AND INFUSING MAGNESIUM. BLUE LUMEN FLUSHED AND HEPARIN LOCKED. BRISK BLOOD RETURN SEEN FROM ALL LUMENTS. ALCOHOL CAPS IN PLACE OVER ALL CONNECTION POINTS. ABDOMEN SOFT AND NON TENDER. MILD DISTENTION SEEN BUT LESS THAN THIS RN'S LAST ASSESSMENT. BOWEL TONES ACTIVE THROUGOUT. MIDLINE INCISION WNL WITH EDGES WELL APROXIMATED AND DEQUAN IN PLACE. PT DRIFTS BACK TO SLEEP AFTER CARES, MILD SNOING HEARD. HAED OF BED ELEVATED TO 25 DEGREES. BED ARILS UP. CALL LIGHT WITHIN REACH. BED ALARM ON.
--- NOTE | 2022-08-28 08:56 | NUR ---
tHIS RN TO ROOM TO CHECK ON PT. PT UP TO CHAIR LISTINING TO BIBLE STUDY ON HER PHONE. PT DENIES PAIN AND NAUSEA. WARM BLANKETS PROVIDED. PT DENIES ADDITONAL RQESUTS OR COMPLAINTS. ICE WATER REFILLED. CALL LIGHT WITHIN REACH. CHAIR ALARM ON.
[2022-08-28 09:02] VITALS: BP 130/71
--- NOTE | 2022-08-28 09:54 | NUR ---
HOURLY ROUNDING: PT UP TO CHAIR, RESTING WITH EYES CLOSED. RESPIRATIONS EVEN AND UNLABORED. PT ALLOWED TO REST. CALL LIGHT WITHIN REACH. CHAIR ALARM ON.
--- NOTE | 2022-08-28 10:13 | NUR ---
WENT TO TO THE PATIENT'S ROOM TO DISCUSS THE DISCHARGE PLAN. PATIENT WAS SLEEPING. COGNOS ANALYST WILL RETURN LATER TODAY TO DISCUSS THE PLAN.
--- NOTE | 2022-08-28 10:18 | NUR ---
IV PUMP ALARMING, MAGENSIUM INFUSION COMPLETE. WHITE LUMEN OF CENTRAL LINE FLUSHED AND SALINE LOCKED. ALCOHOL CAP APPLIED. PT CONTINUES RESTING WITH EYES CLOSED. RESPIRATIONS EVEN AND UNLABORED. CALL LIGHT WITHIN REACH. CHAIR ALARM ON. PT ALLOWED TO REST.
--- NOTE | 2022-08-28 10:41 | NUR ---
PT UP WITH CLINICAL REIMBURSEMENT SPECIALIST FOR SHOWER. CENTRAL LINE SALINE LOCKED WITH ALCHOCOL CAPS ON ALL PORTS AND COVERED FOR SHOWER. 1 PERSON ASSIST FROM CLINICAL REIMBURSEMENT SPECIALIST IN SHOWER. NO ADDITIONAL NEEDS AT THIS TIME. CALL LIGHT WITHIN REACH.
--- NOTE | 2022-08-28 11:03 | NUR ---
HOURLY ROUNDING: PT UP TO CHAIR, TALKING WITH FRIENDS ON THE PHONE. PT DENIES PAIN AND NAUSEA. OXGYEN SATURATION 95% ON 2L O2 BY NC. ICE WATER REFILLED.PT DECLINES RESTROOM USE. NO ADDITIONAL REQUESTS OR COMPLAINTS. CALL LIGHT WITHIN REACH. CHAIR ALARM ON.
--- NOTE | 2022-08-28 11:12 | NUR ---
PT FINISHED WITH SHOWER. RED LUMEN OF CENTRAL LINE FLUSHED, BRISK BLOOD RETURN. TPN RESTARTED. PT WORKING ON HER BIBLE STUDY. PT DENIES PAIN AND NAUSEA. NO ADDITIONAL REQUESTS OR COMPLAINTS. CALL LIGHT WITHIN REACH. CHAIR ALARM ON.
--- NOTE | 2022-08-28 12:24 | NUR ---
THIS RN TO ROOM TO CHECK ON PT. PT UP TO CHAIR EATNIG LUNCH. PT REPORTS NEED TO USE RESTROOM. STAND BY ASSIST WITH FWW UP TO RESTROOM. PT VOIDS WITH OUT ISSUE. ASHLEY CARE PER PT. DRY DEPENDS IN PLACE. STAND BY ASSIST WITH FWW BACK TO CHAIR. PT DENIES PAIN AND NAUSEA. PT TALKING WITH FRIEND ON THE PHONE. PT REQUESTS THAT "ABIGAIL" HER FRIEND FROM [employer] BE UPDATED, UPDATED BY THIS RN. NO ADDITIONAL REQUESTS OR COMPLAINTS. CALL LIGHT WITHIN REACH. CHAIR ALARM ON.
--- NOTE | 2022-08-28 13:09 | NUR ---
SENT UPDATED MD ORDERS TO [facility]. PATIENT IS STILL ON TPN.PATIENT WILL NEED TO STAY A COUPLE MORE DAYS.
--- NOTE | 2022-08-28 13:37 | NUR ---
AFTERNOON ASSESSMENT DUE. PT FINISHED WITH LUNCH AND READY TO AMBULATE. PT UP TO AMBULATE IN SOL X 1 LAP AND OUT TO ADMINISTRATIVE UNDERWRITER WITH STAND BY ASSIST AND FWW. PT ALSO OUTSIDE TO GARDEN FOR WHEELCHAIR RIDE. PT AMBUALTES FROM [place] BACK TO ROOM AND UP TO CHAIR. PT DENIES PAIN AND NAUSEA. PT ALERT AND ORINTED TO ALL BUT EXACT DATE. PT FORGETFUL BUT EASILY REORIENTED. PT DENIES PAIN AND NAUSEA. CENTRAL LINE REMAINS WNL WITH DRESSIN INTACT. WHITE LUMEN FLUSEHD WITH NS AND SALINE LOCKED. RED LUMEN INFUSING TPN AND BLUE LUMEN REMAINS HEPARIN LOCKED. ALCOHOL CAPS IN PLACE TO ALL CONNECTION PONITS. HEART TONES REGULAR. LUNG SOUNDS CLEAR. ABDOMEN SOFT AND NON TENDER WITH MIDLINE INCISION C/D/I AND NO DRAINAGE PRESENT. DEQUAN INTACT. BOWEL TONES ACTIVE. PT CONTINUES TO HAVE LOOSE SOFT BROWN BOWEL MOVEMENTS. MULTIPLE (AT LEAST 4) SO FAR THIS SHIFT. PT DENEIS NAUSEA OR CRAMPING PAINS. MILD ABDOMINAL DISTENTION PRESENT. PT WAS ABLE TO EAT 50% OF HER LUNCH, TOLEARTED WELL. NO ADDITIONAL REQUESTS OR COMPLAINTS. CALL LIGHT WITHIN REACH. CHAIR ALARM ON.
--- NOTE | 2022-08-28 13:49 | NUR ---
PT IN CHAIR LISTENING TO BIBLE STUDY ON PHONE. PAUSED IT FOR OUR CONVERSATION. PT STATED SHE HAD BEEN IN PAIN EARLIER BUT WAS FEELING BETTER AT THE TIME OF VISIT. TALKED OF VARIOUS THINGS INCLUDING TEJA JOURNEYS TO THIS POINT IN LIFE. PRAYED FOR COMFORT AND PEACE.
[2022-08-28 13:58] VITALS: BP 114/40
--- NOTE | 2022-08-28 14:47 | NUR ---
THIS RN TO ROOM TO CHECK ON PT. PT GETTING BACK TO BED WITH RHYS PABLO. STAND BY ASSIST WITH FWW. PT REPORTS SHE WOULD LIKE TO REST AND WORK ON HER CRAFTS. PT DENIES PAIN AND NAUSEA. PTS FRIENDS ARRIVE TO VISIT. PT CHEERFUL AND INTERACTING APPROPRAITLY. NO ADDITIONAL NEEDS AT THIS TIME. BED RAILS UP. CALL LIGHT WITHIN REACH.
--- NOTE | 2022-08-28 16:37 | NUR ---
THIS RN TO ROOM TO CHECK ON PT. PT RESTING IN BED. VISITING WITH FAMILY AND TALKING ON PHONE. BLAKE, PTS DAUGHTER AT BEDSIDE, UPDATED ON PLAN OF CARE AND PT STATUS. BLAKE VERBALIZES UNDERSTANDING AND STATES HER QUESTIONS HAVE BEEN ANSWERED. RED LINE OF CENTRAL LINE ASSESSED, WNL, BRISK BLOOD RETURN SEEN. NEW BAG OF TPN STARTED. LINE SET UP, MEDICATION AND RATE VARIFIED BY RHYS PABLO. PT DENIES PAIN AND NAUSEA. NO ADDITIONAL REQUESTS OR COMPLAINTS. CALL LIGHT WITHIN REACH. BED RAILS UP. BED ALARM ON.
--- NOTE | 2022-08-28 17:24 | NUR ---
PT UP TO CHAIR WITH STAND BY ASSIST AND FWW FOR DINNER. PT REPORTS 6/10 ABDOMINAL PAIN. SEE MAR FOR MEDICATION GIVEN, GIVEN THROUGH WHITE LINE OF CENTRAL LINE WHICH IS AGAIN FLUSHED AND SALINE LOCKED. PT CHEERFUL ADN EATING DINNER. APPTITE IMPROVING, PT EATS ~75% OF DINNER. QUESTIONS ANSWERED FOR PTS FAMILY. NO ADDITONAL REQUESTS OR COMPLAINTS. CALL LIGHT WITHIN REACH. CHAIR ALARM ON.
--- NOTE | 2022-08-28 17:39 | NUR ---
PT POST OP DAY 6 AFTER LISIS OF ADHESIONS. PT UP WITH STAND BY ASSIST AND FWW TO CHAIR, AND TO AMBULATE IN SOL THIS SHIFT. PT TOLERATING FULL LIQUID DIET WITH IMPROVING APPITITE. TPN ALSO INFUSING. ABDOMEN REMAINS SOFT. MULTIPLE BOWEL MOVEMENTS THIS SHIFT. PT DENIES NAUSEA. MIDLINE INCISION SITE C/D/I WITH DEQUAN INTACT AND EDGES WELL APPROXIMATED. PT UP TO SHOWER THIS SHIFT, TOLERATED WELL. BOWEL TONES ACTIVE. R IJ LINE WNL. Q 6 BLOOD SUGAR CHECKS DC'D. FAMILY AND FRIENDS AT BEDSIDE THROUGHOUT SHIFT. PRN PAIN MEDICATION GIVEN WITH GOOD EFFECT. PT VOIDING QUANITY SUFFICIENT, CONTINANT OF URINE, DEPENDS INPLACE FOR SECURITY. PT OREINTED TO ALL BUT FORGETFUL. PT DOES NOT USE CALL LIGHT CONSISTANTLY. BED/CHAIR ALARM FOR SAFETY.
[2022-08-28 18:13] VITALS: BP 125/53
--- NOTE | 2022-08-28 18:15 | NUR ---
THIS RN TO ROOM TO CHECK ON PT. PT SORTING THROUGH MAIL WITH GRANDDAUGHTER. PT REPORTS PAIN HAS IMPROVED TO ABDOMEN, NOW 2/. PT DENEIS NEED FOR ADDITIONAL PAIN MEDICATION. PT DENIES NAUSEA. VITAL SIGNS STABLE PT DENIES ADDITIOANL REQUESTS OR COMPLAINTS. CALL LIGHT WITHIN REACH.
--- NOTE | 2022-08-28 19:05 | NUR ---
shift report received from calintxpaty rn fady at bedside, pt awake and resting in chair. family in room. tpn infusing as directed in borwn lumen. dressing c/d/i. no needs or concerns verbalized, call light in reach.
--- NOTE | 2022-08-28 20:31 | NUR ---
ASSISTED TO THE BATHROOM. ACCOMPANIED PATIENT WALKED TO THE FRONT HALLWAY TO SEE THE SUN SET WITH FAMILY. PATIENT IS BACK IN THE ROOM. UP IN THE CHAIR EATING SNACK ICE CREAM WITH FAMILY VISITING.
--- NOTE | 2022-08-28 21:26 | NUR ---
CALL LIGHT ANSWERED. SBA TO RESTROOM FOR VOID AND TO BRUSH TEETH. pt VERBALIZES UNDERSTANDING TO USE CALL LIGHT WHEN FINISHED.
[2022-08-28 21:37] VITALS: BP 126/66
--- NOTE | 2022-08-28 21:44 | NUR ---
PATIENT IS BACK IN BED FROM BATHROOM. V/S AND I&O'S COMPLETED. FAMILY VISITING IN THE ROOM.
--- NOTE | 2022-08-28 22:25 | NUR ---
assessment complete, no schedled meds. pt resting in bed with eyes closed, on ra. rr even and unlabored. no distress noted, pt awoke easily. central line dressing c/d/i, tpn infusing via brown lumen as directed. blue lumen flushed and saline locked per policy, white lumen flushed with saline, but then hep locked per policy. brisk blood return noted. abd incision wnl, site well approximated. pt deneis pain and nausea. no needs or concerns verbalized when asked, call light in reach and bed alarm on for safety.
--- NOTE | 2022-08-29 00:19 | NUR ---
ROUNDED ON pt, pt RESTING IN BED WITH EYES CLOSED AND ON RA. RR EVEN AND UNLABORED. NO DISTRESS NOTED. RR EVEN AND UNLABORED, CALL LIGHT IN REACH. BED ALARM ON FOR SAFETY.
--- NOTE | 2022-08-29 01:00 | NUR ---
PATIENT CALLED. SBA TO BATHROOM AND BACK TO BED USING WALKER. NO OTHER NEEDS AT THIS TIME. CALL LIGHT WITHIN REACH. BED ALARM ON FOR SAFETY.
--- NOTE | 2022-08-29 01:45 | NUR ---
pt RESTING IN BED WITH EYES CLOSED, ON RA. RR EVEN AND UNLABORD. NO DISTRESS NOTED. BED ALARM ON AND CALL LIGHT IN REACH. TPN CONTINUES TO INFUSE DIRECTED.
--- NOTE | 2022-08-29 03:40 | NUR ---
CALL LIGHT ANSWERED, pt SBA WITH FWW TO BATHROOM AND BACK TO BED. NO ACUTE CHANGES TO ASSESSMENT, pt DENEIS PAIN AND NAUSEA. TPN CONTINUES TO INFUSE DIRECTED, RIGHT IJ DRESSING REMAINS C/D/I. BED ALARM RESUMED, CALL LIGHT IN REACH.
[2022-08-29 05:10] VITALS: BP 131/67
--- NOTE | 2022-08-29 05:22 | NUR ---
lab drawn per policy via white lumen. tpn stopped for 5+ minutes before blood draw. 10mls blood wasted and following blood draw, lumen flushed with 20mls saline. new clave in place. blue lumen also flushed with saline per policy to ensure patency. tpn resumed as directed to brown lumen. bed alarm remains on and call light in reach.
--- NOTE | 2022-08-29 06:05 | NUR ---
dr horner at rn station, ensured md he was aware that physical therapy cleared patient yesterday. pt ambulating in hallway sba with fww, steady on feet. no additional orders received at this time.
--- NOTE | 2022-08-29 06:36 | NUR ---
ordered 2g mag rider infuaing via white lumen as directed, brisk blood return noted. tpn continues to infuse as directed via brown lumen. no needs or concerns verbalized, call light in reach. bed alarm on for safety.
--- NOTE | 2022-08-29 07:05 | NUR ---
REPORT RECEIVED FROM RHYS BUSH. PT LAYING IN BED AND RESPONDS WHEN ADDRESSED. PT DENIES ANY NEEDS AT THIS TIME AND GOES BACK TO RESTING IN BED WITH EYES CLOSED. RR EVEN AND UNLABORED. CALL LIGHT IN REACH. BED ALARM ON.
--- NOTE | 2022-08-29 08:49 | NUR ---
IN TO ADMINISTER MEDICATINS, SEE MAR. PT TAKES PO MEDICATIONS WITH NO ISSUES. PT TOLERATES SUB-Q INJECTION WELL. ASSESSMENT COMPLETE. PT DENIES PAIN AT THIS TIME. LUNG SOUNDS CLEAR, BUT DIMINISHED THROUGHOUT ALL LOBES. BOWEL TONES ACTIVE. ABD MILDLY DISTENDED. ABD TENDER WITH PALPATION. MIDLINE INCISION OPEN TO AIR. NO REDNESS NOTED, NOT WARM TO TOUCH. PT DENIES NUMBNESS OR TINGLING IN HAND AND FEET. PT DENIES ANY OTHER NEEDS AT THIS TIME. CALL LIGHT IN REACH. BED ALARM ON.
[2022-08-29 09:06] VITALS: BP 125/70
--- NOTE | 2022-08-29 09:56 | NUR ---
PT AMBULATED 2 LAPS AROUND RN STATION. SBA W FWW. PT DID NOT NEED ANY ASSISTANCE FROM THIS [employer] ATTENDANT. ONLY ASSISTANCE WAS PUSHING IV POLE.
--- NOTE | 2022-08-29 10:12 | NUR ---
SPOKE TO THE PATIENT ABOUT THE DISCHARGE PLAN. PATIENT IS PLANNING TO DC TO [place] WHEN MEDICALLY STABLE.
--- NOTE | 2022-08-29 11:02 | NUR ---
UPDATE ON PATIENT'S DISCHARGE PLAN. SPOKE TO [facility] AND PATIENT HAS AN APARTMENT THAT WILL BE HELD FOR PATIENT TO GO TO AFTER REHAB AT [place].
--- NOTE | 2022-08-29 12:14 | NUR ---
IN TO ANSWER CALL LIGHT. PT REPORTING TOILETING NEEDS. SBA WITH FWW FROM BED TO RESTROOM AND BACK INTO RECLINER. PT HAS STEADY GAIT. PT DENIES ANY OTHER NEEDS AT THIS TIME. CALL LIGHT IN REACH. CHAIR ALARM ON.
--- NOTE | 2022-08-29 13:17 | NUR ---
SPOKE TO PATIENT AND FAMILY ABOUT THE DISCHARGE PLAN. FAMILY IS HAPPY THAT PATIENT WILL BE GOING TO [facility] FOR CLOSER OBSERVATION S/P BEING HOSPITALIZED. PATIENT WILL GO TO [facility] AFTER [facility] ADMISSION AND DISCHARGE FROM SN[facility].
--- NOTE | 2022-08-29 13:17 | NUR ---
PT IN CHAIR. STATED WAS LOOKING FOR SOMETHING TO DO. GAVE GUIDEPOST AND COLORING BOOK WITH PENCILS. SHORT VISIT PT NEEDED BATHROOM.
[2022-08-29 13:52] VITALS: BP 126/62
--- NOTE | 2022-08-29 15:50 | NUR ---
IN PT IS REPORTING PAIN 5/10. PRN TYLENOL ADMINISTERED, SEE MAR. ICE PACK PROVIDED AND WASHCLOTH BETWEEN SKIN AND ICE PACK. ASSESSMENT COMPLETE. BOWEL TONES ACTIVE. ABD TENDER WITH PALPATION. MILD ABD DISTENTION NOTED. BRUISING NOTED TO TOP OF MIDLINE INCISION. MIDLINE INCISION OPEN TO AIR. NO REDNESS NOTED. NOT WARM TO TOUCH. PT DENIES ANY OTHER NEEDS AT THIS TIME. CALL LIGHT IN REACH. CHAIR ALARM ON. FAMILY IN ROOM.
--- NOTE | 2022-08-29 16:00 | NUR ---
TOOK PATIENT TO THE BATHROOM.
--- NOTE | 2022-08-29 16:05 | NUR ---
PATIENT IS VISITING WITH FAMILY.
--- NOTE | 2022-08-29 17:10 | NUR ---
PT CALL LIGHT ON. PT REPORTS NEED TO USE THE RESTROOM. STAND BY ASSIST WITH FWW UP TO RESTROOM. PT VOIDS WITHOUT ISSUE. ASHLEY CARE PER PT. STAND BY ASSIST BACK TO CHAIR. PT VISITING WITH FAMILY AND EATING DINNER. NO ADDITIONAL REQUESTS OR COMPLAINTS. CALL LIGHT WITHIN REACH.
--- NOTE | 2022-08-29 17:59 | NUR ---
IN TO ROUND ON PT. PT REPORTING PAIN 0/10. PT SITTING UP IN RECLINER. ICE PACK IN PLACE. PT DENIES ANY OTHER NEEDS AT THIS TIME. CALL LIGHT IN REACH. CHAIR ALARM ON. FAMILY IN ROOM.
[2022-08-29 18:17] VITALS: BP 127/60
--- NOTE | 2022-08-29 19:56 | NUR ---
REPORT RECEIVED FROM DAY SHIFT RN. PT SITTING IN RECLINER ALERT AND ORIENTED. DENIES NEEDS. WHITE BOARD UPDATED. CALL LIGHT IN REACH. FAMILY IN ROOM.
[2022-08-29 21:04] VITALS: BP 135/60
--- NOTE | 2022-08-29 21:04 | NUR ---
CALL LIGHT ANSWERED, pt UP SBA WITH FWW TO BATHROOMA ND BACK TO BED. BED ALARM ON FOR SAFETY AND CALL LIGHT IN REACH. pt VERY STEADY ON FEET, VOIDED 200MLS AND HAD SMALL FORMED BM. VSS. PRIMARY RN AWARE AND UPDATED.
--- NOTE | 2022-08-29 22:10 | NUR ---
EVENING ASSESSMENT COMPLETE. SCHEDULED MEDS ADMIN PER EMAR. PT DENIES PAIN OR NAUSEA. MIDLINE INCISION WELL APPROXIMATED WITH DEQUAN INTACT. NO REDNESS OR DRAINAGE NOTED. BOWEL TONES ACTIVE. PT REPORTS FLATUS. ABD SOFT AND MILDLY DISTENDED. RIGHT IJ PATENT WITH DRESSING CDI. TPN INFUSING PER ORDER. PT DENIES QUESTIONS OR CONCERNS. BED ALARM FOR SAFETY. CALL LIGHT IN REACH.
--- NOTE | 2022-08-30 00:36 | NUR ---
IV PUMP ALARMING. ISSUE RESOLVED. PT RESTING WITH EYES CLOSED SNORING SOFTLY. RESPIRATIONS EVEN. BED ALARM FOR SAFETY. CALL LIGHT IN REACH.
--- NOTE | 2022-08-30 00:55 | NUR ---
PT CALL LIGHT ON. THIS STAFF RESEARCH SCIENTIST IN THE ROOM TO ASSIST PT TO THE BATHROOM. PT WAS STEADY USING A WALKER. PT COMPLETED ASHLEY CARE AND ORAL CARE BYSELF. PT BACK IN BED SLEEPING. NO NEEDS. CALL LIGHT IN REACH.
--- NOTE | 2022-08-30 02:15 | NUR ---
CALL LIGHT ANSWERED, pt UP SBA WITH FWW TO BATHROOM AND BACK TO BED. BED ALARM ON FOR SAFETY AND CALL LIGHT IN REACH. pt VOIDED 200MLS AND DENEIS ADDITIONAL NEEDS OR CONCERNS.
--- NOTE | 2022-08-30 02:59 | NUR ---
PT UP TO BR WITH FWW AND SBA TO VOID AND HAVE MED SOFT BM. GAIT STEADY. BACK TO BED, [place] WELL. PRN FOR GENERALIZED DISCOMFORT ADMIN PER EMAR. PT REPORTS BEING UNABLE TO CLEAR PHLEGM FROM BACK OF THROAT. WARM TEA PROVIDED PER REQUEST. HOB ELEVATED. ASSESSMENT UNCHANGED. RIGHT IJ FLUSHED AND HEP LOCKED PER PROTOCOL. BRISK BLOOD RETURN NOTED FROM WHITE AND BLUE LUMENS. DRESSING CDI. PT DENIES FURTHER NEEDS. CALL LIGHT IN REACH. BED ALARM FOR SAFETY.
[2022-08-30 05:11] VITALS: BP 127/55
--- NOTE | 2022-08-30 05:18 | NUR ---
VS AND I&O COMPLETE. PT DENIES PAIN OR NAUSEA. REPORTS SHE IS RESTING WELL. DENIES NEEDS. BED ALARM IN PLACE. CALL LIGHT IN REACH.
--- NOTE | 2022-08-30 06:53 | NUR ---
PT UP TO BR WITH SBA AND FWW TO VOID. GAIT STEADY. BACK TO RECLINER. NO FURTHER NEEDS.
--- NOTE | 2022-08-30 07:45 | NUR ---
Assisted Pt SBA from chair to bathroom and back. Bed alarm set, call light left in reach. No other needs expressed by Pt.
--- NOTE | 2022-08-30 07:51 | NUR ---
RECIEVED SHIFT REPORT. PT SITTING UP IN CHAIR, AWAKE. CALL LIGHT IN REACH.
--- NOTE | 2022-08-30 08:00 | NUR ---
Texted SPENSER at [facility] and updated, Dr. Freedman has written orders for dc of this pt. SPENSER will notify RN and let me know a time pt can admit.
--- NOTE | 2022-08-30 08:53 | NUR ---
MORNING ASSESSMEN COMPLETE. LAYING IN BED, AWAKE EATING BREAKFAST. DENIES PAIN. BOWEL TONES ACTIVE IN ALL QUADRANTS. MILD TENDERNESS. MIDLINE INCISION DEQUAN, INTACT, OPEN TO AIR. REMOVED EVERY OTHER STAPLE (PER ORDER). REDUCED TPN RATE (PER ORDER). DENIES FURTHER NEEDS AT THIS TIME. CALL LIGHT IN REACH
--- NOTE | 2022-08-30 09:00 | NUR ---
Spoke with pt and updated. She is not sure if family are in the area. She would prefer [facility] transport. We will schedule. She asks I call her son and update. NOtified by SPENSER pt can admit between 2-4. Anuja called and scheduled [facility], the available time is 1 pm and I updated SPENSER. He will let staff know.
[2022-08-30 09:10] VITALS: BP 124/57
--- NOTE | 2022-08-30 10:04 | NUR ---
VAN AVAILABLE FOR TRANSPORTATION AT 1300 TO TRANSPORT PATIENT TO [facility]. TRANSPORTATION SCHEDULED.
--- NOTE | 2022-08-30 11:00 | NUR ---
Called and updated Kerry Tapia will dc today at 1pm. I asked if family could take 3 days of clothing and personal items to [facility] for pt. He states his sister is in town and would be able to do this.
--- NOTE | 2022-08-30 11:33 | NUR ---
Called and scheduled a fu appt with Dr. Zambrano office as he requested for September 06 at 2:50 pm. This was added to the SNF orders.
--- NOTE | 2022-08-30 11:50 | NUR ---
Assisted Pt SBA FWW from bed to bathroom and back. Pt's daughter is in room. Call light left in reach. No other needs expressed by Pt.
--- NOTE | 2022-08-30 13:05 | NUR ---
RIGHT IJ REMOVED PER ORDER. PT INSTRUCTED ANBD REASSURED THROUGH REMOVAL, TOLERATED WELL. PRESSURE HELD TO SITE FOR 5 MINUTES, OCCLUSIVE DRESSING APPLIED. PT REAMINS IN FLAT LYING POSITION. EDUCATED ON REMAINING LYING, LEAVING DRESING IN PLACE. PT AND FMAILY VERBALIZED UNDERSTANDING WITH NO FURTHER QUESTIONS.
--- NOTE | 2022-08-30 13:10 | NUR ---
PT INDICATED HAD TOLD HER SHE WOULD BE DISCHRGED TODAY. PT HAD SOME CONCERNS ABOUT LOGISTICS AND WAS NOT CERTAIN HER CHILDREN WERE READY. REQUESTED PRAYERS FOR SMOOTH DAY. PRAYED. GAVE PRAYER SHAWL.
[2022-08-30 13:41] VITALS: BP 139/70
--- NOTE | 2022-08-30 14:20 | NUR ---
CALLED MANDI, GAVE REPORT TO NORIS. ALL QUESTIONS ANSWERED AT THIS TIME.
--- NOTE | 2022-08-31 08:08 | DS ---
[facility] [address], [place] [address] Signed ADMISSION DATE: 08/20/2022 DISCHARGE DATE: 08/30/2022 FINAL DIAGNOSES: 1. Small bowel obstruction with adhesions and internal hernia. 2. Acute on chronic malnutrition. PROCEDURES: 1. Laparotomy with moderate lysis of adhesions. 2. Placement of right internal jugular triple-lumen catheter. 3. Physician-directed ultrasound. 4. CT scan of abdomen and pelvis. HISTORY OF PRESENT ILLNESS: Ms. 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 She also had a very large tubulovillous adenomatous polyp requiring a left colectomy with takedown of splenic flexure. She had been doing quite well until she developed signs and symptoms of a bowel obstruction. We had her in the hospital and she did well over few days with NG tube decompression. Her small-bowel follow-through actually was quite unremarkable. She went home after having a clear liquid diet. However, when she ate solid food, she ended up with her persistent small bowel obstruction. She was therefore readmitted to the hospital and again there was evidence of some swirling in the mesentery. I had explained this to Kerry and her family that she most likely has adhesions and an internal hernia. HOSPITAL COURSE: Kerry was admitted as above and it took a few days to get her rehydrated and get her electrolytes corrected. After multiple discussions with Kerry and her family, I took her to the surgery on August 22, 2022. Indeed, she required moderate lysis of adhesions for multiple interloop adhesions as well as an internal hernia swirling. We also placed a right internal jugular triple-lumen catheter with physician directed ultrasound for her TPN and blood draws. We had to milk the small bowel back into the stomach to suction out the fluid. In most situation, it is quite common the patient stay 7 to 10 days. She is now postoperative day 8. She has been on an unexpected postoperative course. She is now tolerating soft diet. She has had several good bowel movements over couple of days. Her energy levels have returned. She is ambulating in the hallways without the need for physical therapy. Her abdomen now is soft, flat, and nontender. The incision is healing well. There are no local signs or symptoms of infection. We have been working with her family and our discharge planners with respect to an extended care facility versus assisted living. At this point, she has reached discharge status. Electronically Signed By: OPAL IZAGUIRRE MD 08/31/22 0808 PATIENT NAME: KERRY ADAMS DISCHARGE SUMMARY DATE OF : 35 REPORT #: [id number] PHYSICIAN: OPAL IZAGUIRRE MD PCP: KATHI LOPEZ MD REPORT IS CONFIDENTIAL AND NOT TO BE RELEASED WITHOUT AUTHORIZATION [address] [address] Signed DISCHARGE PLANS AND MEDICATIONS: Kerry is going to be discharged without any new prescriptions. We did replace a significant amount of her magnesium on a daily basis while here in the hospital. We finally got it up into the normal range. She will need to follow up with her primary care provider in a week or two for repeat blood work and in particular to check her magnesium. She really takes no prescription medications. She is more than welcome to resume her vitamins as usual including vitamin C, iron, turmeric, probiotic, and Ocuvite. She is going to perform her activities of daily living including walking up and down stairs and showering, bathing as usual. She should not do any heavy pushing, pulling, or lifting over about 20 pounds. We will leave every other staple and I will remove those in my office in about 5 to 7 days. She will follow a regular diet as usual. She is welcome to shower and bathe as usual. We will see her as above. She has expressed understanding and agrees with the above plan. Opal Izaguirre MD ALB/MODL /[id number] cc: MD Opal Green MD Robert C Quackenbush, MD Copies: KATHI LOPEZ DMD, ANDREW L MD QUACKENBUSH, ROBERT C MD ~ Electronically Signed By: OPAL IZAGUIRRE MD 08/31/22 0808 PATIENT NAME: KERRY ADAMS DISCHARGE SUMMARY DATE OF : 35 REPORT #: [id number] PHYSICIAN: OPAL IZAGUIRRE MD PCP: KATHI LOPEZ MD REPORT IS CONFIDENTIAL AND NOT TO BE RELEASED WITHOUT AUTHORIZATION
--- NOTE | 2022-08-31 11:17 | CONS ---
[facility] [address], [place] [address] Signed DATE OF CONSULTATION: 08/19/2022 CHIEF COMPLAINT: Nausea and vomiting. HISTORY OF PRESENT ILLNESS: Kerry is an 87-year-old female, I had met back in April of 2021. She required a right colectomy for a large cecal adenocarcinoma at that time. One lymph node was positive. We performed an isoperistaltic [id number] anastomosis hand-sewn in 2 layers. She also underwent a left colectomy with takedown of splenic flexure for a very large tubulovillous adenomatous polyp. She has a side-to-end French colocolonic anastomosis hand-sewn in 2 layers. She did amazingly well through that surgery. She met with her medical oncologist. She declined chemotherapy and routine followup. She actually was doing fairly well. She came to us just a couple of days ago with what looks like a bowel obstruction in the right lower quadrant of the abdomen. There seems to be some swirling to the mesentery. She always reminds me as she did last year that she is a DNI/DNR without any heroic measures. She always brings her bible with her and she told me she is not for long on this earth. We admitted her few days ago and she did well with NG tube decompression. She is starting to have some gas and her abdominal distention resolved. She did very well in the small bowel follow-through without any dilated loops of small bowel. She did well with the liquid diet. She went home and ate some routine food with her family and developed diffuse crampy abdominal pain and was pacing around the house. The family finally brought her back to the emergency room for evaluation. Her white count is normal, but not unexpectedly. The CT scan shows small bowel loops of colon from 2.9 up to 3.4 cm. There seems to be some transition point, maybe 2 transition points in the right lower quadrant again with some swirling to the mesentery. Of course, she has a chronic T12 compression fracture. An NG tube was placed last night. She is readmitted to my service. Again, she has done well overnight. She is always very pleasant, very cooperative. Two of her children are with her today. I have already met 2 of her other children. Apparently, there are 6 in total. The NG tube has bilious gastric fluid. Her abdomen is still mildly protuberant, but soft and nontender. Once again, she is very resistant to have surgery. In the end, she wants to discuss this in more detail with her family. 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 PAST SURGICAL HISTORY: Includes a hysterectomy, tonsillectomy, a wrist fracture repair, and the right colectomy Electronically Signed By: OPAL IZAGUIRRE MD 08/20/22 0613 Electronically Signed By: OPAL IZAGUIRRE MD 08/31/22 1258 PATIENT NAME: KERRY ADAMS CONSULTATION DATE OF : 35 REPORT #: [id number] PHYSICIAN: OPAL IZAGUIRRE MD PCP: KATHI LOPEZ MD REPORT IS CONFIDENTIAL AND NOT TO BE RELEASED WITHOUT AUTHORIZATION [address] [address] Signed and left colectomy in April 2021. The right colectomy has isoperistaltic [id number] ileocolonic anastomosis hand-sewn in 2 layers. The left colectomy has a French side-to-end colocolonic anastomosis hand-sewn in 2 layers and of course, we closed the mesentery for both the right and left colectomies. SOCIAL HISTORY: She does not smoke or drink. She is currently living in her house, but the family is looking to move her to [facility] for supervised care. She no longer drives. She always maintains herself is a DNR DNI with no heroic measures. She brought the POLST form and it is on her previous chart. She prefers the [facility]. Dr. Kathi Lopez is her primary care provider. Dr. Kathi Calderón had seen her as our medical oncologist. Her friend, Marlon Roman is one of our local pastors and his phone number was [phone]. She has 5 children in total. Her daughter, Sarah lives in [place], [place] at [phone]. Her son Damien is her power of environmental attorney and he lives in [place], [place] at [phone]. FAMILY HISTORY: None. REVIEW OF SYSTEMS: She had 10 systems reviewed and really she has done well since last year, although her overall functional status has declined to the point she really needs some supervised care. She said she cannot gain weight despite what she eats. ALLERGIES: Lisinopril, Demerol. MEDICATIONS: Vitamin C, iron, turmeric, probiotic, Memorall capsule and Ocuvite. PHYSICAL EXAMINATION: VITAL SIGNS: Her blood pressure is 156/73, heart rate 71, respiratory rate 16, temperature is 98.2. She is 95% on room air. She is 5 feet 3 inches at 55 kg with a body mass index of 21. GENERAL: Kerry is an 87-year-old female, who is lying supine semi-recumbent in her hospital bed. Her son and daughter are at the bedside. She is always pleasant. She is alert, awake, and interactive. She is elderly, thin and frail. She has very thin skin. Her functional status has decreased somewhere below moderate. LUNGS: Clear to auscultation bilaterally. The NG tube is in place with bilious gastric fluid. HEART: Regular rate and rhythm without murmurs. ABDOMEN: Soft with minimal distention, but nontender, without any peritoneal signs or symptoms. There is no tympany. Electronically Signed By: OPAL IZAGUIRRE MD 08/20/22 0613 Electronically Signed By: OPAL IZAGUIRRE MD 08/31/22 1258 PATIENT NAME: KERRY ADAMS CONSULTATION DATE OF : 35 REPORT #: [id number] PHYSICIAN: OPAL IZAGUIRRE MD PCP: KATHI LOPEZ MD REPORT IS CONFIDENTIAL AND NOT TO BE RELEASED WITHOUT AUTHORIZATION [facility] [address], [place] [address] Signed LABORATORY DATA: Her white blood count 6.6, hemoglobin 14, neutrophils 65. Electrolytes unremarkable. BUN 15, creatinine 0.95. Urinalysis is negative. Liver function tests are negative. Albumin 3.7. Lipase 65. RADIOGRAPHIC STUDIES: CT scan of abdomen and pelvis had been repeated and her small bowel loops are now about 3.4 cm in diameter up from 2.9 cm. There appears to be a couple of transition points in the right lower quadrant with some swirling to the small bowel mesentery. She has a chronic T12 compression fracture. ASSESSMENT/PLAN: Kerry is an 87-year-old female who presents with what appears to be a persistent partial small bowel obstruction. She seems to have done well with fluids, but not with solid foods. She has been readmitted, an NG tube placed along with some IV fluids. Overall, she is now more comfortable. She is still a little distended. I reviewed all this in great detail with Kerry and her 2 children. She continues to tell me that she is a DNR DNI without heroic measures. She has been very resistant to surgery. Nevertheless, she understands that with the swirling of the small bowel mesentery, these patients often end up in surgery. Even then, she has been resistant and wants to wait and talk to the rest of her children. She has a high likelihood that she will do well with surgery, but of course she is at increased risk given her advanced age and her overall decreased functional status and frail nature. Again we cannot guarantee outcomes and in particular at least 20% of patients will have repeat adhesions the same or worsen before surgery. Given that, she wants to follow along on a conservative basis and talk with her children and she will let us know. We will be checking in with her each day. MD MINA Kendall/MILLYL /[id number] cc: MD Kathi Kendall MD Electronically Signed By: OPAL IZAGUIRRE MD 08/20/22 0613 Electronically Signed By: OPAL IZAGUIRRE MD 08/31/22 1258 PATIENT NAME: KERRY ADAMS CONSULTATION DATE OF : 35 REPORT #: [id number] PHYSICIAN: OPAL IZAGUIRRE MD PCP: KATHI LOPEZ MD REPORT IS CONFIDENTIAL AND NOT TO BE RELEASED WITHOUT AUTHORIZATION [facility] [address] [facility] [place], [place] [address] Signed Copies: OPAL IZAGUIRRE MD, ROBERT C MD ~ Electronically Signed By: OPAL IZAGUIRRE MD 08/20/22 0613 Electronically Signed By: OPAL IZAGUIRRE MD 08/31/22 1258 PATIENT NAME: KERRY ADAMS CONSULTATION DATE OF : 35 REPORT #: [id number] PHYSICIAN: OPAL IZAGUIRRE MD PCP: KATHI LOPEZ MD REPORT IS CONFIDENTIAL AND NOT TO BE RELEASED WITHOUT AUTHORIZATION
== END 2022-08-30 14:14 | disposition home or self-care (01) | DRG 336 ==
LOC: ED 23:38 → CCU 23:41 → MS 08-19 15:33 → CCU 08-20 07:51 → MS 08-20 07:52 → CCU 08-22 13:34 → MS 08-23 10:32
PROVIDERS: ADMIT Colon & Rectal Surgery; ATTEND Colon & Rectal Surgery
PROC: 3E0G76Z Introduction of Nutritional Substance into Upper GI, Via Natural or Artificial Opening (ICD-10-PCS; 2022-08-22)
PROC: 02HV33Z Insertion of Infusion Device into Superior Vena Cava, Percutaneous Approach (ICD-10-PCS; 2022-08-22)
PROC: B548ZZA Ultrasonography of Superior Vena Cava, Guidance (ICD-10-PCS; 2022-08-22)
PROC: 0D9670Z Drainage of Stomach with Drainage Device, Via Natural or Artificial Opening (ICD-10-PCS; principal; 2022-08-22 09:45)
PROC: 0DNU0ZZ Release Omentum, Open Approach (ICD-10-PCS; 2022-08-22 09:45)
DX: K56.51 Intestinal adhesions [bands], with partial obstruction (principal); C18.0 Malignant neoplasm of cecum; E44.1 Mild protein-calorie malnutrition; K46.0 Unspecified abdominal hernia with obstruction, without gangrene; I10 Essential (primary) hypertension; E83.39 Other disorders of phosphorus metabolism; Z66 Do not resuscitate; F03.90 Unspecified dementia, unspecified severity, without behavioral disturbance, psychotic disturbance, mood disturbance, and anxiety; E87.6 Hypokalemia; E86.0 Dehydration; M19.90 Unspecified osteoarthritis, unspecified site; E83.42 Hypomagnesemia; Z68.21 Body mass index [BMI] 21.0-21.9, adult; Z85.038 Personal history of other malignant neoplasm of large intestine; Z91.81 History of falling; Z90.710 Acquired absence of both cervix and uterus; Z98.890 Other specified postprocedural states; Z88.8 Allergy status to other drugs, medicaments and biological substances
CPT/HCPCS: 00840; 36415; 71045; 74177; 80048; 80053; 80061; 81003; 83690; 83735; 84100; 84134; 85025; 85610; 85730; 93005; 93010; 96361; 96365; 96372; 96375; 96376; 97116; 97162; 99285 25; A9270; C1751; C9113; G0378; J0330; J0696; J0780; J1100; J1160; J1170; J1650; J1720; J1815; J1885; J2250; J2270; J2405; J2704; J2765; J3010; J3430; J3475; J3480; J3490; J7040; J7060; J7121